=== PATIENT | male | born 1940 | race Caucasian/White ===

== ENCOUNTER 2018-04-13 16:15 | Inpatient (IN) ==
--- NOTE | 2018-04-13 16:39 | ED ---
HPI General Chief Complaint: Neuro Symptoms/Deficit Stated Complaint: Family states sent by /phil stroke Time Seen by Provider: 04/13/18 16:28 Source: patient Mode of arrival: wheelchair Limitations: other (poor historian) History of Present Illness HPI Narrative: 77-year-old male presents from triage after referral from a physician for concern of stroke. Patient states his symptoms been going on for a couple days but when his niece walks in the room she states he gets confused and is only been since 10:30 this morning. She states his right arm Falling and he had a droopy face and slurred speech. She states he has had [place]'s palsy before but not like this. He is not on any blood thinner medications. Patient denies other complaints but is a poor historian. Niece brought him a wheelchair today to get around but he normally ambulates on his own. Related Data Home Medications Medication Instructions Recorded Confirmed aspirin 81 mg PO DAILY 04/13/18 04/13/18 glyburide mg PO BID 04/13/18 metformin mg PO BID 04/13/18 Allergies Allergy/AdvReac Type Severity Reaction Status Date / Time No Known Allergies Allergy Verified 04/13/18 18:34 Review of Systems ROS Unobtainable ROS Unobtainable: other (poor historian) [facility] Medical History Medical History Diabetes (Acute) Hypertension (Acute) Social History Social History Substance History: No History of Abuse Second Hand Smoke Exposure: No Smoking Status: Former smoker How Often Do You Have a Drink Containing Alcohol: Never Recent Travel in [facility] within the Last 8 Weeks: No Recent Out of Country Travel within the Last 8 Weeks: No Exam Narrative Exam Narrative: GENERAL: 77 y/o male in no apparent distress SKIN: Focused skin assessment warm/dry. HEAD: Atraumatic. Normocephalic. EYES: Pupils equal and round. No scleral icterus. No injection or drainage. ENT: No nasal bleeding or discharge. Mucous membranes pink and moist. NECK: Trachea midline. No JVD. CARDIOVASCULAR: Regular rate and rhythm. RESPIRATORY: No accessory muscle use. Clear to auscultation. Breath sounds equal bilaterally. GASTROINTESTINAL: Abdomen soft, non-tender, nondistended. MUSCULOSKELETAL: No obvious deformities. No clubbing. No cyanosis. NEUROLOGICAL: Awake. Slurred speech, left-sided facial droop, 4 out of 5 weakness to right leg Course Initial Documented Vital Signs Pulse Rate 63 04/13/18 16:31 Respiratory Rate 20 04/13/18 16:31 Blood Pressure 177/79 H 04/13/18 16:31 Pulse Oximetry 96 04/13/18 16:31 Last Documented Vital Signs Pulse Rate 54 L 04/13/18 20:21 Respiratory Rate 18 04/13/18 20:21 Blood Pressure 159/87 H 04/13/18 20:21 Pulse Oximetry 96 04/13/18 18:32 Sign Out Sign Out Data: Patient Sign Out occurred on 04/13/18 at 19:09. Patient's care was discussed, and care was transferred from Janee Pedraza MD to Danielle Miramontes MD. Sign Out Comment: follow ct and admit Last updated by Janee Pedraza MD at 04/13/18 18:22 Post-Handoff Eval: The patient's case was checked out to me by Dr. Pedraza. Please see her complete history and physical. The patient's case was checked out to me at the conclusion of her shift. The patient had presented with new neurologic symptoms that reportedly began at approximately 10:30 PM today. During the course of the patient's emergency department visit, the patient's history, examination, and differential diagnosis were reviewed with the patient. The patient was placed on a registered nurse cardiac with oximetry and frequent blood pressure monitoring. The patient had IV access obtained and blood work sent for analysis. The patient was initially provided [-]. The patient's case including history, pertinent physical examination findings, and laboratory studies were discussed with []. It was agreed that the patient would be admitted to the [] hospitalist service. The patient's results were discussed with the patient, including the plan of care. I explained that further testing and/ or monitoring is indicated based on the patient's history, examination, and/ or laboratory findings. Therefore, I recommended admission for additional evaluation. The patient expressed understanding and was agreeable with this plan. The patient was admitted to the hospital in [-] condition and sent to a bed under the care of [-]. NIH Stroke Scale NIH Stroke Scale Level of Consciousness: 0-Alert Orientation Questions: 0-Answers both correct Responds to Commands: 0-Both tasks correct Gaze Eye Movement: 0-Horizontal movement WNL Visual Orantes: 0-No visual field defect Facial Movement: 1-Minor facial palsy Motor Functions Arm LEFT: 0-No drift Motor Functions Arm RIGHT: 0-No drift Motor Functions Leg LEFT: 0-No drift Motor Functions Leg RIGHT: 1-Drift before 5 seconds Limb Ataxia: 0-No ataxia Sensory Loss: 0-No sensory loss Best Language: 1-Mild aphasia Articulation: 1-Mild dysarthia Extinction or Inattention Sensory: 0-Absent Total: 4 Medical Decision Making MDM Narrative Medical decision making narrative: Patient with signs concerning for stroke. Will check workup and he will need admission for further care Medical Screen Exam Complete: Yes Emergency Medical Condition: Yes Differential Diagnosis Differential Diagnosis: Stroke, mass, bleed, TIA Lab Data Result diagrams: 04/13/18 16:30 04/13/18 16:30 Lab Results 04/13/18 04/13/18 04/13/18 Range/Units 16:30 16:30 16:30 WBC 7.7 (4.0-11.0) th/mm3 RBC 4.02 L (4.50-5.90) mil/mm3 Hgb 14.0 (13.0-17.0) gm/dL Hct 40.5 (39.0-51.0) % MCV 100.7 H (80.0-100.0) fL MCH 34.8 H (27.0-34.0) pg MCHC 34.5 (32.0-36.0) % RDW 13.1 (11.6-17.2) % Plt Count 212 (150-450) th/mm3 MPV 8.6 (7.0-11.0) fL Neut % (Auto) 79.6 H (16.0-70.0) % Lymph % (Auto) 12.0 (9.0-44.0) % Hawkins % (Auto) 6.1 (0.0-8.0) % Eos % (Auto) 1.6 (0.0-4.0) % Baso % (Auto) 0.7 (0.0-2.0) % Neut # (Auto) 6.2 (1.8-7.7) th/mm3 Lymph # (Auto) 0.9 L (1.0-4.8) th/mm3 Hawkins # (Auto) 0.5 (0.0-0.9) th/mm3 Eos # (Auto) 0.1 (0.0-0.4) th/mm3 Baso # (Auto) 0.1 (0.0-0.2) th/mm3 WBC Differential . Differential Comment Auto diff final PT 10.4 (9.8-11.6) sec INR 1.0 Ratio APTT 24.0 L (24.3-30.1) sec Sodium 135 L (136-145) meq/L Potassium 3.9 (3.5-5.1) meq/L Chloride 99 (98-107) meq/L Carbon Dioxide 25.9 (21.0-32.0) meq/L Anion Gap 10 (5-15) meq/L BUN 30 H (7-18) mg/dL Creatinine 1.83 H (0.60-1.30) mg/dL Estimated GFR 36 L (>89) mL/min Random Glucose 318 H (74-106) mg/dL Calcium 9.5 (8.5-10.1) mg/dL Total Bilirubin 0.6 (0.2-1.0) mg/dL AST 26 (15-37) U/L ALT 52 (12-78) U/L Alkaline Phosphatase 92 (45-117) U/L Total Creatine Kinase 46 (39-308) U/L Troponin I Less than 0.02 L (0.02-0.05) ng/mL Total Protein 7.9 (6.4-8.2) g/dL Albumin 3.6 (3.4-5.0) g/dL Imaging Data Radiologist's impression: Chest X-Ray 04/13/18 16:31 CONCLUSION: Negative examination. Head CT 04/13/18 16:31 CONCLUSION: 1. No acute intracranial abnormalities. . Discharge Plan Discharge Disposition Patient Disposition: 30 Still Patient Discharge Details Diagnosis: Acute ischemic stroke Physicians Team ED Provider: Danielle Miramontes Primary Care Provider: Travis Lancaster Attending Provider: Radha Wolf Discharge Interventions Interventions: Vital Signs Last Done: 04/13/18 20:21 Status ED Status: Admitted Patient
[2018-04-13 16:59] LABS: Baso # (Auto) 0.1 th/mm3 (0.0-0.2); Baso % (Auto) 0.7 % (0.0-2.0); Eos # (Auto) 0.1 th/mm3 (0.0-0.4); Eos % (Auto) 1.6 % (0.0-4.0); Hematocrit 40.5 % (39.0-51.0); Lymph # (Auto) 0.9 th/mm3 (1.0-4.8); Mean Corpuscular HGB Conc 34.5 % (32.0-36.0); Mean Corpuscular Hemoglobin 34.8 pg (27.0-34.0); Mean Corpuscular Volume 100.7 fL (80.0-100.0); Mean Platelet Volume 8.6 fL (7.0-11.0); Mono # (Auto) 0.5 th/mm3 (0.0-0.9); Mono % (Auto) 6.1 % (0.0-8.0); Neut # (Auto) 6.2 th/mm3 (1.8-7.7); Neut % (Auto) 79.6 % (16.0-70.0); Platelet Count 212 th/mm3 (150-450); Red Blood Count 4.02 mil/mm3 (4.50-5.90); Red Cell Distribution Width 13.1 % (11.6-17.2); White Blood Count 7.7 th/mm3 (4.0-11.0)
--- NOTE | 2018-04-13 17:01 | XR ---
EXAM DATE: 04/13/2018 4:31 PM EDT AGE/SEX: 77 years / Male INDICATIONS: Palpitations. Possible stroke. CLINICAL DATA: This is the patient's initial encounter. Patient reports that signs and symptoms have been present for 1 day and indicates a pain score of 0/10. MEDICAL/SURGICAL HISTORY: . No pertinent history. . No pertinent history. COMPARISON: No prior exams available for comparison. FINDINGS: A single AP view of the chest demonstrates the lungs to be symmetrically aerated without evidence of mass, infiltrate or effusion. The cardiomediastinal contours are unremarkable. Osseous structures a re intact. CONCLUSION: Negative examination. Electronically signed by: Ray Roberts MD 04/13/2018 4:59 PM EDT
[2018-04-13 17:08] LABS: Prothrombin Time 10.4 sec (9.8-11.6)
[2018-04-13 17:14] LABS: Albumin 3.6 g/dL (3.4-5.0); Anion Gap 10 meq/L (5-15); Aspartate Aminotransferase 26 U/L (15-37); Blood Urea Nitrogen 30 mg/dL (7-18); Calcium 9.5 mg/dL (8.5-10.1); Carbon Dioxide 25.9 meq/L (21.0-32.0); Chloride 99 meq/L (98-107); Glomerular Filtration Rate 36 mL/min (>89); Glucose,Random 318 mg/dL (74-106); Potassium 3.9 meq/L (3.5-5.1); Sodium 135 meq/L (136-145)
[2018-04-13 17:23] LABS: Alanine Aminotransferase 52 U/L (12-78); Alkaline Phosphatase 92 U/L (45-117); Total Protein 7.9 g/dL (6.4-8.2)
[2018-04-13 17:32] LABS: Creatine Kinase 46 U/L (39-308)
--- NOTE | 2018-04-13 19:13 | CT ---
EXAM DATE: 04/13/2018 4:58 PM EDT AGE/SEX: 77 years / Male INDICATIONS: Right sided facial droop. CLINICAL DATA: This is the patient's initial encounter. Patient reports that signs and symptoms have been present for 1 day and indicates a pain score of 0/10. MEDICAL/SURGICAL HISTORY: Diabetes. Hypertension. None. RADIATION DOSE: 45.54 CTDI (mGy) COMPARISON: No prior exams available for comparison. TECHNIQUE: CT of the head without contrast. Using automated exposure control and adjustment of the mA and/or kV according to patient size, radiation dose was kept as low as reasonably achievable to ob tain optimal diagnostic quality images. DICOM format image data is available electronically for revi ew and comparison. FINDINGS: Cerebrum: The ventricles are normal for age. No evidence of midline shift, mass lesion, hemorrhage or acute infarction. No extraaxial fluid collections are seen. Posterior Fossa: The cerebellum and brainstem are intact. The 4th ventricle is midline. The cerebe llopontine angle is unremarkable. Extracranial: The visualized portion of the orbits is intact. Skull: The calvaria is intact. No evidence of skull fracture. CONCLUSION: 1. No acute intracranial abnormalities. . Electronically signed by: Ian Diez MD 04/13/2018 7:11 PM EDT
[2018-04-13] MEDS ORDERED: Aspirin 325 MG Tablet PO ONE (19:29)
[2018-04-13] MEDS: Sod Chloride 0.9% Inj 1,000 ML IV.CONT SCH (21:10)
[2018-04-13] MEDS ORDERED: Dextrose 50% in Water 50 ML Vial IV.PUSH PRN (21:16)
--- NOTE | 2018-04-13 21:27 | P.HP ---
History of Present Illness Service: [facility] Primary Care Physician: Travis Lancaster DO History of Present Illness: 77-year-old male with a past medical history significant for diabetes mellitus presents to the emergency department for the evaluation of altered mental status , right upper extremity weakness, slurred speech and confusion. The patient denies having any of these symptoms however he was brought to the hospital by his niece who went to check on him this morning and noticed that he was unsteady on his feet. She reports he began having slurred speech around 10:30 AM. She believes this was secondary to his blood sugar and had him eat. His symptoms did not resolve. She noticed that his right upper extremity had significant weakness and he was not using it. She also reports a right-sided facial droop and drooling. His symptoms have since resolved. He denies any headaches. No chest pain or shortness of breath. No abdominal pain. No nausea /vomiting/diarrhea. Review of Systems All other systems reviewed negative except as stated in HPI [facility] - History History Provided By: Patient - Medical History Medical History: Medical History (Last Reviewed 04/13/18 @ 21:22 by Radha Wolf MD) Diabetes Hypertension - Surgical History Surgical History: Surgical History (Last Updated 04/13/18 @ 21:22 by Radha Wolf MD) No history of previous surgery - Family History Family History: Family History (Last Updated 04/13/18 @ 21:22 by Radha Wolf MD) Other Diabetes mellitus - Tobacco History Second Hand Smoke Exposure: No Smoking Status: Former smoker - Alcohol History How Often Do You Have a Drink Containing Alcohol: Never - Substance Use History Substance History: No History of Abuse - Travel History Recent Travel in the [place] Within the Last 8 Weeks: No Recent Travel Out of the Country Within the Last 8 Weeks: No - Immunization History Tetanus Immunization: Unsure Medications and Allergies Active Medications: Active Medications Aspirin (Aspirin) 325 mg PO DAILY [facility] Dextrose (D50w Vial) 50 ml IV.PUSH UNSCH PRN PRN Reason: PER HYPOGLYCEMIA PROTOCOL Glucagon (Glucagon Inj) 1 mg OTHER PRN PRN PRN Reason: for Hypoglycemia Protocol Sodium Chloride (Ns Inj) 1,000 mls @ 70 mls/hr IV.CONT .[id number] DEBORA Last Admin: 04/13/18 21:10 Dose: 70 mls/hr Insulin Aspart (Novolog Insulin Correctional Sugar Inj) 0 unit SQ ACHS AND 3AM DEBORA; Protocol Sodium Chloride (Ns Flush) 2 ml IV.FLUSH PRN PRN PRN Reason: FLUSH AFTER USING IV ACCESS Allergies Allergy/AdvReac Type Severity Reaction Status Date / Time No Known Allergies Allergy Verified 04/13/18 18:34 Home Medications Medication Instructions Recorded Confirmed Type aspirin 81 mg PO DAILY 04/13/18 04/13/18 History glyburide mg PO BID 04/13/18 History metformin mg PO BID 04/13/18 History Exam Vital signs: Vital Signs 04/13/18 16:31 04/13/18 18:32 04/13/18 20:21 Pulse Rate 63 56 L 54 L Respiratory Rate 20 20 18 Blood Pressure 177/79 H 199/98 H 159/87 H Pulse Oximetry 96 96 04/13/18 21:00 Pulse Rate 60 Respiratory Rate 18 Blood Pressure 184/80 H Pulse Oximetry Intake & Output 04/13/18 04/13/18 04/14/18 06:59 18:59 06:59 Weight 85.275 kg Narrative: Gen.: No acute distress Head: Normocephalic. Atraumatic. EENT: Pupils equal round and reactive to light. Nose without drainage. Airway intact. Throat without injection. Cardiovascular: Regular rate and rhythm. No murmurs, rubs or gallops. Respiratory: Lungs clear to auscultation bilaterally. No wheezes or rhonchi. Abdomen: Soft, nontender, nondistended. No peritoneal signs. Musculoskeletal: No gross deformities. No edema. Skin: No obvious rashes or erythema. Neuro: Cranial nerves II through XII intact. Strength 5/5 throughout. A&O x3. No slurred speech. Slow to respond to questions. Results - Labs CBC & Chem 7: 04/13/18 16:30 04/13/18 16:30 Labs: Laboratory Results - last 24 hr 04/13/18 04/13/18 04/13/18 16:30 16:30 16:30 WBC 7.7 RBC 4.02 L Hgb 14.0 Hct 40.5 MCV 100.7 H MCH 34.8 H MCHC 34.5 RDW 13.1 Plt Count 212 MPV 8.6 Neut % (Auto) 79.6 H Lymph % (Auto) 12.0 Mcculloch % (Auto) 6.1 Eos % (Auto) 1.6 Baso % (Auto) 0.7 Neut # (Auto) 6.2 Lymph # (Auto) 0.9 L Mcculloch # (Auto) 0.5 Eos # (Auto) 0.1 Baso # (Auto) 0.1 WBC Differential . Differential Comment Auto diff final PT 10.4 INR 1.0 APTT 24.0 L Sodium 135 L Potassium 3.9 Chloride 99 Carbon Dioxide 25.9 Anion Gap 10 BUN 30 H Creatinine 1.83 H Estimated GFR 36 L Random Glucose 318 H Calcium 9.5 Total Bilirubin 0.6 AST 26 ALT 52 Alkaline Phosphatase 92 Total Creatine Kinase 46 Troponin I Less than 0.02 L Total Protein 7.9 Albumin 3.6 - Imaging Impressions Chest X-Ray 04/13/18 16:31 CONCLUSION: Negative examination. Head CT 04/13/18 16:31 CONCLUSION: 1. No acute intracranial abnormalities. . Caprini VTE Risk Assessment Caprini VTE Risk Assessment: Moderate/High Risk (score >= 2) Caprini Risk Assessment Model: Point Value = 1 Point Value = 2 Point Value = 3 Point Value = 5 Age 41-60 Minor surgery BMI > 25 kg/m2 Swollen legs Varicose veins or History of unexplained or recurrent spontaneous Oral contraceptives or hormone replacement Sepsis (< 1 month) Serious lung disease, including pneumonia (< 1 month) Abnormal pulmonary function Acute myocardial infarction Congestive heart failure (< 1 month) History of inflammatory bowel disease Medical patient at bed rest Age 61-74 Arthroscopic surgery Major open surgery (> 45 min) Laparoscopic surgery (> 45 min) Malignancy Confined to bed (> 72 hours) Immobilizing plaster cast Central venous access Age >= 75 History of VTE Family history of VTE Factor V Leiden Prothrombin [id number] Lupus anticoagulant Anticardiolipin antibodies Elevated serum homocysteine Heparin-induced thrombocytopenia Other congenital or acquired thrombophilia Stroke (< 1 month) Elective arthroplasty Hip, pelvis, or leg fracture Acute spinal cord injury (< 1 month) Prophylaxis Regimen: Total Risk Factor Score Risk Level Prophylaxis Regimen 0-1 Low Early ambulation 2 Moderate Order ONE of the following: *Sequential Compression Device (SCD) *Heparin 5000 units SQ BID 3-4 Higher Order ONE of the following medications: *Heparin 5000 units SQ TID *Enoxaparin/Lovenox 40 mg SQ daily (WT < 150 kg, CrCl > 30 mL/min) *Enoxaparin/Lovenox 30 mg SQ daily (WT < 150 kg, CrCl > 10-29 mL/min) *Enoxaparin/Lovenox 30 mg SQ BID (WT < 150 kg, CrCl > 30 mL/min) AND/OR *Sequential Compression Device (SCD) 5 or more Highest Order ONE of the following medications: *Heparin 5000 units SQ TID (Preferred with Epidurals) *Enoxaparin/Lovenox 40 mg SQ daily (WT < 150 kg, CrCl > 30 mL/min) *Enoxaparin/Lovenox 30 mg SQ daily (WT < 150 kg, CrCl > 10-29 mL/min) *Enoxaparin/Lovenox 30 mg SQ BID (WT < 150 kg, CrCl > 30 mL/min) AND *Sequential Compression Device (SCD) Assessment and Plan - Plan Assessment/plan: 1. TIA Head CT negative for acute process Brain MRI/MRA pending, carotid ultrasound/echo pending Neurology consulted, appreciate assistance Aspirin 2. Diabetes mellitus Holding home glyburide and metformin Sliding-scale insulin Monitor blood glucose 3. AK I Creatinine 1.83, baseline unknown May be chronic component IV fluid hydration Monitor renal function FEN N.p.o. Electrolytes: Monitor and replete as needed NS at 70 cc/hour
[2018-04-13 22:32] LABS: Bilirubin,Urine Negative (Negative); Clarity,Urine Clear (Clear); Color,Urine Yellow (Yellw/Straw); Glucose,Urine (UA) 150 mg/dL (Negative); Hyaline Casts,Urine 12 /lpf (0-3); Leukocyte Esterase,Urine Negative (Negative); Mucus,Urine Few /lpf (Occasional); Nitrite,Urine Negative (Negative); Specific Gravity,Urine 1.023 (1.002-1.035); Urobilinogen,Urine 4 or Greater mg/dL (Less than 2)
--- NOTE | 2018-04-13 22:44 | MR ---
EXAM DATE: 04/13/2018 9:23 PM EDT AGE/SEX: 77 years / Male INDICATIONS: TIA. Loss of memory starting today. CLINICAL DATA: This is the patient's initial encounter. Patient reports that signs and symptoms have been present for 1 day and indicates a pain score of 2/10. MEDICAL/SURGICAL HISTORY: Hypertension. Diabetes mellitus type II. None. COMPARISON: [facility], MR BRAIN W/O CONTRAST, 04/02/2016. . TECHNIQUE: Multiplanar, multisequence examination of the brain was performed without contrast. FINDINGS: There are small infarcts the left basal ganglia measuring just over 1 cm in diameter in the left thal amus and globus pallidus. No associated hemorrhage is identified. No significant mass effect or shift . No hydrocephalus. Mild white matter ischemic changes CONCLUSION: 1. Multiple small infarcts in the left basal ganglia. Mild chronic white matter ischemic changes. Electronically signed by: Ian Diez MD 04/13/2018 10:43 PM EDT
--- NOTE | 2018-04-13 22:49 | MR ---
EXAM DATE: 04/13/2018 9:23 PM EDT AGE/SEX: 77 years / Male INDICATIONS: TIA. Loss of memory starting today. CLINICAL DATA: This is the patient's initial encounter. Patient reports that signs and symptoms have been present for 1 day and indicates a pain score of 2/10. MEDICAL/SURGICAL HISTORY: Hypertension. Diabetes mellitus type II. None. COMPARISON: No prior exams available for comparison. TECHNIQUE: 3D [id number] MRA was performed. Source images, multiplanar STS MIP, and 3D volum e MIP reconstructions were reviewed. FINDINGS: There is a mild stenosis of the posterior branch of the right MCA. No discrete aneurysm. No other sig nificant stenosis identified. The distal internal carotid arteries and basilar artery are patent. CONCLUSION: 1. Mild stenosis right posterior branch MCA. No discrete aneurysm. Electronically signed by: Ian Diez MD 04/13/2018 10:47 PM EDT
--- NOTE | 2018-04-13 22:56 | US ---
EXAM DATE: 04/13/2018 12:00 AM EDT AGE/SEX: 77 years / Male INDICATIONS: Transient ischemic attack. CLINICAL DATA: This is the patient's initial encounter. Patient reports that signs and symptoms have been present for 1 day and indicates a pain score of 0/10. MEDICAL/SURGICAL HISTORY: Hypertension. Diabetes. None. COMPARISON: [facility], US CAROTID ARTERIES, 03/18/2016. . VELOCITY PARAMETERS: ICA/CCA Ratio: Right 1.18 , Left 1.38 ICA: Right 72 cm/sec, Left 101 cm/sec CCA: Right 61 cm/sec, Left 73 cm/sec ECA: Right 192 cm/sec, Left 237 cm/sec Vertebral: Right 79 cm/sec antegrade, Left 45 cm/sec antegrade FINDINGS: Right Carotid: Mild arteriosclerotic plaque is visualized.The waveforms are within normal limits. Left Carotid: Mild arteriosclerotic plaque is visualized. The waveforms are within normal limits. Other: None. CONCLUSION: 1. Right Internal Carotid Artery: Mild to moderate visible plaque without significant stenosis. 2. Left Internal Carotid Artery: Mild to moderate visible plaque without significant stenosis. Electronically signed by: Ian Diez MD 04/13/2018 10:55 PM EDT
[2018-04-14] MEDS: Insulin NovoLOG Aspart Correctional Sugar Inj SQ SCH ×5 (04:21→22:19)
--- NOTE | 2018-04-14 08:14 | P.CONNEU ---
History of Present Illness Service: Neurology Primary Care Provider: Travis Lancaster DO Chief Complaint: Stroke History of Present Illness: 77-year-old gentleman admitted for stroke evaluation. Onset time unknown. Patient noted apparently by niece her primary care physician to be confused having some right-sided weakness. Patient states he has no children no has a sister lives in [place]. Denies any previous history of stroke unable to give the name of his medications. Denies any headache chest pain or dyspnea. denies any history A. fib. Review of Systems All other systems reviewed negative except as stated in HPI PMFSH - History History Provided By: Patient - Medical History Medical History: Medical History (Last Reviewed 04/14/18 @ 06:47 by Tyler Gardiner) Diabetes Hypertension - Surgical History Surgical History: Surgical History (Last Reviewed 04/14/18 @ 06:47 by Tyler Gardiner) No history of previous surgery - Family History Family History: Family History (Last Updated 04/13/18 @ 21:22 by Radha Wolf MD) Other Diabetes mellitus - Tobacco History Second Hand Smoke Exposure: No Smoking Status: Former smoker - Alcohol History How Often Do You Have a Drink Containing Alcohol: Never - Substance Use History Substance History: No History of Abuse - Travel History Recent Travel in the [place] Within the Last 8 Weeks: No Recent Travel Out of the Country Within the Last 8 Weeks: No - Immunization History Tetanus Immunization: Unsure Medications and Allergies Active Medications: Active Medications Aspirin (Aspirin) 325 mg PO DAILY [facility] Dextrose (D50w Vial) 50 ml IV.PUSH UNSCH PRN PRN Reason: PER HYPOGLYCEMIA PROTOCOL Glucagon (Glucagon Inj) 1 mg OTHER PRN PRN PRN Reason: for Hypoglycemia Protocol Sodium Chloride (Ns Inj) 1,000 mls @ 70 mls/hr IV.CONT .[id number] [facility] Last Admin: 04/13/18 21:10 Dose: 70 mls/hr Insulin Aspart (Novolog Insulin Correctional Sugar Inj) 0 unit SQ ACHS AND 3AM [facility]; Protocol Last Admin: 04/14/18 04:21 Dose: Not Given Sodium Chloride (Ns Flush) 2 ml IV.FLUSH PRN PRN PRN Reason: FLUSH AFTER USING IV ACCESS Allergies Allergy/AdvReac Type Severity Reaction Status Date / Time No Known Allergies Allergy Verified 04/13/18 18:34 Home Medications Medication Instructions Recorded Confirmed Type aspirin 81 mg PO DAILY 04/13/18 04/13/18 History glyburide mg PO BID 04/13/18 History metformin mg PO BID 04/13/18 History Exam Vital signs: Vital Signs 04/13/18 16:31 04/13/18 18:32 04/13/18 20:21 Temperature Pulse Rate 63 56 L 54 L Respiratory Rate 20 20 18 Blood Pressure 177/79 H 199/98 H 159/87 H Pulse Oximetry 96 96 04/13/18 21:00 04/13/18 21:10 04/14/18 00:00 Temperature 97.1 F L Pulse Rate 60 56 L 51 L Respiratory Rate 18 18 18 Blood Pressure 184/80 H 184/80 H 227/98 H Pulse Oximetry 96 04/14/18 01:10 04/14/18 04:00 Temperature 97.7 F Pulse Rate 53 L Respiratory Rate 19 Blood Pressure 182/82 H 197/88 H Pulse Oximetry 99 Intake & Output 04/13/18 04/14/18 04/14/18 18:59 06:59 18:59 Output Total 400 / 400 Balance -400 / -400 Weight 85.275 kg 81.8 kg Output: Urine 400 / 400 Other: # Voids 1 Weight On Admission 81.8 kg Narrative: GENERAL: in NAD, SKIN: Warm and dry. HEAD: Atraumatic. Normocephalic. EYES: Pupils equal and round. No scleral icterus. ENT: No nasal bleeding or discharge. Mucous membranes pink and moist. NECK: Trachea midline. No JVD. CARDIOVASCULAR: Regular rate and rhythm. RESPIRATORY: No accessory muscle use. GASTROINTESTINAL: Abdomen soft, non-tender, nondistended. MUSCULOSKELETAL: Extremities without clubbing, cyanosis, or edema. No obvious deformities. NEUROLOGICAL: Awake and alert. Oriented 1-2, no aphasia, fluent articulate, right lower facial weakness, OU 3-2mm, eomi, VFF, No drift with mild reduced right fine finger movements,, Motor grossly within normal limits. . Tone normal in all 4 limbs, Sensory normal in all 4 extremities to pin, msr 1-2+ sym , no clonus, planterflexor, gait not assessed secondary to fall risk PSYCHIATRIC: Appropriate mood and affect; insight and judgment normal. - Constitutional no acute distress - Routine HEENT Exam Head: Present: normocephalic Eye: Present: EOMI Results - Labs CBC & Chem 7: 04/13/18 16:30 04/13/18 16:30 Labs: Laboratory Results - last 24 hr 04/13/18 04/13/18 04/13/18 16:30 16:30 16:30 WBC 7.7 RBC 4.02 L Hgb 14.0 Hct 40.5 MCV 100.7 H MCH 34.8 H MCHC 34.5 RDW 13.1 Plt Count 212 MPV 8.6 Neut % (Auto) 79.6 H Lymph % (Auto) 12.0 [place] % (Auto) 6.1 Eos % (Auto) 1.6 Baso % (Auto) 0.7 Neut # (Auto) 6.2 Lymph # (Auto) 0.9 L [place] # (Auto) 0.5 Eos # (Auto) 0.1 Baso # (Auto) 0.1 WBC Differential . Differential Comment Auto diff final PT 10.4 INR 1.0 APTT 24.0 L Sodium 135 L Potassium 3.9 Chloride 99 Carbon Dioxide 25.9 Anion Gap 10 BUN 30 H Creatinine 1.83 H Estimated GFR 36 L POC Glucose Random Glucose 318 H Calcium 9.5 Total Bilirubin 0.6 AST 26 ALT 52 Alkaline Phosphatase 92 Total Creatine Kinase 46 Troponin I Less than 0.02 L Total Protein 7.9 Albumin 3.6 Urine Color Urine Clarity Urine pH Ur Specific [place] Urine Protein Urine Glucose (UA) Urine Ketones Urine Occult Blood Urine Nitrate Urine Bilirubin Urine Urobilinogen Ur Leukocyte Esterase Urine RBC Urine WBC Hyaline Casts Urine Mucus Micro UA Comment Ur Microscopic Review Urine Culture Comments 04/13/18 04/14/18 04/14/18 21:52 00:26 07:29 WBC RBC Hgb Hct MCV MCH MCHC RDW Plt Count MPV Neut % (Auto) Lymph % (Auto) [place] % (Auto) Eos % (Auto) Baso % (Auto) Neut # (Auto) Lymph # (Auto) [place] # (Auto) Eos # (Auto) Baso # (Auto) WBC Differential Differential Comment PT INR APTT Sodium Potassium Chloride Carbon Dioxide Anion Gap BUN Creatinine Estimated GFR POC Glucose 121 H 107 Random Glucose Calcium Total Bilirubin AST ALT Alkaline Phosphatase Total Creatine Kinase Troponin I Total Protein Albumin Urine Color Yellow Urine Clarity Clear Urine pH 5.0 Ur Specific [place] 1.023 Urine Protein 100 H Urine Glucose (UA) 150 H Urine Ketones Negative Urine Occult Blood Negative Urine Nitrate Negative Urine Bilirubin Negative Urine Urobilinogen 4 or greater Ur Leukocyte Esterase Negative Urine RBC 1 Urine WBC Less than 1 Hyaline Casts 12 Urine Mucus Few H Micro UA Comment Culture not ind Ur Microscopic Review Not Reportable Urine Culture Comments Culture not ind - Imaging Impressions Carotid Doppler Study 04/13/18 00:00 CONCLUSION: 1. Right Internal Carotid Artery: Mild to moderate visible plaque without significant stenosis. 2. Left Internal Carotid Artery: Mild to moderate visible plaque without significant stenosis. Head MRI 04/13/18 00:00 CONCLUSION: 1. Multiple small infarcts in the left basal ganglia. Mild chronic white matter ischemic changes. Head MRA 04/13/18 00:00 CONCLUSION: 1. Mild stenosis right posterior branch MCA. No discrete aneurysm. Chest X-Ray 04/13/18 16:31 CONCLUSION: Negative examination. Head CT 04/13/18 16:31 CONCLUSION: 1. No acute intracranial abnormalities. . Review/Management - Diagnosis (1) Acute ischemic left MCA stroke Code(s): I63.512 - Cerebral infarction due to unspecified occlusion or stenosis of left middle cerebral artery Status: Acute Current Visit: Yes (2) Hypertension Code(s): I10 - Essential (primary) hypertension Status: Acute Current Visit : Yes - Review/Management Plan: 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 Likely related to chronic small vessel disease secondary to chronic hypertension No significant vaso-occlusive disease in the carotid arteries with some mild stenosis in the right MCA which is not the culprit artery Stroke appears to have affected cognition hopefully will improve over time; monitor for development of vascular cognitive impairment Severely elevated blood pressure on arrival. Recommendations Aspirin, Plavix Blood pressure less than 200/100 Echo Lipid, TSH, B12, HbA1c Therapy Telemetry SCDs No driving may require home health care nursing visits supervision Behavioral modification and risk factor reduction. Weight loss, blood pressure control, blood sugar control, lipid control. Exercise
[2018-04-14 09:10] LABS: Baso # (Auto) 0.1 th/mm3 (0.0-0.2); Eos # (Auto) 0.3 th/mm3 (0.0-0.4); Eos % (Auto) 4.1 % (0.0-4.0); Hemoglobin 13.2 gm/dL (13.0-17.0); Lymph # (Auto) 1.4 th/mm3 (1.0-4.8); Lymph % (Auto) 19.5 % (9.0-44.0); Mean Corpuscular HGB Conc 35.6 % (32.0-36.0); Mean Corpuscular Volume 98.3 fL (80.0-100.0); Mean Platelet Volume 8.6 fL (7.0-11.0); Mono # (Auto) 0.6 th/mm3 (0.0-0.9); Mono % (Auto) 7.9 % (0.0-8.0); Neut # (Auto) 4.8 th/mm3 (1.8-7.7); Neut % (Auto) 67.5 % (16.0-70.0); Platelet Count 175 th/mm3 (150-450); Red Blood Count 3.76 mil/mm3 (4.50-5.90); Red Cell Distribution Width 12.8 % (11.6-17.2)
[2018-04-14 09:41] LABS: Calcium 9.1 mg/dL (8.5-10.1); Carbon Dioxide 27.8 meq/L (21.0-32.0)
[2018-04-14 09:44] LABS: Chol/HDL Ratio 6.06 Ratio; HDL Cholesterol 36.6 mg/dL (40.0-60.0)
[2018-04-14] MEDS: Aspirin 325 MG Tablet PO SCH (10:10)
--- NOTE | 2018-04-14 11:29 | P.PNIM ---
Subjective Interval history: The patient was resting in bed. His niece was at the bedside. His niece states that he always has some baseline confusion. The patient denied any symptoms. He was looking forward to going home soon. Discussed with nursing at the bedside. Physical Exam Vital signs: Vital Signs 04/13/18 16:31 04/13/18 18:32 04/13/18 20:21 Temperature Pulse Rate 63 56 L 54 L Respiratory Rate 20 20 18 Blood Pressure 177/79 H 199/98 H 159/87 H Pulse Oximetry 96 96 04/13/18 21:00 04/13/18 21:10 04/14/18 00:00 Temperature 97.1 F L Pulse Rate 60 56 L 51 L Respiratory Rate 18 18 18 Blood Pressure 184/80 H 184/80 H 227/98 H Pulse Oximetry 96 04/14/18 01:10 04/14/18 04:00 04/14/18 08:00 Temperature 97.7 F Pulse Rate 53 L 47 L Respiratory Rate 19 18 Blood Pressure 182/82 H 197/88 H Pulse Oximetry 99 04/14/18 08:35 Temperature Pulse Rate Respiratory Rate Blood Pressure 190/76 H Pulse Oximetry Intake & Output 04/13/18 04/14/18 04/14/18 18:59 06:59 18:59 Output Total 400 / 400 Balance -400 / -400 Weight 85.275 kg 81.8 kg Output: Urine 400 / 400 Other: # Voids 2 1 Weight On Admission 81.8 kg Narrative: GENERAL: in NAD, SKIN: Warm and dry. HEAD: Atraumatic. Normocephalic. EYES: Pupils equal and round. No scleral icterus. ENT: No nasal bleeding or discharge. Mucous membranes pink and moist. NECK: Trachea midline. No JVD. CARDIOVASCULAR: Regular rate and rhythm. RESPIRATORY: No accessory muscle use. CTAB. GASTROINTESTINAL: Abdomen soft, non-tender, nondistended. MUSCULOSKELETAL: Extremities without clubbing, cyanosis, or edema. No obvious deformities. NEUROLOGICAL: Awake and alert. Motor grossly within normal limits. digital experience manager grossly intact. Results - Labs CBC & Chem 7: 04/14/18 07:03 04/14/18 07:03 Laboratory Results - last 24 hr 04/13/18 04/13/18 04/13/18 16:30 16:30 16:30 WBC 7.7 RBC 4.02 L Hgb 14.0 Hct 40.5 MCV 100.7 H MCH 34.8 H MCHC 34.5 RDW 13.1 Plt Count 212 MPV 8.6 Neut % (Auto) 79.6 H Lymph % (Auto) 12.0 [place] % (Auto) 6.1 Eos % (Auto) 1.6 Baso % (Auto) 0.7 Neut # (Auto) 6.2 Lymph # (Auto) 0.9 L [place] # (Auto) 0.5 Eos # (Auto) 0.1 Baso # (Auto) 0.1 WBC Differential . Differential Comment Auto diff final PT 10.4 INR 1.0 APTT 24.0 L Sodium 135 L Potassium 3.9 Chloride 99 Carbon Dioxide 25.9 Anion Gap 10 BUN 30 H Creatinine 1.83 H Estimated GFR 36 L POC Glucose Random Glucose 318 H Calcium 9.5 Total Bilirubin 0.6 AST 26 ALT 52 Alkaline Phosphatase 92 Total Creatine Kinase 46 Troponin I Less than 0.02 L Total Protein 7.9 Albumin 3.6 Triglycerides Cholesterol LDL Cholesterol, Calc HDL Cholesterol Cholesterol/HDL Ratio Vitamin B12 Urine Color Urine Clarity Urine pH Ur Specific [place] Urine Protein Urine Glucose (UA) Urine Ketones Urine Occult Blood Urine Nitrate Urine Bilirubin Urine Urobilinogen Ur Leukocyte Esterase Urine RBC Urine WBC Hyaline Casts Urine Mucus Micro UA Comment Ur Microscopic Review Urine Culture Comments 04/13/18 04/14/18 04/14/18 21:52 00:26 07:03 WBC 7.0 RBC 3.76 L Hgb 13.2 Hct 37.0 L MCV 98.3 MCH 35.0 H MCHC 35.6 RDW 12.8 Plt Count 175 MPV 8.6 Neut % (Auto) 67.5 Lymph % (Auto) 19.5 [place] % (Auto) 7.9 Eos % (Auto) 4.1 H Baso % (Auto) 1.0 Neut # (Auto) 4.8 Lymph # (Auto) 1.4 [place] # (Auto) 0.6 Eos # (Auto) 0.3 Baso # (Auto) 0.1 WBC Differential . Differential Comment Auto diff final PT INR APTT Sodium Potassium Chloride Carbon Dioxide Anion Gap BUN Creatinine Estimated GFR POC Glucose 121 H Random Glucose Calcium Total Bilirubin AST ALT Alkaline Phosphatase Total Creatine Kinase Troponin I Total Protein Albumin Triglycerides Cholesterol LDL Cholesterol, Calc HDL Cholesterol Cholesterol/HDL Ratio Vitamin B12 Urine Color Yellow Urine Clarity Clear Urine pH 5.0 Ur Specific [place] 1.023 Urine Protein 100 H Urine Glucose (UA) 150 H Urine Ketones Negative Urine Occult Blood Negative Urine Nitrate Negative Urine Bilirubin Negative Urine Urobilinogen 4 or greater Ur Leukocyte Esterase Negative Urine RBC 1 Urine WBC Less than 1 Hyaline Casts 12 Urine Mucus Few H Micro UA Comment Culture not ind Ur Microscopic Review Not Reportable Urine Culture Comments Culture not ind 04/14/18 04/14/18 04/14/18 07:03 07:03 07:29 WBC RBC Hgb Hct MCV MCH MCHC RDW Plt Count MPV Neut % (Auto) Lymph % (Auto) [place] % (Auto) Eos % (Auto) Baso % (Auto) Neut # (Auto) Lymph # (Auto) [place] # (Auto) Eos # (Auto) Baso # (Auto) WBC Differential Differential Comment PT INR APTT Sodium 142 Potassium 3.0 L D Chloride 105 Carbon Dioxide 27.8 Anion Gap 9 BUN 25 H Creatinine 1.25 Estimated GFR 56 L POC Glucose 107 Random Glucose 82 D Calcium 9.1 Total Bilirubin AST ALT Alkaline Phosphatase Total Creatine Kinase Troponin I Total Protein Albumin Triglycerides 143 Cholesterol 222 H LDL Cholesterol, Calc 157 H HDL Cholesterol 36.6 L Cholesterol/HDL Ratio 6.06 Vitamin B12 576 Urine Color Urine Clarity Urine pH Ur Specific [place] Urine Protein Urine Glucose (UA) Urine Ketones Urine Occult Blood Urine Nitrate Urine Bilirubin Urine Urobilinogen Ur Leukocyte Esterase Urine RBC Urine WBC Hyaline Casts Urine Mucus Micro UA Comment Ur Microscopic Review Urine Culture Comments - Imaging Impressions Carotid Doppler Study 04/13/18 00:00 CONCLUSION: 1. Right Internal Carotid Artery: Mild to moderate visible plaque without significant stenosis. 2. Left Internal Carotid Artery: Mild to moderate visible plaque without significant stenosis. Head MRI 04/13/18 00:00 CONCLUSION: 1. Multiple small infarcts in the left basal ganglia. Mild chronic white matter ischemic changes. Head MRA 04/13/18 00:00 CONCLUSION: 1. Mild stenosis right posterior branch MCA. No discrete aneurysm. Chest X-Ray 04/13/18 16:31 CONCLUSION: Negative examination. Head CT 04/13/18 16:31 CONCLUSION: 1. No acute intracranial abnormalities. . Assessment and Plan - Plan Acute CVA Head CT negative for acute process. MRI with left basal ganglia infarcts. Neurology consult appreciated. Carotid US without significant disease. -echo pending. -ASA and Plavix per neurology. -start a statin for elevated LDL. -A1c pending. -PT/OT/ST. Bradycardia HR in the 40s. -check an EKG. -telemetry. -echo. Diabetes mellitus A1c is pending. -Holding home glyburide and metformin. -Sliding-scale insulin. -Monitor blood glucose. AK I Creatinine 1.83, improved with fluids. -Monitor renal function. Hypokalemia KCl ordered. -BMP in AM. PPx: Heparin Discharge Planning: Await echo, neuro clearance. Anticipate home health
[2018-04-14] MEDS: Sod Chloride 0.9% Inj 1,000 ML IV.CONT SCH (11:44)
--- NOTE | 2018-04-14 12:47 | ECHRPT ---
Indication: CVA/TIA CONCLUSIONS The left ventricular systolic function is normal with an estimated ejection fraction in the range of 55-60%. Normal left ventricular size. Wall thickness is normal. No regional wall motion abnormalities are present. Aortic valve sclerosis is present. The pulmonary valve is not well visualized. BP: / HR: Rhythm: Sinus MEASUREMENTS (Male / Female) Normal Values Technical Quality:Fair 2D ECHO LV Diastolic Diameter PLAX 4.1 cm 4.2 - 5.9 / 3.9 - 5.3 cm LV Systolic Diameter PLAX 3.0 cm IVS Diastolic Thickness 1.0 cm 0.6 - 1.0 / 0.6 - 0.9 cm LVPW Diastolic Thickness 1.1 cm 0.6 - 1.0 / 0.6 - 0.9 cm LV Relative Wall Thickness 0.5 LVOT Diameter 2.0 cm LA Systolic Diameter LX 3.3 cm 3.0 - 4.0 / 2.7 - 3.8 cm LV Ejection Fraction MOD 4C 60.7 % LV Ejection Fraction 4C AL 60.7 % M-MODE Aortic Root Diameter MM 2.3 cm LA Systolic Diameter MM 2.9 cm LA Ao Ratio MM 1.3 AV Cusp Separation MM 1.9 cm DOPPLER AV Peak Velocity 122.0 cm/s AV Peak Gradient 6.0 mmHg LVOT Peak Velocity 88.8 cm/s LVOT Peak Gradient 3.2 mmHg AV Area Cont Eq pk 2.3 cm MV Area PHT 2.1 cm Mitral E Point Velocity 59.7 cm/s Mitral A Point Velocity 84.4 cm/s Mitral E to A Ratio 0.7 LV E' Lateral Velocity 6.9 cm/s Mitral E to LV E' Lateral Ratio 8.6 LV E' Septal Velocity 5.4 cm/s Mitral E to LV E' Septal Ratio 11.1 FINDINGS LEFT VENTRICLE The left ventricular systolic function is normal with an estimated ejection fraction in the range of 55-60%. Normal left ventricular size. Wall thickness is normal. No regional wall motion abnormalities are present. RIGHT VENTRICLE Normal right ventricular size and systolic function. LEFT ATRIUM The left atrial size is normal. RIGHT ATRIUM The right atrial size is normal. ATRIAL SEPTUM Normal atrial septal thickness without atrial level shunting by limited color doppler interrogation. AORTA The aortic root and proximal ascending aorta are normal in size on limited imaging. MITRAL VALVE Structurally normal mitral valve. No mitral valve stenosis or regurgitation. AORTIC VALVE Trileaflet aortic valve. Aortic valve sclerosis is present. TRICUSPID VALVE Structurally normal tricuspid valve. No tricuspid valve stenosis or regurgitation. PULMONARY VALVE The pulmonary valve is not well visualized. VESSELS The inferior vena cava is normal in size. PERICARDIUM No pericardial effusion. Christian Miramontes MD (Electronically Signed) Final Date:14 April 2018 12:47
[2018-04-14] MEDS: Heparin - SQ 10,000 UNITS/ML Vial SQ SCH (13:01)
--- NOTE | 2018-04-14 15:30 | MG ---
cc: Kirby Geronimo MD EEG #[id number]. INDICATION: 6-7 Hz activity, 20-40 microvolts with generalization posterior to frontal, good anterior to posterior gradient, attenuation of background slowing with transition into drowsy state. Reduced driving with photic stimulation at the beginning of the recording. Single lead EKG showing sinus rhythm. INTERPRETATION: Slow alpha variant and drowsy EEG. Clinical correlation. Kirby Geronimo MD MG/sb , 03:17 PM , 03:21 PM
[2018-04-14 17:33] LABS: Hemoglobin A1c 9.2 % (4.3-6.0)
[2018-04-15] MEDS: Heparin - SQ 10,000 UNITS/ML Vial SQ SCH ×2 (02:59→12:10)
[2018-04-15] MEDS: Insulin NovoLOG Aspart Correctional Sugar Inj SQ SCH ×5 (04:08→22:34)
--- NOTE | 2018-04-15 07:49 | P.PNNEU ---
Subjective Subjective Comments: No cp, no dyspnea, no dhillon, no focal weakness, no vision loss Active Medications: Active Medications Aspirin (Aspirin) 325 mg PO DAILY [facility] Last Admin: 04/14/18 10:10 Dose: 325 mg Atorvastatin Calcium (Lipitor) 40 mg PO HS [facility] Last Admin: 04/14/18 21:33 Dose: 40 mg Clonidine HCl (Catapres) 0.1 mg PO Q6H PRN PRN Reason: Sbp>200 Clopidogrel Bisulfate (Plavix) 75 mg PO DAILY [facility] Last Admin: 04/14/18 10:09 Dose: 75 mg Dextrose (D50w Vial) 50 ml IV.PUSH UNSCH PRN PRN Reason: PER HYPOGLYCEMIA PROTOCOL Glucagon (Glucagon Inj) 1 mg OTHER PRN PRN PRN Reason: for Hypoglycemia Protocol Heparin Sodium (Porcine) (Heparin Inj) 5,000 units SQ Q12H [facility] Last Admin: 04/15/18 02:59 Dose: 5,000 units Insulin Aspart (Novolog Insulin Correctional Sugar Inj) 0 unit SQ ACHS AND 3AM [facility]; Protocol Last Admin: 04/15/18 04:08 Dose: Not Given Sodium Chloride (Ns Flush) 2 ml IV.FLUSH PRN PRN PRN Reason: FLUSH AFTER USING IV ACCESS Allergies/Adverse Reactions: Allergies Allergy/AdvReac Type Severity Reaction Status Date / Time No Known Allergies Allergy Verified 04/13/18 18:34 Review of Systems All other systems reviewed negative except as stated in HPI Physical Exam Vital signs: Vital Signs 04/14/18 08:00 04/14/18 08:35 04/14/18 12:36 Temperature Pulse Rate 47 L Respiratory Rate 18 Blood Pressure 190/76 H 186/80 H Pulse Oximetry 04/14/18 14:07 04/14/18 16:00 04/14/18 17:35 Temperature 97.5 F L Pulse Rate 49 L 52 L Respiratory Rate 18 Blood Pressure 187/83 H Pulse Oximetry 96 96 04/14/18 20:00 04/15/18 00:00 04/15/18 04:00 Temperature 97.7 F 97.4 F L 97.3 F L Pulse Rate 58 L 56 L 57 L Respiratory Rate 14 16 16 Blood Pressure 125/72 123/72 126/73 Pulse Oximetry 95 95 95 Intake & Output 04/14/18 04/15/18 04/15/18 18:59 06:59 18:59 Intake Total 800 / 800 240 / 240 Balance 800 / 800 240 / 240 Intake: IV 800 / 800 NS Inj 1,000 ML @ 70 mls/hr IV. 800 / 800 CONT .[id number] [facility] Rx#:[id number] Oral 240 / 240 Other: # Voids 3 1 Narrative: GENERAL: in NAD, SKIN: Warm and dry. HEAD: Atraumatic. Normocephalic. EYES: Pupils equal and round. No scleral icterus. ENT: No nasal bleeding or discharge. Mucous membranes pink and moist. NECK: Trachea midline. No JVD. CARDIOVASCULAR: Regular rate and rhythm. RESPIRATORY: No accessory muscle use. GASTROINTESTINAL: Abdomen soft, non-tender, nondistended. MUSCULOSKELETAL: Extremities without clubbing, cyanosis, or edema. No obvious deformities. NEUROLOGICAL: Resting, easily arousable, oriented 1-2, not to date, no aphasia, fluent articulate, right lower facial weakness, OU 3-2mm, eomi, VFF, No drift with mild reduced right fine finger movements,, Motor grossly within normal limits. . Reflex symmetric gait not assessed secondary fall risk PSYCHIATRIC: Calm - Constitutional no acute distress - Routine HEENT Exam Head: Present: normocephalic Eye: Present: EOMI Objective Laboratory Results - last 24 hr 04/14/18 04/14/18 04/14/18 07:03 07:03 07:03 WBC 7.0 RBC 3.76 L Hgb 13.2 Hct 37.0 L MCV 98.3 MCH 35.0 H MCHC 35.6 RDW 12.8 Plt Count 175 MPV 8.6 Neut % (Auto) 67.5 Lymph % (Auto) 19.5 [place] % (Auto) 7.9 Eos % (Auto) 4.1 H Baso % (Auto) 1.0 Neut # (Auto) 4.8 Lymph # (Auto) 1.4 [place] # (Auto) 0.6 Eos # (Auto) 0.3 Baso # (Auto) 0.1 WBC Differential . Differential Comment Auto diff final Sodium 142 Potassium 3.0 L D Chloride 105 Carbon Dioxide 27.8 Anion Gap 9 BUN 25 H Creatinine 1.25 Estimated GFR 56 L POC Glucose Random Glucose 82 D Hemoglobin A1c 9.2 H Calcium 9.1 Triglycerides 143 Cholesterol 222 H LDL Cholesterol, Calc 157 H HDL Cholesterol 36.6 L Cholesterol/HDL Ratio 6.06 Vitamin B12 04/14/18 04/14/18 04/14/18 07:03 11:53 16:42 WBC RBC Hgb Hct MCV MCH MCHC RDW Plt Count MPV Neut % (Auto) Lymph % (Auto) [place] % (Auto) Eos % (Auto) Baso % (Auto) Neut # (Auto) Lymph # (Auto) [place] # (Auto) Eos # (Auto) Baso # (Auto) WBC Differential Differential Comment Sodium Potassium Chloride Carbon Dioxide Anion Gap BUN Creatinine Estimated GFR POC Glucose 150 H 197 H Random Glucose Hemoglobin A1c Calcium Triglycerides Cholesterol LDL Cholesterol, Calc HDL Cholesterol Cholesterol/HDL Ratio Vitamin B12 576 04/14/18 04/15/18 21:34 03:52 WBC RBC Hgb Hct MCV MCH MCHC RDW Plt Count MPV Neut % (Auto) Lymph % (Auto) [place] % (Auto) Eos % (Auto) Baso % (Auto) Neut # (Auto) Lymph # (Auto) [place] # (Auto) Eos # (Auto) Baso # (Auto) WBC Differential Differential Comment Sodium Potassium Chloride Carbon Dioxide Anion Gap BUN Creatinine Estimated GFR POC Glucose 213 H 125 H Random Glucose Hemoglobin A1c Calcium Triglycerides Cholesterol LDL Cholesterol, Calc HDL Cholesterol Cholesterol/HDL Ratio Vitamin B12 Review/Management - Diagnosis (1) Acute ischemic left MCA stroke Code(s): I63.512 - Cerebral infarction due to unspecified occlusion or stenosis of left middle cerebral artery Status: Acute Current Visit: Yes (2) Hypertension Code(s): I10 - Essential (primary) hypertension Status: Acute Current Visit : Yes (3) Hyperlipidemia Code(s): E78.5 - Hyperlipidemia, unspecified Status: Acute Current Visit: Yes - Review/Management Plan: 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 Likely related to chronic small vessel disease secondary to chronic hypertension No significant vaso-occlusive disease in the carotid arteries with some mild stenosis in the right MCA which is not the culprit artery Stroke appears to have affected cognition hopefully will improve over time; monitor for development of vascular cognitive impairment Severely elevated blood pressure on arrival. 2D echo showing EF greater than 50% Recommendations Aspirin, Plavix, statin Blood pressure less than 200/100 Outpatient event monitor, loop recorder I think the patient would benefit from inpatient rehabilitation for stroke affecting his cognition and dexterity No driving may require home health care nursing visits supervision Behavioral modification and risk factor reduction. Weight loss, blood pressure control, blood sugar control, lipid control. Exercise
[2018-04-15] MEDS: Aspirin 325 MG Tablet PO SCH (08:18)
[2018-04-15 09:47] LABS: Calcium 8.9 mg/dL (8.5-10.1); Magnesium 1.9 mg/dL (1.5-2.5); Potassium 3.6 meq/L (3.5-5.1)
[2018-04-15 09:49] LABS: Phosphorus 2.6 mg/dL (2.5-4.9)
--- NOTE | 2018-04-15 13:12 | P.CONFP ---
History of Present Illness Service: primary care Consult date: 04/15/18 Primary Care Provider: Travis Lancaster DO Chief Complaint: Stroke History of Present Illness: pt admitted to [place] with left basal ganglia stroke PATRICK DM Review of Systems Comments: r sided weakness present Neurologic: Reports other Comments: r sided weakness PMFSH - History History Provided By: Patient - Medical History Medical History: Medical History (Last Reviewed 04/15/18 @ 08:26 by Marichuy Grady) Diabetes Hypertension - Surgical History Surgical History: Surgical History (Last Reviewed 04/15/18 @ 08:26 by Marichuy Grady) No history of previous surgery - Family History Family History: Family History (Last Reviewed 04/15/18 @ 08:26 by Marichuy Grady) Other Diabetes mellitus - Tobacco History Second Hand Smoke Exposure: No Smoking Status: Former smoker - Alcohol History How Often Do You Have a Drink Containing Alcohol: Never - Substance Use History Substance History: No History of Abuse - Travel History Recent Travel in the [place] Within the Last 8 Weeks: No Recent Travel Out of the Country Within the Last 8 Weeks: No - Immunization History Tetanus Immunization: Unsure Medications and Allergies Active Medications: Active Medications Aspirin (Aspirin) 325 mg PO DAILY [facility] Last Admin: 04/15/18 08:18 Dose: 325 mg Atorvastatin Calcium (Lipitor) 40 mg PO HS [facility] Last Admin: 04/14/18 21:33 Dose: 40 mg Clonidine HCl (Catapres) 0.1 mg PO Q6H PRN PRN Reason: Sbp>200 Last Admin: 04/15/18 09:28 Dose: 0.1 mg Clopidogrel Bisulfate (Plavix) 75 mg PO DAILY [facility] Last Admin: 04/15/18 08:17 Dose: 75 mg Dextrose (D50w Vial) 50 ml IV.PUSH UNSCH PRN PRN Reason: PER HYPOGLYCEMIA PROTOCOL Glucagon (Glucagon Inj) 1 mg OTHER PRN PRN PRN Reason: for Hypoglycemia Protocol Heparin Sodium (Porcine) (Heparin Inj) 5,000 units SQ Q12H [facility] Last Admin: 04/15/18 12:10 Dose: 5,000 units Insulin Aspart (Novolog Insulin Correctional Sugar Inj) 0 unit SQ ACHS AND 3AM DEBORA; Protocol Last Admin: 04/15/18 12:09 Dose: 1 unit Sodium Chloride (Ns Flush) 2 ml IV.FLUSH PRN PRN PRN Reason: FLUSH AFTER USING IV ACCESS Allergies Allergy/AdvReac Type Severity Reaction Status Date / Time No Known Allergies Allergy Verified 04/13/18 18:34 Home Medications Medication Instructions Recorded Confirmed Type aspirin 81 mg PO DAILY 04/13/18 04/13/18 History glyburide mg PO BID 04/13/18 History metformin mg PO BID 04/13/18 History Exam Vital signs: Vital Signs 04/14/18 14:07 04/14/18 16:00 04/14/18 17:35 Temperature 97.5 F L Pulse Rate 49 L 52 L Respiratory Rate 18 Blood Pressure 187/83 H Pulse Oximetry 96 96 04/14/18 20:00 04/15/18 00:00 04/15/18 04:00 Temperature 97.7 F 97.4 F L 97.3 F L Pulse Rate 58 L 56 L 57 L Respiratory Rate 14 16 16 Blood Pressure 125/72 123/72 126/73 Pulse Oximetry 95 95 95 04/15/18 08:00 04/15/18 12:00 Temperature 97.3 F L Pulse Rate 49 L 54 L Respiratory Rate 16 16 Blood Pressure 208/85 H 126/58 L Pulse Oximetry 97 95 Intake & Output 04/14/18 04/15/18 04/15/18 18:59 06:59 18:59 Intake Total 800 / 800 240 / 240 Balance 800 / 800 240 / 240 Intake: IV 800 / 800 NS Inj 1,000 ML @ 70 mls/hr IV. 800 / 800 CONT .[id number] [facility] Rx#:[id number] Oral 240 / 240 Other: # Voids 3 1 - Constitutional no acute distress - Routine HEENT Exam Head: Present: normocephalic Eye: Present: EOMI, PERRL ENT: Present: mucous membranes moist - Routine Neck Exam Present: supple - Routine Respiratory Exam Present: CTA bilaterally - Routine Cardiovascular Exam Present: bradycardia - Routine Abdominal Exam Present: soft, normoactive bowel sounds - Routine Extremities Exam Comments: right sideed weakness present - Routine Skin Exam Present: intact - Routine Neurological Exam some confusion present avtar=t different kelby base line Results - Labs Result diagrams: 04/14/18 07:03 04/15/18 08:03 Abnormal lab results 04/14/18 04/14/18 04/14/18 Range/Units 07:03 16:42 21:34 BUN (7-18) mg/dL Creatinine (0.60-1.30) mg/dL Estimated GFR (>89) mL/min POC Glucose 197 H 213 H (68-110) mg/dl Random Glucose (74-106) mg/dL Hemoglobin A1c 9.2 H (4.3-6.0) % 04/15/18 04/15/18 04/15/18 Range/Units 03:52 07:35 08:03 BUN 23 H (7-18) mg/dL Creatinine 1.47 H (0.60-1.30) mg/dL Estimated GFR 47 L (>89) mL/min POC Glucose 125 H 123 H (68-110) mg/dl Random Glucose 119 H (74-106) mg/dL Hemoglobin A1c (4.3-6.0) % 04/15/18 Range/Units 11:10 BUN (7-18) mg/dL Creatinine (0.60-1.30) mg/dL Estimated GFR (>89) mL/min POC Glucose 160 H (68-110) mg/dl Random Glucose (74-106) mg/dL Hemoglobin A1c (4.3-6.0) % BMP 04/15/18 08:03 Sodium 141 Potassium 3.6 Chloride 106 Carbon Dioxide 27.0 BUN 23 H Creatinine 1.47 H Calcium 8.9 Assessment and Plan - Assessment (1) Acute ischemic stroke Code(s): I63.9 - Cerebral infarction, unspecified Status: Acute Plan: neurology following on asa and plavix (2) Hypertension Code(s): I10 - Essential (primary) hypertension Status: Acute Qualifiers: Hypertension type: essential hypertension Qualified Code(s): I10 - Essential (primary) hypertension Plan: bp now stable will continue current regeime - Assessment and Plan will need cardiology consult for bradycardia and stabalization prior to dc
--- NOTE | 2018-04-15 16:24 | P.CONCA ---
History of Present Illness Service: Cardiology Consult date: 04/15/18 Requesting Physician: Travis Lancaster Reason for Consult: Sinus bradycardia Primary Care Provider: Travis Lancaster DO Chief Complaint: Stroke History of Present Illness: This is a 77-year-old male with a past medical history of diabetes mellitus and hypertension. He was brought to the emergency department by his niece on April 13. Per the chart, the niece went to check on him in the morning on the and he had slurred speech and he was unsteady on his feet. She also noted that he had right-sided upper extremity weakness, right-sided facial droop and drooling. On evaluation, he does not remember any of these events. Currently, all neurological symptoms have resolved and he is alert and oriented with no deficits. He denies any chest pain, pressure, palpitations, dizziness, edema or shortness of breath. Review of Systems All other systems reviewed negative except as stated in HPI [facility] - History History Provided By: Patient - Medical History Medical History: Medical History (Last Reviewed 04/15/18 @ 08:26 by Marichuy Grady) Diabetes Hypertension - Surgical History Surgical History: Surgical History (Last Reviewed 04/15/18 @ 08:26 by Marichuy Grady) No history of previous surgery - Family History Family History: Family History (Last Reviewed 04/15/18 @ 08:26 by Marichuy Grady) Other Diabetes mellitus - Tobacco History Second Hand Smoke Exposure: No Smoking Status: Former smoker - Alcohol History How Often Do You Have a Drink Containing Alcohol: Never - Substance Use History Substance History: No History of Abuse - Travel History Recent Travel in the [place] Within the Last 8 Weeks: No Recent Travel Out of the Country Within the Last 8 Weeks: No - Immunization History Tetanus Immunization: Unsure Medications and Allergies Allergies Allergy/AdvReac Type Severity Reaction Status Date / Time No Known Allergies Allergy Verified 04/13/18 18:34 Home Medications Medication Instructions Recorded Confirmed Type aspirin 81 mg PO DAILY 04/13/18 04/13/18 History glyburide mg PO BID 04/13/18 History metformin mg PO BID 04/13/18 History Active Medications: Active Medications Aspirin (Aspirin) 325 mg PO DAILY [facility] Last Admin: 04/15/18 08:18 Dose: 325 mg Atorvastatin Calcium (Lipitor) 40 mg PO HS [facility] Last Admin: 04/14/18 21:33 Dose: 40 mg Clonidine HCl (Catapres) 0.1 mg PO Q6H PRN PRN Reason: Sbp>200 Last Admin: 04/15/18 09:28 Dose: 0.1 mg Clopidogrel Bisulfate (Plavix) 75 mg PO DAILY [facility] Last Admin: 04/15/18 08:17 Dose: 75 mg Dextrose (D50w Vial) 50 ml IV.PUSH UNSCH PRN PRN Reason: PER HYPOGLYCEMIA PROTOCOL Glucagon (Glucagon Inj) 1 mg OTHER PRN PRN PRN Reason: for Hypoglycemia Protocol Heparin Sodium (Porcine) (Heparin Inj) 5,000 units SQ Q12H [facility] Last Admin: 04/15/18 12:10 Dose: 5,000 units Insulin Aspart (Novolog Insulin Correctional Sugar Inj) 0 unit SQ ACHS AND 3AM DEBORA; Protocol Last Admin: 04/15/18 12:09 Dose: 1 unit Sodium Chloride (Ns Flush) 2 ml IV.FLUSH PRN PRN PRN Reason: FLUSH AFTER USING IV ACCESS Exam Vital signs: Vital Signs 04/14/18 17:35 04/14/18 20:00 04/15/18 00:00 Temperature 97.7 F 97.4 F L Pulse Rate 58 L 56 L Respiratory Rate 14 16 Blood Pressure 125/72 123/72 Pulse Oximetry 96 95 95 04/15/18 04:00 04/15/18 08:00 04/15/18 12:00 Temperature 97.3 F L 97.3 F L Pulse Rate 57 L 49 L 54 L Respiratory Rate 16 16 16 Blood Pressure 126/73 208/85 H 126/58 L Pulse Oximetry 95 97 95 Intake & Output 04/14/18 04/15/18 04/15/18 18:59 06:59 18:59 Intake Total 800 / 800 240 / 240 Balance 800 / 800 240 / 240 Intake: IV 800 / 800 NS Inj 1,000 ML @ 70 mls/hr IV. 800 / 800 CONT .[id number] [facility] Rx#:[id number] Oral 240 / 240 Other: # Voids 3 1 - Constitutional no acute distress - Routine HEENT Exam Head: Present: normocephalic Eye: Present: PERRL ENT: Present: mucous membranes moist - Routine Neck Exam Present: full ROM - Routine Respiratory Exam Present: CTA bilaterally - Routine Cardiovascular Exam Present: S1, S2, bradycardia. Absent: murmur, gallop, rubs - Routine Abdominal Exam Present: normoactive bowel sounds - Routine Extremities Exam Present: full ROM, pulses intact, normal capillary refill. Absent: cyanosis, clubbing, edema - Routine Skin Exam Present: intact - Routine Neurological Exam Present: oriented X3 Results 04/14/18 07:03 04/15/18 08:03 Cardiac Enzymes 04/13/18 Range/Units 16:30 AST 26 (15-37) U/L Troponin I Less than 0.02 L (0.02-0.05) ng/mL Coagulation 04/13/18 Range/Units 16:30 PT 10.4 (9.8-11.6) sec APTT 24.0 L (24.3-30.1) sec Lipids 04/14/18 Range/Units 07:03 Triglycerides 143 (42-150) mg/dL Cholesterol 222 H (120-200) mg/dL HDL Cholesterol 36.6 L (40.0-60.0) mg/dL Cholesterol/HDL Ratio 6.06 Ratio CBC 04/13/18 04/14/18 Range/Units 16:30 07:03 WBC 7.7 7.0 (4.0-11.0) th/mm3 RBC 4.02 L 3.76 L (4.50-5.90) mil/mm3 Hgb 14.0 13.2 (13.0-17.0) gm/dL Hct 40.5 37.0 L (39.0-51.0) % Plt Count 212 175 (150-450) th/mm3 Neut # (Auto) 6.2 4.8 (1.8-7.7) th/mm3 Lymph # (Auto) 0.9 L 1.4 (1.0-4.8) th/mm3 [place] # (Auto) 0.5 0.6 (0.0-0.9) th/mm3 Eos # (Auto) 0.1 0.3 (0.0-0.4) th/mm3 Baso # (Auto) 0.1 0.1 (0.0-0.2) th/mm3 Comprehensive Metabolic Panel 04/13/18 04/14/18 04/15/18 Range/Units 16:30 07:03 08:03 Sodium 135 L 142 141 (136-145) meq/L Potassium 3.9 3.0 L D 3.6 (3.5-5.1) meq/L Chloride 99 105 106 (98-107) meq/L Carbon Dioxide 25.9 27.8 27.0 (21.0-32.0) meq/L BUN 30 H 25 H 23 H (7-18) mg/dL Creatinine 1.83 H 1.25 1.47 H (0.60-1.30) mg/dL Calcium 9.5 9.1 8.9 (8.5-10.1) mg/dL AST 26 (15-37) U/L ALT 52 (12-78) U/L Alkaline Phosphatase 92 (45-117) U/L Total Protein 7.9 (6.4-8.2) g/dL Albumin 3.6 (3.4-5.0) g/dL Intake and Output 04/15/18 04/15/18 04/15/18 06:59 14:59 22:59 Intake Total 240 / 240 Balance 240 / 240 Intake: Oral 240 / 240 Other: # Voids 1 - Imaging and Cardiology Imaging: Impressions Carotid Doppler Study 04/13/18 00:00 CONCLUSION: 1. Right Internal Carotid Artery: Mild to moderate visible plaque without significant stenosis. 2. Left Internal Carotid Artery: Mild to moderate visible plaque without significant stenosis. Head MRI 04/13/18 00:00 CONCLUSION: 1. Multiple small infarcts in the left basal ganglia. Mild chronic white matter ischemic changes. Head MRA 04/13/18 00:00 CONCLUSION: 1. Mild stenosis right posterior branch MCA. No discrete aneurysm. Chest X-Ray 04/13/18 16:31 CONCLUSION: Negative examination. Head CT 04/13/18 16:31 CONCLUSION: 1. No acute intracranial abnormalities. . Assessment and Plan - Assessment (1) Sick sinus syndrome Code(s): I49.5 - Sick sinus syndrome Status: Acute (2) Bradycardia Code(s): R00.1 - Bradycardia, unspecified Status: Acute (3) Acute ischemic stroke Code(s): I63.9 - Cerebral infarction, unspecified Status: Acute (4) Hypertension Code(s): I10 - Essential (primary) hypertension Status: Acute (5) Hyperlipidemia Code(s): E78.5 - Hyperlipidemia, unspecified Status: Acute - Plan Asymptomatic bradycardia noted on monitor, c/w sick sinus syndrome. Currently, there is no indication for permanent pacemaker placement, we will continue to monitor. We will continue to follow the patient during his hospitalization. Patient was seen and evaluated by Dr. Rick who participated in care, management and decision-making. - Attending Attestation Patient seen and examined. I reviewed and agree with the evaluation and plan as presented. Tele c/w sick sinus syndrome with asymptomatic bradycardia. No indication for permanent pacing at this point. Continue monitoring. (4) Hypertension Qualifiers: Hypertension type: essential hypertension Qualified Code(s): I10 - Essential (primary) hypertension
--- NOTE | 2018-04-15 18:14 | ECG ---
Date Performed: 04/14/2018 Time Performed: 17:27:37 PTAGE: 77 years EKG: SINUS BRADYCARDIA WITH SINUS ARRHYTHMIA NONSPECIFIC ST & T-WAVE ABNORMALITY BORDERLINE ECG NO PREVIOUS TRACING DOCTOR: Elie Perdomo Interpretating Date/Time 04/15/2018 18:13:01
[2018-04-16] MEDS: Heparin - SQ 10,000 UNITS/ML Vial SQ SCH ×2 (02:17→12:23)
[2018-04-16] MEDS: Insulin NovoLOG Aspart Correctional Sugar Inj SQ SCH ×5 (02:19→21:32)
[2018-04-16] MEDS: Aspirin 325 MG Tablet PO SCH (08:12)
[2018-04-16] MEDS: amLODIPine 5 MG Tablet PO SCH (09:25)
--- NOTE | 2018-04-16 09:26 | P.PNFP ---
Subjective Interval history: no complaints this am B/P elevated Denies Headache Results - Labs Result diagrams: 04/14/18 07:03 04/15/18 08:03 Abnormal lab results 04/15/18 04/15/18 04/15/18 Range/Units 08:03 11:10 16:09 BUN 23 H (7-18) mg/dL Creatinine 1.47 H (0.60-1.30) mg/dL Estimated GFR 47 L (>89) mL/min POC Glucose 160 H 365 H (68-110) mg/dl Random Glucose 119 H (74-106) mg/dL 04/15/18 04/16/18 Range/Units 21:42 07:01 BUN (7-18) mg/dL Creatinine (0.60-1.30) mg/dL Estimated GFR (>89) mL/min POC Glucose 264 H 138 H (68-110) mg/dl Random Glucose (74-106) mg/dL BMP 04/15/18 08:03 Sodium 141 Potassium 3.6 Chloride 106 Carbon Dioxide 27.0 BUN 23 H Creatinine 1.47 H Calcium 8.9 Physical Exam Vital signs: Vital Signs 04/15/18 12:00 04/15/18 16:00 04/15/18 18:43 Temperature 97.1 F L Pulse Rate 54 L 50 L 50 L Respiratory Rate 16 17 Blood Pressure 126/58 L 203/92 H Pulse Oximetry 95 96 04/15/18 20:00 04/16/18 00:00 04/16/18 01:47 Temperature 97.6 F 97.9 F Pulse Rate 51 L 47 L 45 L Respiratory Rate 18 16 Blood Pressure 153/67 H 151/68 H Pulse Oximetry 96 97 04/16/18 04:00 04/16/18 08:00 04/16/18 08:40 Temperature 97.4 F L 97.8 F Pulse Rate 41 L 50 L Respiratory Rate 18 20 Blood Pressure 154/63 H 213/88 H 217/93 H Pulse Oximetry 97 97 Intake & Output 04/15/18 04/16/18 04/16/18 18:59 06:59 18:59 Intake Total 820 / 820 Output Total 800 / 800 Balance 20 / 20 Weight 82.2 kg Intake: Oral 820 / 820 Output: Urine 800 / 800 Other: # Voids 2 - Constitutional no acute distress - Routine HEENT Exam Head: Present: normocephalic Eye: Present: PERRL ENT: Present: mucous membranes moist - Routine Neck Exam Present: supple - Routine Respiratory Exam Present: CTA bilaterally - Routine Cardiovascular Exam Present: S1, S2 - Routine Abdominal Exam Present: soft, normoactive bowel sounds - Routine Extremities Exam Present: pulses intact - Routine Skin Exam Present: dry, warm - Routine Neurological Exam Present: alert - Detailed Neurological Exam: Coma Scale Verbal Response: Confused Assessment and Plan - Assessment (1) Acute ischemic stroke Code(s): I63.9 - Cerebral infarction, unspecified Status: Acute Plan: neurology following on asa and plavix (2) Hypertension Code(s): I10 - Essential (primary) hypertension Status: Acute Plan: Monitor B/P - Assessment and Plan ll need cardiology consult for bradycardia and stabilization prior to dc 04/16/18- Seen by cardiology, for Sick sinus syndrome, no plan for pace maker. B /P in 200's, will add Norvasc 5 mg. Seem by PT, recommend's home with [facility]. Will dc when cleared by Neuro. (2) Hypertension Qualifiers: Hypertension type: essential hypertension Qualified Code(s): I10 - Essential (primary) hypertension
--- NOTE | 2018-04-16 10:19 | P.PNCA ---
Subjective Interval history: Patient currently denies any chest pain, pressure, dizziness, palpitations, edema or shortness of breath. Patient states that he is feeling pretty good. Medications and Allergies Allergies Allergy/AdvReac Type Severity Reaction Status Date / Time No Known Allergies Allergy Verified 04/13/18 18:34 Home Medications Medication Instructions Recorded Confirmed Type aspirin 81 mg PO DAILY 04/13/18 04/13/18 History glyburide mg PO BID 04/13/18 History metformin mg PO BID 04/13/18 History Active Medications: Active Medications Amlodipine Besylate (Norvasc) 5 mg PO DAILY [facility] Last Admin: 04/16/18 09:25 Dose: 5 mg Aspirin (Aspirin) 325 mg PO DAILY [facility] [place] Last Admin: 04/16/18 08:12 Dose: 325 mg Atorvastatin Calcium (Lipitor) 40 mg PO HS [facility] [place] Last Admin: 04/15/18 21:42 Dose: 40 mg Clonidine HCl (Catapres) 0.1 mg PO Q6H PRN PRN Reason: Sbp>200 Last Admin: 04/16/18 08:12 Dose: 0.1 mg Clopidogrel Bisulfate (Plavix) 75 mg PO DAILY [facility] [place] Last Admin: 04/16/18 08:12 Dose: 75 mg Dextrose (D50w Vial) 50 ml IV.PUSH UNSCH PRN PRN Reason: PER HYPOGLYCEMIA PROTOCOL Glucagon (Glucagon Inj) 1 mg OTHER PRN PRN PRN Reason: for Hypoglycemia Protocol Glyburide (Diabeta) 5 mg PO BIDAC [facility] [place] Last Admin: 04/16/18 09:25 Dose: 5 mg Heparin Sodium (Porcine) (Heparin Inj) 5,000 units SQ Q12H [facility] [place] Last Admin: 04/16/18 02:17 Dose: 5,000 units Insulin Aspart (Novolog Insulin Correctional Sugar Inj) 0 unit SQ ACHS AND 3AM [facility]BORA; Protocol Last Admin: 04/16/18 07:43 Dose: Not Given Sodium Chloride (Ns Flush) 2 ml IV.FLUSH PRN PRN PRN Reason: FLUSH AFTER USING IV ACCESS Physical Exam Vital signs: Vital Signs 04/15/18 12:00 04/15/18 16:00 04/15/18 18:43 Temperature 97.1 F L Pulse Rate 54 L 50 L 50 L Respiratory Rate 16 17 Blood Pressure 126/58 L 203/92 H Pulse Oximetry 95 96 04/15/18 20:00 04/16/18 00:00 04/16/18 01:47 Temperature 97.6 F 97.9 F Pulse Rate 51 L 47 L 45 L Respiratory Rate 18 16 Blood Pressure 153/67 H 151/68 H Pulse Oximetry 96 97 04/16/18 04:00 04/16/18 08:00 04/16/18 08:40 Temperature 97.4 F L 97.8 F Pulse Rate 41 L 50 L Respiratory Rate 18 20 Blood Pressure 154/63 H 213/88 H 217/93 H Pulse Oximetry 97 97 Intake & Output 04/15/18 04/16/18 04/16/18 18:59 06:59 18:59 Intake Total 820 / 820 Output Total 800 / 800 Balance Weight 82.2 kg Intake: Oral 820 / 820 Output: Urine 800 / 800 Other: # Voids 2 - Constitutional no acute distress - Routine HEENT Exam Head: Present: normocephalic Eye: Present: PERRL ENT: Present: mucous membranes moist - Routine Neck Exam Present: full ROM - Routine Respiratory Exam Present: CTA bilaterally - Routine Cardiovascular Exam Present: S1, S2, bradycardia. Absent: murmur, gallop, rubs - Routine Abdominal Exam Present: normoactive bowel sounds - Routine Extremities Exam Present: full ROM, pulses intact, normal capillary refill. Absent: cyanosis, clubbing, edema - Routine Skin Exam Present: intact - Routine Neurological Exam Present: oriented X3 - Detailed Neurological Exam: Coma Scale Eye Opening: Spontaneous Verbal Response: Oriented Motor Response: Obey commands Marcelino Coma Scale Total: 15 - Routine Psychiatric Exam Present: normal affect Results 04/16/18 12:27 04/16/18 12:27 Comprehensive Metabolic Panel 04/15/18 Range/Units 08:03 Sodium 141 (136-145) meq/L Potassium 3.6 (3.5-5.1) meq/L Chloride 106 (98-107) meq/L Carbon Dioxide 27.0 (21.0-32.0) meq/L BUN 23 H (7-18) mg/dL Creatinine 1.47 H (0.60-1.30) mg/dL Calcium 8.9 (8.5-10.1) mg/dL Intake and Output 04/15/18 04/16/18 04/16/18 22:59 06:59 14:59 Intake Total 820 / 820 Output Total 800 / 800 Balance Intake: Oral 820 / 820 Output: Urine 800 / 800 Other: # Voids 2 Weight 82.2 kg Assessment and Plan - Assessment (1) Sick sinus syndrome Code(s): I49.5 - Sick sinus syndrome Status: Acute (2) Bradycardia Code(s): R00.1 - Bradycardia, unspecified Status: Acute (3) Acute ischemic stroke Code(s): I63.9 - Cerebral infarction, unspecified Status: Acute (4) Hypertension Code(s): I10 - Essential (primary) hypertension Status: Acute (5) Hyperlipidemia Code(s): E78.5 - Hyperlipidemia, unspecified Status: Acute - Plan Patient continues to have asymptomatic bradycardia, c/w sick sinus syndrome. Remains stable from cardiac standpoint. There is no indication for permanent pacemaker placement at this time. We will continue to monitor patient's cardiac status. We will continue to follow the patient during his hospitalization. Patient was seen and evaluated by Dr. Rick who participated in care, management and decision-making. - Attending Attestation Patient seen and examined. I reviewed and agree with the evaluation and plan as presented. Sinus bradycardia remains asymptomatic. No indication for permanent pacing. Increase activity. (4) Hypertension Qualifiers: Hypertension type: essential hypertension Qualified Code(s): I10 - Essential (primary) hypertension
[2018-04-16 13:38] LABS: Hematocrit 36.8 % (39.0-51.0); Hemoglobin 12.6 gm/dL (13.0-17.0); Mean Corpuscular HGB Conc 34.3 % (32.0-36.0); Mean Corpuscular Hemoglobin 34.7 pg (27.0-34.0); Mean Platelet Volume 8.8 fL (7.0-11.0); Platelet Count 155 th/mm3 (150-450); Red Blood Count 3.65 mil/mm3 (4.50-5.90); Red Cell Distribution Width 12.8 % (11.6-17.2); White Blood Count 5.9 th/mm3 (4.0-11.0)
[2018-04-16 13:58] LABS: Calcium 8.7 mg/dL (8.5-10.1); Carbon Dioxide 25.1 meq/L (21.0-32.0); Potassium 3.9 meq/L (3.5-5.1)
[2018-04-17] MEDS: Heparin - SQ 10,000 UNITS/ML Vial SQ SCH ×2 (02:52→13:00)
[2018-04-17] MEDS: Insulin NovoLOG Aspart Correctional Sugar Inj SQ SCH ×5 (02:59→22:25)
--- NOTE | 2018-04-17 08:14 | P.PNFP ---
Subjective Interval history: Slept well, no complaints Denies Cp, SOB Results - Labs Result diagrams: 04/16/18 12:27 04/16/18 12:27 Abnormal lab results 04/16/18 04/16/18 04/16/18 Range/Units 11:34 12:27 12:27 RBC 3.65 L (4.50-5.90) mil/mm3 Hgb 12.6 L (13.0-17.0) gm/dL Hct 36.8 L (39.0-51.0) % MCV 101.0 H (80.0-100.0) fL MCH 34.7 H (27.0-34.0) pg BUN 25 H (7-18) mg/dL Creatinine 1.55 H (0.60-1.30) mg/dL Estimated GFR 44 L (>89) mL/min POC Glucose 300 H (68-110) mg/dl Random Glucose 304 H D (74-106) mg/dL 04/16/18 04/16/18 04/17/18 Range/Units 16:41 20:21 02:55 RBC (4.50-5.90) mil/mm3 Hgb (13.0-17.0) gm/dL Hct (39.0-51.0) % MCV (80.0-100.0) fL MCH (27.0-34.0) pg BUN (7-18) mg/dL Creatinine (0.60-1.30) mg/dL Estimated GFR (>89) mL/min POC Glucose 232 H 184 H 155 H (68-110) mg/dl Random Glucose (74-106) mg/dL Short CBC 04/16/18 Range/Units 12:27 WBC 5.9 (4.0-11.0) th/mm3 Hgb 12.6 L (13.0-17.0) gm/dL Hct 36.8 L (39.0-51.0) % Plt Count 155 (150-450) th/mm3 BMP 04/16/18 12:27 Sodium 137 Potassium 3.9 Chloride 103 Carbon Dioxide 25.1 BUN 25 H Creatinine 1.55 H Calcium 8.7 Physical Exam Vital signs: Vital Signs 04/16/18 08:40 04/16/18 11:56 04/16/18 15:57 Temperature 95.6 F L 97.2 F L Pulse Rate 50 L 50 L Respiratory Rate 20 20 Blood Pressure 217/93 H 139/64 132/60 Pulse Oximetry 97 97 04/16/18 16:23 04/16/18 20:00 04/17/18 00:00 Temperature 97.8 F 98 F Pulse Rate 51 L 48 L 57 L Respiratory Rate 20 20 Blood Pressure 188/70 H 144/86 H Pulse Oximetry 96 97 04/17/18 04:00 04/17/18 08:00 Temperature 97.2 F L 97.8 F Pulse Rate 45 L 47 L Respiratory Rate 18 16 Blood Pressure 124/60 185/79 H Pulse Oximetry 96 98 Intake & Output 04/16/18 04/17/18 04/17/18 18:59 06:59 18:59 Weight 82.6 kg Other: # Voids 2 Date of Last Bowel Movement 04/16/18 - Constitutional no acute distress - Routine HEENT Exam Head: Present: hematoma Eye: Present: conjunctivae pink ENT: Present: mucous membranes moist - Routine Neck Exam Present: supple - Routine Respiratory Exam Present: CTA bilaterally - Routine Cardiovascular Exam Present: S1, S2 - Routine Abdominal Exam Present: soft, normoactive bowel sounds - Routine Skin Exam Present: dry, warm - Routine Neurological Exam Present: alert, oriented X3 - Routine Psychiatric Exam Present: cooperative Assessment and Plan - Assessment (1) Acute ischemic stroke Code(s): I63.9 - Cerebral infarction, unspecified Status: Acute Plan: neurology following on asa and plavix (2) Hypertension Code(s): I10 - Essential (primary) hypertension Status: Acute Plan: Monitor B/P - Assessment and Plan ll need cardiology consult for bradycardia and stabilization prior to dc 04/16/18- Seen by cardiology, for Sick sinus syndrome, no plan for pace maker. B /P in 200's, will add Norvasc 5 mg. Seem by PT, recommend's home with HHC. Will dc when cleared by Neuro. 04/17/18- VSS afebrile.B/P stable, Patient lives alone and has no caregiver. he will need rehab placement. PT rec'c rehab, OT rec's HHC only with caregiver. DC once arrangement made, [id number] on chart. (2) Hypertension Qualifiers: Hypertension type: essential hypertension Qualified Code(s): I10 - Essential (primary) hypertension
[2018-04-17] MEDS: Aspirin 325 MG Tablet PO SCH (08:44)
[2018-04-17] MEDS: amLODIPine 5 MG Tablet PO SCH (08:44)
--- NOTE | 2018-04-17 13:43 | P.PNCA ---
Subjective Interval history: Patient denies any chest pain, pressure, palpitations, dizziness, edema or shortness of breath. Patient states that he feels fine and is ready to go home. Medications and Allergies Allergies Allergy/AdvReac Type Severity Reaction Status Date / Time No Known Allergies Allergy Verified 04/13/18 18:34 Home Medications Medication Instructions Recorded Confirmed Type aspirin 81 mg PO DAILY 04/13/18 04/13/18 History glyburide mg PO BID 04/13/18 History metformin mg PO BID 04/13/18 History Active Medications: Active Medications Amlodipine Besylate (Norvasc) 5 mg PO DAILY [facility] Last Admin: 04/17/18 08:44 Dose: 5 mg Aspirin (Aspirin) 325 mg PO DAILY [facility] Last Admin: 04/17/18 08:44 Dose: 325 mg Atorvastatin Calcium (Lipitor) 40 mg PO HS [facility] Last Admin: 04/16/18 21:32 Dose: 40 mg Clonidine HCl (Catapres) 0.1 mg PO Q6H PRN PRN Reason: Sbp>200 Last Admin: 04/16/18 08:12 Dose: 0.1 mg Clopidogrel Bisulfate (Plavix) 75 mg PO DAILY [facility] Last Admin: 04/17/18 08:44 Dose: 75 mg Dextrose (D50w Vial) 50 ml IV.PUSH UNSCH PRN PRN Reason: PER HYPOGLYCEMIA PROTOCOL Glucagon (Glucagon Inj) 1 mg OTHER PRN PRN PRN Reason: for Hypoglycemia Protocol Glyburide (Diabeta) 5 mg PO BIDAC [facility] Last Admin: 04/17/18 08:44 Dose: 5 mg Heparin Sodium (Porcine) (Heparin Inj) 5,000 units SQ Q12H [facility] Last Admin: 04/17/18 13:00 Dose: 5,000 units Insulin Aspart (Novolog Insulin Correctional Sugar Inj) 0 unit SQ ACHS AND 3AM [facility]; Protocol Last Admin: 04/17/18 13:00 Dose: 5 unit Sodium Chloride (Ns Flush) 2 ml IV.FLUSH PRN PRN PRN Reason: FLUSH AFTER USING IV ACCESS Last Admin: 04/17/18 08:44 Dose: 2 ml Physical Exam Vital signs: Vital Signs 04/16/18 15:57 04/16/18 16:23 04/16/18 20:00 Temperature 97.2 F L 97.8 F Pulse Rate 50 L 51 L 48 L Respiratory Rate 20 20 Blood Pressure 132/60 188/70 H Pulse Oximetry 97 96 04/17/18 00:00 04/17/18 04:00 04/17/18 08:00 Temperature 98 F 97.2 F L 97.8 F Pulse Rate 57 L 45 L 47 L Respiratory Rate 20 18 16 Blood Pressure 144/86 H 124/60 185/79 H Pulse Oximetry 97 96 98 04/17/18 10:00 04/17/18 12:00 04/17/18 12:41 Temperature 97.4 F L Pulse Rate 44 L 54 L 53 L Respiratory Rate 18 Blood Pressure 184/79 H Pulse Oximetry 98 Intake & Output 04/16/18 04/17/18 04/17/18 18:59 06:59 18:59 Output Total 200 / 200 Balance -200 / -200 Weight 82.6 kg Output: Urine 200 / 200 Other: # Voids 2 Date of Last Bowel Movement 04/16/18 04/16/18 - Constitutional no acute distress - Routine HEENT Exam Head: Present: normocephalic Eye: Present: PERRL ENT: Present: mucous membranes moist - Routine Neck Exam Present: full ROM - Routine Respiratory Exam Present: CTA bilaterally - Routine Cardiovascular Exam Present: S1, S2, bradycardia. Absent: murmur, gallop, rubs - Routine Abdominal Exam Present: normoactive bowel sounds - Routine Extremities Exam Present: full ROM, pulses intact, normal capillary refill. Absent: cyanosis, clubbing, edema - Routine Skin Exam Present: intact - Routine Neurological Exam Present: oriented X3 - Detailed Neurological Exam: Coma Scale Eye Opening: Spontaneous Verbal Response: Oriented Motor Response: Obey commands [place] Coma Scale Total: 15 - Routine Psychiatric Exam Present: normal affect Results 04/16/18 12:27 04/16/18 12:27 CBC 04/16/18 Range/Units 12:27 WBC 5.9 (4.0-11.0) th/mm3 RBC 3.65 L (4.50-5.90) mil/mm3 Hgb 12.6 L (13.0-17.0) gm/dL Hct 36.8 L (39.0-51.0) % Plt Count 155 (150-450) th/mm3 Comprehensive Metabolic Panel 04/16/18 Range/Units 12:27 Sodium 137 (136-145) meq/L Potassium 3.9 (3.5-5.1) meq/L Chloride 103 (98-107) meq/L Carbon Dioxide 25.1 (21.0-32.0) meq/L BUN 25 H (7-18) mg/dL Creatinine 1.55 H (0.60-1.30) mg/dL Calcium 8.7 (8.5-10.1) mg/dL Intake and Output 04/16/18 04/17/18 04/17/18 22:59 06:59 14:59 Output Total 200 / 200 Balance -200 / -200 Output: Urine 200 / 200 Other: # Voids 2 Date of Last Bowel Movement 04/16/18 04/16/18 Weight 82.6 kg Assessment and Plan - Assessment (1) Sick sinus syndrome Code(s): I49.5 - Sick sinus syndrome Status: Acute (2) Bradycardia Code(s): R00.1 - Bradycardia, unspecified Status: Acute (3) Acute ischemic stroke Code(s): I63.9 - Cerebral infarction, unspecified Status: Acute (4) Hypertension Code(s): I10 - Essential (primary) hypertension Status: Acute (5) Hyperlipidemia Code(s): E78.5 - Hyperlipidemia, unspecified Status: Acute - Plan Patient has sinus bradycardia on telemetry, but remains asymptomatic. He remains stable from cardiac standpoint. Permanent pacemaker placement is not indicated at this time. We will continue to monitor patient's cardiac status. We will continue to follow the patient during his hospitalization. Anticipate discharge soon; will schedule f/u in our office after discharge. Patient was seen and evaluated by Dr. Rick who participated in care, management and decision-making. - Attending Attestation Patient seen and examined. I reviewed and agree with the evaluation and plan as presented. Telemetry shows asymptomatic bradycardia. Will schedule f/u in our office after discharge. (4) Hypertension Qualifiers: Hypertension type: essential hypertension Qualified Code(s): I10 - Essential (primary) hypertension
--- NOTE | 2018-04-17 15:11 | P.PNNEU ---
Subjective Subjective Comments: No cp, no dyspnea, no dhillon, no focal weakness, no vision loss Active Medications: Active Medications Amlodipine Besylate (Norvasc) 5 mg PO DAILY [facility] Last Admin: 04/17/18 08:44 Dose: 5 mg Aspirin (Aspirin) 325 mg PO DAILY [facility] Last Admin: 04/17/18 08:44 Dose: 325 mg Atorvastatin Calcium (Lipitor) 40 mg PO HS [facility] Last Admin: 04/16/18 21:32 Dose: 40 mg Clonidine HCl (Catapres) 0.1 mg PO Q6H PRN PRN Reason: Sbp>200 Last Admin: 04/16/18 08:12 Dose: 0.1 mg Clopidogrel Bisulfate (Plavix) 75 mg PO DAILY [facility] Last Admin: 04/17/18 08:44 Dose: 75 mg Dextrose (D50w Vial) 50 ml IV.PUSH UNSCH PRN PRN Reason: PER HYPOGLYCEMIA PROTOCOL Glucagon (Glucagon Inj) 1 mg OTHER PRN PRN PRN Reason: for Hypoglycemia Protocol Glyburide (Diabeta) 5 mg PO BIDAC [facility] Last Admin: 04/17/18 08:44 Dose: 5 mg Heparin Sodium (Porcine) (Heparin Inj) 5,000 units SQ Q12H [facility] Last Admin: 04/17/18 13:00 Dose: 5,000 units Insulin Aspart (Novolog Insulin Correctional Sugar Inj) 0 unit SQ ACHS AND 3AM [facility]; Protocol Last Admin: 04/17/18 13:00 Dose: 5 unit Sodium Chloride (Ns Flush) 2 ml IV.FLUSH PRN PRN PRN Reason: FLUSH AFTER USING IV ACCESS Last Admin: 04/17/18 08:44 Dose: 2 ml Allergies/Adverse Reactions: Allergies Allergy/AdvReac Type Severity Reaction Status Date / Time No Known Allergies Allergy Verified 04/13/18 18:34 Review of Systems All other systems reviewed negative except as stated in HPI Physical Exam Vital signs: Vital Signs 04/16/18 15:57 04/16/18 16:23 04/16/18 20:00 Temperature 97.2 F L 97.8 F Pulse Rate 50 L 51 L 48 L Respiratory Rate 20 20 Blood Pressure 132/60 188/70 H Pulse Oximetry 97 96 04/17/18 00:00 04/17/18 04:00 04/17/18 08:00 Temperature 98 F 97.2 F L 97.8 F Pulse Rate 57 L 45 L 47 L Respiratory Rate 20 18 16 Blood Pressure 144/86 H 124/60 185/79 H Pulse Oximetry 97 96 98 04/17/18 10:00 04/17/18 12:00 04/17/18 12:41 Temperature 97.4 F L Pulse Rate 44 L 54 L 53 L Respiratory Rate 18 Blood Pressure 184/79 H Pulse Oximetry 98 Intake & Output 04/16/18 04/17/18 04/17/18 18:59 06:59 18:59 Output Total 200 / 200 Balance -200 / -200 Weight 82.6 kg Output: Urine 200 / 200 Other: # Voids 2 Date of Last Bowel Movement 04/16/18 04/16/18 Objective Laboratory Results - last 24 hr 04/16/18 04/16/18 04/17/18 16:41 20:21 02:55 POC Glucose 232 H 184 H 155 H 04/17/18 04/17/18 07:27 12:02 POC Glucose 102 290 H Review/Management - Diagnosis (1) Acute ischemic left MCA stroke Code(s): I63.512 - Cerebral infarction due to unspecified occlusion or stenosis of left middle cerebral artery Status: Acute Current Visit: Yes (2) Hypertension Code(s): I10 - Essential (primary) hypertension Status: Acute Current Visit : Yes (3) Hyperlipidemia Code(s): E78.5 - Hyperlipidemia, unspecified Status: Acute Current Visit: Yes - Review/Management Plan: 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 Likely related to chronic small vessel disease secondary to chronic hypertension No significant vaso-occlusive disease in the carotid arteries with some mild stenosis in the right MCA which is not the culprit artery Stroke appears to have affected cognition hopefully will improve over time; monitor for development of vascular cognitive impairment Severely elevated blood pressure on arrival. 2D echo showing EF greater than 50% Recommendations Neuro stable Aspirin, Plavix, statin Blood pressure less than 200/100 Outpatient event monitor, loop recorder I think the patient would benefit from inpatient rehabilitation for stroke affecting his cognition and dexterity No driving may require home health care nursing visits supervision Behavioral modification and risk factor reduction. Weight loss, blood pressure control, blood sugar control, lipid control. Exercise (2) Hypertension Qualifiers: Hypertension type: essential hypertension Qualified Code(s): I10 - Essential (primary) hypertension
[2018-04-18] MEDS: Heparin - SQ 10,000 UNITS/ML Vial SQ SCH ×2 (01:09→12:27)
[2018-04-18] MEDS: Insulin NovoLOG Aspart Correctional Sugar Inj SQ SCH ×3 (03:33→12:25)
[2018-04-18 07:59] VITALS: RESP 18; O2SAT 97
[2018-04-18] MEDS: Aspirin 325 MG Tablet PO SCH (09:50)
[2018-04-18] MEDS: amLODIPine 5 MG Tablet PO SCH (09:50)
--- NOTE | 2018-04-18 12:12 | P.DS ---
Date of admission: 04/13/18 21:34 Primary care physician: Travis Lancaster DO Attending physician on discharge: Travis Anisha Anticipated date of discharge: 04/18/18 Brief History from admission: 77-year-old male with a past medical history significant for diabetes mellitus presents to the emergency department for the evaluation of altered mental status , right upper extremity weakness, slurred speech and confusion. The patient denies having any of these symptoms however he was brought to the hospital by his niece who went to check on him this morning and noticed that he was unsteady on his feet. She reports he began having slurred speech around 10:30 AM. She believes this was secondary to his blood sugar and had him eat. His symptoms did not resolve. She noticed that his right upper extremity had significant weakness and he was not using it. She also reports a right-sided facial droop and drooling. His symptoms have since resolved. He denies any headaches. No chest pain or shortness of breath. No abdominal pain. No nausea /vomiting/diarrhea. Patient update on day of discharge: He tells me he has no current problems and has changed his mind and is refusing D/C to SNF. Family at bedside and wants to take him home. We will see him back in our office next weak and will arrange F/U with Neuro. There is no contraindication to D/C home at this time. DS: Diagnosis - Discharge Diagnosis (1) Acute ischemic left MCA stroke Status: Acute (2) Bradycardia Status: Acute (3) Hyperlipidemia Status: Chronic (4) Hypertension Status: Chronic (5) Sick sinus syndrome Status: Acute DS: Summary Hospital Course: He was seen and followed this adm by Cards and Neuro. Though he was recommended to be D/[facility] to SNF for rehab therapy, he refused and his family at bedside today agrees and wants to take him home. Though I agree he would likely benefit from rehab therapy, there is no contraindication for D/C home with family at this time. He will F/Y with Neuro and PCP next week. - Time Spent with Patient Total time spent providing and/or coordinating discharge services: Greater than 30 minutes - Quality: AMI Clinical Trial Participant: No - Quality: VTE Deep Vein Thrombosis/Pulmonary Embolism Present on Admission: No Exam Vital signs: Vital Signs 04/17/18 12:41 04/17/18 16:00 04/17/18 16:47 Temperature 97.6 F Pulse Rate 53 L 52 L 54 L Respiratory Rate 18 Blood Pressure 126/77 Pulse Oximetry 98 04/17/18 20:00 04/17/18 23:45 04/18/18 00:00 Temperature 98.0 F 97.1 F L Pulse Rate 53 L 45 L 46 L Respiratory Rate 20 16 Blood Pressure 218/91 H 178/77 H Pulse Oximetry 97 97 04/18/18 00:01 04/18/18 03:56 04/18/18 04:00 Temperature 97.2 F L Pulse Rate 43 L 43 L 45 L Respiratory Rate 14 Blood Pressure 185/79 H Pulse Oximetry 98 04/18/18 07:58 Temperature 98 F Pulse Rate 47 L Respiratory Rate 18 Blood Pressure 173/73 H Pulse Oximetry 97 Intake & Output 04/17/18 04/18/18 04/18/18 18:59 06:59 18:59 Output Total 200 / 200 Balance -200 / -200 Weight 82.6 kg Output: Urine 200 / 200 Other: # Voids 1 3 Date of Last Bowel Movement 04/16/18 04/17/18 # Bowel Movements 0 - Constitutional no acute distress - Routine HEENT Exam Head: Present: normocephalic Eye: Present: normal accommodation ENT: Present: mucous membranes moist - Routine Neck Exam Present: supple, full ROM - Routine Respiratory Exam Present: CTA bilaterally - Routine Cardiovascular Exam Present: RRR, S1, S2 - Routine Abdominal Exam Present: soft, normoactive bowel sounds - Routine Extremities Exam Present: full ROM - Routine Skin Exam Present: intact - Routine Neurological Exam Present: alert, oriented X3 Results Procedures completed during hospitalization: Head CT Completed studies during hospitalization: Head CT Labs on day of discharge: Labs from last 24 hours 04/18/18 04/18/18 04/18/18 11:54 08:27 03:24 POC Glucose 313 H 117 H 116 H 04/17/18 04/17/18 04/17/18 21:38 16:18 12:02 POC Glucose 210 H 247 H 290 H - Impressions ITS Impressions Carotid Doppler Study 04/13/18 00:00 CONCLUSION: 1. Right Internal Carotid Artery: Mild to moderate visible plaque without significant stenosis. 2. Left Internal Carotid Artery: Mild to moderate visible plaque without significant stenosis. Head MRI 04/13/18 00:00 CONCLUSION: 1. Multiple small infarcts in the left basal ganglia. Mild chronic white matter ischemic changes. Head MRA 04/13/18 00:00 CONCLUSION: 1. Mild stenosis right posterior branch MCA. No discrete aneurysm. Chest X-Ray 04/13/18 16:31 CONCLUSION: Negative examination. Head CT 04/13/18 16:31 CONCLUSION: 1. No acute intracranial abnormalities. . Discharge Plan - Discharge Disposition Patient Disposition: 01 Discharge Home - Discharge Condition Condition: Fair - Discharge Order Discharge Orders: Discharge Order (Routine); Ordered 04/18/18 Ordered By: Wenceslao Santiago - Physicians Team Primary Care Provider: Travis Lancaster Attending Provider: Travis Lancaster Other Providers: Kirby Geronimo MD ; Elias Rick MD ; [facility], [place] ; [facility],[place]
[2018-04-18 12:26] VITALS: BP 178/79; PULSE 50; TEMP 97.4
--- NOTE | 2018-04-18 13:54 | P.PNNEU ---
Subjective Subjective Comments: No cp, no dyspnea, no dhillon, no focal weakness, no vision loss Active Medications: Active Medications Amlodipine Besylate (Norvasc) 5 mg PO DAILY [facility] Last Admin: 04/18/18 09:50 Dose: 5 mg Aspirin (Aspirin) 325 mg PO DAILY [facility] Last Admin: 04/18/18 09:50 Dose: 325 mg Atorvastatin Calcium (Lipitor) 40 mg PO HS [facility] Last Admin: 04/17/18 20:36 Dose: 40 mg Clonidine HCl (Catapres) 0.1 mg PO Q6H PRN PRN Reason: Sbp>200 Last Admin: 04/17/18 21:37 Dose: 0.1 mg Clopidogrel Bisulfate (Plavix) 75 mg PO DAILY [facility] Last Admin: 04/18/18 09:50 Dose: 75 mg Dextrose (D50w Vial) 50 ml IV.PUSH UNSCH PRN PRN Reason: PER HYPOGLYCEMIA PROTOCOL Glucagon (Glucagon Inj) 1 mg OTHER PRN PRN PRN Reason: for Hypoglycemia Protocol Glyburide (Diabeta) 5 mg PO BIDAC [facility] Last Admin: 04/18/18 09:50 Dose: 5 mg Heparin Sodium (Porcine) (Heparin Inj) 5,000 units SQ Q12H [facility] Last Admin: 04/18/18 12:27 Dose: 5,000 units Insulin Aspart (Novolog Insulin Correctional Sugar Inj) 0 unit SQ ACHS AND 3AM [facility]; Protocol Last Admin: 04/18/18 12:25 Dose: 7 unit Sodium Chloride (Ns Flush) 2 ml IV.FLUSH PRN PRN PRN Reason: FLUSH AFTER USING IV ACCESS Last Admin: 04/17/18 08:44 Dose: 2 ml Allergies/Adverse Reactions: Allergies Allergy/AdvReac Type Severity Reaction Status Date / Time No Known Allergies Allergy Verified 04/13/18 18:34 Review of Systems All other systems reviewed negative except as stated in HPI Physical Exam Vital signs: Vital Signs 04/17/18 16:00 04/17/18 16:47 04/17/18 20:00 Temperature 97.6 F 98.0 F Pulse Rate 52 L 54 L 53 L Respiratory Rate 18 20 Blood Pressure 126/77 218/91 H Pulse Oximetry 98 97 04/17/18 23:45 04/18/18 00:00 04/18/18 00:01 Temperature 97.1 F L Pulse Rate 45 L 46 L 43 L Respiratory Rate 16 Blood Pressure 178/77 H Pulse Oximetry 97 04/18/18 03:56 04/18/18 04:00 04/18/18 07:58 Temperature 97.2 F L 98 F Pulse Rate 43 L 45 L 47 L Respiratory Rate 14 18 Blood Pressure 185/79 H 173/73 H Pulse Oximetry 98 97 04/18/18 12:00 Temperature 97.4 F L Pulse Rate 50 L Respiratory Rate 18 Blood Pressure 178/79 H Pulse Oximetry 97 Intake & Output 04/17/18 04/18/18 04/18/18 18:59 06:59 18:59 Output Total 200 / 200 Balance -200 / -200 Weight 82.6 kg Output: Urine 200 / 200 Other: # Voids 1 3 Date of Last Bowel Movement 04/16/18 04/17/18 # Bowel Movements 0 Narrative: GENERAL: in NAD, watching the football game, looks comfortable SKIN: Warm and dry. HEAD: Atraumatic. Normocephalic. EYES: Pupils equal and round. No scleral icterus. ENT: No nasal bleeding or discharge. Mucous membranes pink and moist. NECK: Trachea midline. No JVD. CARDIOVASCULAR: Regular rate and rhythm. RESPIRATORY: No accessory muscle use. GASTROINTESTINAL: Abdomen soft, non-tender, nondistended. MUSCULOSKELETAL: Extremities without clubbing, cyanosis, or edema. No obvious deformities. NEUROLOGICAL: Resting, easily arousable, oriented 1-2, not to date, no aphasia, fluent articulate, right lower facial weakness, OU 3-2mm, eomi, VFF, No drift with mild reduced right fine finger movements,, Motor grossly within normal limits. . Reflex symmetric gait not assessed secondary fall risk PSYCHIATRIC: Calm - Constitutional no acute distress - Routine HEENT Exam Head: Present: normocephalic Eye: Present: EOMI Objective Laboratory Results - last 24 hr 04/17/18 04/17/18 04/18/18 16:18 21:38 03:24 POC Glucose 247 H 210 H 116 H 04/18/18 04/18/18 08:27 11:54 POC Glucose 117 H 313 H Review/Management - Diagnosis (1) Acute ischemic left MCA stroke Code(s): I63.512 - Cerebral infarction due to unspecified occlusion or stenosis of left middle cerebral artery Status: Acute Current Visit: Yes (2) Hypertension Code(s): I10 - Essential (primary) hypertension Status: Chronic Current Visit: Yes (3) Hyperlipidemia Code(s): E78.5 - Hyperlipidemia, unspecified Status: Chronic Current Visit: Yes - Review/Management Plan: 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 Likely related to chronic small vessel disease secondary to chronic hypertension No significant vaso-occlusive disease in the carotid arteries with some mild stenosis in the right MCA which is not the culprit artery Stroke appears to have affected cognition hopefully will improve over time; monitor for development of vascular cognitive impairment Severely elevated blood pressure on arrival. 2D echo showing EF greater than 50% Recommendations Neuro stable. Discussed with RN.. Family wants to take him home Aspirin, Plavix, statin Blood pressure less than 200/100 Outpatient event monitor, loop recorder No driving may require home health care nursing visits supervision; apparently the niece may be living with him and watching over Behavioral modification and risk factor reduction. Weight loss, blood pressure control, blood sugar control, lipid control. Exercise (2) Hypertension Qualifiers: Hypertension type: essential hypertension Qualified Code(s): I10 - Essential (primary) hypertension
--- NOTE | 2018-04-18 14:23 | P.PNCA ---
Subjective Interval history: Patient denies any CP, pressure, palpitations, dizziness, edema or SOB. Medications and Allergies Allergies Allergy/AdvReac Type Severity Reaction Status Date / Time No Known Allergies Allergy Verified 04/13/18 18:34 Home Medications Medication Instructions Recorded Confirmed Type aspirin 81 mg PO DAILY 04/13/18 04/13/18 History glyburide mg PO BID 04/13/18 History metformin mg PO BID 04/13/18 History Active Medications: Active Medications Amlodipine Besylate (Norvasc) 5 mg PO DAILY PENDING SALE TO [facility] Last Admin: 04/18/18 09:50 Dose: 5 mg Aspirin (Aspirin) 325 mg PO DAILY PENDING SALE TO [facility] Last Admin: 04/18/18 09:50 Dose: 325 mg Atorvastatin Calcium (Lipitor) 40 mg PO HS PENDING SALE TO [facility] Last Admin: 04/17/18 20:36 Dose: 40 mg Clonidine HCl (Catapres) 0.1 mg PO Q6H PRN PRN Reason: Sbp>200 Last Admin: 04/17/18 21:37 Dose: 0.1 mg Clopidogrel Bisulfate (Plavix) 75 mg PO DAILY PENDING SALE TO [facility] Last Admin: 04/18/18 09:50 Dose: 75 mg Dextrose (D50w Vial) 50 ml IV.PUSH UNSCH PRN PRN Reason: PER HYPOGLYCEMIA PROTOCOL Glucagon (Glucagon Inj) 1 mg OTHER PRN PRN PRN Reason: for Hypoglycemia Protocol Glyburide (Diabeta) 5 mg PO BIDAC PENDING SALE TO [facility] Last Admin: 04/18/18 09:50 Dose: 5 mg Heparin Sodium (Porcine) (Heparin Inj) 5,000 units SQ Q12H PENDING SALE TO [facility] Last Admin: 04/18/18 12:27 Dose: 5,000 units Insulin Aspart (Novolog Insulin Correctional Sugar Inj) 0 unit SQ ACHS AND 3AM DEB[facility]A; Protocol Last Admin: 04/18/18 12:25 Dose: 7 unit Sodium Chloride (Ns Flush) 2 ml IV.FLUSH PRN PRN PRN Reason: FLUSH AFTER USING IV ACCESS Last Admin: 04/17/18 08:44 Dose: 2 ml Physical Exam Vital signs: Vital Signs 04/17/18 16:00 04/17/18 16:47 04/17/18 20:00 Temperature 97.6 F 98.0 F Pulse Rate 52 L 54 L 53 L Respiratory Rate 18 20 Blood Pressure 126/77 218/91 H Pulse Oximetry 98 97 04/17/18 23:45 04/18/18 00:00 04/18/18 00:01 Temperature 97.1 F L Pulse Rate 45 L 46 L 43 L Respiratory Rate 16 Blood Pressure 178/77 H Pulse Oximetry 97 04/18/18 03:56 04/18/18 04:00 04/18/18 07:58 Temperature 97.2 F L 98 F Pulse Rate 43 L 45 L 47 L Respiratory Rate 14 18 Blood Pressure 185/79 H 173/73 H Pulse Oximetry 98 97 04/18/18 12:00 Temperature 97.4 F L Pulse Rate 50 L Respiratory Rate 18 Blood Pressure 178/79 H Pulse Oximetry 97 Intake & Output 04/17/18 04/18/18 04/18/18 18:59 06:59 18:59 Output Total 200 / 200 Balance -200 / -200 Weight 82.6 kg Output: Urine 200 / 200 Other: # Voids 1 3 Date of Last Bowel Movement 04/16/18 04/17/18 # Bowel Movements 0 - Constitutional no acute distress - Routine HEENT Exam Head: Present: normocephalic Eye: Present: PERRL ENT: Present: mucous membranes moist - Routine Neck Exam Present: full ROM - Routine Respiratory Exam Present: CTA bilaterally - Routine Cardiovascular Exam Present: S1, S2, murmur, bradycardia. Absent: gallop, rubs - Routine Abdominal Exam Present: normoactive bowel sounds - Routine Extremities Exam Present: full ROM, pulses intact, normal capillary refill. Absent: cyanosis, clubbing, edema - Routine Skin Exam Present: intact - Routine Neurological Exam Present: oriented X3 - Detailed Neurological Exam: Coma Scale Eye Opening: Spontaneous Verbal Response: Oriented Motor Response: Obey commands Marcelino Coma Scale Total: 15 - Routine Psychiatric Exam Present: normal affect Results 04/16/18 12:27 04/16/18 12:27 Intake and Output 04/17/18 04/18/18 04/18/18 22:59 06:59 14:59 Other: # Voids 1 3 Date of Last Bowel Movement 04/17/18 # Bowel Movements 0 Weight 82.6 kg Assessment and Plan - Assessment (1) Sick sinus syndrome Code(s): I49.5 - Sick sinus syndrome Status: Acute (2) Bradycardia Code(s): R00.1 - Bradycardia, unspecified Status: Acute (3) Acute ischemic stroke Code(s): I63.9 - Cerebral infarction, unspecified Status: Acute (4) Hypertension Code(s): I10 - Essential (primary) hypertension Status: Chronic (5) Hyperlipidemia Code(s): E78.5 - Hyperlipidemia, unspecified Status: Chronic - Plan Patient has sinus bradycardia, but remains asymptomatic. Permanent pacemaker placement is not indicated at this time. Patient cleared for discharge from a cardiac standpoint. Will follow up with patient in office. Patient was seen and evaluated by Dr. Rick who participated in care, management and decision-making. - Attending Attestation Patient seen and examined. I reviewed and agree with the evaluation and plan as presented. He remains asymptomatic. OK to discharge from card standpoint. Will schedule f/u in our office. Progress Note: Quality - AMI Clinical Trial Participant: No (4) Hypertension Qualifiers: Hypertension type: essential hypertension Qualified Code(s): I10 - Essential (primary) hypertension
== END 2018-04-18 16:00 | disposition home or self-care (01) ==
LOC: NEPC 16:15 → INTOOBSV 19:34 → NEDA 19:34 → N05 22:56
PROVIDERS: ADMIT Family Medicine; ATTEND Family Medicine

== ENCOUNTER 2018-05-01 11:50 | Observation (INO) ==
[2018-05-01] MEDS ORDERED: Pantoprazole Inj 40 MG Vial IV.PUSH ONE (12:11)
[2018-05-01] MEDS ORDERED: Sod Chloride 0.9% Inj 1,000 ML IV.CONT SCH (12:15)
--- NOTE | 2018-05-01 12:20 | ED ---
HPI General Chief complaint: Nausea/Vomiting/Diarrhea Stated complaint: Nausea/Vomitting Complaint Time Seen by Provider: 05/01/18 12:01 History of Present Illness HPI Narrative: Patient is 77-year-old male with history of high blood pressure, recent stroke with right-sided residual weakness, dementia, on Plavix, was brought to emergency room after he vomited coffee-ground vomitus once. Patient denies any complaints, awake alert oriented x2. His vomitus on his shorts is guaiac positive. As per caregiver his mental status, skin, the same as before. Blood pressure is elevated. Related Data Home Medications Medication Instructions Recorded Confirmed glyburide 5 mg PO BID 04/13/18 05/01/18 metformin 1,000 mg PO BID 04/13/18 05/01/18 Previous Rx's Medication Instructions Recorded amlodipine [Norvasc] 5 mg PO DAILY tab 04/18/18 aspirin 325 mg PO DAILY tab 04/18/18 atorvastatin 40 mg PO HS tab 04/18/18 clonidine HCl [Catapres] 0.1 mg PO Q6H PRN tab 04/18/18 clopidogrel [Plavix] 75 mg PO DAILY tab 04/18/18 Allergies Allergy/AdvReac Type Severity Reaction Status Date / Time No Known Allergies Allergy Verified 05/01/18 12:09 Review of Systems ROS: all other systems reviewed are negative Gastrointestinal Reports vomiting PMFSH Medical History Medical History CVA (cerebral vascular accident) (Acute) Diabetes (Acute) Frequent falls (Acute) Hypertension (Acute) Surgical History Surgical History No history of previous surgery (Acute) Social History Social History Substance History: No History of Abuse Second Hand Smoke Exposure: No Smoking Status: Former smoker How Often Do You Have a Drink Containing Alcohol: Never Recent Travel in [place] within the Last 8 Weeks: No Recent Out of Country Travel within the Last 8 Weeks: No Immunization History Tetanus Immunization: >5 Years Exam Narrative Exam Narrative: GENERAL: 77-year-old male in no distress SKIN: Focused skin assessment warm/dry. HEAD: Atraumatic. Normocephalic. EYES: Pupils equal and round. No scleral icterus. No injection or drainage. ENT: No nasal bleeding or discharge. Mucous membranes pink and moist. NECK: Trachea midline. No JVD. CARDIOVASCULAR: Regular rate and rhythm. No murmur appreciated. RESPIRATORY: No accessory muscle use. Clear to auscultation. Breath sounds equal bilaterally. GASTROINTESTINAL: Abdomen soft, non-tender, nondistended. Hepatic and splenic margins not palpable. MUSCULOSKELETAL: No obvious deformities. No clubbing. No cyanosis. No edema. NEUROLOGICAL: Awake and alert. No obvious cranial nerve deficits. Motor grossly within normal limits. Normal speech. PSYCHIATRIC: Appropriate mood and affect; insight and judgment normal. Course Initial Documented Vital Signs Temperature 97.5 F L 05/01/18 11:54 Pulse Rate 86 05/01/18 11:54 Respiratory Rate 18 05/01/18 11:54 Blood Pressure 137/63 05/01/18 11:54 Pulse Oximetry 95 05/01/18 11:54 Last Documented Vital Signs Temperature 97.5 F L 05/01/18 11:54 Pulse Rate 83 05/01/18 14:59 Respiratory Rate 18 05/01/18 14:59 Blood Pressure 178/78 H 05/01/18 14:59 Pulse Oximetry 95 05/01/18 14:[address] [facility] Narrative Medical decision making narrative: Patient 77-year-old male presented to emergency room for coffee-ground, vomiting once. Denies any complaints. Vomitus is guaiac positive, GI bleed blood work is initiated. 1500: Blood pressure improved, hemoglobin is stable 12, patient has no complaints in the emergency room. Case was discussed with Dr. Thompson who agreed to place patient on observation. Medical Screen Exam Complete: Yes Emergency Medical Condition: Yes Differential Diagnosis Differential Diagnosis: GI bleed versus URI. Lab Data Result diagrams: 05/01/18 12:18 05/01/18 12:18 Lab Results 05/01/18 05/01/18 05/01/18 Range/Units 12:18 12:18 12:18 WBC 16.8 H (4.0-11.0) th/mm3 RBC 3.43 L (4.50-5.90) mil/mm3 Hgb 12.0 L (13.0-17.0) gm/dL Hct 34.7 L (39.0-51.0) % MCV 101.1 H (80.0-100.0) fL MCH 35.0 H (27.0-34.0) pg MCHC 34.6 (32.0-36.0) % RDW 13.5 (11.6-17.2) % Plt Count 267 D (150-450) th/mm3 MPV 8.0 (7.0-11.0) fL Neut % (Auto) 90.7 H (16.0-70.0) % Lymph % (Auto) 4.3 L (9.0-44.0) % [place] % (Auto) 4.4 (0.0-8.0) % Eos % (Auto) 0.1 (0.0-4.0) % Baso % (Auto) 0.5 (0.0-2.0) % Neut # (Auto) 15.2 H (1.8-7.7) th/mm3 Lymph # (Auto) 0.7 L (1.0-4.8) th/mm3 [place] # (Auto) 0.7 (0.0-0.9) th/mm3 Eos # (Auto) 0.0 (0.0-0.4) th/mm3 Baso # (Auto) 0.1 (0.0-0.2) th/mm3 WBC Differential . Differential Comment Auto diff final PT 10.8 (9.8-11.6) sec INR 1.1 Ratio APTT 25.0 (23.4-31.7) sec Sodium 136 (136-145) meq/L Potassium 4.1 (3.5-5.1) meq/L Chloride 101 (98-107) meq/L Carbon Dioxide 26.6 (21.0-32.0) meq/L Anion Gap 8 (5-15) meq/L BUN 46 H (7-18) mg/dL Creatinine 1.59 H (0.60-1.30) mg/dL Estimated GFR 43 L (>89) mL/min Random Glucose 332 H (74-106) mg/dL Calcium 8.8 (8.5-10.1) mg/dL Magnesium 1.7 (1.5-2.5) mg/dL Total Bilirubin 1.0 (0.2-1.0) mg/dL AST 24 (15-37) U/L ALT 43 (12-78) U/L Alkaline Phosphatase 83 (45-117) U/L Troponin I Less than 0.02 L (0.02-0.05) ng/mL Total Protein 6.9 (6.4-8.2) g/dL Albumin 3.2 L (3.4-5.0) g/dL Urine Color (Yellw/Straw) Urine Clarity (Clear) Urine pH (5.0-8.5) Ur Specific [place] (1.002-1.035) Urine Protein (Neg-Trace) mg/dL Urine Glucose (UA) (Negative) mg/dL Urine Ketones (Negative) mg/dL Urine Occult Blood (Negative) Urine Nitrate (Negative) Urine Bilirubin (Negative) Urine Urobilinogen (Less than 2) mg/dL Ur Leukocyte Esterase (Negative) Urine RBC (0-3) /hpf Urine WBC (0-5) /hpf Urine Bacteria (None) /hpf Hyaline Casts (0-3) /lpf Ur Microscopic Review Blood Type Blood Type Recheck Antibody Screen 05/01/18 05/01/18 Range/Units 12:18 13:30 WBC (4.0-11.0) th/mm3 RBC (4.50-5.90) mil/mm3 Hgb (13.0-17.0) gm/dL Hct (39.0-51.0) % MCV (80.0-100.0) fL MCH (27.0-34.0) pg MCHC (32.0-36.0) % RDW (11.6-17.2) % Plt Count (150-450) th/mm3 MPV (7.0-11.0) fL Neut % (Auto) (16.0-70.0) % Lymph % (Auto) (9.0-44.0) % [place] % (Auto) (0.0-8.0) % Eos % (Auto) (0.0-4.0) % Baso % (Auto) (0.0-2.0) % Neut # (Auto) (1.8-7.7) th/mm3 Lymph # (Auto) (1.0-4.8) th/mm3 [place] # (Auto) (0.0-0.9) th/mm3 Eos # (Auto) (0.0-0.4) th/mm3 Baso # (Auto) (0.0-0.2) th/mm3 WBC Differential Differential Comment PT (9.8-11.6) sec INR Ratio APTT (23.4-31.7) sec Sodium (136-145) meq/L Potassium (3.5-5.1) meq/L Chloride (98-107) meq/L Carbon Dioxide (21.0-32.0) meq/L Anion Gap (5-15) meq/L BUN (7-18) mg/dL Creatinine (0.60-1.30) mg/dL Estimated GFR (>89) mL/min Random Glucose (74-106) mg/dL Calcium (8.5-10.1) mg/dL Magnesium (1.5-2.5) mg/dL Total Bilirubin (0.2-1.0) mg/dL AST (15-37) U/L ALT (12-78) U/L Alkaline Phosphatase (45-117) U/L Troponin I (0.02-0.05) ng/mL Total Protein (6.4-8.2) g/dL Albumin (3.4-5.0) g/dL Urine Color Yellow (Yellw/Straw) Urine Clarity Clear (Clear) Urine pH 5.0 (5.0-8.5) Ur Specific [place] 1.026 (1.002-1.035) Urine Protein 100 H (Neg-Trace) mg/dL Urine Glucose (UA) 500 or greater (Negative) mg/dL Urine Ketones Trace H (Negative) mg/dL Urine Occult Blood Small H (Negative) Urine Nitrate Negative (Negative) Urine Bilirubin Negative (Negative) Urine Urobilinogen Less than 2 (Less than 2) mg/dL Ur Leukocyte Esterase Negative (Negative) Urine RBC 3 (0-3) /hpf Urine WBC 2 (0-5) /hpf Urine Bacteria Few H (None) /hpf Hyaline Casts 4 (0-3) /lpf Ur Microscopic Review Not Reportable Blood Type AB Positive Blood Type Recheck Required Antibody Screen Negative Imaging Data Radiologist's impression: Chest X-Ray 05/01/18 12:11 CONCLUSION: No acute cardiopulmonary abnormality is identified. Discharge Plan Discharge Disposition Patient Disposition: 30 Still Patient Discharge Condition Condition: Fair Discharge Details Diagnosis: GI (gastrointestinal hemorrhage), Hypertension, Vomiting Physicians Team ED Provider: Miguel Vanegas Primary Care Provider: Travis Lancaster Rxs /Orders / Referrals /Forms Prescriptions: No Action glyburide 5 mg Tablet 5 mg PO BID RF: 0 metformin 1,000 mg Tablet 1,000 mg PO BID RF: 0 atorvastatin 40 mg Tablet 40 mg PO HS RF: 0 clonidine HCl [Catapres] 0.1 mg Tablet 0.1 mg PO Q6H PRN (Reason: Sbp>200) RF: 0 aspirin 325 mg Tablet 325 mg PO DAILY RF: 0 clopidogrel [Plavix] 75 mg Tablet 75 mg PO DAILY RF: 0 amlodipine [Norvasc] 5 mg Tablet 5 mg PO DAILY RF: 0 Discharge Interventions Interventions: Vital Signs Last Done: 05/01/18 14:59 Status ED Status: Admitted Patient
[2018-05-01 12:30] LABS: Baso # (Auto) 0.1 th/mm3 (0.0-0.2); Baso % (Auto) 0.5 % (0.0-2.0); Eos % (Auto) 0.1 % (0.0-4.0); Hematocrit 34.7 % (39.0-51.0); Lymph # (Auto) 0.7 th/mm3 (1.0-4.8); Lymph % (Auto) 4.3 % (9.0-44.0); Mean Corpuscular HGB Conc 34.6 % (32.0-36.0); Mean Corpuscular Volume 101.1 fL (80.0-100.0); Mono # (Auto) 0.7 th/mm3 (0.0-0.9); Mono % (Auto) 4.4 % (0.0-8.0); Neut # (Auto) 15.2 th/mm3 (1.8-7.7); Neut % (Auto) 90.7 % (16.0-70.0); Platelet Count 267 th/mm3 (150-450); Red Blood Count 3.43 mil/mm3 (4.50-5.90); Red Cell Distribution Width 13.5 % (11.6-17.2); White Blood Count 16.8 th/mm3 (4.0-11.0)
--- NOTE | 2018-05-01 12:39 | XR ---
EXAM DATE: 05/01/2018 12:31 PM EDT AGE/SEX: 77 years / Male INDICATIONS: Nausea and vomiting blood. CLINICAL DATA: This is the patient's initial encounter. Patient reports that signs and symptoms have been present for 1 day and indicates a pain score of 0/10. MEDICAL/SURGICAL HISTORY: None. None. COMPARISON: [facility] [place] 1[place] SINGLE AP, 04/13/2018. . FINDINGS: Portable AP view of the chest demonstrates a normal-sized cardiac silhouette. No effusion, consolidat ion, or pneumothorax is identified. The bones and soft tissues demonstrate no acute finding. Lungs ar e mildly underinflated. CONCLUSION: No acute cardiopulmonary abnormality is identified. Electronically signed by: Jose Wu MD 05/01/2018 12:38 PM EDT
[2018-05-01 12:46] LABS: INR 1.1 Ratio; Prothrombin Time 10.8 sec (9.8-11.6)
[2018-05-01 12:48] LABS: Alanine Aminotransferase 43 U/L (12-78); Albumin 3.2 g/dL (3.4-5.0); Anion Gap 8 meq/L (5-15); Aspartate Aminotransferase 24 U/L (15-37); Blood Urea Nitrogen 46 mg/dL (7-18); Calcium 8.8 mg/dL (8.5-10.1); Carbon Dioxide 26.6 meq/L (21.0-32.0); Chloride 101 meq/L (98-107); Glomerular Filtration Rate 43 mL/min (>89); Glucose,Random 332 mg/dL (74-106); Magnesium 1.7 mg/dL (1.5-2.5); Potassium 4.1 meq/L (3.5-5.1); Sodium 136 meq/L (136-145)
[2018-05-01 12:53] LABS: Alkaline Phosphatase 83 U/L (45-117); Total Protein 6.9 g/dL (6.4-8.2)
[2018-05-01] MEDS ORDERED: hydrALAZINE HCl Inj 20 MG/ML Vial IV.PUSH ONE (13:13)
[2018-05-01] MEDS: *Labetalol HCl Inj 100 MG/20 ML Vial PERIprocedural Use ONLY IV.PUSH ONE ×2 (13:20→13:25)
[2018-05-01 14:08] LABS: Bacteria,Urine Few /hpf; Bilirubin,Urine Negative (Negative); Clarity,Urine Clear (Clear); Color,Urine Yellow (Yellw/Straw); Glucose,Urine (UA) 500 or Greater mg/dL (Negative); Hyaline Casts,Urine 4 /lpf (0-3); Leukocyte Esterase,Urine Negative (Negative); Nitrite,Urine Negative (Negative); Specific Gravity,Urine 1.026 (1.002-1.035)
[2018-05-01] MEDS ORDERED: Labetalol HCl Inj 100 MG/20 ML Vial IV.PUSH ONE (14:34)
[2018-05-01] MEDS ORDERED: Acetaminophen 325 MG Tablet PO PRN (15:26)
[2018-05-01] MEDS ORDERED: Dextrose 50% in Water 50 ML Vial IV.PUSH PRN (15:29)
--- NOTE | 2018-05-01 15:44 | P.HP ---
History of Present Illness Primary Care Physician: Travis Lancaster DO Chief Complaint: Coffee-ground emesis History of Present Illness: 77-year-old who past medical history of dementia, diabetes type 2 and recently diagnosed with CVA and treated with Plavix and aspirin was brought to the ED today for evaluation of one episode of coffee-ground emesis as observed by the patient's caregiver. H&H on admission was 12/34.7. Patient is unable to provide any coherent history although is alert and oriented to self. He denies any chest pain, shortness of breath. Patient was found to have elevated BP. Review of Systems unobtainable due to mental condition PMFSH - History History Provided By: Patient, Family Member - Medical History Medical History: Medical History (Last Updated 05/01/18 @ 12:09 by Geovanna Jean-Baptiste RN) CVA (cerebral vascular accident) Diabetes Frequent falls Hypertension - Surgical History Surgical History: Surgical History (Last Reviewed 05/01/18 @ 12:09 by Geovanna Jean-Baptiste RN) No history of previous surgery - Family History Family History: Family History (Last Reviewed 04/15/18 @ 08:26 by Marichuy Grady) Other Diabetes mellitus - Tobacco History Second Hand Smoke Exposure: No Smoking Status: Former smoker - Alcohol History How Often Do You Have a Drink Containing Alcohol: Never - Substance Use History Substance History: No History of Abuse - Travel History Recent Travel in the [place] Within the Last 8 Weeks: No Recent Travel Out of the Country Within the Last 8 Weeks: No - Immunization History Tetanus Immunization: >5 Years Medications and Allergies Active Medications: Active Medications Acetaminophen (Tylenol) 650 mg PO Q4H PRN PRN Reason: Temp > 100.4 Al Hydroxide/Mg Hydroxide (Milk Of Magnesia Liq) 30 ml PO Q12H PRN PRN Reason: Mild Constipation Amlodipine Besylate (Norvasc) 5 mg PO DAILY [facility] Clonidine HCl (Catapres) 0.2 mg PO Q6H PRN PRN Reason: SBP>160, DBP>90 Dextrose (D50w Vial) 50 ml IV.PUSH UNSCH PRN PRN Reason: PER HYPOGLYCEMIA PROTOCOL Glucagon (Glucagon Inj) 1 mg OTHER PRN PRN PRN Reason: for Hypoglycemia Protocol Sodium Chloride (Ns Inj) 1,000 mls @ 125 mls/hr IV.CONT .Q8H [facility] Stop: 05/01/18 20:14 Last Admin: 05/01/18 12:37 Dose: 125 mls/hr Sodium Chloride (Ns Inj) 1,000 mls @ 70 mls/hr IV.CONT .[id number] [facility] Insulin Aspart (Novolog Insulin Correctional Sugar Inj) 0 unit SQ ACHS [facility]; Protocol Ondansetron HCl (Zofran Inj) 4 mg IV.PUSH Q6H PRN PRN Reason: NAUSEA OR VOMITING Pantoprazole Sodium (Protonix Inj) 40 mg IV.PUSH BID [facility] Sodium Chloride (Ns Flush) 2 ml IV.FLUSH PRN PRN PRN Reason: FLUSH AFTER USING IV ACCESS Last Admin: 05/01/18 12:37 Dose: 2 ml Allergies Allergy/AdvReac Type Severity Reaction Status Date / Time No Known Allergies Allergy Verified 05/01/18 12:09 Home Medications Medication Instructions Recorded Confirmed Type glyburide 5 mg PO BID 04/13/18 05/01/18 History metformin 1,000 mg PO BID 04/13/18 05/01/18 History Exam Vital signs: Vital Signs 05/01/18 11:54 05/01/18 12:09 05/01/18 14:35 Temperature 97.5 F L Pulse Rate 86 81 80 Respiratory Rate 18 16 17 Blood Pressure 137/63 202/90 H 181/84 H Pulse Oximetry 95 95 97 05/01/18 14:59 Temperature Pulse Rate 83 Respiratory Rate 18 Blood Pressure 178/78 H Pulse Oximetry 95 Intake & Output 04/30/18 05/01/18 05/01/18 18:59 06:59 18:59 Weight 79.379 kg Narrative: GENERAL: Thin elderly white male in no acute distress SKIN: Warm and dry. HEAD: Atraumatic. Normocephalic. EYES: Pupils equal and round. No scleral icterus. No injection or drainage. ENT: No nasal bleeding or discharge. Mucous membranes pink and moist. NECK: Trachea midline. No JVD. CARDIOVASCULAR: Regular rate and rhythm. RESPIRATORY: No accessory muscle use. Clear to auscultation. Breath sounds equal bilaterally. GASTROINTESTINAL: Abdomen soft, non-tender, nondistended. Hepatic and splenic margins not palpable. MUSCULOSKELETAL: Extremities without clubbing, cyanosis, or edema. No obvious deformities. NEUROLOGICAL: Awake and alert. No obvious cranial nerve deficits. Motor grossly within normal limits. Five out of 5 muscle strength in the left arms and legs.4/5 Right sided extremities. PSYCHIATRIC: Appropriate mood and affect. Results - Labs CBC & Chem 7: 05/01/18 12:18 05/01/18 12:18 Labs: Laboratory Results - last 24 hr 05/01/18 05/01/18 05/01/18 12:18 12:18 12:18 WBC 16.8 H RBC 3.43 L Hgb 12.0 L Hct 34.7 L MCV 101.1 H MCH 35.0 H MCHC 34.6 RDW 13.5 Plt Count 267 D MPV 8.0 Neut % (Auto) 90.7 H Lymph % (Auto) 4.3 L [place] % (Auto) 4.4 Eos % (Auto) 0.1 Baso % (Auto) 0.5 Neut # (Auto) 15.2 H Lymph # (Auto) 0.7 L [place] # (Auto) 0.7 Eos # (Auto) 0.0 Baso # (Auto) 0.1 WBC Differential . Differential Comment Auto diff final PT 10.8 INR 1.1 APTT 25.0 Sodium 136 Potassium 4.1 Chloride 101 Carbon Dioxide 26.6 Anion Gap 8 BUN 46 H Creatinine 1.59 H Estimated GFR 43 L Random Glucose 332 H Calcium 8.8 Magnesium 1.7 Total Bilirubin 1.0 AST 24 ALT 43 Alkaline Phosphatase 83 Troponin I Less than 0.02 L Total Protein 6.9 Albumin 3.2 L Urine Color Urine Clarity Urine pH Ur Specific [place] Urine Protein Urine Glucose (UA) Urine Ketones Urine Occult Blood Urine Nitrate Urine Bilirubin Urine Urobilinogen Ur Leukocyte Esterase Urine RBC Urine WBC Urine Bacteria Hyaline Casts Ur Microscopic Review Blood Type Blood Type Recheck Antibody Screen 05/01/18 05/01/18 12:18 13:30 WBC RBC Hgb Hct MCV MCH MCHC RDW Plt Count MPV Neut % (Auto) Lymph % (Auto) [place] % (Auto) Eos % (Auto) Baso % (Auto) Neut # (Auto) Lymph # (Auto) [place] # (Auto) Eos # (Auto) Baso # (Auto) WBC Differential Differential Comment PT INR APTT Sodium Potassium Chloride Carbon Dioxide Anion Gap BUN Creatinine Estimated GFR Random Glucose Calcium Magnesium Total Bilirubin AST ALT Alkaline Phosphatase Troponin I Total Protein Albumin Urine Color Yellow Urine Clarity Clear Urine pH 5.0 Ur Specific [place] 1.026 Urine Protein 100 H Urine Glucose (UA) 500 or greater Urine Ketones Trace H Urine Occult Blood Small H Urine Nitrate Negative Urine Bilirubin Negative Urine Urobilinogen Less than 2 Ur Leukocyte Esterase Negative Urine RBC 3 Urine WBC 2 Urine Bacteria Few H Hyaline Casts 4 Ur Microscopic Review Not Reportable Blood Type AB Positive Blood Type Recheck Required Antibody Screen Negative - Imaging Impressions Chest X-Ray 05/01/18 12:11 CONCLUSION: No acute cardiopulmonary abnormality is identified. Caprini VTE Risk Assessment Caprini VTE Risk Assessment: Moderate/High Risk (score >= 2) VTE Pharmacological Exception Reason: Active bleeding Caprini Risk Assessment Model: Point Value = 1 Point Value = 2 Point Value = 3 Point Value = 5 Age 41-60 Minor surgery BMI > 25 kg/m2 Swollen legs Varicose veins or History of unexplained or recurrent spontaneous Oral contraceptives or hormone replacement Sepsis (< 1 month) Serious lung disease, including pneumonia (< 1 month) Abnormal pulmonary function Acute myocardial infarction Congestive heart failure (< 1 month) History of inflammatory bowel disease Medical patient at bed rest Age 61-74 Arthroscopic surgery Major open surgery (> 45 min) Laparoscopic surgery (> 45 min) Malignancy Confined to bed (> 72 hours) Immobilizing plaster cast Central venous access Age >= 75 History of VTE Family history of VTE Factor V Leiden Prothrombin [id number] Lupus anticoagulant Anticardiolipin antibodies Elevated serum homocysteine Heparin-induced thrombocytopenia Other congenital or acquired thrombophilia Stroke (< 1 month) Elective arthroplasty Hip, pelvis, or leg fracture Acute spinal cord injury (< 1 month) Prophylaxis Regimen: Total Risk Factor Score Risk Level Prophylaxis Regimen 0-1 Low Early ambulation 2 Moderate Order ONE of the following: *Sequential Compression Device (SCD) *Heparin 5000 units SQ BID 3-4 Higher Order ONE of the following medications: *Heparin 5000 units SQ TID *Enoxaparin/Lovenox 40 mg SQ daily (WT < 150 kg, CrCl > 30 mL/min) *Enoxaparin/Lovenox 30 mg SQ daily (WT < 150 kg, CrCl > 10-29 mL/min) *Enoxaparin/Lovenox 30 mg SQ BID (WT < 150 kg, CrCl > 30 mL/min) AND/OR *Sequential Compression Device (SCD) 5 or more Highest Order ONE of the following medications: *Heparin 5000 units SQ TID (Preferred with Epidurals) *Enoxaparin/Lovenox 40 mg SQ daily (WT < 150 kg, CrCl > 30 mL/min) *Enoxaparin/Lovenox 30 mg SQ daily (WT < 150 kg, CrCl > 10-29 mL/min) *Enoxaparin/Lovenox 30 mg SQ BID (WT < 150 kg, CrCl > 30 mL/min) AND *Sequential Compression Device (SCD) Assessment and Plan - Plan 77-year-old man with Upper GI bleed Episode of coffee-ground emesis Consult gastroenterology for evaluation for possible EGD Hold Plavix and aspirin Continue with PPI IV H&H 12.0/34.7, continue serial H&H monitoring Recent ischemic CVA Secondary to upper GI bleed, will hold aspirin and Plavix PT consult to treat and eval Acute on chronic disease stage II Start gentle IV fluid hydration Monitor BUN and creatinine History of diabetes type 2 Hold oral antihyperglycemic agents secondary to elevated creatinine Start medium sliding scale insulin Benign labile hypertension Resume outpatient medications Start clonidine as needed Dementia Chronic DVT prophylaxis: Current upper plaque is contraindicated, bilateral SCDs GI prophylaxis: PPI
[2018-05-01] MEDS: Sod Chloride 0.9% Inj 1,000 ML IV.CONT SCH (16:13)
--- NOTE | 2018-05-01 17:08 | P.CONGI ---
History of Present Illness Consult date: 05/01/18 Consult reason: 77-year-old male, recent CVA on Plavix/aspirin Coffee-ground emesis Chief complaint: GI bleed, vomiting, hypertension History of Present Illness: This patient is a 77-year-old male with history of dementia, diabetes type 2, and CVA. Patient currently being treated with Plavix and aspirin. He was brought to the emergency room today at [facility] after having one episode of coffee-ground emesis as per patient's caregiver. Patient has dementia and is unable to provide history. He is awake and alert and denies any abdominal pain or nausea at this time. <Shama Cheung - Last Filed: 05/01/18 16:58> Review of Systems All other systems reviewed negative except as stated in HPI <Shama Cheung - Last Filed: 05/01/18 16:58> PMFSH - History History Provided By: Patient - Medical History Medical History: Medical History (Last Updated 05/01/18 @ 12:09 by Geovanna Jean-Baptiste RN) CVA (cerebral vascular accident) Diabetes Frequent falls Hypertension - Surgical History Surgical History: Surgical History (Last Reviewed 05/01/18 @ 12:09 by Geovanna Jean-Baptiste RN) No history of previous surgery - Family History Family History: Family History (Last Reviewed 04/15/18 @ 08:26 by Marichuy Grady) Other Diabetes mellitus - Tobacco History Second Hand Smoke Exposure: No Tobacco Use In Past 30 Days: No (Pt states he quit 4 months ago) Smoking Status: Former smoker Tobacco Type: Cigarettes - Alcohol History How Often Do You Have a Drink Containing Alcohol: Never - Substance Use History Substance History: No History of Abuse - Travel History Recent Travel in the [place] Within the Last 8 Weeks: No Recent Travel Out of the Country Within the Last 8 Weeks: No - Immunization History Tetanus Immunization: >5 Years <Shama Cheung - Last Filed: 05/01/18 16:58> - Medical History Medical History: Medical History (Last Updated 05/01/18 @ 12:09 by Geovanna Jean-Baptiste RN) CVA (cerebral vascular accident) Diabetes Frequent falls Hypertension - Surgical History Surgical History: Surgical History (Last Reviewed 05/01/18 @ 12:09 by Geovanna Jean-Baptiste RN) No history of previous surgery - Family History Family History: Family History (Last Reviewed 04/15/18 @ 08:26 by Marichuy Grady) Other Diabetes mellitus <Gian Parra - Last Filed: 05/01/18 19:23> Medications and Allergies Active Medications: Active Medications Acetaminophen (Tylenol) 650 mg PO Q4H PRN PRN Reason: Temp > 100.4 Al Hydroxide/Mg Hydroxide (Milk Of Magnesia Liq) 30 ml PO Q12H PRN PRN Reason: Mild Constipation Amlodipine Besylate (Norvasc) 5 mg PO DAILY [place] Clonidine HCl (Catapres) 0.2 mg PO Q6H PRN PRN Reason: SBP>160, DBP>90 Dextrose (D50w Vial) 50 ml IV.PUSH UNSCH PRN PRN Reason: PER HYPOGLYCEMIA PROTOCOL Glucagon (Glucagon Inj) 1 mg OTHER PRN PRN PRN Reason: for Hypoglycemia Protocol Sodium Chloride (Ns Inj) 1,000 mls @ 125 mls/hr IV.CONT .Q8H [place] Stop: 05/01/18 20:14 Last Admin: 05/01/18 12:37 Dose: 125 mls/hr Sodium Chloride (Ns Inj) 1,000 mls @ 70 mls/hr IV.CONT .[id number] [place] Last Admin: 05/01/18 16:13 Dose: 70 mls/hr Insulin Aspart (Novolog Insulin Correctional Sugar Inj) 0 unit SQ ACHS [place]; Protocol Ondansetron HCl (Zofran Inj) 4 mg IV.PUSH Q6H PRN PRN Reason: NAUSEA OR VOMITING Pantoprazole Sodium (Protonix Inj) 40 mg IV.PUSH BID [place] Sodium Chloride (Ns Flush) 2 ml IV.FLUSH PRN PRN PRN Reason: FLUSH AFTER USING IV ACCESS Last Admin: 05/01/18 12:37 Dose: 2 ml <Shama Cheung - Last Filed: 05/01/18 16:58> Active Medications: Active Medications Acetaminophen (Tylenol) 650 mg PO Q4H PRN PRN Reason: Temp > 100.4 Al Hydroxide/Mg Hydroxide (Milk Of Magnesia Liq) 30 ml PO Q12H PRN PRN Reason: Mild Constipation Amlodipine Besylate (Norvasc) 5 mg PO DAILY [place] Clonidine HCl (Catapres) 0.2 mg PO Q6H PRN PRN Reason: SBP>160, DBP>90 Dextrose (D50w Vial) 50 ml IV.PUSH UNSCH PRN PRN Reason: PER HYPOGLYCEMIA PROTOCOL Glucagon (Glucagon Inj) 1 mg OTHER PRN PRN PRN Reason: for Hypoglycemia Protocol Sodium Chloride (Ns Inj) 1,000 mls @ 125 mls/hr IV.CONT .Q8H [place] Stop: 05/01/18 20:14 Last Admin: 05/01/18 12:37 Dose: 125 mls/hr Sodium Chloride (Ns Inj) 1,000 mls @ 70 mls/hr IV.CONT .[id number] [place] Last Admin: 05/01/18 16:13 Dose: 70 mls/hr Insulin Aspart (Novolog Insulin Correctional Sugar Inj) 0 unit SQ ACHS [facility]; Protocol Last Admin: 05/01/18 18:15 Dose: Not Given Ondansetron HCl (Zofran Inj) 4 mg IV.PUSH Q6H PRN PRN Reason: NAUSEA OR VOMITING Pantoprazole Sodium (Protonix Inj) 40 mg IV.PUSH BID [facility] Sodium Chloride (Ns Flush) 2 ml IV.FLUSH PRN PRN PRN Reason: FLUSH AFTER USING IV ACCESS Last Admin: 05/01/18 12:37 Dose: 2 ml <Gian Parra E - Last Filed: 05/01/18 19:23> Allergies Allergy/AdvReac Type Severity Reaction Status Date / Time No Known Allergies Allergy Verified 05/01/18 12:09 Home Medications Medication Instructions Recorded Confirmed Type glyburide 5 mg PO BID 04/13/18 05/01/18 History metformin 1,000 mg PO BID 04/13/18 05/01/18 History Exam Vital signs: Vital Signs 05/01/18 11:54 05/01/18 12:09 05/01/18 14:35 Temperature 97.5 F L Pulse Rate 86 81 80 Respiratory Rate 18 16 17 Blood Pressure 137/63 202/90 H 181/84 H Pulse Oximetry 95 95 97 05/01/18 14:59 05/01/18 15:51 05/01/18 16:20 Temperature 98.3 F Pulse Rate 83 78 71 Respiratory Rate 18 18 20 Blood Pressure 178/78 H 166/73 H 144/67 H Pulse Oximetry 95 96 94 L Intake & Output 04/30/18 05/01/18 05/01/18 18:59 06:59 18:59 Weight 79 kg Other: Weight On Admission 79 kg - Constitutional no acute distress - Routine HEENT Exam Head: Present: normocephalic - Routine Neck Exam Present: supple - Routine Respiratory Exam Present: CTA bilaterally. Absent: accessory muscle use - Routine Abdominal Exam Present: soft, normoactive bowel sounds. Absent: tenderness, distended, guarding, firm - Routine Extremities Exam Absent: edema - Routine Skin Exam Present: dry, warm. Absent: pallor - Routine Neurological Exam Present: alert <Shama Cheung - Last Filed: 05/01/18 16:58> Vital signs: Vital Signs 05/01/18 11:54 05/01/18 12:09 05/01/18 14:35 Temperature 97.5 F L Pulse Rate 86 81 80 Respiratory Rate 18 16 17 Blood Pressure 137/63 202/90 H 181/84 H Pulse Oximetry 95 95 97 05/01/18 14:59 05/01/18 15:51 05/01/18 16:20 Temperature 98.3 F Pulse Rate 83 78 71 Respiratory Rate 18 18 20 Blood Pressure 178/78 H 166/73 H 144/67 H Pulse Oximetry 95 96 94 L 05/01/18 19:09 Temperature 98.4 F Pulse Rate 96 H Respiratory Rate 16 Blood Pressure 147/67 H Pulse Oximetry 94 L Intake & Output 05/01/18 05/01/18 05/02/18 06:59 18:59 06:59 Output Total 275 / 275 Balance -275 / -275 Weight 79 kg Output: Urine 275 / 275 Other: Weight On Admission 79 kg <Gian Parra - Last Filed: 05/01/18 19:23> Results - Labs CBC & Chem 7: 05/01/18 12:18 05/01/18 12:18 Labs: Laboratory Results - last 24 hr 05/01/18 05/01/18 05/01/18 12:18 12:18 12:18 WBC 16.8 H RBC 3.43 L Hgb 12.0 L Hct 34.7 L MCV 101.1 H MCH 35.0 H MCHC 34.6 RDW 13.5 Plt Count 267 D MPV 8.0 Neut % (Auto) 90.7 H Lymph % (Auto) 4.[address] [place] % (Auto) 4.4 Eos % (Auto) 0.1 Baso % (Auto) 0.5 Neut # (Auto) 15.2 H Lymph # (Auto) 0.[address] [place] # (Auto) 0.7 Eos # (Auto) 0.0 Baso # (Auto) 0.1 WBC Differential . Differential Comment Auto diff final PT 10.8 INR 1.1 APTT 25.0 Sodium 136 Potassium 4.1 Chloride 101 Carbon Dioxide 26.6 Anion Gap 8 BUN 46 H Creatinine 1.59 H Estimated GFR 43 L Random Glucose 332 H Calcium 8.8 Magnesium 1.7 Total Bilirubin 1.0 AST 24 ALT 43 Alkaline Phosphatase 83 Troponin I Less than 0.02 L Total Protein 6.9 Albumin 3.2 L Urine Color Urine Clarity Urine pH Ur Specific [place] Urine Protein Urine Glucose (UA) Urine Ketones Urine Occult Blood Urine Nitrate Urine Bilirubin Urine Urobilinogen Ur Leukocyte Esterase Urine RBC Urine WBC Urine Bacteria Hyaline Casts Ur Microscopic Review Blood Type Blood Type Recheck Antibody Screen 05/01/18 05/01/18 12:18 13:30 WBC RBC Hgb Hct MCV MCH MCHC RDW Plt Count MPV Neut % (Auto) Lymph % (Auto) [place] % (Auto) Eos % (Auto) Baso % (Auto) Neut # (Auto) Lymph # (Auto) [place] # (Auto) Eos # (Auto) Baso # (Auto) WBC Differential Differential Comment PT INR APTT Sodium Potassium Chloride Carbon Dioxide Anion Gap BUN Creatinine Estimated GFR Random Glucose Calcium Magnesium Total Bilirubin AST ALT Alkaline Phosphatase Troponin I Total Protein Albumin Urine Color Yellow Urine Clarity Clear Urine pH 5.0 Ur Specific [place] 1.026 Urine Protein 100 H Urine Glucose (UA) 500 or greater Urine Ketones Trace H Urine Occult Blood Small H Urine Nitrate Negative Urine Bilirubin Negative Urine Urobilinogen Less than 2 Ur Leukocyte Esterase Negative Urine RBC 3 Urine WBC 2 Urine Bacteria Few H Hyaline Casts 4 Ur Microscopic Review Not Reportable Blood Type AB Positive Blood Type Recheck Required Antibody Screen Negative - Imaging Impressions Chest X-Ray 05/01/18 12:11 CONCLUSION: No acute cardiopulmonary abnormality is identified. <Shama Cheung - Last Filed: 05/01/18 16:58> - Labs CBC & Chem 7: 05/01/18 12:18 05/01/18 12:18 Labs: Laboratory Results - last 24 hr 05/01/18 05/01/18 05/01/18 12:18 12:18 12:18 WBC 16.8 H RBC 3.43 L Hgb 12.0 L Hct 34.7 L MCV 101.1 H MCH 35.0 H MCHC 34.6 RDW 13.5 Plt Count 267 D MPV 8.0 Neut % (Auto) 90.7 H Lymph % (Auto) 4.[address] [place] % (Auto) 4.4 Eos % (Auto) 0.1 Baso % (Auto) 0.5 Neut # (Auto) 15.2 H Lymph # (Auto) 0.[address] [place] # (Auto) 0.7 Eos # (Auto) 0.0 Baso # (Auto) 0.1 WBC Differential . Differential Comment Auto diff final PT 10.8 INR 1.1 APTT 25.0 Sodium 136 Potassium 4.1 Chloride 101 Carbon Dioxide 26.6 Anion Gap 8 BUN 46 H Creatinine 1.59 H Estimated GFR 43 L POC Glucose Random Glucose 332 H Calcium 8.8 Magnesium 1.7 Total Bilirubin 1.0 AST 24 ALT 43 Alkaline Phosphatase 83 Troponin I Less than 0.02 L Total Protein 6.9 Albumin 3.2 L Urine Color Urine Clarity Urine pH Ur Specific [place] Urine Protein Urine Glucose (UA) Urine Ketones Urine Occult Blood Urine Nitrate Urine Bilirubin Urine Urobilinogen Ur Leukocyte Esterase Urine RBC Urine WBC Urine Bacteria Hyaline Casts Ur Microscopic Review Blood Type Blood Type Recheck Antibody Screen 05/01/18 05/01/18 05/01/18 12:18 13:30 18:03 WBC RBC Hgb Hct MCV MCH MCHC RDW Plt Count MPV Neut % (Auto) Lymph % (Auto) [place] % (Auto) Eos % (Auto) Baso % (Auto) Neut # (Auto) Lymph # (Auto) [place] # (Auto) Eos # (Auto) Baso # (Auto) WBC Differential Differential Comment PT INR APTT Sodium Potassium Chloride Carbon Dioxide Anion Gap BUN Creatinine Estimated GFR POC Glucose 279 H Random Glucose Calcium Magnesium Total Bilirubin AST ALT Alkaline Phosphatase Troponin I Total Protein Albumin Urine Color Yellow Urine Clarity Clear Urine pH 5.0 Ur Specific [place] 1.026 Urine Protein 100 H Urine Glucose (UA) 500 or greater Urine Ketones Trace H Urine Occult Blood Small H Urine Nitrate Negative Urine Bilirubin Negative Urine Urobilinogen Less than 2 Ur Leukocyte Esterase Negative Urine RBC 3 Urine WBC 2 Urine Bacteria Few H Hyaline Casts 4 Ur Microscopic Review Not Reportable Blood Type AB Positive Blood Type Recheck Required Antibody Screen Negative - Imaging Impressions Chest X-Ray 05/01/18 12:11 CONCLUSION: No acute cardiopulmonary abnormality is identified. <Gian Parra - Last Filed: 05/01/18 19:23> Assessment and Plan (1) Coffee ground emesis Status: Acute Code(s): K92.0 - Hematemesis - Plan This patient is a 77-year-old male with history of dementia, diabetes type 2, and CVA. Patient currently being treated with Plavix and aspirin. He was brought to the emergency room today at [facility] after having one episode of coffee-ground emesis as per patient's caregiver. Patient has dementia and is unable to provide history. He is awake and alert and denies any abdominal pain or nausea at this time. Coffee-ground emesis Patient brought into ER after having one episode of coffee-ground emesis. Patient denies any nausea vomiting or abdominal pain. Hemoglobin 12.0 hematocrit 34.7. Plan -N.p.o. -Monitor for active bleeding -Pantoprazole 40 mg IV twice daily -Zofran as needed -IV hydration -Monitor hemoglobin and hematocrit -Supportive care -Further recommendations to follow based on patient status and findings This patient has been seen by myself and Dr. Parra and this note is written on his behalf - Attending Attestation Dr. Parra <Shama Cheung - Last Filed: 05/01/18 16:58> (1) Coffee ground emesis Status: Acute Code(s): K92.0 - Hematemesis - Plan Patient seen and examined Agree with above Continue with current supportive care Monitor labs <Gian Parra - Last Filed: 05/01/18 19:23>
[2018-05-01] MEDS: Insulin NovoLOG Aspart Correctional Sugar Inj SQ SCH ×2 (18:15→20:06)
[2018-05-01] MEDS: Pantoprazole Inj 40 MG Vial IV.PUSH SCH (20:06)
[2018-05-01 22:18] LABS: Hematocrit 28.5 % (39.0-51.0); Hemoglobin 9.9 gm/dL (13.0-17.0)
[2018-05-02] MEDS: Sod Chloride 0.9% Inj 1,000 ML IV.CONT SCH ×2 (04:51→21:09)
[2018-05-02 08:24] LABS: Baso % (Auto) 0.4 % (0.0-2.0); Eos # (Auto) 0.2 th/mm3 (0.0-0.4); Eos % (Auto) 1.5 % (0.0-4.0); Hemoglobin 10.4 gm/dL (13.0-17.0); Lymph # (Auto) 0.9 th/mm3 (1.0-4.8); Lymph % (Auto) 9.1 % (9.0-44.0); Mean Corpuscular Hemoglobin 36.3 pg (27.0-34.0); Mean Platelet Volume 7.9 fL (7.0-11.0); Mono # (Auto) 0.5 th/mm3 (0.0-0.9); Mono % (Auto) 5.4 % (0.0-8.0); Neut # (Auto) 8.4 th/mm3 (1.8-7.7); Neut % (Auto) 83.6 % (16.0-70.0); Platelet Count 212 th/mm3 (150-450); Red Blood Count 2.87 mil/mm3 (4.50-5.90); Red Cell Distribution Width 13.9 % (11.6-17.2)
[2018-05-02] MEDS: Insulin NovoLOG Aspart Correctional Sugar Inj SQ SCH ×4 (08:30→21:09)
--- NOTE | 2018-05-02 08:55 | P.PNGI ---
Subjective Interval history: Pt is sleeping, able to answer questions while eyes shut, denies any more nausea or vomiting, or abd pain. Per nurse no more nausea or vomiting or melena Physical Exam Vital signs: Vital Signs 05/01/18 11:54 05/01/18 12:09 05/01/18 14:35 Temperature 97.5 F L Pulse Rate 86 81 80 Respiratory Rate 18 16 17 Blood Pressure 137/63 202/90 H 181/84 H Pulse Oximetry 95 95 97 05/01/18 14:59 05/01/18 15:51 05/01/18 16:20 Temperature 98.3 F Pulse Rate 83 78 71 Respiratory Rate 18 18 20 Blood Pressure 178/78 H 166/73 H 144/67 H Pulse Oximetry 95 96 94 L 05/01/18 19:09 05/01/18 23:48 05/02/18 04:42 Temperature 98.4 F 98.3 F 98.4 F Pulse Rate 76 75 77 Respiratory Rate 16 16 16 Blood Pressure 147/67 H 145/68 H 148/66 H Pulse Oximetry 94 L 94 L 94 L 05/02/18 07:34 Temperature Pulse Rate 57 L Respiratory Rate 16 Blood Pressure 163/69 H Pulse Oximetry 93 L Intake & Output 05/01/18 05/02/18 05/02/18 18:59 06:59 18:59 Intake Total 1800 / 1800 Output Total 275 / 275 Balance -275 / -275 1800 / 1800 Weight 79 kg Intake: IV 1800 / 1800 NS Inj 1,000 ML @ 70 mls/hr IV. 1800 / 1800 CONT .[id number] [facility] Rx#:[id number] Output: Urine 275 / 275 Other: # Voids 3 Weight On Admission 79 kg Narrative: GENERAL: Thin elderly white male in no acute distress SKIN: Warm and dry. HEAD: Atraumatic. Normocephalic. CARDIOVASCULAR: Regular rate and rhythm. RESPIRATORY: No accessory muscle use. Clear to auscultation. Breath sounds equal bilaterally. GASTROINTESTINAL: Abdomen soft, non-tender, nondistended. Hepatic and splenic margins not palpable. MUSCULOSKELETAL: Extremities without clubbing, cyanosis, or edema. No obvious deformities. NEUROLOGICAL: Awake and alert. PSYCHIATRIC: Appropriate mood and affect. Results - Labs CBC & Chem 7: 05/01/18 22:09 05/01/18 12:18 Laboratory Results - last 24 hr 05/01/18 05/01/18 05/01/18 12:18 12:18 12:18 WBC 16.8 H RBC 3.43 L Hgb 12.0 L Hct 34.7 L MCV 101.1 H MCH 35.0 H MCHC 34.6 RDW 13.5 Plt Count 267 D MPV 8.0 Neut % (Auto) 90.7 H Lymph % (Auto) 4.3 L [place] % (Auto) 4.4 Eos % (Auto) 0.1 Baso % (Auto) 0.5 Neut # (Auto) 15.2 H Lymph # (Auto) 0.7 L [place] # (Auto) 0.7 Eos # (Auto) 0.0 Baso # (Auto) 0.1 WBC Differential . Differential Comment Auto diff final PT 10.8 INR 1.1 APTT 25.0 Sodium 136 Potassium 4.1 Chloride 101 Carbon Dioxide 26.6 Anion Gap 8 BUN 46 H Creatinine 1.59 H Estimated GFR 43 L POC Glucose Random Glucose 332 H Calcium 8.8 Magnesium 1.7 Total Bilirubin 1.0 AST 24 ALT 43 Alkaline Phosphatase 83 Troponin I Less than 0.02 L Total Protein 6.9 Albumin 3.2 L Urine Color Urine Clarity Urine pH Ur Specific [place] Urine Protein Urine Glucose (UA) Urine Ketones Urine Occult Blood Urine Nitrate Urine Bilirubin Urine Urobilinogen Ur Leukocyte Esterase Urine RBC Urine WBC Urine Bacteria Hyaline Casts Ur Microscopic Review Blood Type Blood Type Recheck Antibody Screen 05/01/18 05/01/18 05/01/18 12:18 13:30 18:03 WBC RBC Hgb Hct MCV MCH MCHC RDW Plt Count MPV Neut % (Auto) Lymph % (Auto) [place] % (Auto) Eos % (Auto) Baso % (Auto) Neut # (Auto) Lymph # (Auto) [place] # (Auto) Eos # (Auto) Baso # (Auto) WBC Differential Differential Comment PT INR APTT Sodium Potassium Chloride Carbon Dioxide Anion Gap BUN Creatinine Estimated GFR POC Glucose 279 H Random Glucose Calcium Magnesium Total Bilirubin AST ALT Alkaline Phosphatase Troponin I Total Protein Albumin Urine Color Yellow Urine Clarity Clear Urine pH 5.0 Ur Specific [place] 1.026 Urine Protein 100 H Urine Glucose (UA) 500 or greater Urine Ketones Trace H Urine Occult Blood Small H Urine Nitrate Negative Urine Bilirubin Negative Urine Urobilinogen Less than 2 Ur Leukocyte Esterase Negative Urine RBC 3 Urine WBC 2 Urine Bacteria Few H Hyaline Casts 4 Ur Microscopic Review Not Reportable Blood Type AB Positive Blood Type Recheck Required Antibody Screen Negative 05/01/18 05/01/18 20:05 22:09 WBC RBC Hgb 9.9 L D Hct 28.5 L MCV MCH MCHC RDW Plt Count MPV Neut % (Auto) Lymph % (Auto) [place] % (Auto) Eos % (Auto) Baso % (Auto) Neut # (Auto) Lymph # (Auto) [place] # (Auto) Eos # (Auto) Baso # (Auto) WBC Differential Differential Comment PT INR APTT Sodium Potassium Chloride Carbon Dioxide Anion Gap BUN Creatinine Estimated GFR POC Glucose 233 H Random Glucose Calcium Magnesium Total Bilirubin AST ALT Alkaline Phosphatase Troponin I Total Protein Albumin Urine Color Urine Clarity Urine pH Ur Specific [place] Urine Protein Urine Glucose (UA) Urine Ketones Urine Occult Blood Urine Nitrate Urine Bilirubin Urine Urobilinogen Ur Leukocyte Esterase Urine RBC Urine WBC Urine Bacteria Hyaline Casts Ur Microscopic Review Blood Type Blood Type Recheck Antibody Screen - Imaging Impressions Chest X-Ray 05/01/18 12:11 CONCLUSION: No acute cardiopulmonary abnormality is identified. Assessment and Plan (1) Coffee ground emesis Status: Acute Code(s): K92.0 - Hematemesis - Plan - Coffee-ground emesis- No more nausea or vomiting Hemoglobin dropped from 12.0 to 9.9 yesterday, today pending Patient brought into ER after having one episode of coffee-ground emesis. Patient denies any more nausea vomiting or abdominal pain. - Recent ischemic CVA aspirin and Plavix on hold - DM, Dementia- per attending Plan -clear liquid -Monitor for active bleeding -Possible EGD depending on hospital course -Pantoprazole 40 mg IV twice daily -Zofran as needed -IV hydration -Monitor hemoglobin and hematocrit -Transfuse as needed -Further recommendations to follow based on patient status and findings This patient has been seen by myself and Dr. Smith and this note is written on her behalf
[2018-05-02 09:10] LABS: Alanine Aminotransferase 34 U/L (12-78); Albumin 2.9 g/dL (3.4-5.0); Alkaline Phosphatase 77 U/L (45-117); Anion Gap 8 meq/L (5-15); Aspartate Aminotransferase 15 U/L (15-37); Blood Urea Nitrogen 32 mg/dL (7-18); Calcium 8.3 mg/dL (8.5-10.1); Carbon Dioxide 26.9 meq/L (21.0-32.0); Chloride 106 meq/L (98-107); Glomerular Filtration Rate 50 mL/min (>89); Glucose,Random 156 mg/dL (74-106); Potassium 3.5 meq/L (3.5-5.1); Sodium 141 meq/L (136-145); Total Protein 6.3 g/dL (6.4-8.2)
--- NOTE | 2018-05-02 09:33 | P.PN ---
Subjective Interval history: Follow up for GI bleed. The patient is seen resting in bed. He is oriented to self and [place], but not month/year. Denies any further episodes of nausea/ vomiting/hematemesis. Denies any abdominal pain. Does not recall his last BM. Denies any lightheadedness, dizziness, chest pain, shortness of breath, or any other medical complaints at this time. Physical Exam Vital signs: Vital Signs 05/01/18 11:54 05/01/18 12:09 05/01/18 14:35 Temperature 97.5 F L Pulse Rate 86 81 80 Respiratory Rate 18 16 17 Blood Pressure 137/63 202/90 H 181/84 H Pulse Oximetry 95 95 97 05/01/18 14:59 05/01/18 15:51 05/01/18 16:20 Temperature 98.3 F Pulse Rate 83 78 71 Respiratory Rate 18 18 20 Blood Pressure 178/78 H 166/73 H 144/67 H Pulse Oximetry 95 96 94 L 05/01/18 19:09 05/01/18 23:48 05/02/18 04:42 Temperature 98.4 F 98.3 F 98.4 F Pulse Rate 76 75 77 Respiratory Rate 16 16 16 Blood Pressure 147/67 H 145/68 H 148/66 H Pulse Oximetry 94 L 94 L 94 L 05/02/18 07:34 Temperature Pulse Rate 57 L Respiratory Rate 16 Blood Pressure 163/69 H Pulse Oximetry 93 L Intake & Output 05/01/18 05/02/18 05/02/18 18:59 06:59 18:59 Intake Total 1800 / 1800 Output Total 275 / 275 Balance -275 / -275 1800 / 1800 Weight 79 kg Intake: IV 1800 / 1800 NS Inj 1,000 ML @ 70 mls/hr IV. 1800 / 1800 CONT .[id number] [facility] Rx#:[id number] Output: Urine 275 / 275 Other: # Voids 3 Weight On Admission 79 kg Narrative: GENERAL: Well-nourished, well-developed patient in NAD. SKIN: Warm and dry. No rash. HEENT: Normocephalic. Atraumatic. Pupils equal and round. Mucous membranes pink and moist. CARDIOVASCULAR: Regular rate and rhythm. No murmur appreciated. RESPIRATORY: No accessory muscle use. Clear to auscultation. Breath sounds equal bilaterally. GASTROINTESTINAL: Abdomen soft, non-tender, nondistended. Normoactive bowel sounds x4. MUSCULOSKELETAL: No obvious deformities. Extremities without clubbing, cyanosis , or edema. NEUROLOGICAL: AAO x2. No obvious cranial nerve deficits. Motor grossly within normal limits. Moving all extremities spontaneously. Normal speech. PSYCHIATRIC: Calm mood; insight and judgment fair. Results - Labs CBC & Chem 7: 05/02/18 07:00 05/02/18 07:00 Laboratory Results - last 24 hr 05/01/18 05/01/18 05/01/18 12:18 12:18 12:18 WBC 16.8 H RBC 3.43 L Hgb 12.0 L Hct 34.7 L MCV 101.1 H MCH 35.0 H MCHC 34.6 RDW 13.5 Plt Count 267 D MPV 8.0 Prelim Diff (Auto) Neut % (Auto) 90.7 H Lymph % (Auto) 4.3 L [place] % (Auto) 4.4 Eos % (Auto) 0.1 Baso % (Auto) 0.5 Neut # (Auto) 15.2 H Lymph # (Auto) 0.7 L [place] # (Auto) 0.7 Eos # (Auto) 0.0 Baso # (Auto) 0.1 WBC Differential . Differential Comment Auto diff final PT 10.8 INR 1.1 APTT 25.0 Sodium 136 Potassium 4.1 Chloride 101 Carbon Dioxide 26.6 Anion Gap 8 BUN 46 H Creatinine 1.59 H Estimated GFR 43 L POC Glucose Random Glucose 332 H Calcium 8.8 Magnesium 1.7 Total Bilirubin 1.0 AST 24 ALT 43 Alkaline Phosphatase 83 Troponin I Less than 0.02 L Total Protein 6.9 Albumin 3.2 L Urine Color Urine Clarity Urine pH Ur Specific [place] Urine Protein Urine Glucose (UA) Urine Ketones Urine Occult Blood Urine Nitrate Urine Bilirubin Urine Urobilinogen Ur Leukocyte Esterase Urine RBC Urine WBC Urine Bacteria Hyaline Casts Ur Microscopic Review Blood Type Blood Type Recheck Antibody Screen 05/01/18 05/01/18 05/01/18 12:18 13:30 18:03 WBC RBC Hgb Hct MCV MCH MCHC RDW Plt Count MPV Prelim Diff (Auto) Neut % (Auto) Lymph % (Auto) [place] % (Auto) Eos % (Auto) Baso % (Auto) Neut # (Auto) Lymph # (Auto) [place] # (Auto) Eos # (Auto) Baso # (Auto) WBC Differential Differential Comment PT INR APTT Sodium Potassium Chloride Carbon Dioxide Anion Gap BUN Creatinine Estimated GFR POC Glucose 279 H Random Glucose Calcium Magnesium Total Bilirubin AST ALT Alkaline Phosphatase Troponin I Total Protein Albumin Urine Color Yellow Urine Clarity Clear Urine pH 5.0 Ur Specific [place] 1.026 Urine Protein 100 H Urine Glucose (UA) 500 or greater Urine Ketones Trace H Urine Occult Blood Small H Urine Nitrate Negative Urine Bilirubin Negative Urine Urobilinogen Less than 2 Ur Leukocyte Esterase Negative Urine RBC 3 Urine WBC 2 Urine Bacteria Few H Hyaline Casts 4 Ur Microscopic Review Not Reportable Blood Type AB Positive Blood Type Recheck Required Antibody Screen Negative 05/01/18 05/01/18 05/02/18 20:05 22:09 07:00 WBC 10.0 RBC 2.87 L Hgb 9.9 L D 10.4 L Hct 28.5 L 29.0 L MCV 101.0 H MCH 36.3 H MCHC 36.0 RDW 13.9 Plt Count 212 MPV 7.9 Prelim Diff (Auto) Slide review pending Neut % (Auto) 83.6 H Lymph % (Auto) 9.1 [place] % (Auto) 5.4 Eos % (Auto) 1.5 Baso % (Auto) 0.4 Neut # (Auto) 8.4 H Lymph # (Auto) 0.9 L [place] # (Auto) 0.5 Eos # (Auto) 0.2 Baso # (Auto) 0.0 WBC Differential Differential Comment . PT INR APTT Sodium Potassium Chloride Carbon Dioxide Anion Gap BUN Creatinine Estimated GFR POC Glucose 233 H Random Glucose Calcium Magnesium Total Bilirubin AST ALT Alkaline Phosphatase Troponin I Total Protein Albumin Urine Color Urine Clarity Urine pH Ur Specific [place] Urine Protein Urine Glucose (UA) Urine Ketones Urine Occult Blood Urine Nitrate Urine Bilirubin Urine Urobilinogen Ur Leukocyte Esterase Urine RBC Urine WBC Urine Bacteria Hyaline Casts Ur Microscopic Review Blood Type Blood Type Recheck Antibody Screen 05/02/18 07:00 WBC RBC Hgb Hct MCV MCH MCHC RDW Plt Count MPV Prelim Diff (Auto) Neut % (Auto) Lymph % (Auto) [place] % (Auto) Eos % (Auto) Baso % (Auto) Neut # (Auto) Lymph # (Auto) [place] # (Auto) Eos # (Auto) Baso # (Auto) WBC Differential Differential Comment PT INR APTT Sodium 141 Potassium 3.5 Chloride 106 Carbon Dioxide 26.9 Anion Gap 8 BUN 32 H Creatinine 1.38 H Estimated GFR 50 L POC Glucose Random Glucose 156 H D Calcium 8.3 L Magnesium Total Bilirubin 0.8 AST 15 ALT 34 Alkaline Phosphatase 77 Troponin I Total Protein 6.3 L D Albumin 2.9 L Urine Color Urine Clarity Urine pH Ur Specific [place] Urine Protein Urine Glucose (UA) Urine Ketones Urine Occult Blood Urine Nitrate Urine Bilirubin Urine Urobilinogen Ur Leukocyte Esterase Urine RBC Urine WBC Urine Bacteria Hyaline Casts Ur Microscopic Review Blood Type Blood Type Recheck Antibody Screen - Imaging Impressions Chest X-Ray 05/01/18 12:11 CONCLUSION: No acute cardiopulmonary abnormality is identified. Assessment and Plan - Plan 77-year-old who past medical history of dementia, diabetes type 2 and recently diagnosed with CVA and treated with Plavix and aspirin was brought to the ED today for evaluation of one episode of coffee-ground emesis as observed by the patient's caregiver. Upper GI bleed -Episode of coffee-ground emesis -Hold Plavix and aspirin -Continue with PPI IV -Hgb 12.0 --> 9.9 --> 10.4, continue serial H&H monitoring -Consult gastroenterology, recommends continuing observation/monitoring for now -Clear liquid diet -No further episodes since arrival Recent ischemic CVA -Secondary to upper GI bleed, will hold aspirin and Plavix -PT consult to treat and eval Acute on chronic disease stage II -Start gentle IV fluid hydration -Monitor BUN and creatinine, improving History of diabetes type 2 -Hold oral antihyperglycemic agents secondary to elevated creatinine -Monitor Accu-checks and cover with medium sliding scale insulin Benign labile hypertension -Resume outpatient medications -clonidine as needed Dementia -Chronic, at baseline DVT prophylaxis: bilateral SCDs; Chemical prophylaxis contraindicated with GI bleeding GI prophylaxis: PPI
[2018-05-02] MEDS: Pantoprazole Inj 40 MG Vial IV.PUSH SCH ×2 (11:20→21:05)
[2018-05-02] MEDS: amLODIPine 5 MG Tablet PO SCH (11:20)
[2018-05-03] MEDS: Pantoprazole Inj 40 MG Vial IV.PUSH SCH ×2 (08:51→21:25)
[2018-05-03] MEDS: amLODIPine 5 MG Tablet PO SCH (08:51)
[2018-05-03] MEDS: Insulin NovoLOG Aspart Correctional Sugar Inj SQ SCH ×4 (09:06→21:26)
--- NOTE | 2018-05-03 09:36 | P.PNGI ---
Subjective Interval history: Pt is sitting up in bed, no complaints. No reported n/V per nurse, no signs of GI bleed, no labs today. <Cristina Garcia - Last Filed: 05/03/18 09:32> Physical Exam Vital signs: Vital Signs 05/02/18 11:23 05/02/18 16:00 05/02/18 20:36 Temperature 97.8 F 98.5 F Pulse Rate 64 78 70 Respiratory Rate 18 18 19 Blood Pressure 191/71 H 109/58 L 117/67 Pulse Oximetry 97 96 93 L 05/03/18 00:00 05/03/18 08:11 Temperature 98.4 F 98.3 F Pulse Rate 58 L 62 Respiratory Rate 18 20 Blood Pressure 158/53 H 206/69 H Pulse Oximetry 95 96 Intake & Output 05/02/18 05/03/18 05/03/18 19:59 06:59 18:59 Intake Total 750 / 750 Output Total Balance 750 / 750 Intake: IV 750 / 750 NS Inj 1,000 ML @ 70 mls/hr IV. 750 / 750 CONT .[id number] [facility] Rx#:[id number] Output: Urine Other: # Voids Narrative: GENERAL: Well-nourished, well-developed patient in NAD. SKIN: Warm and dry. No rash. CARDIOVASCULAR: Regular rate and rhythm. RESPIRATORY: No accessory muscle use. Clear to auscultation. Breath sounds equal bilaterally. GASTROINTESTINAL: Abdomen soft, non-tender, nondistended. Normoactive bowel sounds x4. MUSCULOSKELETAL: No obvious deformities. Extremities without clubbing, cyanosis , or edema. NEUROLOGICAL: AAO x2. PSYCHIATRIC: Calm mood; insight and judgment fair. <Cristina Garcia - Last Filed: 05/03/18 09:32> Vital signs: Vital Signs 05/03/18 00:00 05/03/18 08:11 05/03/18 12:27 Temperature 98.4 F 98.3 F 98.5 F Pulse Rate 58 L 62 50 L Respiratory Rate 18 20 18 Blood Pressure 158/53 H 206/69 H 124/51 L Pulse Oximetry 95 96 95 05/03/18 16:35 Temperature 98.2 F Pulse Rate 60 Respiratory Rate 20 Blood Pressure 140/52 L Pulse Oximetry 95 Intake & Output 05/03/18 05/03/18 05/04/18 06:59 18:59 06:59 Intake Total 1000 / 1000 Output Total Balance 1000 / 1000 Intake: IV 1000 / 1000 NS Inj 1,000 ML @ 70 mls/hr IV. 1000 / 1000 CONT .[id number] [facility] Rx#:[id number] Output: Urine Other: # Voids 2 <Carmen Smith - Last Filed: 05/03/18 19:37> Results - Labs CBC & Chem 7: 05/02/18 07:00 05/02/18 07:00 Laboratory Results - last 24 hr 05/02/18 05/02/18 05/02/18 07:00 11:26 18:13 WBC Differential . Diff Scan Auto diff confirmed POC Glucose 183 H 267 H 05/02/18 05/03/18 21:04 09:00 WBC Differential Diff Scan POC Glucose 251 H 98 <Cristina Garcia - Last Filed: 05/03/18 09:32> - Labs CBC & Chem 7: 05/03/18 11:15 05/03/18 11:15 Laboratory Results - last 24 hr 05/02/18 05/03/18 05/03/18 21:04 09:00 11:15 WBC 9.5 RBC 2.75 L Hgb 10.1 L Hct 27.6 L MCV 100.1 H MCH 36.7 H MCHC 36.7 H RDW 13.6 Plt Count 245 MPV 8.0 Prelim Diff (Auto) Slide review pending Neut % (Auto) 80.9 H Lymph % (Auto) 10.6 [place] % (Auto) 5.7 Eos % (Auto) 2.2 Baso % (Auto) 0.6 Neut # (Auto) 7.7 Lymph # (Auto) 1.0 Smith # (Auto) 0.5 Eos # (Auto) 0.2 Baso # (Auto) 0.1 WBC Differential . Diff Scan Auto diff confirmed Differential Comment . Sodium Potassium Chloride Carbon Dioxide Anion Gap BUN Creatinine Estimated GFR POC Glucose 251 H 98 Random Glucose Calcium 05/03/18 05/03/18 05/03/18 11:15 13:10 17:42 WBC RBC Hgb Hct MCV MCH MCHC RDW Plt Count MPV Prelim Diff (Auto) Neut % (Auto) Lymph % (Auto) Smith % (Auto) Eos % (Auto) Baso % (Auto) Neut # (Auto) Lymph # (Auto) Smith # (Auto) Eos # (Auto) Baso # (Auto) WBC Differential Diff Scan Differential Comment Sodium 142 Potassium 3.6 Chloride 105 Carbon Dioxide 28.2 Anion Gap 9 BUN 25 H Creatinine 1.36 H Estimated GFR 51 L POC Glucose 177 H 199 H Random Glucose 109 H Calcium 8.2 L <Carmen Smith - Last Filed: 05/03/18 19:37> Assessment and Plan (1) Coffee ground emesis Status: Acute Code(s): K92.0 - Hematemesis - Plan - Coffee-ground emesis- No more nausea or vomiting, no signs of GI bleed Hemoglobin yesterday was 10.4 which is a rise from previous labs, no labs today Patient brought into ER after having one episode of coffee-ground emesis. Patient denies any more nausea vomiting or abdominal pain. - Recent ischemic CVA aspirin and Plavix on hold - DM, Dementia- per attending Plan - Heart healthy diet - CBC today -Monitor for active bleeding -Possible EGD depending on hospital course -Pantoprazole 40 mg IV twice daily -Zofran as needed -IV hydration -Monitor hemoglobin and hematocrit -Transfuse as needed -Further recommendations to follow based on patient status and findings This patient has been seen by myself and Dr. Smith and this note is written on her behalf <Cristina Garcia - Last Filed: 05/03/18 09:32> (1) Coffee ground emesis Status: Acute Code(s): K92.0 - Hematemesis - Attending Attestation seen, examined agree with above <Carmen Smith - Last Filed: 05/03/18 19:37>
--- NOTE | 2018-05-03 09:37 | P.PN ---
Subjective Interval history: Follow-up for GI bleed, hematemesis. The patient reports no further nausea or vomiting or hematemesis. Denies any abdominal pain. No documented bowel movement since admission. No fevers. Tolerating liquid diet. Physical Exam Vital signs: Vital Signs 05/02/18 11:23 05/02/18 16:00 05/02/18 20:36 Temperature 97.8 F 98.5 F Pulse Rate 64 78 70 Respiratory Rate 18 18 19 Blood Pressure 191/71 H 109/58 L 117/67 Pulse Oximetry 97 96 93 L 05/03/18 00:00 05/03/18 08:11 Temperature 98.4 F 98.3 F Pulse Rate 58 L 62 Respiratory Rate 18 20 Blood Pressure 158/53 H 206/69 H Pulse Oximetry 95 96 Intake & Output 05/02/18 05/03/18 05/03/18 19:59 06:59 18:59 Intake Total 750 / 750 Output Total Balance 750 / 750 Intake: IV 750 / 750 NS Inj 1,000 ML @ 70 mls/hr IV. 750 / 750 CONT .[id number] [facility] Rx#:[id number] Output: Urine Other: # Voids Narrative: \GENERAL: Well-nourished, well-developed elderly male patient in [facility]. SKIN: Warm and dry. No rash. HEENT: Normocephalic. Atraumatic. Pupils equal and round. Mucous membranes pink and moist. CARDIOVASCULAR: Regular rate and rhythm. No murmur appreciated. RESPIRATORY: No accessory muscle use. Clear to auscultation. Breath sounds equal bilaterally. GASTROINTESTINAL: Abdomen soft, non-tender, nondistended. Normoactive bowel sounds x4. MUSCULOSKELETAL: No obvious deformities. Extremities without clubbing, cyanosis , or edema. NEUROLOGICAL: AAO x2. No obvious cranial nerve deficits. Motor grossly within normal limits. Moving all extremities spontaneously. Normal speech. PSYCHIATRIC: Calm mood; insight and judgment fair. Results - Labs CBC & Chem 7: 05/02/18 07:00 05/02/18 07:00 Laboratory Results - last 24 hr 05/02/18 05/02/18 05/02/18 07:00 11:26 18:13 WBC Differential . Diff Scan Auto diff confirmed POC Glucose 183 H 267 H 05/02/18 05/03/18 21:04 09:00 WBC Differential Diff Scan POC Glucose 251 H 98 - Imaging Chest X-Ray 05/01/18 12:11 CONCLUSION: No acute cardiopulmonary abnormality is identified. Assessment and Plan - Plan 77-year-old who past medical history of dementia, diabetes type 2 and recently diagnosed with CVA and treated with Plavix and aspirin was brought to the ED today for evaluation of one episode of coffee-ground emesis as observed by the patient's caregiver. Upper GI bleed -Episode of coffee-ground emesis -Hold Plavix and aspirin -Continue with IV Protonix 40mg bid -Hgb 12.0 --> 9.9 --> 10.4, continue serial H&H monitoring -Consult gastroenterology, recommends continuing observation/monitoring for now -Advanced to cardiac diet -No further episodes since arrival -Labs pending today Recent ischemic CVA -Secondary to upper GI bleed, holding aspirin and Plavix -PT consulted, recommends rehab Acute on chronic disease stage II -Give gentle IV fluid hydration -Monitor BUN and creatinine, improving, Cr 1.59 --> 1.38 History of diabetes type 2 -Holding oral antihyperglycemic agents -Monitor Accu-checks and cover with medium sliding scale insulin Benign labile hypertension -Resume outpatient medications -clonidine as needed Dementia -Chronic, at baseline DVT prophylaxis: bilateral SCDs; Chemical prophylaxis contraindicated with GI bleeding GI prophylaxis: PPI Discharge Planning: Discharge when cleared by GI. PT recommending rehab.
[2018-05-03 12:35] LABS: Baso # (Auto) 0.1 th/mm3 (0.0-0.2); Baso % (Auto) 0.6 % (0.0-2.0); Eos # (Auto) 0.2 th/mm3 (0.0-0.4); Eos % (Auto) 2.2 % (0.0-4.0); Hematocrit 27.6 % (39.0-51.0); Hemoglobin 10.1 gm/dL (13.0-17.0); Lymph % (Auto) 10.6 % (9.0-44.0); Mean Corpuscular Hemoglobin 36.7 pg (27.0-34.0); Mean Corpuscular Volume 100.1 fL (80.0-100.0); Mono # (Auto) 0.5 th/mm3 (0.0-0.9); Mono % (Auto) 5.7 % (0.0-8.0); Neut # (Auto) 7.7 th/mm3 (1.8-7.7); Neut % (Auto) 80.9 % (16.0-70.0); Platelet Count 245 th/mm3 (150-450); Red Blood Count 2.75 mil/mm3 (4.50-5.90); Red Cell Distribution Width 13.6 % (11.6-17.2); White Blood Count 9.5 th/mm3 (4.0-11.0)
[2018-05-03 12:42] LABS: Mean Corpuscular HGB Conc 36.7 % (32.0-36.0)
[2018-05-03 12:54] LABS: Calcium 8.2 mg/dL (8.5-10.1); Carbon Dioxide 28.2 meq/L (21.0-32.0); Potassium 3.6 meq/L (3.5-5.1)
[2018-05-03] MEDS: Sod Chloride 0.9% Inj 1,000 ML IV.CONT SCH (14:10)
[2018-05-04] MEDS: Sod Chloride 0.9% Inj 1,000 ML IV.CONT SCH ×2 (03:17→17:40)
[2018-05-04] MEDS: Pantoprazole Inj 40 MG Vial IV.PUSH SCH ×2 (08:37→22:05)
[2018-05-04] MEDS: amLODIPine 5 MG Tablet PO SCH (08:38)
[2018-05-04] MEDS: Insulin NovoLOG Aspart Correctional Sugar Inj SQ SCH ×4 (09:27→22:14)
--- NOTE | 2018-05-04 10:11 | P.PN ---
Subjective Interval history: Follow-up for GI bleed, hematemesis. No further episodes of nausea/vomiting/ hematemesis since prior to arrival. Patient denies any abdominal pain. He is tolerating oral intake. He agrees to rehab placement. Physical Exam Vital signs: Vital Signs 05/03/18 12:27 05/03/18 16:35 05/03/18 20:00 Temperature 98.5 F 98.2 F 98.7 F Pulse Rate 50 L 60 67 Respiratory Rate 18 20 18 Blood Pressure 124/51 L 140/52 L 119/54 L Pulse Oximetry 95 95 94 L 05/04/18 00:00 05/04/18 04:00 05/04/18 08:00 Temperature 98.8 F 97.8 F 97.6 F Pulse Rate 56 L 51 L 50 L Respiratory Rate 19 19 18 Blood Pressure 165/62 H 144/58 H 168/73 H Pulse Oximetry 95 996 H 96 Intake & Output 05/03/18 05/04/18 05/04/18 18:59 06:59 18:59 Intake Total 1000 / 1000 1410 / 1410 Balance 1000 / 1000 1410 / 1410 Intake: IV 1000 / 1000 930 / 930 NS Inj 1,000 ML @ 70 mls/hr IV. 1000 / 1000 930 / 930 CONT .[id number] [facility] Rx#:[id number] Oral 480 / 480 Other: # Voids 2 3 Narrative: \GENERAL: Well-nourished, well-developed elderly male patient in [facility]. SKIN: Warm and dry. No rash. Healing scabbed abrasions on bilateral knees. HEENT: Normocephalic. Atraumatic. Pupils equal and round. Mucous membranes pink and moist. CARDIOVASCULAR: Regular rate and rhythm. No murmur appreciated. RESPIRATORY: No accessory muscle use. Clear to auscultation. Breath sounds equal bilaterally. GASTROINTESTINAL: Abdomen soft, non-tender, nondistended. Normoactive bowel sounds x4. MUSCULOSKELETAL: No obvious deformities. Extremities without clubbing, cyanosis , or edema. NEUROLOGICAL: AAO x2. No obvious cranial nerve deficits. Motor grossly within normal limits. Moving all extremities spontaneously. Normal speech. PSYCHIATRIC: Calm mood; insight and judgment fair. Results - Labs CBC & Chem 7: 05/03/18 11:15 05/03/18 11:15 Laboratory Results - last 24 hr 05/03/18 05/03/18 05/03/18 11:15 11:15 13:10 WBC 9.5 RBC 2.75 L Hgb 10.1 L Hct 27.6 L MCV 100.1 H MCH 36.7 H MCHC 36.7 H RDW 13.6 Plt Count 245 MPV 8.0 Prelim Diff (Auto) Slide review pending Neut % (Auto) 80.9 H Lymph % (Auto) 10.6 [place] % (Auto) 5.7 Eos % (Auto) 2.2 Baso % (Auto) 0.6 Neut # (Auto) 7.7 Lymph # (Auto) 1.0 [place] # (Auto) 0.5 Eos # (Auto) 0.2 Baso # (Auto) 0.1 WBC Differential . Diff Scan Auto diff confirmed Differential Comment . Sodium 142 Potassium 3.6 Chloride 105 Carbon Dioxide 28.2 Anion Gap 9 BUN 25 H Creatinine 1.36 H Estimated GFR 51 L POC Glucose 177 H Random Glucose 109 H Calcium 8.2 L 05/03/18 05/03/18 05/04/18 17:42 20:13 07:36 WBC RBC Hgb Hct MCV MCH MCHC RDW Plt Count MPV Prelim Diff (Auto) Neut % (Auto) Lymph % (Auto) [place] % (Auto) Eos % (Auto) Baso % (Auto) Neut # (Auto) Lymph # (Auto) [place] # (Auto) Eos # (Auto) Baso # (Auto) WBC Differential Diff Scan Differential Comment Sodium Potassium Chloride Carbon Dioxide Anion Gap BUN Creatinine Estimated GFR POC Glucose 199 H 345 H 159 H Random Glucose Calcium - Imaging Chest X-Ray 05/01/18 12:11 CONCLUSION: No acute cardiopulmonary abnormality is identified. Assessment and Plan - Plan 77-year-old who past medical history of dementia, diabetes type 2 and recently diagnosed with CVA and treated with Plavix and aspirin was brought to the ED today for evaluation of one episode of coffee-ground emesis as observed by the patient's caregiver. Upper GI bleed -Episode of coffee-ground emesis -Hold Plavix and aspirin -Continue with IV Protonix 40mg bid -Trend Hgb 12.0 --> 9.9 --> 10.4 --> 10.1, stable. -Consult gastroenterology, recommends continuing observation/monitoring for now -Advanced to cardiac diet, patient tolerating well -No further episodes since arrival -Await GI clearance and recommendations on restarting aspirin/plavix. -1400hrs addendum: GI now plans to take patient for EGD tomorrow 05/05, NPO after midnight Recent ischemic CVA -Secondary to upper GI bleed, holding aspirin and Plavix -PT consulted, recommends rehab, case management assisting with placement Acute on chronic disease stage II -Give gentle IV fluid hydration -Monitor BUN and creatinine, improving, Cr 1.59 --> 1.36 History of diabetes type 2 -Holding oral antihyperglycemic agents -Monitor Accu-checks and cover with medium sliding scale insulin Benign labile hypertension -Resume outpatient medications -clonidine as needed Dementia -Chronic, at baseline DVT prophylaxis: bilateral SCDs; Chemical prophylaxis contraindicated with GI bleeding GI prophylaxis: PPI Discharge Planning: Discharge when cleared by GI and recommendations given on restarting aspirin/ plavix. PT recommending rehab. Case management assisting with placement.
--- NOTE | 2018-05-04 13:59 | P.PNGI ---
Subjective Interval history: Patient resting comfortably in bed, denies any noted bleeding. Patient has no complaints at this time. Denies any nausea or vomiting. <Shama Cheung - Last Filed: 05/04/18 13:49> Physical Exam Vital signs: Vital Signs 05/03/18 16:35 05/03/18 20:00 05/04/18 00:00 Temperature 98.2 F 98.7 F 98.8 F Pulse Rate 60 67 56 L Respiratory Rate 20 18 19 Blood Pressure 140/52 L 119/54 L 165/62 H Pulse Oximetry 95 94 L 95 05/04/18 04:00 05/04/18 08:00 05/04/18 12:00 Temperature 97.8 F 97.6 F 97.7 F Pulse Rate 51 L 50 L 53 L Respiratory Rate 19 18 18 Blood Pressure 144/58 H 168/73 H 145/67 H Pulse Oximetry 996 H 96 95 Intake & Output 05/03/18 05/04/18 05/04/18 18:59 06:59 18:59 Intake Total 1000 / 1000 1410 / 1410 Balance 1000 / 1000 1410 / 1410 Intake: IV 1000 / 1000 930 / 930 NS Inj 1,000 ML @ 70 mls/hr IV. 1000 / 1000 930 / 930 CONT .[id number] [facility] Rx#:[id number] Oral 480 / 480 Other: # Voids 2 3 - Constitutional no acute distress - Routine HEENT Exam Head: Present: normocephalic - Routine Respiratory Exam Present: CTA bilaterally. Absent: accessory muscle use - Routine Abdominal Exam Present: soft, normoactive bowel sounds. Absent: tenderness, distended, guarding, firm - Routine Skin Exam Present: dry, warm. Absent: pallor - Routine Neurological Exam Present: alert - Routine Psychiatric Exam Present: normal affect, cooperative <Shama Cheung - Last Filed: 05/04/18 13:49> Vital signs: Vital Signs 05/03/18 20:00 05/04/18 00:00 05/04/18 04:00 Temperature 98.7 F 98.8 F 97.8 F Pulse Rate 67 56 L 51 L Respiratory Rate 18 19 19 Blood Pressure 119/54 L 165/62 H 144/58 H Pulse Oximetry 94 L 95 996 H 05/04/18 08:00 05/04/18 12:00 05/04/18 16:00 Temperature 97.6 F 97.7 F 97.8 F Pulse Rate 50 L 53 L 59 L Respiratory Rate 18 18 18 Blood Pressure 168/73 H 145/67 H 134/61 Pulse Oximetry 96 95 94 L Intake & Output 05/03/18 05/04/18 05/04/18 18:59 06:59 18:59 Intake Total 1000 / 1000 1410 / 1410 1000 / 1000 Balance 1000 / 1000 1410 / 1410 1000 / 1000 Intake: IV 1000 / 1000 930 / 930 1000 / 1000 NS Inj 1,000 ML @ 70 mls/hr IV. 1000 / 1000 930 / 930 1000 / 1000 CONT .[id number] [facility] Rx#:[id number] Oral 480 / 480 Other: # Voids 2 3 <Carmen Smith - Last Filed: 05/04/18 18:20> Results - Labs CBC & Chem 7: 05/03/18 11:15 05/03/18 11:15 Laboratory Results - last 24 hr 05/03/18 05/03/18 05/04/18 17:42 20:13 07:36 POC Glucose 199 H 345 H 159 H 05/04/18 12:36 POC Glucose 298 H <Shama Cheung - Last Filed: 05/04/18 13:49> - Labs CBC & Chem 7: 05/03/18 11:15 05/03/18 11:15 Laboratory Results - last 24 hr 05/03/18 05/04/18 05/04/18 20:13 07:36 12:36 POC Glucose 345 H 159 H 298 H 05/04/18 17:18 POC Glucose 316 H <Carmen Smith - Last Filed: 05/04/18 18:20> Assessment and Plan (1) Coffee ground emesis Status: Acute Code(s): K92.0 - Hematemesis - Plan - Coffee-ground emesis- No more nausea or vomiting, no signs of GI bleed Hemoglobin yesterday was 10.4 which is a rise from previous labs, no labs today Patient brought into ER after having one episode of coffee-ground emesis. Patient denies any more nausea vomiting or abdominal pain. - Recent ischemic CVA aspirin and Plavix on hold - DM, Dementia- per attending 05/04/2018 Coffee-ground emesis-patient denies any nausea or vomiting. No signs of GI bleeding. Will obtain consent for EGD, EGD planned for tomorrow. Aspirin and Plavix on hold for now. Plan -Cardiac diet -Monitor labs -Monitor for bleeding -Obtain consent for EGD -EGD for tomorrow -Continue PPI -Notify GI for any active bleeding -Supportive care -Further recommendations to follow This patient has been seen by myself and Dr. Smith and this note is written on her behalf - Attending Attestation Dr. Smith <Shama Cheung - Last Filed: 05/04/18 13:49> (1) Coffee ground emesis Status: Acute Code(s): K92.0 - Hematemesis - Attending Attestation seen, examined agree with above <Carmen Smith - Last Filed: 05/04/18 18:20>
[2018-05-05] MEDS: Sod Chloride 0.9% Inj 1,000 ML IV.CONT SCH (06:56)
[2018-05-05 07:21] LABS: Baso % (Auto) 0.5 % (0.0-2.0); Eos # (Auto) 0.2 th/mm3 (0.0-0.4); Eos % (Auto) 2.6 % (0.0-4.0); Hematocrit 28.9 % (39.0-51.0); Hemoglobin 10.2 gm/dL (13.0-17.0); Lymph # (Auto) 0.9 th/mm3 (1.0-4.8); Lymph % (Auto) 11.9 % (9.0-44.0); Mean Corpuscular HGB Conc 35.2 % (32.0-36.0); Mean Corpuscular Hemoglobin 35.7 pg (27.0-34.0); Mean Corpuscular Volume 101.3 fL (80.0-100.0); Mean Platelet Volume 7.9 fL (7.0-11.0); Mono # (Auto) 0.6 th/mm3 (0.0-0.9); Mono % (Auto) 7.8 % (0.0-8.0); Neut # (Auto) 5.9 th/mm3 (1.8-7.7); Neut % (Auto) 77.2 % (16.0-70.0); Platelet Count 225 th/mm3 (150-450); Red Blood Count 2.85 mil/mm3 (4.50-5.90); Red Cell Distribution Width 13.9 % (11.6-17.2); White Blood Count 7.7 th/mm3 (4.0-11.0)
[2018-05-05 07:56] LABS: Carbon Dioxide 26.4 meq/L (21.0-32.0); Potassium 3.1 meq/L (3.5-5.1)
[2018-05-05] MEDS: Insulin NovoLOG Aspart Correctional Sugar Inj SQ SCH ×2 (08:01→13:22)
[2018-05-05] MEDS: Pantoprazole Inj 40 MG Vial IV.PUSH SCH (08:01)
[2018-05-05] MEDS: amLODIPine 5 MG Tablet PO SCH (08:01)
[2018-05-05] MEDS ORDERED: Lidocaine PF 1% Inj 5 ML Syringe OTHER ONE (09:05)
[2018-05-05] MEDS ORDERED: Metoprolol Tartrate 25 MG Tablet PO ONE (09:08)
[2018-05-05] MEDS ORDERED: Chlorhexidine Gluconate 2% 1 Pack (2 Cloths) TOPICAL ONE (09:08)
--- NOTE | 2018-05-05 09:34 | GIPROC ---
[facility] [address] [facility]. [facility], [id number] EGD PROCEDURE REPORT EXAM DATE: 05/05/2018 PATIENT NAME: Rodrigo Arroyo MR #: [id number] BIRTHDATE: 1940 ATTENDING: Carmen Smith MD ORDER #: [id number] MUD WORKER: Lori Goel and Marlyn Virgen STATUS: inpatient INDICATIONS: The patient is a 77 yr old male here for an EGD due to anemia gi bleeding PROCEDURE PERFORMED: EGD w/ biopsy MEDICATIONS: Per Anesthesia and None. TOPICAL ANESTHETIC: none CONSENT: The patient understands the risks and benefits of the procedure and understands that these risks include, but are not limited to: sedation, allergic reaction, infection, perforation and/or bleeding. Alternative means of evaluation and treatment include, among others: physical exam, x-rays, and/or surgical intervention. The patient elects to proceed with this endoscopic procedure. medical equipment was checked for proper function. Hand hygiene and appropriate measures for infection prevention was taken. After the risks, benefits and alternatives of the procedure were thoroughly explained, Informed consent was verified, confirmed and timeout was successfully executed by the treatment team. The patient was anesthetized with topical anesthesia and the Pentax EG-[id number] endoscope was introduced through the mouth and advanced to the second portion of the duodenum. Retroflexed views revealed a hiatal hernia The gastroscope was then slowly withdrawn and removed. Submucosal lesion second portion of duodenum -round-2 cm-biopsy gastritis antrum-biopsy esophagitis grade c -distal esophagus-biopsy. ADVERSE EVENTS: There were no complications. IMPRESSIONS: 1. Submucosal lesion second portion of duodenum -round-2 cm-biopsy gastritis antrum-biopsy esophagitis grade c -distal esophagus-biopsy 2. Retroflexed views revealed a hiatal hernia RECOMMENDATIONS: 1. Await biopsy results. Biopsy results will not be ready for 7-10 days. If you don't hear from us in two weeks, call our office for biopsy results. 2. Anti-reflux regimen 3. Continue PPI 4. Avoid NSAIDS 5. Ok for anticoagulation from gi point ct abdomen/pelvis egd/eus in 4-[address] and biopsy report ok to dc from gi point after ct abd/pelvis PATIENT CONDITION: stable DISPOSITION: Inpatient REPEAT EXAM: Return 4 weeks EGD Carmen Smith MD eSigned: Carmen Smith MD 05/05/2018 9:34 AM cc: PATIENT NAME: Rodrigo Arroyo MR#: [id number]
[2018-05-05] MEDS ORDERED: Sodium Chlor 0.9% Inj 500 ML IV.SIG SCH (10:00)
[2018-05-05] MEDS ORDERED: Diatrizoate Meglum/Diatrizoate Sod Liq 9 ML UDC PO ONE (10:00)
--- NOTE | 2018-05-05 10:58 | P.DS ---
Date of admission: 05/01/18 15:12 Primary care physician: Travis Lancaster DO Brief History from admission: HPI as documented by the admitting provider. 77-year-old who past medical history of dementia, diabetes type 2 and recently diagnosed with CVA and treated with Plavix and aspirin was brought to the ED today for evaluation of one episode of coffee-ground emesis as observed by the patient's caregiver. H&H on admission was 12/34.7. Patient is unable to provide any coherent history although is alert and oriented to self. He denies any chest pain, shortness of breath. Patient was found to have elevated BP. Patient update on day of discharge: Patient reports he is feeling okay today. Status post EGD. He denies any pain. No episodes of nausea or vomiting. No further evidence of bleeding. DS: Summary Hospital Course: 77-year-old male with a medical history significant for dementia, diabetes type 2 and recently diagnosed with CVA and treated with Plavix and aspirin was brought to the ED today for evaluation of one episode of coffee-ground emesis as observed by the patient's caregiver. Upper GI bleed: The patient's Plavix and aspirin were held. His H&H initially trended down but stabilized. He was followed by gastroenterology. He underwent EGD which showed submucosal lesion second portion of duodenum, gastritis, esophagitis. Retroflexed views revealed a hiatal hernia. Biopsies taken. GI recommended PPI. The patient is to follow-up outpatient for biopsy results. Patient cleared to be restarted on anticoagulation. Given episode of bleeding. Aspirin discontinued and he can continue on Plavix daily. Recent ischemic CVA -Secondary to upper GI bleed, initially held aspirin and Plavix until GI workup completed. Resume Plavix on discharge. Acute on chronic disease stage II -Improved with IV fluid. History of diabetes type 2 -Covered with sliding scale insulin with Accu-Cheks. Resume home anti- diabetes medications on discharge Benign labile hypertension -Resume outpatient medications -clonidine as needed Dementia -Chronic, at baseline - Time Spent with Patient Total time spent providing and/or coordinating discharge services: Greater than 30 minutes - Quality: VTE Deep Vein Thrombosis/Pulmonary Embolism Present on Admission: No Exam Vital signs: Vital Signs 05/04/18 12:00 05/04/18 16:00 05/04/18 20:00 Temperature 97.7 F 97.8 F 98.2 F Pulse Rate 53 L 59 L 60 Respiratory Rate 18 18 19 Blood Pressure 145/67 H 134/61 177/73 H Pulse Oximetry 95 94 L 93 L 05/05/18 04:00 05/05/18 08:00 05/05/18 09:30 Temperature 98.2 F 97.6 F 97.1 F L Pulse Rate 80 57 L 57 L Respiratory Rate 18 18 14 Blood Pressure 168/73 H 192/81 H 97/60 L Pulse Oximetry 95 90 L 05/05/18 09:33 05/05/18 09:48 Temperature Pulse Rate Respiratory Rate Blood Pressure Pulse Oximetry 98 97 Intake & Output 05/04/18 05/05/18 05/05/18 18:59 06:59 18:59 Intake Total 1500 / 1500 1000 / 1000 Balance 1500 / 1500 1000 / 1000 Intake: IV 1000 / 1000 1000 / 1000 NS Inj 1,000 ML @ 70 mls/hr IV. 1000 / 1000 1000 / 1000 CONT .[id number] DEBORA Rx#:[id number] Oral 500 / 500 Other: # Voids 2 Narrative: GENERAL: Well-nourished, well-developed elderly male patient in [facility]. CARDIOVASCULAR: Regular rate and rhythm. No murmur appreciated. RESPIRATORY: No accessory muscle use. Clear to auscultation. Breath sounds equal bilaterally. GASTROINTESTINAL: Abdomen soft, non-tender, nondistended. Normoactive bowel sounds x4. MUSCULOSKELETAL: No obvious deformities. Extremities without clubbing, cyanosis , or edema. NEUROLOGICAL: AAO x2. No obvious cranial nerve deficits. Motor grossly within normal limits. Moving all extremities spontaneously. Normal speech. PSYCHIATRIC: Calm. Results Procedures completed during hospitalization: EGD Pending studies at discharge: Pending at discharge 05/05/18 Surgical [PTH] Routine Labs on day of discharge: Labs from last 24 hours 05/05/18 05/05/18 05/05/18 07:59 06:38 06:30 WBC 7.7 RBC 2.85 L Hgb 10.2 L Hct 28.9 L MCV 101.3 H MCH 35.7 H MCHC 35.2 RDW 13.9 Plt Count 225 MPV 7.9 Neut % (Auto) 77.2 H Lymph % (Auto) 11.9 Bradford % (Auto) 7.8 Eos % (Auto) 2.6 Baso % (Auto) 0.5 Neut # (Auto) 5.9 Lymph # (Auto) 0.9 L Bradford # (Auto) 0.6 Eos # (Auto) 0.2 Baso # (Auto) 0.0 WBC Differential . Differential Comment Auto diff final Sodium 141 Potassium 3.1 L Chloride 107 Carbon Dioxide 26.4 Anion Gap 8 BUN 23 H Creatinine 1.29 Estimated GFR 54 L POC Glucose 187 H Random Glucose 150 H Calcium 8.0 L 05/04/18 05/04/18 05/04/18 22:10 17:18 12:36 WBC RBC Hgb Hct MCV MCH MCHC RDW Plt Count MPV Neut % (Auto) Lymph % (Auto) Bradford % (Auto) Eos % (Auto) Baso % (Auto) Neut # (Auto) Lymph # (Auto) Bradford # (Auto) Eos # (Auto) Baso # (Auto) WBC Differential Differential Comment Sodium Potassium Chloride Carbon Dioxide Anion Gap BUN Creatinine Estimated GFR POC Glucose 183 H 316 H 298 H Random Glucose Calcium - Impressions ITS Impressions Chest X-Ray 05/01/18 12:11 CONCLUSION: No acute cardiopulmonary abnormality is identified. Discharge Plan - Discharge Disposition Patient Disposition: Discharge to SNF - Discharge Condition Condition: Fair - Discharge Order Discharge Orders: Discharge Order (Routine); Ordered 05/05/18 Ordered By: Kayla Lowery - Physicians Team Primary Care Provider: Travis Lancaster Attending Provider: Kayla Lowery Other Providers: Gian Parra MD ; [facility],Agency ; [facility],[place]
--- NOTE | 2018-05-05 11:42 | ECG ---
Date Performed: 05/05/2018 Time Performed: 07:52:27 PTAGE: 77 years EKG: SINUS BRADYCARDIA NONSPECIFIC ST & T-WAVE ABNORMALITY BORDERLINE ECG No significant change from prior electrocardiogram. G DOCTOR: Reynaldo Matson Interpretating Date/Time 05/05/2018 11:41:52
[2018-05-05 11:50] VITALS: BP 199/87; PULSE 65; RESP 18; TEMP 97.9; O2SAT 96
--- NOTE | 2018-05-05 14:04 | CT ---
EXAM DATE: 05/05/2018 1:37 PM EST AGE/SEX: 77 years / Male INDICATIONS: Left renal mass seen on prior CT. CLINICAL DATA: This is the patient's initial encounter. Patient reports that signs and symptoms have been present for 1 day and indicates a pain score of 0/10. MEDICAL/SURGICAL HISTORY: Diabetes. Hypertension. Cerebrovascular attack. None. RADIATION DOSE: 7.81 CTDI (mGy) COMPARISON: [facility], CT ABDOMEN W AND W/O CONTRAST, 04/30/2016. . TECHNIQUE: Multiple contiguous axial images were obtained through the abdomen. Images were obtained using multiple row detector helical technique. Using automated exposure control and adjustment of the mA and/or kV according to patient size, radiation dose was kept as low as reasonably achievable to o btain optimal diagnostic quality images. DICOM format image data is available electronically for rev iew and comparison. FINDINGS: Lower Lungs: There is a small right pleural effusion. There is minimal left pleural fluid. Liver: The liver remains normal in size with lobular contour most characteristic of cirrhosis. There is no discrete focal mass. There is no ductal dilatation. The gallbladder is unremarkable. Spleen: Homogeneous density without enlargement. Pancreas: Unremarkable without mass or calcification. Kidneys: The right kidney remains unremarkable on this noncontrast exam. The left kidney again demon strates a stable oval solid mass extending off the medial upper pole measuring up to 4.6 x 3.5 cm in diameter. This is not as well visualized on the prior study due to lack of intravenous contrast. Ther e is no hydronephrosis. Adrenal Glands: Unremarkable. Aorta: Chronic changes are noted in the aorta with small aneurysm measuring up to 3.2 x 3.1 cm in d iameter without significant change. There is dilatation of both common iliac arteries as well as dens e calcification. Bowel/Mesentery: The bowel loops are grossly unremarkable. The cecum and sigmoid colon have a normal configuration. Abdominal Wall: Intact. Retroperitoneum: No evidence of adenopathy in the retrocrural, para-aortic, or deep pelvic regions. Bladder: Contours are smooth. Reproductive Organs: No abnormal masses or calcifications seen. Inguinal: The inguinal region is unremarkable without evidence of adenopathy. Bony Structures: Osteopenia, degenerative change and scoliosis are present. CONCLUSION: 1. Known solid left renal mass is not significantly changed from the 2016 examination. 2. Cirrhotic appearing liver with no focal lesion on this noncontrast study. 3. Small right effusion and minimal left pleural effusion. 4. Small infrarenal abdominal aortic aneurysm. Electronically signed by: Casey Keith MD 05/05/2018 2:03 PM EST
== END 2018-05-05 17:33 ==
LOC: NEPC 11:50 → NEDA 11:50 → NEPFCDU 15:52
PROVIDERS: ADMIT Family Medicine; ATTEND Family Medicine
PROC: PANENDO (2018-05-05 09:05)

== ENCOUNTER 2018-05-11 08:46 | Inpatient (IN) ==
[2018-05-11 09:35] LABS: Baso # (Auto) 0.1 th/mm3 (0.0-0.2); Baso % (Auto) 0.6 % (0.0-2.0); Eos # (Auto) 0.1 th/mm3 (0.0-0.4); Eos % (Auto) 0.5 % (0.0-4.0); Hemoglobin 7.7 gm/dL (13.0-17.0); Lymph % (Auto) 7.8 % (9.0-44.0); Mean Corpuscular HGB Conc 33.6 % (32.0-36.0); Mean Corpuscular Hemoglobin 34.6 pg (27.0-34.0); Mean Corpuscular Volume 102.9 fL (80.0-100.0); Mono # (Auto) 0.8 th/mm3 (0.0-0.9); Neut # (Auto) 11.4 th/mm3 (1.8-7.7); Neut % (Auto) 85.1 % (16.0-70.0); Platelet Count 344 th/mm3 (150-450); Red Blood Count 2.23 mil/mm3 (4.50-5.90); Red Cell Distribution Width 14.1 % (11.6-17.2); White Blood Count 13.3 th/mm3 (4.0-11.0)
[2018-05-11 09:43] LABS: Activated Partial Thrombo Time 26.1 sec (23.4-31.7); INR 1.1 Ratio; Prothrombin Time 11.4 sec (9.8-11.6)
[2018-05-11 10:13] LABS: Alanine Aminotransferase 34 U/L (12-78); Albumin 2.4 g/dL (3.4-5.0); Anion Gap 15 meq/L (5-15); Aspartate Aminotransferase 20 U/L (15-37); Blood Urea Nitrogen 45 mg/dL (7-18); Calcium 8.1 mg/dL (8.5-10.1); Carbon Dioxide 21.6 meq/L (21.0-32.0); Chloride 103 meq/L (98-107); Glomerular Filtration Rate 36 mL/min (>89); Glucose,Random 150 mg/dL (74-106); Potassium 3.9 meq/L (3.5-5.1); Sodium 140 meq/L (136-145)
[2018-05-11 10:16] LABS: Alkaline Phosphatase 77 U/L (45-117); Total Protein 5.6 g/dL (6.4-8.2); Troponin I 0.04 ng/mL (0.02-0.05)
--- NOTE | 2018-05-11 11:12 | ED ---
HPI General Chief complaint: GI Bleed Stated complaint: Medical Time Seen by Provider: 05/11/18 09:15 Source: patient, family and EMS Mode of arrival: EMS Limitations: altered mental status History of Present Illness HPI Narrative: The patient is 77 years old and arrives to the ER due to coffee- ground emesis at home. EMS notes a large quantity of coffee-ground emesis at home. The estimated might have been 1 L. Patient was brought here due to that. Due to dementia the history is limited here. The patient is able to deny chest pain shortness of breath nausea headache and dizziness. He does not recall vomiting. The patient also does not recall the events of the morning. Endoscopy was performed about a week ago revealing submucosal lesion in the second portion the duodenum as well as gastritis duodenitis and hiatal hernia. Patient takes aspirin and Plavix. 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 The caregiver does not either. I see no record of cardiology consultation notes here. Dr. Smith of GI performed the endoscopy. Related Data Home Medications Medication Instructions Recorded Confirmed glyburide 5 mg PO BID 04/13/18 05/11/18 metformin 1,000 mg PO BID 04/13/18 05/11/18 Previous Rx's Medication Instructions Recorded amlodipine [Norvasc] 5 mg PO DAILY tab 04/18/18 atorvastatin 40 mg PO HS tab 04/18/18 clonidine HCl [Catapres] 0.1 mg PO Q6H PRN tab 04/18/18 clopidogrel [Plavix] 75 mg PO DAILY tab 04/18/18 pantoprazole [Protonix] 40 mg PO DAILY #30 ea 05/05/18 Allergies Allergy/AdvReac Type Severity Reaction Status Date / Time No Known Allergies Allergy Verified 05/11/18 08:54 Review of Systems ROS Unobtainable ROS Unobtainable: unobtainable due to mental condition and unobtainable due to mental status PMFSH Social History Social History Substance History: No History of Abuse Second Hand Smoke Exposure: No Smoking Status: Former smoker Tobacco Type: Cigarettes How Often Do You Have a Drink Containing Alcohol: Never Recent Travel in [facility] within the Last 8 Weeks: No Recent Out of Country Travel within the Last 8 Weeks: No Immunization History Tetanus Immunization: Unsure Exam Narrative Exam Narrative: GENERAL: 77-year-old male, well-nourished well-developed speaking sentences, recent memory is impaired SKIN: Focused skin assessment warm/dry. HEAD: Atraumatic. Normocephalic. EYES: Pupils equal and round. No scleral icterus. No injection or drainage. ENT: No nasal bleeding or discharge. Dried blood is present on the teeth. NECK: Trachea midline. No JVD. CARDIOVASCULAR: Heart rates in the 90s. Regular rhythm. RESPIRATORY: No accessory muscle use. Clear to auscultation. Breath sounds equal bilaterally. GASTROINTESTINAL: Dried blood present in the teeth. Abdomen soft nontender. MUSCULOSKELETAL: No obvious deformities. No clubbing. No cyanosis. No edema. NEUROLOGICAL: Patient is awake and alert and speaking sentences. Recent memory is somewhat impaired moving all extremities normally. Cranial nerves III through XII are normal. PSYCHIATRIC: Appropriate mood and affect; insight and judgment normal. Course Initial Documented Vital Signs Pulse Rate 94 H 05/11/18 08:50 Respiratory Rate 16 05/11/18 08:50 Blood Pressure 123/60 05/11/18 08:50 Pulse Oximetry 97 05/11/18 08:50 Last Documented Vital Signs Temperature 97.6 F 05/11/18 08:59 Pulse Rate 97 H 05/11/18 10:50 Respiratory Rate 12 05/11/18 10:50 Blood Pressure 118/58 L 05/11/18 10:50 Pulse Oximetry 99 05/11/18 10:50 Critical Care Time Critical Care Time: Yes Total Critical Care Time: 35 Attestation: Aggregate critical care time was 35 minutes. Time to perform other separately billable procedures was not included in the critical care time. My time did not include minutes spent treating any other patients simultaneously or on activities that did not directly contribute to the patient's treatment. The services I provided to this patient were to treat and/or prevent clinically significant deterioration that could result in: Hemorrhagic shock, cardiopulmonary arrest I provided critical care services requiring my management, as noted below: Chart data review, documentation time, medication orders and management, vital sign assessments/reviewing monitor data, ordering and reviewing lab tests, ordering and interpreting/reviewing x-rays and diagnostic studies, care of the patient and discussion of the patient with the admitting physicians. Medical Decision Making MDM Narrative Medical decision making narrative: Patient is anemic here following an episode of upper GI bleed. one unit Packed cells ordered. Patient had an endoscopy just a few days ago revealing submucosal lesion as well as gastritis duodenitis and hiatal hernia. Patient unfortunately arrives with no paperwork. I see no cardiology consultation notes on record. There was a family member at the bedside when the patient was evaluated prior to admission however she was unsure of the alarm operator. Case discussed with Dr. Moreno who requests a cardiology consultation to Dr Rick's service and inpatient admission. Medical Screen Exam Complete: Yes Emergency Medical Condition: Yes Differential Diagnosis Differential Diagnosis: UGIB, LGIB, anemia Lab Data Lab results reviewed: Yes I reviewed the patient's lab results. Result diagrams: 05/11/18 09:15 05/11/18 09:15 Lab Results 05/11/18 05/11/18 05/11/18 Range/Units 09:15 09:15 09:15 WBC 13.3 H (4.0-11.0) th/mm3 RBC 2.23 L (4.50-5.90) mil/mm3 Hgb 7.7 L (13.0-17.0) gm/dL Hct 23.0 L (39.0-51.0) % MCV 102.9 H (80.0-100.0) fL MCH 34.6 H (27.0-34.0) pg MCHC 33.6 (32.0-36.0) % RDW 14.1 (11.6-17.2) % Plt Count 344 D (150-450) th/mm3 MPV 8.0 (7.0-11.0) fL Neut % (Auto) 85.1 H (16.0-70.0) % Lymph % (Auto) 7.8 L (9.0-44.0) % Gordon % (Auto) 6.0 (0.0-8.0) % Eos % (Auto) 0.5 (0.0-4.0) % Baso % (Auto) 0.6 (0.0-2.0) % Neut # (Auto) 11.4 H (1.8-7.7) th/mm3 Lymph # (Auto) 1.0 (1.0-4.8) th/mm3 Gordon # (Auto) 0.8 (0.0-0.9) th/mm3 Eos # (Auto) 0.1 (0.0-0.4) th/mm3 Baso # (Auto) 0.1 (0.0-0.2) th/mm3 WBC Differential . Differential Comment Auto diff final PT 11.4 (9.8-11.6) sec INR 1.1 Ratio APTT 26.1 (23.4-31.7) sec Sodium 140 (136-145) meq/L Potassium 3.9 (3.5-5.1) meq/L Chloride 103 (98-107) meq/L Carbon Dioxide 21.6 (21.0-32.0) meq/L Anion Gap 15 (5-15) meq/L BUN 45 H (7-18) mg/dL Creatinine 1.84 H (0.60-1.30) mg/dL Estimated GFR 36 L (>89) mL/min Random Glucose 150 H (74-106) mg/dL Calcium 8.1 L (8.5-10.1) mg/dL Prot Corrected Calcium Total Bilirubin 0.5 (0.2-1.0) mg/dL AST 20 (15-37) U/L ALT 34 (12-78) U/L Alkaline Phosphatase 77 (45-117) U/L Troponin I 0.04 (0.02-0.05) ng/mL Total Protein 5.6 L (6.4-8.2) g/dL Albumin 2.4 L (3.4-5.0) g/dL Blood Type Antibody Screen MTS Gel Crossmatch 05/11/18 05/11/18 05/11/18 Range/Units 09:15 09:15 10:12 WBC (4.0-11.0) th/mm3 RBC (4.50-5.90) mil/mm3 Hgb (13.0-17.0) gm/dL Hct (39.0-51.0) % MCV (80.0-100.0) fL MCH (27.0-34.0) pg MCHC (32.0-36.0) % RDW (11.6-17.2) % Plt Count (150-450) th/mm3 MPV (7.0-11.0) fL Neut % (Auto) (16.0-70.0) % Lymph % (Auto) (9.0-44.0) % Gordon % (Auto) (0.0-8.0) % Eos % (Auto) (0.0-4.0) % Baso % (Auto) (0.0-2.0) % Neut # (Auto) (1.8-7.7) th/mm3 Lymph # (Auto) (1.0-4.8) th/mm3 Gordon # (Auto) (0.0-0.9) th/mm3 Eos # (Auto) (0.0-0.4) th/mm3 Baso # (Auto) (0.0-0.2) th/mm3 WBC Differential Differential Comment PT (9.8-11.6) sec INR Ratio APTT (23.4-31.7) sec Sodium Cancelled (136-145) meq/L Potassium Cancelled (3.5-5.1) meq/L Chloride Cancelled (98-107) meq/L Carbon Dioxide Cancelled (21.0-32.0) meq/L Anion Gap Cancelled (5-15) meq/L BUN Cancelled (7-18) mg/dL Creatinine Cancelled (0.60-1.30) mg/dL Estimated GFR Cancelled (>89) mL/min Random Glucose Cancelled (74-106) mg/dL Calcium Cancelled (8.5-10.1) mg/dL Prot Corrected Calcium Cancelled Total Bilirubin Cancelled (0.2-1.0) mg/dL AST Cancelled (15-37) U/L ALT Cancelled (12-78) U/L Alkaline Phosphatase Cancelled (45-117) U/L Troponin I (0.02-0.05) ng/mL Total Protein Cancelled (6.4-8.2) g/dL Albumin Cancelled (3.4-5.0) g/dL Blood Type AB Positive Antibody Screen Negative MTS Gel Crossmatch See Detail ECG Data EKG Prior to Arrival: Yes Attestation: I personally reviewed and interpreted this ECG as follows: (EKG shows a sinus rhythm with a rate of 93 ST depressions noted in multiple leads of indeterminate significance) Prior ECG tracings: not available for review Discharge Plan Discharge Disposition Patient Disposition: 30 Still Patient Physicians Team ED Provider: Ollie Olson Primary Care Provider: Travis Lancaster Attending Provider: Travis Lancaster Other Providers: Fidel,Gian E Discharge Interventions Interventions: Vital Signs Last Done: 05/11/18 10:02 Status ED Status: Admitted Patient
--- NOTE | 2018-05-11 13:40 | P.CONGI ---
History of Present Illness Consult date: 05/11/18 Consult reason: Upper GI bleed Chief complaint: UGIB,Acute Anemia History of Present Illness: Patient is a 77-year-old male who presents to the emergency room at [facility] on 05/11/2018 due to coffee-ground emesis at home. EMS reports patient had a large amount of coffee-ground emesis at home. History is limited due to patient's dementia at this time. Patient denies shortness of breath weakness, nausea, headache or dizziness. EGD due to anemia and GI bleeding was performed on 05/05/[address] Smith. Findings include submucosal lesion at the second port of the duodenum, gastritis in the antrum, esophagitis grade C and hiatal hernia. Patient has a medical history significant for CVA, hypertension, hyperlipidemia , sick sinus syndrome, diabetes, bradycardia and GI bleed on anticoagulation.. Patient currently on aspirin and Plavix 75 mg p.o. daily for past medical history of CVA. Patient is awake and alert, denies abdominal pain. <Shama Cheung - Last Filed: 05/11/18 13:24> Review of Systems All other systems reviewed negative except as stated in HPI <Shama Cheung - Last Filed: 05/11/18 13:24> PMFSH - History History Provided By: Phys Asst / EMT - Medical History Medical History: Medical History (Last Reviewed 05/11/18 @ 08:53 by Geovanna Jean-Baptiste RN) CVA (cerebral vascular accident) Diabetes Frequent falls Hypertension - Surgical History Surgical History: Surgical History (Last Reviewed 05/11/18 @ 08:53 by Geovanna Jean-Baptiste RN) No history of previous surgery - Family History Family History: Family History (Last Reviewed 04/15/18 @ 08:26 by Marichuy Grady) Other Diabetes mellitus - Tobacco History Second Hand Smoke Exposure: No Smoking Status: Former smoker Tobacco Type: Cigarettes - Alcohol History How Often Do You Have a Drink Containing Alcohol: Never - Substance Use History Substance History: No History of Abuse - Travel History Recent Travel in the [place] Within the Last 8 Weeks: No Recent Travel Out of the Country Within the Last 8 Weeks: No - Immunization History Tetanus Immunization: Unsure <Shama Cheung - Last Filed: 05/11/18 13:24> - Medical History Medical History: Medical History (Last Reviewed 05/11/18 @ 08:53 by Geovanna Jean-Baptiste RN) CVA (cerebral vascular accident) Diabetes Frequent falls Hypertension - Surgical History Surgical History: Surgical History (Last Reviewed 05/11/18 @ 08:53 by Geovanna Jean-Baptiste RN) No history of previous surgery - Family History Family History: Family History (Last Reviewed 04/15/18 @ 08:26 by Marichuy Grady) Other Diabetes mellitus <Gian Parra E - Last Filed: 05/11/18 18:59> Medications and Allergies Active Medications: Active Medications Amlodipine Besylate (Norvasc) 5 mg PO DAILY DEBORA Atorvastatin Calcium (Lipitor) 40 mg PO HS DEBORA Glyburide (Diabeta) 5 mg PO BID DEBORA Metformin HCl (Glucophage) 1,000 mg PO BID DEBORA Pantoprazole Sodium (Protonix) 40 mg PO DAILY DEBORA <Shama Cheung - Last Filed: 05/11/18 13:24> Active Medications: Active Medications Amlodipine Besylate (Norvasc) 5 mg PO DAILY DEBORA Atorvastatin Calcium (Lipitor) 40 mg PO HS DEBORA Glyburide (Diabeta) 5 mg PO BID DEBORA Pantoprazole Sodium 80 mg/ (Sodium Chloride) 100 mls @ 10 mls/hr IV.CONT CONT DEBORA Propofol (Diprivan 1000 Mg/100 Ml Inj) 1,000 mg in 100 mls @ 2.376 mls/hr IV.CONT TITRATE PRN; Protocol PRN Reason: Per Protocol Midazolam HCl (Versed Inj) 50 mg in 50 mls @ 2 mls/hr IV.CONT TITRATE PRN; Protocol PRN Reason: Per Protocol Last Admin: 05/11/18 18:34 Dose: 4 mg/hr, 4 mls/hr Phenylephrine HCl 40 mg/ (Dextrose) 500 mls @ 30 mls/hr IV.CONT TITRATE PRN; Protocol PRN Reason: Per Protocol Metformin HCl (Glucophage) 1,000 mg PO BID DEBORA Terbutaline Sulfate (Brethine Inj) 1 mg SQ UNSCH PRN PRN Reason: For Extravasation <Gian Parra E - Last Filed: 05/11/18 18:59> Allergies Allergy/AdvReac Type Severity Reaction Status Date / Time No Known Allergies Allergy Verified 05/11/18 08:54 Home Medications Medication Instructions Recorded Confirmed Type glyburide 5 mg PO BID 10/15/18 11/12/18 History metformin 1,000 mg PO BID 04/13/18 05/11/18 History Exam Vital signs: Vital Signs 05/11/18 08:50 05/11/18 08:54 05/11/18 08:57 Temperature Pulse Rate 94 H 91 H Respiratory Rate 16 Blood Pressure 123/60 Pulse Oximetry 97 100 100 05/11/18 08:59 05/11/18 09:14 05/11/18 10:02 Temperature 97.6 F Pulse Rate 94 H 91 H Respiratory Rate 16 Blood Pressure 125/58 L Pulse Oximetry 100 100 05/11/18 10:30 05/11/18 10:50 05/11/18 11:00 Temperature Pulse Rate 96 H 97 H 94 H Respiratory Rate 14 12 16 Blood Pressure 118/58 L 118/58 L 120/59 L Pulse Oximetry 100 99 100 05/11/18 11:30 Temperature Pulse Rate 94 H Respiratory Rate 16 Blood Pressure 107/53 L Pulse Oximetry 100 Intake & Output 05/10/18 05/11/18 05/11/18 18:59 06:59 18:59 Intake Total 0 / 0 Balance 0 / 0 Weight 72.575 kg Intake: Intake (Blood Product) Amt 0 / 0 Rbc As-3 Leukoreduced Unit 0 / 0 [id number] - Constitutional no acute distress - Routine HEENT Exam Head: Present: normocephalic - Routine Respiratory Exam Present: CTA bilaterally. Absent: accessory muscle use - Routine Cardiovascular Exam Present: RRR - Routine Abdominal Exam Present: soft, normoactive bowel sounds. Absent: tenderness, distended, guarding, firm - Routine Extremities Exam Present: pulses intact. Absent: edema - Routine Skin Exam Present: dry, pallor, warm - Routine Neurological Exam Present: alert, altered mental status <Cheung,Shama - Last Filed: 05/11/18 13:24> Vital signs: Vital Signs 05/11/18 08:50 05/11/18 08:54 05/11/18 08:57 Temperature Pulse Rate 94 H 91 H Respiratory Rate 16 Blood Pressure 123/60 Pulse Oximetry 97 100 100 05/11/18 08:59 05/11/18 09:14 05/11/18 10:02 Temperature 97.6 F Pulse Rate 94 H 91 H Respiratory Rate 16 Blood Pressure 125/58 L Pulse Oximetry 100 100 05/11/18 10:30 05/11/18 10:50 05/11/18 11:00 Temperature Pulse Rate 96 H 97 H 94 H Respiratory Rate 14 12 16 Blood Pressure 118/58 L 118/58 L 120/59 L Pulse Oximetry 100 99 100 05/11/18 11:30 05/11/18 12:30 05/11/18 14:10 Temperature 97.5 F L 98.1 F Pulse Rate 94 H 97 H 94 H Respiratory Rate 16 20 18 Blood Pressure 107/53 L 104/56 L 115/60 Pulse Oximetry 100 98 98 05/11/18 15:53 05/11/18 16:00 05/11/18 18:04 Temperature 98.0 F Pulse Rate 100 H 100 H Respiratory Rate 16 Blood Pressure Pulse Oximetry 98 100 05/11/18 18:05 05/11/18 18:15 05/11/18 18:30 Temperature Pulse Rate 105 H 113 H Respiratory Rate 16 16 16 Blood Pressure 127/57 L 139/62 Pulse Oximetry 100 100 100 Intake & Output 05/10/18 05/11/18 05/11/18 18:59 06:59 18:59 Intake Total 400 / 400 Output Total 150 / 150 Balance 250 / 250 Weight 79.2 kg Intake: Intake (Blood Product) Amt 400 / 400 Rbc As-3 Leukoreduced Unit 400 / 400 [id number] Output: Urine 0 / 0 Gastric Drainage 150 / 150 Orogastric Tube 150 / 150 Other: Weight On Admission 79.2 kg <Gian Parra E - Last Filed: 05/11/18 18:59> Results - Labs CBC & Chem 7: 05/11/18 09:15 05/11/18 09:15 Labs: Laboratory Results - last 24 hr 05/11/18 05/11/18 05/11/18 09:15 09:15 09:15 WBC 13.3 H RBC 2.23 L Hgb 7.7 L Hct 23.0 L MCV 102.9 H MCH 34.6 H MCHC 33.6 RDW 14.1 Plt Count 344 D MPV 8.0 Neut % (Auto) 85.1 H Lymph % (Auto) 7.8 L [place] % (Auto) 6.0 Eos % (Auto) 0.5 Baso % (Auto) 0.6 Neut # (Auto) 11.4 H Lymph # (Auto) 1.0 [place] # (Auto) 0.8 Eos # (Auto) 0.1 Baso # (Auto) 0.1 WBC Differential . Differential Comment Auto diff final PT 11.4 INR 1.1 APTT 26.1 Sodium 140 Potassium 3.9 Chloride 103 Carbon Dioxide 21.6 Anion Gap 15 BUN 45 H Creatinine 1.84 H Estimated GFR 36 L Random Glucose 150 H Calcium 8.1 L Prot Corrected Calcium Total Bilirubin 0.5 AST 20 ALT 34 Alkaline Phosphatase 77 Troponin I 0.04 Total Protein 5.6 L Albumin 2.4 L Blood Type Antibody Screen MTS Gel Crossmatch 05/11/18 05/11/18 05/11/18 09:15 09:15 10:12 WBC RBC Hgb Hct MCV MCH MCHC RDW Plt Count MPV Neut % (Auto) Lymph % (Auto) [place] % (Auto) Eos % (Auto) Baso % (Auto) Neut # (Auto) Lymph # (Auto) [place] # (Auto) Eos # (Auto) Baso # (Auto) WBC Differential Differential Comment PT INR APTT Sodium Cancelled Potassium Cancelled Chloride Cancelled Carbon Dioxide Cancelled Anion Gap Cancelled BUN Cancelled Creatinine Cancelled Estimated GFR Cancelled Random Glucose Cancelled Calcium Cancelled Prot Corrected Calcium Cancelled Total Bilirubin Cancelled AST Cancelled ALT Cancelled Alkaline Phosphatase Cancelled Troponin I Total Protein Cancelled Albumin Cancelled Blood Type AB Positive Antibody Screen Negative MTS Gel Crossmatch See Detail <Shama Cheung - Last Filed: 05/11/18 13:24> - Labs CBC & Chem 7: 05/11/18 17:45 05/11/18 17:45 Labs: Laboratory Results - last 24 hr 05/11/18 05/11/18 05/11/18 09:15 09:15 09:15 WBC 13.3 H RBC 2.23 L Hgb 7.7 L Hct 23.0 L MCV 102.9 H MCH 34.6 H MCHC 33.6 RDW 14.1 Plt Count 344 D MPV 8.0 Neut % (Auto) 85.1 H Lymph % (Auto) 7.8 L [place] % (Auto) 6.0 Eos % (Auto) 0.5 Baso % (Auto) 0.6 Neut # (Auto) 11.4 H Lymph # (Auto) 1.0 [place] # (Auto) 0.8 Eos # (Auto) 0.1 Baso # (Auto) 0.1 WBC Differential . Differential Comment Auto diff final PT 11.4 INR 1.1 APTT 26.1 Fibrinogen Sodium 140 Potassium 3.9 Chloride 103 Carbon Dioxide 21.6 Anion Gap 15 BUN 45 H Creatinine 1.84 H Estimated GFR 36 L POC Glucose Random Glucose 150 H Calcium 8.1 L Prot Corrected Calcium Total Bilirubin 0.5 AST 20 ALT 34 Alkaline Phosphatase 77 Troponin I 0.04 Total Protein 5.6 L Albumin 2.4 L Blood Type Antibody Screen MTS Gel Crossmatch 05/11/18 05/11/18 05/11/18 09:15 09:15 10:12 WBC RBC Hgb Hct MCV MCH MCHC RDW Plt Count MPV Neut % (Auto) Lymph % (Auto) [place] % (Auto) Eos % (Auto) Baso % (Auto) Neut # (Auto) Lymph # (Auto) [place] # (Auto) Eos # (Auto) Baso # (Auto) WBC Differential Differential Comment PT INR APTT Fibrinogen Sodium Cancelled Potassium Cancelled Chloride Cancelled Carbon Dioxide Cancelled Anion Gap Cancelled BUN Cancelled Creatinine Cancelled Estimated GFR Cancelled POC Glucose Random Glucose Cancelled Calcium Cancelled Prot Corrected Calcium Cancelled Total Bilirubin Cancelled AST Cancelled ALT Cancelled Alkaline Phosphatase Cancelled Troponin I Total Protein Cancelled Albumin Cancelled Blood Type AB Positive Antibody Screen Negative MTS Gel Crossmatch See Detail 05/11/18 05/11/18 05/11/18 15:12 16:56 17:45 WBC 12.7 H RBC 1.74 L Hgb 7.2 L 6.2 L* Hct 21.2 L 17.1 L* MCV 98.4 D MCH 35.8 H MCHC 36.4 H RDW 16.3 Plt Count 275 MPV 8.1 Neut % (Auto) Lymph % (Auto) [place] % (Auto) Eos % (Auto) Baso % (Auto) Neut # (Auto) Lymph # (Auto) [place] # (Auto) Eos # (Auto) Baso # (Auto) WBC Differential Differential Comment PT INR APTT Fibrinogen Sodium Potassium Chloride Carbon Dioxide Anion Gap BUN Creatinine Estimated GFR POC Glucose 255 H Random Glucose Calcium Prot Corrected Calcium Total Bilirubin AST ALT Alkaline Phosphatase Troponin I Total Protein Albumin Blood Type Antibody Screen MTS Gel Crossmatch 05/11/18 05/11/18 05/11/18 17:45 17:45 18:26 WBC RBC Hgb Hct MCV MCH MCHC RDW Plt Count MPV Neut % (Auto) Lymph % (Auto) [place] % (Auto) Eos % (Auto) Baso % (Auto) Neut # (Auto) Lymph # (Auto) [place] # (Auto) Eos # (Auto) Baso # (Auto) WBC Differential Differential Comment PT 12.7 H INR 1.3 APTT 27.1 Fibrinogen 277 Sodium 140 Potassium 5.2 H D Chloride 103 Carbon Dioxide 22.3 Anion Gap 15 BUN 63 H Creatinine 1.96 H Estimated GFR 34 L POC Glucose Random Glucose 261 H D Calcium 7.4 L* Prot Corrected Calcium 8.6 Total Bilirubin 1.2 H AST 31 ALT 34 Alkaline Phosphatase 63 Troponin I Total Protein 5.0 L D Albumin 2.1 L Blood Type Antibody Screen MTS Gel Crossmatch See Detail <Gain Parra - Last Filed: 05/11/18 18:59> Assessment and Plan (1) Anemia Status: Acute Code(s): D64.9 - Anemia, unspecified (2) GI (gastrointestinal hemorrhage) Status: Acute Code(s): K92.2 - Gastrointestinal hemorrhage, unspecified (3) Coffee ground emesis Status: Acute Code(s): K92.0 - Hematemesis - Plan Patient is a 77-year-old male who presents to the emergency room at [facility] on 05/11/2018 due to coffee-ground emesis at home. EMS reports patient had a large amount of coffee-ground emesis at home. History is limited due to patient's dementia at this time. Patient denies shortness of breath weakness, nausea, headache or dizziness. EGD due to anemia and GI bleeding was performed on 05/05/[address] Smith. Findings include submucosal lesion at the second port of the duodenum, gastritis in the antrum, esophagitis grade C and hiatal hernia. Patient has a medical history significant for CVA, hypertension, hyperlipidemia , sick sinus syndrome, diabetes, bradycardia and GI bleed on anticoagulation.. Patient currently on aspirin and Plavix 75 mg p.o. daily for past medical history of CVA. Patient is awake and alert, denies abdominal pain. Coffee-ground emesis GI bleeding Anemia Patient brought in to [facility] today due to coffee-ground emesis at home. As per ER documentation. EMS reports large amount of coffee-ground emesis noted at home. On arrival hemoglobin 7.7 hematocrit 23.0 platelet count 344. INR 1.1. Patient recently admitted on 05/01/2018 for anemia due to GI bleeding. 05/05/2018 EGD revealed the following findings: 1. Submucosal lesion second portion of duodenum -round-2 cm-biopsy gastritis antrum-biopsy esophagitis grade c -distal esophagus-biopsy 2. Retroflexed views revealed a hiatal hernia Plan N.p.o. for now Monitor labs-hemoglobin and hematocrit Monitor for bleeding Transfuse if needed PPI Avoid anticoagulants-hold Plavix Supportive care Further recommendations to follow This patient has been seen by myself and Dr. Parra and this note is written on his behalf - Attending Attestation <Shama Cheung - Last Filed: 05/11/18 13:24> (1) Anemia Status: Acute Code(s): D64.9 - Anemia, unspecified (2) GI (gastrointestinal hemorrhage) Status: Acute Code(s): K92.2 - Gastrointestinal hemorrhage, unspecified (3) Coffee ground emesis Status: Acute Code(s): K92.0 - Hematemesis - Plan Patient seen and examined Agree with above Continue with current supportive care Monitor labs and transfuse as needed We will proceed with an upper endoscopy emergently Further recommendations she will depend on the findings <Gian Parra - Last Filed: 05/11/18 18:59>
[2018-05-11] MEDS ORDERED: Pantoprazole Inj 40 MG Vial IV.PUSH SCH (14:00)
--- NOTE | 2018-05-11 14:28 | ECG ---
Date Performed: 05/11/2018 Time Performed: 09:04:34 PTAGE: 77 years EKG: Sinus rhythm ST DEPRESSION, CONSIDER SUBENDOCARDIAL INJURY ABNORMAL ECG ST DEPRESSION IN NEW SINCE PROIOR TRACING , SUGGEST ISCHEMIA Clinical correlation is recommended NO PREVIOUS TRACING DOCTOR: Marino Johnson Interpretating Date/Time 05/11/2018 14:27:06
[2018-05-11 15:36] LABS: Hematocrit 21.2 % (39.0-51.0); Hemoglobin 7.2 gm/dL (13.0-17.0)
--- NOTE | 2018-05-11 15:50 | P.CONCA ---
History of Present Illness Service: Cardiology Consult date: 05/11/18 Requesting Physician: Ollie Olson Reason for Consult: UGIB, on Plavix and ASA Primary Care Provider: Travis Lancaster DO History of Present Illness: This is a 77-year-old male with a past medical history of a hernia, diabetes, stroke, hypertension and memory loss. He was brought in to the Emergency Department due to coffee-ground emesis at home. Patient does not know why he is here at this time and does not remember vomiting or any episodes from this morning. I spoke to the niece, who stated that he has been having a very hard time with short term memory loss. She also informed me that he was taking Plavix and ASA for a recent stroke that he had. He was attending rehab to gain his strength back and had an episode of vomiting up blood and was brought to the Emergency Department for further evaluation. She also informed me that this has been going on since he started taking the Plavix a few weeks ago. Currently , he denies any CP, pressure, palpitations, dizziness, edema or SOB. He is receiving a blood transfusion at this time. Review of Systems All other systems reviewed negative except as stated in HPI PMFSH - History History Provided By: Print Production Coordinator / EMT - Medical History Medical History: Medical History (Last Reviewed 05/11/18 @ 08:53 by Geovanna Jean-Baptiste RN) CVA (cerebral vascular accident) Diabetes Frequent falls Hypertension - Surgical History Surgical History: Surgical History (Last Reviewed 05/11/18 @ 08:53 by Geovanna Jean-Baptiste RN) No history of previous surgery - Family History Family History: Family History (Last Reviewed 04/15/18 @ 08:26 by Marichuy Grady) Other Diabetes mellitus - Tobacco History Second Hand Smoke Exposure: No Smoking Status: Former smoker Tobacco Type: Cigarettes - Alcohol History How Often Do You Have a Drink Containing Alcohol: Never - Substance Use History Substance History: No History of Abuse - Travel History Recent Travel in the [place] Within the Last 8 Weeks: No Recent Travel Out of the Country Within the Last 8 Weeks: No - Immunization History Tetanus Immunization: Unsure Hx Influenza Vaccine This Season: Unable to Assess Medications and Allergies Allergies Allergy/AdvReac Type Severity Reaction Status Date / Time No Known Allergies Allergy Verified 05/11/18 08:54 Home Medications Medication Instructions Recorded Confirmed Type glyburide 5 mg PO BID 04/13/18 05/11/18 History metformin 1,000 mg PO BID 04/13/18 05/11/18 History Active Medications: Active Medications Amlodipine Besylate (Norvasc) 5 mg PO DAILY DEBORA Atorvastatin Calcium (Lipitor) 40 mg PO HS DEBORA Glyburide (Diabeta) 5 mg PO BID DEBORA Metformin HCl (Glucophage) 1,000 mg PO BID DEBORA Pantoprazole Sodium (Protonix Inj) 40 mg IV.PUSH Q12H DEBORA Last Admin: 05/11/18 15:09 Dose: 40 mg Exam Vital signs: Vital Signs 05/11/18 08:50 05/11/18 08:54 05/11/18 08:57 Temperature Pulse Rate 94 H 91 H Respiratory Rate 16 Blood Pressure 123/60 Pulse Oximetry 97 100 100 05/11/18 08:59 05/11/18 09:14 05/11/18 10:02 Temperature 97.6 F Pulse Rate 94 H 91 H Respiratory Rate 16 Blood Pressure 125/58 L Pulse Oximetry 100 100 05/11/18 10:30 05/11/18 10:50 05/11/18 11:00 Temperature Pulse Rate 96 H 97 H 94 H Respiratory Rate 14 12 16 Blood Pressure 118/58 L 118/58 L 120/59 L Pulse Oximetry 100 99 100 05/11/18 11:30 05/11/18 12:30 05/11/18 14:10 Temperature 97.5 F L 98.1 F Pulse Rate 94 H 97 H 94 H Respiratory Rate 16 20 18 Blood Pressure 107/53 L 104/56 L 115/60 Pulse Oximetry 100 98 98 Intake & Output 05/10/18 05/11/18 05/11/18 18:59 06:59 18:59 Intake Total 400 / 400 Balance 400 / 400 Weight 79.2 kg Intake: Intake (Blood Product) Amt 400 / 400 Rbc As-3 Leukoreduced Unit 400 / 400 [id number] Other: Weight On Admission 79.2 kg - Constitutional no acute distress - Routine HEENT Exam Head: Present: normocephalic Eye: Present: PERRL ENT: Present: mucous membranes moist - Routine Neck Exam Present: full ROM - Routine Respiratory Exam Present: CTA bilaterally - Routine Cardiovascular Exam Present: S1, S2. Absent: murmur, gallop, rubs - Routine Abdominal Exam Present: normoactive bowel sounds - Routine Extremities Exam Present: full ROM, pulses intact, normal capillary refill. Absent: cyanosis, clubbing, edema - Routine Skin Exam Present: intact Comments: Patient is pale. Receiving a blood transfusion at this time. - Routine Neurological Exam Present: alert Alert but confused. Results 05/11/18 15:12 05/11/18 09:15 Cardiac Enzymes 05/11/18 05/11/18 Range/Units 09:15 09:15 AST 20 Cancelled (15-37) U/L Troponin I 0.04 (0.02-0.05) ng/mL Coagulation 05/11/18 Range/Units 09:15 PT 11.4 (9.8-11.6) sec APTT 26.1 (23.4-31.7) sec CBC 05/11/18 05/11/18 Range/Units 09:15 15:12 WBC 13.3 H (4.0-11.0) th/mm3 RBC 2.23 L (4.50-5.90) mil/mm3 Hgb 7.7 L 7.2 L (13.0-17.0) gm/dL Hct 23.0 L 21.2 L (39.0-51.0) % Plt Count 344 D (150-450) th/mm3 Neut # (Auto) 11.4 H (1.8-7.7) th/mm3 Lymph # (Auto) 1.0 (1.0-4.8) th/mm3 [place] # (Auto) 0.8 (0.0-0.9) th/mm3 Eos # (Auto) 0.1 (0.0-0.4) th/mm3 Baso # (Auto) 0.1 (0.0-0.2) th/mm3 Comprehensive Metabolic Panel 05/11/18 05/11/18 Range/Units 09:15 09:15 Sodium 140 Cancelled (136-145) meq/L Potassium 3.9 Cancelled (3.5-5.1) meq/L Chloride 103 Cancelled (98-107) meq/L Carbon Dioxide 21.6 Cancelled (21.0-32.0) meq/L BUN 45 H Cancelled (7-18) mg/dL Creatinine 1.84 H Cancelled (0.60-1.30) mg/dL Calcium 8.1 L Cancelled (8.5-10.1) mg/dL AST 20 Cancelled (15-37) U/L ALT 34 Cancelled (12-78) U/L Alkaline Phosphatase 77 Cancelled (45-117) U/L Total Protein 5.6 L Cancelled (6.4-8.2) g/dL Albumin 2.4 L Cancelled (3.4-5.0) g/dL Intake and Output 05/11/18 05/11/18 05/11/18 06:59 14:59 22:59 Intake Total 0 / 0 400 / 400 Balance 0 / 0 400 / 400 Intake: Intake (Blood Product) Amt 0 / 0 400 / 400 Rbc As-3 Leukoreduced Unit 0 / 0 400 / 400 [id number] Other: Weight 79.2 kg Weight On Admission 79.2 kg Patient Weight 05/12/18 06:59 Weight 79.2 kg Assessment and Plan - Assessment (1) GI (gastrointestinal hemorrhage) Code(s): K92.2 - Gastrointestinal hemorrhage, unspecified Status: Acute (2) Acute ischemic left MCA stroke Code(s): I63.512 - Cerebral infarction due to unspecified occlusion or stenosis of left middle cerebral artery Status: Acute (3) Hypertension Code(s): I10 - Essential (primary) hypertension Status: Chronic (4) Hyperlipidemia Code(s): E78.5 - Hyperlipidemia, unspecified Status: Chronic (5) Sick sinus syndrome Code(s): I49.5 - Sick sinus syndrome Status: Acute (6) Bradycardia Code(s): R00.1 - Bradycardia, unspecified Status: Acute - Plan Patient is currently receiving a blood transfusion. He presented with UGIB; GI evaluation in progress. Currently there are no signs of acute coronary syndrome; continue current cardiac treatment plan. We will continue to monitor during his hospitalization. The patient was seen and evaluated by Dr. Rick who participated in care, management and decision making. - Attending Attestation Patient seen and examined. I reviewed and agree with the evaluation and plan as presented. Anticoagulants on hold. GI evaluation in progress. Will continue to monitor. (3) Hypertension Qualifiers: Hypertension type: essential hypertension Qualified Code(s): I10 - Essential (primary) hypertension
--- NOTE | 2018-05-11 16:15 | P.HPFP ---
History of Present Illness Service: primary care Primary Care Physician: Travis Lancaster DO Chief Complaint: pt presented to ED with coffee ground emesis and lethargy History of Present Illness: previously hospitalized with cva given asa plavix had upper endo gastritis present - Diagnosis (1) GI (gastrointestinal hemorrhage) Inpatient Certification: I certify that the inpatient services were ordered in accordance with Medicare regulations governing the order. This includes certification that hospital inpatient services are reasonable and necessary and in the case of services not specified as inpatient-only under 42 CFR 419.22(n), that they are appropriately provided as inpatient services in accordance to with the 2-midnight benchmark under 43 CFR 412.3(e) Estimated Total Length of Stay (Days): 5 Plans for Post Hospital Care: SNF Review of Systems Constitutional: Reports daytime sleepiness, Reports weakness (lethargic) Gastrointestinal: Reports black, tarry stools PMFSH - History History Provided By: Risk Prevention Engineer / EMT - Medical History Medical History: Medical History (Last Reviewed 05/11/18 @ 08:53 by Geovanna Jean-Baptiste RN) CVA (cerebral vascular accident) Diabetes Frequent falls Hypertension - Surgical History Surgical History: Surgical History (Last Reviewed 05/11/18 @ 08:53 by Geovanna Jean-Baptiste RN) No history of previous surgery - Family History Family History: Family History (Last Reviewed 04/15/18 @ 08:26 by Marichuy Grady) Other Diabetes mellitus - Tobacco History Second Hand Smoke Exposure: No Smoking Status: Former smoker Tobacco Type: Cigarettes - Alcohol History How Often Do You Have a Drink Containing Alcohol: Never - Substance Use History Substance History: No History of Abuse - Travel History Recent Travel in the [place] Within the Last 8 Weeks: No Recent Travel Out of the Country Within the Last 8 Weeks: No - Immunization History Tetanus Immunization: Unsure Hx Influenza Vaccine This Season: Unable to Assess Medications and Allergies Active Medications: Active Medications Amlodipine Besylate (Norvasc) 5 mg PO DAILY [facility] Atorvastatin Calcium (Lipitor) 40 mg PO HS [facility] Glyburide (Diabeta) 5 mg PO BID [facility] Metformin HCl (Glucophage) 1,000 mg PO BID [facility] Pantoprazole Sodium (Protonix Inj) 40 mg IV.PUSH Q12H [facility] Last Admin: 05/11/18 15:09 Dose: 40 mg Allergies Allergy/AdvReac Type Severity Reaction Status Date / Time No Known Allergies Allergy Verified 05/11/18 08:54 Home Medications Medication Instructions Recorded Confirmed Type glyburide 5 mg PO BID 04/13/18 05/11/18 History metformin 1,000 mg PO BID 04/13/18 05/11/18 History Exam Vital signs: Vital Signs 05/11/18 08:50 05/11/18 08:54 05/11/18 08:57 Temperature Pulse Rate 94 H 91 H Respiratory Rate 16 Blood Pressure 123/60 Pulse Oximetry 97 100 100 05/11/18 08:59 05/11/18 09:14 05/11/18 10:02 Temperature 97.6 F Pulse Rate 94 H 91 H Respiratory Rate 16 Blood Pressure 125/58 L Pulse Oximetry 100 100 05/11/18 10:30 05/11/18 10:50 05/11/18 11:00 Temperature Pulse Rate 96 H 97 H 94 H Respiratory Rate 14 12 16 Blood Pressure 118/58 L 118/58 L 120/59 L Pulse Oximetry 100 99 100 05/11/18 11:30 05/11/18 12:30 05/11/18 14:10 Temperature 97.5 F L 98.1 F Pulse Rate 94 H 97 H 94 H Respiratory Rate 16 20 18 Blood Pressure 107/53 L 104/56 L 115/60 Pulse Oximetry 100 98 98 05/11/18 15:53 Temperature Pulse Rate Respiratory Rate Blood Pressure Pulse Oximetry 98 Intake & Output 05/10/18 05/11/18 05/11/18 18:59 06:59 18:59 Intake Total 400 / 400 Balance 400 / 400 Weight 79.2 kg Intake: Intake (Blood Product) Amt 400 / 400 Rbc As-3 Leukoreduced Unit 400 / 400 [id number] Other: Weight On Admission 79.2 kg - Constitutional no acute distress, somnolent - Routine HEENT Exam Head: Present: normocephalic, atraumatic Eye: Present: EOMI, PERRL ENT: Present: mucous membranes moist - Routine Neck Exam Present: supple - Routine Respiratory Exam Present: CTA bilaterally - Routine Cardiovascular Exam Present: RRR - Routine Abdominal Exam Present: soft, tenderness - Routine Skin Exam Present: intact - Routine Neurological Exam lethargic Results - Labs Result diagrams: 05/11/18 15:12 05/11/18 09:15 Abnormal lab results 05/11/18 05/11/18 05/11/18 Range/Units 09:15 09:15 10:12 WBC 13.3 H (4.0-11.0) th/mm3 RBC 2.23 L (4.50-5.90) mil/mm3 Hgb 7.7 L (13.0-17.0) gm/dL Hct 23.0 L (39.0-51.0) % MCV 102.9 H (80.0-100.0) fL MCH 34.6 H (27.0-34.0) pg Neut % (Auto) 85.1 H (16.0-70.0) % Lymph % (Auto) 7.8 L (9.0-44.0) % Neut # (Auto) 11.4 H (1.8-7.7) th/mm3 BUN 45 H (7-18) mg/dL Creatinine 1.84 H (0.60-1.30) mg/dL Estimated GFR 36 L (>89) mL/min Random Glucose 150 H (74-106) mg/dL Calcium 8.1 L (8.5-10.1) mg/dL Total Protein 5.6 L (6.4-8.2) g/dL Albumin 2.4 L (3.4-5.0) g/dL MTS Gel Crossmatch See Detail 05/11/18 Range/Units 15:12 WBC (4.0-11.0) th/mm3 RBC (4.50-5.90) mil/mm3 Hgb 7.2 L (13.0-17.0) gm/dL Hct 21.2 L (39.0-51.0) % MCV (80.0-100.0) fL MCH (27.0-34.0) pg Neut % (Auto) (16.0-70.0) % Lymph % (Auto) (9.0-44.0) % Neut # (Auto) (1.8-7.7) th/mm3 BUN (7-18) mg/dL Creatinine (0.60-1.30) mg/dL Estimated GFR (>89) mL/min Random Glucose (74-106) mg/dL Calcium (8.5-10.1) mg/dL Total Protein (6.4-8.2) g/dL Albumin (3.4-5.0) g/dL MTS Gel Crossmatch Short CBC 05/11/18 05/11/18 Range/Units 09:15 15:12 WBC 13.3 H (4.0-11.0) th/mm3 Hgb 7.7 L 7.2 L (13.0-17.0) gm/dL Hct 23.0 L 21.2 L (39.0-51.0) % Plt Count 344 D (150-450) th/mm3 BMP 05/11/18 05/11/18 09:15 09:15 Sodium 140 Cancelled Potassium 3.9 Cancelled Chloride 103 Cancelled Carbon Dioxide 21.6 Cancelled BUN 45 H Cancelled Creatinine 1.84 H Cancelled Calcium 8.1 L Cancelled Cardiac Enzymes 05/11/18 Range/Units 09:15 Troponin I 0.04 (0.02-0.05) ng/mL Liver Function 05/11/18 05/11/18 Range/Units 09:15 09:15 Total Bilirubin 0.5 Cancelled (0.2-1.0) mg/dL AST 20 Cancelled (15-37) U/L ALT 34 Cancelled (12-78) U/L Alkaline Phosphatase 77 Cancelled (45-117) U/L Albumin 2.4 L Cancelled (3.4-5.0) g/dL Caprini VTE Risk Assessment Caprini VTE Risk Assessment: No/Low Risk (score <= 1) VTE Pharmacological Exception Reason: Hemorrhage (active bleeding) Caprini Risk Assessment Model: Point Value = 1 Point Value = 2 Point Value = 3 Point Value = 5 Age 41-60 Minor surgery BMI > 25 kg/m2 Swollen legs Varicose veins or History of unexplained or recurrent spontaneous Oral contraceptives or hormone replacement Sepsis (< 1 month) Serious lung disease, including pneumonia (< 1 month) Abnormal pulmonary function Acute myocardial infarction Congestive heart failure (< 1 month) History of inflammatory bowel disease Medical patient at bed rest Age 61-74 Arthroscopic surgery Major open surgery (> 45 min) Laparoscopic surgery (> 45 min) Malignancy Confined to bed (> 72 hours) Immobilizing plaster cast Central venous access Age >= 75 History of VTE Family history of VTE Factor V Leiden Prothrombin [id number] Lupus anticoagulant Anticardiolipin antibodies Elevated serum homocysteine Heparin-induced thrombocytopenia Other congenital or acquired thrombophilia Stroke (< 1 month) Elective arthroplasty Hip, pelvis, or leg fracture Acute spinal cord injury (< 1 month) Prophylaxis Regimen: Total Risk Factor Score Risk Level Prophylaxis Regimen 0-1 Low Early ambulation 2 Moderate Order ONE of the following: *Sequential Compression Device (SCD) *Heparin 5000 units SQ BID 3-4 Higher Order ONE of the following medications: *Heparin 5000 units SQ TID *Enoxaparin/Lovenox 40 mg SQ daily (WT < 150 kg, CrCl > 30 mL/min) *Enoxaparin/Lovenox 30 mg SQ daily (WT < 150 kg, CrCl > 10-29 mL/min) *Enoxaparin/Lovenox 30 mg SQ BID (WT < 150 kg, CrCl > 30 mL/min) AND/OR *Sequential Compression Device (SCD) 5 or more Highest Order ONE of the following medications: *Heparin 5000 units SQ TID (Preferred with Epidurals) *Enoxaparin/Lovenox 40 mg SQ daily (WT < 150 kg, CrCl > 30 mL/min) *Enoxaparin/Lovenox 30 mg SQ daily (WT < 150 kg, CrCl > 10-29 mL/min) *Enoxaparin/Lovenox 30 mg SQ BID (WT < 150 kg, CrCl > 30 mL/min) AND *Sequential Compression Device (SCD) Assessment and Plan - Assessment (1) GI (gastrointestinal hemorrhage) Code(s): K92.2 - Gastrointestinal hemorrhage, unspecified Status: Acute - Assessment and Plan gi and cardiac consult transfuse follow hgb closely Discussed Condition With: daughter Discharge Planning: snf H&P: Quality - VTE Deep Vein Thrombosis/Pulmonary Embolism Present on Admission: No
[2018-05-11] MEDS ORDERED: Etomidate Inj 40 MG/20 ML Vial IV.PUSH ONE (17:43)
[2018-05-11] MEDS ORDERED: Midazolam Inj 5 MG/ML 1 ML Vial ONE (17:43)
[2018-05-11 18:07] LABS: Mean Corpuscular Hemoglobin 35.8 pg (27.0-34.0); Mean Corpuscular Volume 98.4 fL (80.0-100.0); Mean Platelet Volume 8.1 fL (7.0-11.0); Platelet Count 275 th/mm3 (150-450); Red Blood Count 1.74 mil/mm3 (4.50-5.90); Red Cell Distribution Width 16.3 % (11.6-17.2); White Blood Count 12.7 th/mm3 (4.0-11.0)
[2018-05-11 18:17] LABS: Activated Partial Thrombo Time 27.1 sec (23.4-31.7); INR 1.3 Ratio; Prothrombin Time 12.7 sec (9.8-11.6)
[2018-05-11 18:18] LABS: Mean Corpuscular HGB Conc 36.4 % (32.0-36.0)
[2018-05-11 18:21] LABS: Hematocrit 17.1 % (39.0-51.0); Hemoglobin 6.2 gm/dL (13.0-17.0)
--- NOTE | 2018-05-11 18:23 | P.PCN ---
Date of procedure: 05/11/18 Pre-op diagnosis: Upper GI bleed inability to protect airway Post-op diagnosis: same Procedure: Endotracheal intubation Rapid Sequence Intubation was conducted. The patient received IV 10 mg of Versed , 20 mg etomidate, 50 mg of rocuronium.. Cricoid pressure was maintained from time induction agent was given to time of cuff balloon inflation. Using a direct laryngoscope MAC 4 blade a grade 1 view was obtained, and a size 8.0 endotracheal tube with stylet, the patient was intubated on the first attempt. There was some difficulty encountered with intubation due to limited mouth opening and sharp dentition. Appropriate endotracheal tube position was confirmed by direct visualization of vocal cord passage, fogging of the tube, CO2 colometric indicator and symmetric breath sounds. The tube was secured at 24 cm at the lips. Anesthesia: BRUCEA Surgeon: Beth Garcia Condition: critical Disposition: ICU
[2018-05-11] MEDS ORDERED: Midazolam 50 MG/50 ML Inj 50 MG/50 ML BAG IV.CONT PRN (18:28)
[2018-05-11 18:39] LABS: Albumin 2.1 g/dL (3.4-5.0); Calcium 7.4 mg/dL (8.5-10.1); Carbon Dioxide 22.3 meq/L (21.0-32.0); Potassium 5.2 meq/L (3.5-5.1)
--- NOTE | 2018-05-11 19:03 | P.PCN ---
Date of procedure: 05/11/18 Pre-op diagnosis: Upper GI bleed Procedure: PROCEDURE PERFORMED EGD PROCEDURE: The procedure, risks and benefits were discussed with Patient/POA and informed consent was obtained. Anesthesia sedated Patient with Diprivan patient intubated. Patient was placed in the left lateral decubitus position. EGD: The Pentax videoscope was introduced through the oropharynx and advanced to the second portion of the duodenum under direct visualization. Retroflexion was performed in the stomach. FINDINGS: The esophagus this appeared to be unremarkable with normal limits The stomach was filled with blood clots fresh blood and fluids I tried to lavage excessively at the beginning to no avail I tried suction most of what was in there I was unable to and after multiple attempts at cleaning and clearing the stomach the procedure was terminated no active source of bleeding was noted but certainly fresh blood was noted in the stomach and our suspicion is that fundus may be the source but also the antrum was covered with fluids and clots and I was unable to find the pylorus to advance into the duodenum The patient was repositioned in order to try and see if we can move the contents and see more of the gastric mucosa but still this was very limited ESTIMATED BLOOD LOSS: 300 cc SPECIMENS REMOVED: None COMPLICATIONS: None IMPRESSION: Incomplete evaluation Probable gastric bleed PLAN: Continue with current supportive care Monitor labs and transfuse as needed Avoid antiplatelets and anticoagulation Recommend Protonix drip We will repeat the EGD tomorrow morning Anesthesia: RACHEAL Surgeon: Gian Parra Condition: stable Disposition: ICU
--- NOTE | 2018-05-11 19:03 | XR ---
EXAM DATE: 05/11/2018 6:39 PM EST AGE/SEX: 77 years / Male INDICATIONS: ET tube placement. CLINICAL DATA: This is the patient's initial encounter. Patient reports that signs and symptoms have been present for 1 day and indicates a pain score of Nonresponsive. MEDICAL/SURGICAL HISTORY: Non-responsive. Non-responsive. COMPARISON: C, CHEST 1V SINGLE AP, 05/01/2018. . FINDINGS: Mild patient rotation towards the right. Endotracheal tube tip is well above the katy. Gastric tip and side-port project within the stomach. Mild curvature of the upper thoracic spine convex towards t he right. The lungs are clear. The heart is normal size. CONCLUSION: ET tube in good position. Electronically signed by: Ray Clinton MD 05/11/2018 7:01 PM EST
[2018-05-11] MEDS: Pantoprazole Inj 80 MG in Sodium Chlor 0.9% Inj 100 ML IV.CONT SCH (19:33)
[2018-05-11] MEDS: fentaNYL 10 mcg/mL Premix Drip 2,500 MCG/250 ML BAG IV.SIG PRN (20:16)
[2018-05-11] MEDS: Propofol 1000 mg/100 ml Inj 1,000 MG/100 ML BOTTLE IV.CONT PRN (20:46)
[2018-05-11 21:24] LABS: Hematocrit 33.6 % (39.0-51.0); Hemoglobin 11.5 gm/dL (13.0-17.0)
[2018-05-11] MEDS: Phenylephrine Inj 40 MG in Dextrose 5% in Water Inj 496 ML IV.CONT PRN ×2 (21:35)
--- NOTE | 2018-05-11 21:41 | P.CONCC ---
History of Present Illness Primary Care Provider: Travis Lancaster DO Chief Complaint: pt presented to ED with coffee ground emesis and lethargy History of Present Illness: 77-year-old male has been admitted for an evaluation of coffee-ground emesis at home. EMS reports patient had a large amount of coffee-ground emesis at home. Patient denied shortness of breath weakness, nausea, headache or dizziness. EGD due to anemia and GI bleeding was performed on 05/05/[address] Smith. Findings include submucosal lesion at the second port of the duodenum, gastritis in the antrum, esophagitis grade C and hiatal hernia. Patient has a medical history significant for CVA, hypertension, hyperlipidemia , sick sinus syndrome, diabetes, bradycardia and GI bleed on anticoagulation.. Patient currently on aspirin and Plavix 75 mg p.o. daily for past medical history of CVA. Patient is awake and alert, denies abdominal pain. Patient was initially admitted to medicine, however while on the [facility] floor he has developed hematemesis with copious amounts of blood requiring emergent transfer to ICU and required intubation. Review of Systems unobtainable due to endotracheal tube PMFSH - History History Provided By: Key Entry Operator / EMT - Medical History Medical History: Medical History (Last Reviewed 05/11/18 @ 08:53 by Geovanna Jean-Baptiste RN) CVA (cerebral vascular accident) Diabetes Frequent falls Hypertension - Surgical History Surgical History: Surgical History (Last Reviewed 05/11/18 @ 08:53 by Geovanna Jean-Baptiste RN) No history of previous surgery - Family History Family History: Family History (Last Reviewed 04/15/18 @ 08:26 by Marichuy Grady) Other Diabetes mellitus - Tobacco History Second Hand Smoke Exposure: No Smoking Status: Former smoker Tobacco Type: Cigarettes - Alcohol History How Often Do You Have a Drink Containing Alcohol: Never - Substance Use History Substance History: No History of Abuse - Travel History Recent Travel in the [place] Within the Last 8 Weeks: No Recent Travel Out of the Country Within the Last 8 Weeks: No - Immunization History Tetanus Immunization: Unsure Hx Influenza Vaccine This Season: Unable to Assess Medications and Allergies Active Medications: Active Medications Amlodipine Besylate (Norvasc) 5 mg PO DAILY [facility] Atorvastatin Calcium (Lipitor) 40 mg PO HS [facility] Last Admin: 05/11/18 20:23 Dose: Not Given Glyburide (Diabeta) 5 mg PO BID [facility] Last Admin: 05/11/18 20:23 Dose: Not Given Pantoprazole Sodium 80 mg/ (Sodium Chloride) 100 mls @ 10 mls/hr IV.CONT CONT [facility] Last Admin: 05/11/18 19:33 Dose: 10 mls/hr Propofol (Diprivan 1000 Mg/100 Ml Inj) 1,000 mg in 100 mls @ 2.376 mls/hr IV.CONT TITRATE PRN; Protocol PRN Reason: Per Protocol Last Titration: 05/11/18 21:03 Dose: 10 mcg/kg/min, 4.75 mls/hr Midazolam HCl (Versed Inj) 50 mg in 50 mls @ 2 mls/hr IV.CONT TITRATE PRN; Protocol PRN Reason: Per Protocol Last Titration: 05/11/18 20:47 Dose: 0 mg/hr, 0 mls/hr Phenylephrine HCl 40 mg/ (Dextrose) 500 mls @ 30 mls/hr IV.CONT TITRATE PRN; Protocol PRN Reason: Per Protocol Last Admin: 05/11/18 21:35 Dose: 40 mcg/min, 30 mls/hr Fentanyl (Fentanyl 10 Mcg/Ml Premix Drip) 2,500 mcg in 250 mls @ 5 mls/hr IV.SIG TITRATE PRN; Protocol PRN Reason: Per Protocol Last Titration: 05/11/18 21:03 Dose: 75 mcg/hr, 7.5 mls/hr Sodium Chloride (Ns Inj) 1,000 mls @ 200 mls/hr IV.SIG .Q5H [facility] Metformin HCl (Glucophage) 1,000 mg PO BID [facility] Last Admin: 05/11/18 20:23 Dose: Not Given Terbutaline Sulfate (Brethine Inj) 1 mg SQ UNSCH PRN PRN Reason: For Extravasation Allergies Allergy/AdvReac Type Severity Reaction Status Date / Time No Known Allergies Allergy Verified 05/11/18 08:54 Home Medications Medication Instructions Recorded Confirmed Type glyburide 5 mg PO BID 04/13/18 05/11/18 History metformin 1,000 mg PO BID 04/13/18 05/11/18 History Physical Exam Vital signs: Vital Signs 05/11/18 08:50 05/11/18 08:54 05/11/18 08:57 Temperature Pulse Rate 94 H 91 H Respiratory Rate 16 Blood Pressure 123/60 Pulse Oximetry 97 100 100 05/11/18 08:59 05/11/18 09:14 05/11/18 10:02 Temperature 97.6 F Pulse Rate 94 H 91 H Respiratory Rate 16 Blood Pressure 125/58 L Pulse Oximetry 100 100 05/11/18 10:30 05/11/18 10:50 05/11/18 11:00 Temperature Pulse Rate 96 H 97 H 94 H Respiratory Rate 14 12 16 Blood Pressure 118/58 L 118/58 L 120/59 L Pulse Oximetry 100 99 100 05/11/18 11:30 05/11/18 12:30 05/11/18 14:10 Temperature 97.5 F L 98.1 F Pulse Rate 94 H 97 H 94 H Respiratory Rate 16 20 18 Blood Pressure 107/53 L 104/56 L 115/60 Pulse Oximetry 100 98 98 05/11/18 15:53 05/11/18 16:00 05/11/18 18:04 Temperature 97.7 F 98.0 F Pulse Rate 100 H 100 H Respiratory Rate 20 16 Blood Pressure 103/50 L Pulse Oximetry 98 100 100 05/11/18 18:05 05/11/18 18:15 05/11/18 18:30 Temperature Pulse Rate 105 H 113 H Respiratory Rate 16 16 16 Blood Pressure 127/57 L 139/62 Pulse Oximetry 100 100 100 05/11/18 19:04 05/11/18 19:20 05/11/18 20:09 Temperature 98 F 98.6 F 98.6 F Pulse Rate 104 H 103 H 104 H Respiratory Rate 21 24 25 H Blood Pressure 94/63 L 103/68 110/58 L Pulse Oximetry 100 100 100 05/11/18 20:31 05/11/18 20:33 Temperature 98.7 F Pulse Rate 101 H Respiratory Rate 25 H 25 H Blood Pressure 122/57 L Pulse Oximetry 100 100 Intake & Output 05/11/18 05/11/18 05/12/18 06:59 18:59 06:59 Intake Total 400 / 400 0 / 0 Output Total 150 / 150 300 / 300 Balance 250 / 250 -300 / -300 Weight 79.2 kg Intake: Intake (Blood Product) Amt 400 / 400 0 / 0 Rbc As-3 Leukoreduced Unit 0 / 0 [id number] Rbc As-3 Leukoreduced Unit 0 / 0 [id number] Rbc As-3 Leukoreduced Unit 0 / 0 [id number] Rbc As-3 Leukoreduced Unit 400 / 400 [id number] Output: Urine 0 / 0 Estimated Blood Loss 300 / 300 Gastric Drainage 150 / 150 Orogastric Tube 150 / 150 Other: Weight On Admission 79.2 kg - Constitutional moderate distress - Routine HEENT Exam Head: Present: normocephalic, atraumatic Eye: Present: PERRL - Routine Neck Exam Present: supple. Absent: JVD, carotid bruit - Routine Respiratory Exam Present: patient mechanically ventilated, rhonchi, crackles. Absent: stridor, wheezes - Routine Cardiovascular Exam Present: RRR, S1, S2, tachycardia - Routine Abdominal Exam Present: soft, normoactive bowel sounds. Absent: tenderness, distended - Routine Extremities Exam Absent: cyanosis, clubbing, edema - Routine Skin Exam Present: intact. Absent: cyanosis, erythema - Routine Neurological Exam Present: moving all extremities - Urinary Catheter Management Indwelling Urethral Catheter Cath placed during this visit: yes Reason for continuing: Hourly intake/output Insertion date: 05/12/18 Insertion time: 00:42 Septic Shock Reassessment Septic shock perfusion: reassessment completed Assessment and Plan - Assessment and Plan Code Status: Respiratory failure -Intubated for an airway protection -No weaning until hemodynamically stable and GI bleed stabilized -Vent bundle -DuoNeb's as needed Acute GI bleed -Status post emergent EGD -No obvious source identified during procedure -Monitor H&H -Transfuse to keep hemoglobin above 7 -Protonix drip -Further management per gastroenterology Diabetes -Insulin sliding scale Hypertension -Hold antihypertensive meds due to acute GI bleeding and possible hypotension Anemia -Acute blood loss anemia -Frequent H&H -Transfuse to keep hemoglobin above 7 Acute kidney injury -Dehydration -Volume loss -Aggressive IV fluid hydration -Strict I's and -Monitor creatinine levels DVT GI prophylaxis -Teds SCDs -Protonix drip -No pharmacological DVT prophylaxis due to acute GI bleed 35 minutes of critical care
[2018-05-11] MEDS: Sod Chloride 0.9% Inj 1,000 ML IV.SIG SCH (22:20)
[2018-05-11 22:23] LABS: ABG Base Excess -8.5 mmol/L (-2-2); ABG PCO2 29 mmHg (38-42); ABG PO2 531 mmHg (61-120)
[2018-05-12] MEDS: Sod Chloride 0.9% Inj 1,000 ML IV.SIG SCH ×6 (01:50→23:08)
[2018-05-12 03:32] LABS: Hematocrit 32.6 % (39.0-51.0); Hemoglobin 11.6 gm/dL (13.0-17.0); Mean Corpuscular HGB Conc 35.5 % (32.0-36.0); Mean Corpuscular Volume 87.3 fL (80.0-100.0); Mean Platelet Volume 8.4 fL (7.0-11.0); Platelet Count 224 th/mm3 (150-450); Red Blood Count 3.73 mil/mm3 (4.50-5.90); Red Cell Distribution Width 20.5 % (11.6-17.2); White Blood Count 25.9 th/mm3 (4.0-11.0)
[2018-05-12] MEDS: Pantoprazole Inj 80 MG in Sodium Chlor 0.9% Inj 100 ML IV.CONT SCH ×4 (04:17→23:09)
[2018-05-12] MEDS: Propofol 1000 mg/100 ml Inj 1,000 MG/100 ML BOTTLE IV.CONT PRN ×3 (06:28→23:05)
--- NOTE | 2018-05-12 08:12 | P.PNCC ---
Subjective Subjective Remarks/Hospital Course: 77-year-old male has been admitted for an evaluation of coffee-ground emesis at home. EMS reports patient had a large amount of coffee-ground emesis at home. Patient denied shortness of breath weakness, nausea, headache or dizziness. EGD due to anemia and GI bleeding was performed on 05/05/[address] Smith. Findings include submucosal lesion at the second port of the duodenum, gastritis in the antrum, esophagitis grade C and hiatal hernia. Patient has a medical history significant for CVA, hypertension, hyperlipidemia , sick sinus syndrome, diabetes, bradycardia and GI bleed on anticoagulation.. Patient currently on aspirin and Plavix 75 mg p.o. daily for past medical history of CVA. Patient is awake and alert, denies abdominal pain. Patient was initially admitted to medicine, however while on the [facility] floor he has developed hematemesis with copious amounts of blood requiring emergent transfer to ICU and required intubation. 05/12: Remains critically ill in the ICU on the vent. H&H stable overnight. Hypotension resolved and improved with IV fluid boluses. GI planning for another endoscopy today. Objective Vital Signs / I&O: Vital Signs 05/11/18 08:50 05/11/18 08:54 05/11/18 08:57 Temperature Pulse Rate 94 H 91 H Respiratory Rate 16 Blood Pressure 123/60 Pulse Oximetry 97 100 100 05/11/18 08:59 05/11/18 09:14 05/11/18 10:02 Temperature 97.6 F Pulse Rate 94 H 91 H Respiratory Rate 16 Blood Pressure 125/58 L Pulse Oximetry 100 100 05/11/18 10:30 05/11/18 10:50 05/11/18 11:00 Temperature Pulse Rate 96 H 97 H 94 H Respiratory Rate 14 12 16 Blood Pressure 118/58 L 118/58 L 120/59 L Pulse Oximetry 100 99 100 05/11/18 11:30 05/11/18 12:30 05/11/18 14:10 Temperature 97.5 F L 98.1 F Pulse Rate 94 H 97 H 94 H Respiratory Rate 16 20 18 Blood Pressure 107/53 L 104/56 L 115/60 Pulse Oximetry 100 98 98 05/11/18 15:53 05/11/18 16:00 05/11/18 18:04 Temperature 97.7 F 98.0 F Pulse Rate 100 H 100 H Respiratory Rate 20 16 Blood Pressure 103/50 L Pulse Oximetry 98 100 100 05/11/18 18:05 05/11/18 18:15 05/11/18 18:30 Temperature Pulse Rate 105 H 113 H Respiratory Rate 16 16 16 Blood Pressure 127/57 L 139/62 Pulse Oximetry 100 100 100 05/11/18 19:00 05/11/18 19:04 05/11/18 19:15 Temperature 98 F Pulse Rate 106 H 104 H 103 H Respiratory Rate 28 H 21 28 H Blood Pressure 94/63 L 94/63 L 99/59 L Pulse Oximetry 100 100 100 05/11/18 19:20 05/11/18 19:30 05/11/18 19:45 Temperature 98.6 F Pulse Rate 103 H 103 H 104 H Respiratory Rate 24 30 H 48 H Blood Pressure 103/68 103/68 108/53 L Pulse Oximetry 100 100 100 05/11/18 20:00 05/11/18 20:09 05/11/18 20:15 Temperature 98.6 F 98.6 F Pulse Rate 102 H 104 H 101 H Respiratory Rate 58 H 25 H 29 H Blood Pressure 110/58 L 110/58 L 119/56 L Pulse Oximetry 100 100 100 05/11/18 20:30 05/11/18 20:31 05/11/18 20:33 Temperature 98.7 F Pulse Rate 102 H 101 H Respiratory Rate 29 H 25 H 25 H Blood Pressure 122/57 L 122/57 L Pulse Oximetry 100 100 100 05/11/18 20:45 05/11/18 21:00 05/11/18 21:15 Temperature Pulse Rate 100 H 96 H 96 H Respiratory Rate 28 H 28 H 13 Blood Pressure 121/64 98/50 L 87/48 L Pulse Oximetry 100 100 100 05/11/18 21:30 05/11/18 21:45 05/11/18 22:00 Temperature Pulse Rate 95 H 93 H 88 Respiratory Rate 19 25 H 22 Blood Pressure 89/53 L 109/58 L 118/56 L Pulse Oximetry 100 100 100 05/11/18 22:15 05/11/18 22:30 05/11/18 22:45 Temperature Pulse Rate 88 93 H 93 H Respiratory Rate 18 21 20 Blood Pressure 153/65 H 98/59 L 100/51 L Pulse Oximetry 100 100 100 05/11/18 23:00 05/11/18 23:15 05/11/18 23:30 Temperature Pulse Rate 92 H 91 H 90 Respiratory Rate 20 19 19 Blood Pressure 96/52 L 97/53 L 94/53 L Pulse Oximetry 100 100 100 05/11/18 23:45 05/12/18 00:00 05/12/18 00:15 Temperature 98.7 F Pulse Rate 88 87 85 Respiratory Rate 18 18 17 Blood Pressure 98/57 L 109/58 L 112/62 Pulse Oximetry 100 100 100 05/12/18 00:30 05/12/18 00:45 05/12/18 01:00 Temperature Pulse Rate 82 84 84 Respiratory Rate 15 14 18 Blood Pressure 148/65 H 109/51 L 114/54 L Pulse Oximetry 100 100 95 05/12/18 01:15 05/12/18 01:30 05/12/18 01:45 Temperature Pulse Rate 84 84 84 Respiratory Rate 17 18 18 Blood Pressure 108/54 L 93/50 L 102/57 L Pulse Oximetry 95 96 95 05/12/18 02:00 05/12/18 02:15 05/12/18 02:30 Temperature Pulse Rate 83 83 82 Respiratory Rate 17 14 14 Blood Pressure 105/56 L 111/51 L 103/51 L Pulse Oximetry 95 95 97 05/12/18 02:45 05/12/18 03:00 05/12/18 03:15 Temperature Pulse Rate 82 81 81 Respiratory Rate 12 16 17 Blood Pressure 108/54 L 98/53 L 94/50 L Pulse Oximetry 98 97 98 05/12/18 03:30 05/12/18 03:45 05/12/18 04:00 Temperature 99.1 F Pulse Rate 80 81 81 Respiratory Rate 17 13 17 Blood Pressure 96/52 L 97/52 L 83/40 L Pulse Oximetry 98 99 99 05/12/18 04:02 05/12/18 04:15 05/12/18 04:30 Temperature Pulse Rate 76 75 Respiratory Rate 16 17 18 Blood Pressure 118/55 L 126/62 Pulse Oximetry 100 98 100 05/12/18 04:50 05/12/18 05:00 05/12/18 05:15 Temperature Pulse Rate 81 79 75 Respiratory Rate 16 19 16 Blood Pressure 127/59 L 88/46 L 97/52 L Pulse Oximetry 98 97 97 05/12/18 05:30 05/12/18 05:45 05/12/18 06:00 Temperature Pulse Rate 73 73 73 Respiratory Rate 21 23 24 Blood Pressure 100/53 L 114/53 L 98/55 L Pulse Oximetry 97 97 97 05/12/18 06:15 05/12/18 06:30 05/12/18 06:45 Temperature Pulse Rate 72 71 70 Respiratory Rate 21 23 21 Blood Pressure 103/50 L 107/53 L 106/53 L Pulse Oximetry 97 98 99 05/12/18 07:00 05/12/18 08:00 Temperature Pulse Rate 70 68 Respiratory Rate 19 Blood Pressure 99/51 L Pulse Oximetry 99 Intake & Output 05/11/18 05/12/18 05/12/18 18:59 06:59 18:59 Intake Total 400 / 400 1200 / 1200 Output Total 150 / 150 850 / 850 Balance 250 / 250 350 / 350 Weight 79.2 kg 81.3 kg Intake: IV 1200 / 1200 Protonix Inj 80 MG In NS Inj 100 / 100 100 ML @ 10 mls/hr IV.CONT CONT [facility] Rx#:[id number] Diprivan 1000 mg/100 ml Inj 1, 100 / 100 000 mg In 100 ml @ 5 MCG/KG/MIN 2.376 mls/hr IV.CONT TITRATE PRN Rx#:[id number] NS Inj 1,000 ML @ 200 mls/hr IV 1000 / 1000 .SIG .Q5H [facility] Rx#:[id number] Intake (Blood Product) Amt 400 / 400 0 / 0 Rbc As-3 Leukoreduced Unit 0 / 0 [id number] Rbc As-3 Leukoreduced Unit 0 / 0 [id number] Rbc As-3 Leukoreduced Unit 0 / 0 [id number] Rbc As-3 Leukoreduced Unit 400 / 400 [id number] Output: Urine 0 / 0 Estimated Blood Loss 300 / 300 Urine Amount (Catheter) 300 / 300 Indwelling Urethral Catheter 300 / 300 Gastric Drainage 150 / 150 250 / 250 Orogastric Tube 150 / 150 250 / 250 Other: Date of Last Bowel Movement 05/12/18 # Bowel Movements 1 # Incontinent Bowel Movements 1 Weight On Admission 79.2 kg Result Diagrams: 05/12/18 03:02 05/11/18 17:45 Imaging: Impressions Chest X-Ray 05/11/18 18:21 CONCLUSION: ET tube in good position. Objective Remarks: - Constitutional moderate distress - Routine HEENT Exam Head: Present: normocephalic, atraumatic Eye: Present: PERRL - Routine Neck Exam Present: supple. Absent: JVD, carotid bruit - Routine Respiratory Exam Present: patient mechanically ventilated, rhonchi, crackles. Absent: stridor, wheezes - Routine Cardiovascular Exam Present: RRR, S1, S2, tachycardia - Routine Abdominal Exam Present: soft, normoactive bowel sounds. Absent: tenderness, distended - Routine Extremities Exam Absent: cyanosis, clubbing, edema - Routine Skin Exam Present: intact. Absent: cyanosis, erythema - Routine Neurological Exam Present: moving all extremities Assessment and Plan - Assessment and Plan Plan: Respiratory failure -Intubated for an airway protection -No weaning until hemodynamically stable -Gastroenterology planning for another endoscopy today -Consider SBT if no further procedures indicated -Vent bundle -DuoNeb's as needed Acute GI bleed -Status post emergent EGD -No obvious source identified during procedure -Monitor H&H -Transfuse as needed to keep hemoglobin above 7 -Protonix drip -Repeat endoscopy by GI today -Further management per gastroenterology Diabetes -Insulin sliding scale Hypertension -Hold antihypertensive meds due to acute GI bleeding and possible hypotension Anemia -Acute blood loss anemia -Frequent H&H -Transfuse to keep hemoglobin above 7 Acute kidney injury -Dehydration -Volume loss -Aggressive IV fluid hydration -Strict I's and -Monitor creatinine levels DVT GI prophylaxis -Teds SCDs -Protonix drip -No pharmacological DVT prophylaxis due to acute GI bleed 35 minutes of critical care
[2018-05-12] MEDS: amLODIPine 5 MG Tablet PO SCH (09:03)
[2018-05-12 10:10] LABS: Hematocrit 28.7 % (39.0-51.0); Hemoglobin 9.8 gm/dL (13.0-17.0); Mean Corpuscular HGB Conc 34.2 % (32.0-36.0); Mean Corpuscular Hemoglobin 30.4 pg (27.0-34.0); Mean Corpuscular Volume 88.7 fL (80.0-100.0); Mean Platelet Volume 8.4 fL (7.0-11.0); Platelet Count 248 th/mm3 (150-450); Red Blood Count 3.24 mil/mm3 (4.50-5.90); Red Cell Distribution Width 21.1 % (11.6-17.2); White Blood Count 30.8 th/mm3 (4.0-11.0)
[2018-05-12 10:46] LABS: Albumin 2.1 g/dL (3.4-5.0); Carbon Dioxide 19.3 meq/L (21.0-32.0); Magnesium 1.4 mg/dL (1.5-2.5); Phosphorus 4.7 mg/dL (2.5-4.9); Potassium 4.5 meq/L (3.5-5.1); Total Protein 4.8 g/dL (6.4-8.2)
--- NOTE | 2018-05-12 10:59 | P.PCN ---
Date of procedure: 05/12/18 Pre-op diagnosis: Upper GI bleed Procedure: PROCEDURE PERFORMED EGD PROCEDURE: The procedure, risks and benefits were discussed with Patient/POA and informed consent was obtained. Anesthesia sedated Patient with Diprivan. Patient was placed in the left lateral decubitus position. EGD: The Pentax videoscope was introduced through the oropharynx and advanced to the second portion of the duodenum under direct visualization. Retroflexion was performed in the stomach. 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
--- NOTE | 2018-05-12 11:43 | P.PNFP ---
Subjective Interval history: Delayed entry seen earlier this am Mechanical ventilation, Appears comfortable No family at bedside Results - Labs Result diagrams: 05/12/18 09:52 05/12/18 09:52 Abnormal lab results 05/11/18 05/11/18 05/11/18 Range/Units 10:12 15:12 16:56 WBC (4.0-11.0) th/mm3 RBC (4.50-5.90) mil/mm3 Hgb 7.2 L (13.0-17.0) gm/dL Hct 21.2 L (39.0-51.0) % MCH (27.0-34.0) pg MCHC (32.0-36.0) % RDW (11.6-17.2) % PT (9.8-11.6) sec ABG pH (7.380-7.420) ABG pCO2 (38-42) mmHg ABG pO2 (61-120) mmHg ABG HCO3 (22-26) mmol/L ABG Base Excess (-2-2) mmol/L Hemoglobin (12.0-16.0) G/DL Potassium (3.5-5.1) meq/L Carbon Dioxide (21.0-32.0) meq/L BUN (7-18) mg/dL Creatinine (0.60-1.30) mg/dL Estimated GFR (>89) mL/min POC Glucose 255 H (68-110) mg/dl Random Glucose (74-106) mg/dL Lactic Acid (0.4-2.0) mmol/L Calcium (8.5-10.1) mg/dL Prot Corrected Calcium (8.5-10.1) mg/dL Magnesium (1.5-2.5) mg/dL Total Bilirubin (0.2-1.0) mg/dL AST (15-37) U/L ALT (12-78) U/L Total Protein (6.4-8.2) g/dL Albumin (3.4-5.0) g/dL MTS Gel Crossmatch See Detail 05/11/18 05/11/18 05/11/18 Range/Units 17:45 17:45 17:45 WBC 12.7 H (4.0-11.0) th/mm3 RBC 1.74 L (4.50-5.90) mil/mm3 Hgb 6.2 L* (13.0-17.0) gm/dL Hct 17.1 L* (39.0-51.0) % MCH 35.8 H (27.0-34.0) pg MCHC 36.4 H (32.0-36.0) % RDW (11.6-17.2) % PT 12.7 H (9.8-11.6) sec ABG pH (7.380-7.420) ABG pCO2 (38-42) mmHg ABG pO2 (61-120) mmHg ABG HCO3 (22-26) mmol/L ABG Base Excess (-2-2) mmol/L Hemoglobin (12.0-16.0) G/DL Potassium 5.2 H D (3.5-5.1) meq/L Carbon Dioxide (21.0-32.0) meq/L BUN 63 H (7-18) mg/dL Creatinine 1.96 H (0.60-1.30) mg/dL Estimated GFR 34 L (>89) mL/min POC Glucose (68-110) mg/dl Random Glucose 261 H D (74-106) mg/dL Lactic Acid (0.4-2.0) mmol/L Calcium 7.4 L* (8.5-10.1) mg/dL Prot Corrected Calcium (8.5-10.1) mg/dL Magnesium (1.5-2.5) mg/dL Total Bilirubin 1.2 H (0.2-1.0) mg/dL AST (15-37) U/L ALT (12-78) U/L Total Protein 5.0 L D (6.4-8.2) g/dL Albumin 2.1 L (3.4-5.0) g/dL MTS Gel Crossmatch 05/11/18 05/11/18 05/11/18 Range/Units 17:45 18:26 20:14 WBC (4.0-11.0) th/mm3 RBC (4.50-5.90) mil/mm3 Hgb (13.0-17.0) gm/dL Hct (39.0-51.0) % MCH (27.0-34.0) pg MCHC (32.0-36.0) % RDW (11.6-17.2) % PT (9.8-11.6) sec ABG pH 7.36 L (7.380-7.420) ABG pCO2 29 L (38-42) mmHg ABG pO2 531 H (61-120) mmHg ABG HCO3 16 L* (22-26) mmol/L ABG Base Excess -8.5 L (-2-2) mmol/L Hemoglobin 9.0 L (12.0-16.0) G/DL Potassium (3.5-5.1) meq/L Carbon Dioxide (21.0-32.0) meq/L BUN (7-18) mg/dL Creatinine (0.60-1.30) mg/dL Estimated GFR (>89) mL/min POC Glucose (68-110) mg/dl Random Glucose (74-106) mg/dL Lactic Acid 4.7 H* (0.4-2.0) mmol/L Calcium (8.5-10.1) mg/dL Prot Corrected Calcium (8.5-10.1) mg/dL Magnesium (1.5-2.5) mg/dL Total Bilirubin (0.2-1.0) mg/dL AST (15-37) U/L ALT (12-78) U/L Total Protein (6.4-8.2) g/dL Albumin (3.4-5.0) g/dL MTS Gel Crossmatch See Detail 05/11/18 05/12/18 05/12/18 Range/Units 21:01 03:02 08:49 WBC 25.9 H D (4.0-11.0) th/mm3 RBC 3.73 L (4.50-5.90) mil/mm3 Hgb 11.5 L D 11.6 L (13.0-17.0) gm/dL Hct 33.6 L 32.6 L (39.0-51.0) % MCH (27.0-34.0) pg MCHC (32.0-36.0) % RDW 20.5 H D (11.6-17.2) % PT (9.8-11.6) sec ABG pH (7.380-7.420) ABG pCO2 (38-42) mmHg ABG pO2 (61-120) mmHg ABG HCO3 (22-26) mmol/L ABG Base Excess (-2-2) mmol/L Hemoglobin (12.0-16.0) G/DL Potassium (3.5-5.1) meq/L Carbon Dioxide (21.0-32.0) meq/L BUN (7-18) mg/dL Creatinine (0.60-1.30) mg/dL Estimated GFR (>89) mL/min POC Glucose 278 H (68-110) mg/dl Random Glucose (74-106) mg/dL Lactic Acid (0.4-2.0) mmol/L Calcium (8.5-10.1) mg/dL Prot Corrected Calcium (8.5-10.1) mg/dL Magnesium (1.5-2.5) mg/dL Total Bilirubin (0.2-1.0) mg/dL AST (15-37) U/L ALT (12-78) U/L Total Protein (6.4-8.2) g/dL Albumin (3.4-5.0) g/dL MTS Gel Crossmatch 05/12/18 05/12/18 05/12/18 Range/Units 09:52 09:52 09:52 WBC 30.8 H (4.0-11.0) th/mm3 RBC 3.24 L (4.50-5.90) mil/mm3 Hgb 9.8 L (13.0-17.0) gm/dL Hct 28.7 L (39.0-51.0) % MCH (27.0-34.0) pg MCHC (32.0-36.0) % RDW 21.1 H (11.6-17.2) % PT (9.8-11.6) sec ABG pH (7.380-7.420) ABG pCO2 (38-42) mmHg ABG pO2 (61-120) mmHg ABG HCO3 (22-26) mmol/L ABG Base Excess (-2-2) mmol/L Hemoglobin (12.0-16.0) G/DL Potassium (3.5-5.1) meq/L Carbon Dioxide 19.3 L (21.0-32.0) meq/L BUN 87 H (7-18) mg/dL Creatinine 2.41 H (0.60-1.30) mg/dL Estimated GFR 26 L (>89) mL/min POC Glucose (68-110) mg/dl Random Glucose 302 H (74-106) mg/dL Lactic Acid 2.2 H (0.4-2.0) mmol/L Calcium 7.0 L* (8.5-10.1) mg/dL Prot Corrected Calcium 8.2 L (8.5-10.1) mg/dL Magnesium 1.4 L (1.5-2.5) mg/dL Total Bilirubin 1.5 H (0.2-1.0) mg/dL AST 139 H (15-37) U/L ALT 115 H (12-78) U/L Total Protein 4.8 L (6.4-8.2) g/dL Albumin 2.1 L (3.4-5.0) g/dL MTS Gel Crossmatch Short CBC 05/11/18 05/11/18 05/11/18 Range/Units 15:12 17:45 21:01 WBC 12.7 H (4.0-11.0) th/mm3 Hgb 7.2 L 6.2 L* 11.5 L D (13.0-17.0) gm/dL Hct 21.2 L 17.1 L* 33.6 L (39.0-51.0) % Plt Count 275 (150-450) th/mm3 05/12/18 05/12/18 Range/Units 03:02 09:52 WBC 25.9 H D 30.8 H (4.0-11.0) th/mm3 Hgb 11.6 L 9.8 L (13.0-17.0) gm/dL Hct 32.6 L 28.7 L (39.0-51.0) % Plt Count 224 248 (150-450) th/mm3 BMP 05/11/18 05/12/18 17:45 09:52 Sodium 140 139 Potassium 5.2 H D 4.5 Chloride 103 106 Carbon Dioxide 22.3 19.3 L BUN 63 H 87 H Creatinine 1.96 H 2.41 H Calcium 7.4 L* 7.0 L* Liver Function 05/11/18 05/12/18 Range/Units 17:45 09:52 Total Bilirubin 1.2 H 1.5 H (0.2-1.0) mg/dL AST 31 139 H (15-37) U/L ALT 34 115 H (12-78) U/L Alkaline Phosphatase 63 64 (45-117) U/L Albumin 2.1 L 2.1 L (3.4-5.0) g/dL - Imaging Impressions Chest X-Ray 05/11/18 18:21 CONCLUSION: ET tube in good position. Physical Exam Vital signs: Vital Signs 05/11/18 12:30 05/11/18 14:10 05/11/18 15:53 Temperature 97.5 F L 98.1 F Pulse Rate 97 H 94 H Respiratory Rate 20 18 Blood Pressure 104/56 L 115/60 Pulse Oximetry 98 98 98 05/11/18 16:00 05/11/18 18:04 05/11/18 18:05 Temperature 97.7 F 98.0 F Pulse Rate 100 H 100 H Respiratory Rate 20 16 16 Blood Pressure 103/50 L Pulse Oximetry 100 100 100 05/11/18 18:15 05/11/18 18:30 05/11/18 19:00 Temperature Pulse Rate 105 H 113 H 106 H Respiratory Rate 16 16 28 H Blood Pressure 127/57 L 139/62 94/63 L Pulse Oximetry 100 100 100 05/11/18 19:04 05/11/18 19:15 05/11/18 19:20 Temperature 98 F 98.6 F Pulse Rate 104 H 103 H 103 H Respiratory Rate 21 28 H 24 Blood Pressure 94/63 L 99/59 L 103/68 Pulse Oximetry 100 100 100 05/11/18 19:30 05/11/18 19:45 05/11/18 20:00 Temperature 98.6 F Pulse Rate 103 H 104 H 102 H Respiratory Rate 30 H 48 H 58 H Blood Pressure 103/68 108/53 L 110/58 L Pulse Oximetry 100 100 100 05/11/18 20:09 05/11/18 20:15 05/11/18 20:30 Temperature 98.6 F Pulse Rate 104 H 101 H 102 H Respiratory Rate 25 H 29 H 29 H Blood Pressure 110/58 L 119/56 L 122/57 L Pulse Oximetry 100 100 100 05/11/18 20:31 05/11/18 20:33 05/11/18 20:45 Temperature 98.7 F Pulse Rate 101 H 100 H Respiratory Rate 25 H 25 H 28 H Blood Pressure 122/57 L 121/64 Pulse Oximetry 100 100 100 05/11/18 21:00 05/11/18 21:15 05/11/18 21:30 Temperature Pulse Rate 96 H 96 H 95 H Respiratory Rate 28 H 13 19 Blood Pressure 98/50 L 87/48 L 89/53 L Pulse Oximetry 100 100 100 05/11/18 21:45 05/11/18 22:00 05/11/18 22:15 Temperature Pulse Rate 93 H 88 88 Respiratory Rate 25 H 22 18 Blood Pressure 109/58 L 118/56 L 153/65 H Pulse Oximetry 100 100 100 05/11/18 22:30 05/11/18 22:45 05/11/18 23:00 Temperature Pulse Rate 93 H 93 H 92 H Respiratory Rate 21 20 20 Blood Pressure 98/59 L 100/51 L 96/52 L Pulse Oximetry 100 100 100 05/11/18 23:15 05/11/18 23:30 05/11/18 23:45 Temperature Pulse Rate 91 H 90 88 Respiratory Rate 19 19 18 Blood Pressure 97/53 L 94/53 L 98/57 L Pulse Oximetry 100 100 100 05/12/18 00:00 05/12/18 00:15 05/12/18 00:30 Temperature 98.7 F Pulse Rate 87 85 82 Respiratory Rate 18 17 15 Blood Pressure 109/58 L 112/62 148/65 H Pulse Oximetry 100 100 100 05/12/18 00:45 05/12/18 01:00 05/12/18 01:15 Temperature Pulse Rate 84 84 84 Respiratory Rate 14 18 17 Blood Pressure 109/51 L 114/54 L 108/54 L Pulse Oximetry 100 95 95 05/12/18 01:30 05/12/18 01:45 05/12/18 02:00 Temperature Pulse Rate 84 84 83 Respiratory Rate 18 18 17 Blood Pressure 93/50 L 102/57 L 105/56 L Pulse Oximetry 96 95 95 05/12/18 02:15 05/12/18 02:30 05/12/18 02:45 Temperature Pulse Rate 83 82 82 Respiratory Rate 14 14 12 Blood Pressure 111/51 L 103/51 L 108/54 L Pulse Oximetry 95 97 98 05/12/18 03:00 05/12/18 03:15 05/12/18 03:30 Temperature Pulse Rate 81 81 80 Respiratory Rate 16 17 17 Blood Pressure 98/53 L 94/50 L 96/52 L Pulse Oximetry 97 98 98 05/12/18 03:45 05/12/18 04:00 05/12/18 04:02 Temperature 99.1 F Pulse Rate 81 81 Respiratory Rate 13 17 16 Blood Pressure 97/52 L 83/40 L Pulse Oximetry 99 99 100 05/12/18 04:15 05/12/18 04:30 05/12/18 04:50 Temperature Pulse Rate 76 75 81 Respiratory Rate 17 18 16 Blood Pressure 118/55 L 126/62 127/59 L Pulse Oximetry 98 100 98 05/12/18 05:00 05/12/18 05:15 05/12/18 05:30 Temperature Pulse Rate 79 75 73 Respiratory Rate 19 16 21 Blood Pressure 88/46 L 97/52 L 100/53 L Pulse Oximetry 97 97 97 05/12/18 05:45 05/12/18 06:00 05/12/18 06:15 Temperature Pulse Rate 73 73 72 Respiratory Rate 23 24 21 Blood Pressure 114/53 L 98/55 L 103/50 L Pulse Oximetry 97 97 97 05/12/18 06:30 05/12/18 06:45 05/12/18 07:00 Temperature Pulse Rate 71 70 70 Respiratory Rate 23 21 19 Blood Pressure 107/53 L 106/53 L 99/51 L Pulse Oximetry 98 99 99 05/12/18 07:15 05/12/18 07:30 05/12/18 07:45 Temperature Pulse Rate 70 69 67 Respiratory Rate 20 15 14 Blood Pressure 107/53 L 104/51 L 120/52 L Pulse Oximetry 98 99 99 05/12/18 08:00 05/12/18 08:14 05/12/18 08:15 Temperature 98.2 F Pulse Rate 70 68 Respiratory Rate 15 16 16 Blood Pressure 121/57 L 110/56 L Pulse Oximetry 99 99 99 05/12/18 08:30 05/12/18 08:45 05/12/18 09:00 Temperature Pulse Rate 68 68 68 Respiratory Rate 17 15 16 Blood Pressure 101/50 L 106/53 L 104/53 L Pulse Oximetry 99 99 99 05/12/18 09:15 05/12/18 09:30 05/12/18 09:53 Temperature Pulse Rate 69 67 69 Respiratory Rate 13 16 15 Blood Pressure 112/56 L 110/54 L 113/56 L Pulse Oximetry 100 99 99 05/12/18 10:00 05/12/18 10:04 05/12/18 10:05 Temperature Pulse Rate 68 66 69 Respiratory Rate 15 8 L 8 L Blood Pressure 101/53 L 102/48 L 98/42 L Pulse Oximetry 99 05/12/18 10:06 05/12/18 10:07 05/12/18 10:08 Temperature Pulse Rate 70 70 64 Respiratory Rate 13 6 L 16 Blood Pressure 74/37 L 139/63 129/60 Pulse Oximetry 97 99 99 05/12/18 10:10 05/12/18 10:12 05/12/18 10:14 Temperature Pulse Rate 63 65 65 Respiratory Rate 7 L 12 8 L Blood Pressure 114/56 L 109/54 L 139/61 Pulse Oximetry 98 97 97 05/12/18 10:17 05/12/18 10:19 05/12/18 10:22 Temperature Pulse Rate 63 64 62 Respiratory Rate 11 L 7 L 5 L Blood Pressure 116/52 L 112/53 L 110/54 L Pulse Oximetry 98 98 98 05/12/18 10:24 Temperature Pulse Rate 63 Respiratory Rate 6 L Blood Pressure 106/55 L Pulse Oximetry 99 Intake & Output 05/11/18 05/12/18 05/12/18 18:59 06:59 18:59 Intake Total 400 / 400 1200 / 1200 Output Total 150 / 150 850 / 850 Balance 250 / 250 350 / 350 Weight 79.2 kg 81.3 kg Intake: IV 1200 / 1200 Protonix Inj 80 MG In NS Inj 100 / 100 100 ML @ 10 mls/hr IV.CONT CONT [facility] Rx#:[id number] Diprivan 1000 mg/100 ml Inj 1, 100 / 100 000 mg In 100 ml @ 5 MCG/KG/MIN 2.376 mls/hr IV.CONT TITRATE PRN Rx#:[id number] NS Inj 1,000 ML @ 200 mls/hr IV 1000 / 1000 .SIG .Q5H [facility] Rx#:[id number] Intake (Blood Product) Amt 400 / 400 0 / 0 Rbc As-3 Leukoreduced Unit 0 / 0 [id number] Rbc As-3 Leukoreduced Unit 0 / 0 [id number] Rbc As-3 Leukoreduced Unit 0 / 0 [id number] Rbc As-3 Leukoreduced Unit 400 / 400 [id number] Output: Urine 0 / 0 Estimated Blood Loss 300 / 300 Urine Amount (Catheter) 300 / 300 Indwelling Urethral Catheter 300 / 300 Gastric Drainage 150 / 150 250 / 250 Orogastric Tube 150 / 150 250 / 250 Other: Date of Last Bowel Movement 05/12/18 05/12/18 # Bowel Movements 1 # Incontinent Bowel Movements 1 Weight On Admission 79.2 kg - Constitutional no acute distress - Routine Respiratory Exam Present: patient mechanically ventilated - Routine Cardiovascular Exam Present: RRR, S1, S2 - Routine Abdominal Exam Present: soft - Routine Extremities Exam Present: pulses intact - Routine Skin Exam Present: dry, warm - Routine Psychiatric Exam Present: unable to assess - Urinary Catheter Management Indwelling Urethral Catheter Cath placed during this visit: yes Reason for continuing: Hourly intake/output Insertion date: 05/12/18 Insertion time: 00:42 Assessment and Plan - Assessment (1) GI (gastrointestinal hemorrhage) Code(s): K92.2 - Gastrointestinal hemorrhage, unspecified Status: Acute Plan: gi and cardiac consult transfuse follow hgb closely - Assessment and Plan 05/12/18- Transferred to ICU yesterday, intubated for airway protection. EGD attempted yesterday, scheduled for repeat today. Received 3 units of Blood, HGB stable currently. [employer] fallowing.
--- NOTE | 2018-05-12 14:41 | P.PNCA ---
Subjective Interval history: Patient is currently intubated and sedated. Medications and Allergies Allergies Allergy/AdvReac Type Severity Reaction Status Date / Time No Known Allergies Allergy Verified 05/11/18 08:54 Home Medications Medication Instructions Recorded Confirmed Type glyburide 5 mg PO BID 04/13/18 05/11/18 History metformin 1,000 mg PO BID 04/13/18 05/11/18 History Active Medications: Active Medications Amlodipine Besylate (Norvasc) 5 mg PO DAILY [facility] Last Admin: 05/12/18 09:03 Dose: Not Given Atorvastatin Calcium (Lipitor) 40 mg PO HS [facility] Last Admin: 05/11/18 20:23 Dose: Not Given Chlorhexidine Gluconate (Chlorhexidine 2% Cloth) 3 pack TOPICAL DAILY@0400 [facility] Stop: 05/18/18 03:59 Chlorhexidine Gluconate (Chlorhexidine 2% Cloth) 3 pack TOPICAL DAILY@0400 PRN PRN Reason: Extra cloth needed Stop: 05/18/18 03:59 Glyburide (Diabeta) 5 mg PO BID [facility] Last Admin: 05/12/18 09:03 Dose: Not Given Propofol (Diprivan 1000 Mg/100 Ml Inj) 1,000 mg in 100 mls @ 2.376 mls/hr IV.CONT TITRATE PRN; Protocol PRN Reason: Per Protocol Last Admin: 05/12/18 06:28 Dose: 20 mcg/kg/min, 9.5 mls/hr Midazolam HCl (Versed Inj) 50 mg in 50 mls @ 2 mls/hr IV.CONT TITRATE PRN; Protocol PRN Reason: Per Protocol Last Titration: 05/11/18 20:47 Dose: 0 mg/hr, 0 mls/hr Phenylephrine HCl 40 mg/ (Dextrose) 500 mls @ 30 mls/hr IV.CONT TITRATE PRN; Protocol PRN Reason: Per Protocol Last Titration: 05/12/18 05:36 Dose: 40 mcg/min, 30 mls/hr Fentanyl (Fentanyl 10 Mcg/Ml Premix Drip) 2,500 mcg in 250 mls @ 5 mls/hr IV.SIG TITRATE PRN; Protocol PRN Reason: Per Protocol Last Titration: 05/11/18 21:03 Dose: 75 mcg/hr, 7.5 mls/hr Sodium Chloride (Ns Inj) 1,000 mls @ 200 mls/hr IV.SIG .Q5H [facility] Last Admin: 05/12/18 12:01 Dose: 200 mls/hr Pantoprazole Sodium 80 mg/ (Sodium Chloride) 100 mls @ 10 mls/hr IV.CONT Q10H [facility] Last Admin: 05/12/18 13:25 Dose: 10 mls/hr Metformin HCl (Glucophage) 1,000 mg PO BID [facility] Last Admin: 05/12/18 09:03 Dose: Not Given Terbutaline Sulfate (Brethine Inj) 1 mg SQ UNSCH PRN PRN Reason: For Extravasation Physical Exam Vital signs: Vital Signs 05/11/18 15:53 05/11/18 16:00 05/11/18 18:04 Temperature 97.7 F 98.0 F Pulse Rate 100 H 100 H Respiratory Rate 20 16 Blood Pressure 103/50 L Pulse Oximetry 98 100 100 05/11/18 18:05 05/11/18 18:15 05/11/18 18:30 Temperature Pulse Rate 105 H 113 H Respiratory Rate 16 16 16 Blood Pressure 127/57 L 139/62 Pulse Oximetry 100 100 100 05/11/18 19:00 05/11/18 19:04 05/11/18 19:15 Temperature 98 F Pulse Rate 106 H 104 H 103 H Respiratory Rate 28 H 21 28 H Blood Pressure 94/63 L 94/63 L 99/59 L Pulse Oximetry 100 100 100 05/11/18 19:20 05/11/18 19:30 05/11/18 19:45 Temperature 98.6 F Pulse Rate 103 H 103 H 104 H Respiratory Rate 24 30 H 48 H Blood Pressure 103/68 103/68 108/53 L Pulse Oximetry 100 100 100 05/11/18 20:00 05/11/18 20:09 05/11/18 20:15 Temperature 98.6 F 98.6 F Pulse Rate 102 H 104 H 101 H Respiratory Rate 58 H 25 H 29 H Blood Pressure 110/58 L 110/58 L 119/56 L Pulse Oximetry 100 100 100 05/11/18 20:30 05/11/18 20:31 05/11/18 20:33 Temperature 98.7 F Pulse Rate 102 H 101 H Respiratory Rate 29 H 25 H 25 H Blood Pressure 122/57 L 122/57 L Pulse Oximetry 100 100 100 05/11/18 20:45 05/11/18 21:00 05/11/18 21:15 Temperature Pulse Rate 100 H 96 H 96 H Respiratory Rate 28 H 28 H 13 Blood Pressure 121/64 98/50 L 87/48 L Pulse Oximetry 100 100 100 05/11/18 21:30 05/11/18 21:45 05/11/18 22:00 Temperature Pulse Rate 95 H 93 H 88 Respiratory Rate 19 25 H 22 Blood Pressure 89/53 L 109/58 L 118/56 L Pulse Oximetry 100 100 100 05/11/18 22:15 05/11/18 22:30 05/11/18 22:45 Temperature Pulse Rate 88 93 H 93 H Respiratory Rate 18 21 20 Blood Pressure 153/65 H 98/59 L 100/51 L Pulse Oximetry 100 100 100 05/11/18 23:00 05/11/18 23:15 05/11/18 23:30 Temperature Pulse Rate 92 H 91 H 90 Respiratory Rate 20 19 19 Blood Pressure 96/52 L 97/53 L 94/53 L Pulse Oximetry 100 100 100 05/11/18 23:45 05/12/18 00:00 05/12/18 00:15 Temperature 98.7 F Pulse Rate 88 87 85 Respiratory Rate 18 18 17 Blood Pressure 98/57 L 109/58 L 112/62 Pulse Oximetry 100 100 100 05/12/18 00:30 05/12/18 00:45 05/12/18 01:00 Temperature Pulse Rate 82 84 84 Respiratory Rate 15 14 18 Blood Pressure 148/65 H 109/51 L 114/54 L Pulse Oximetry 100 100 95 05/12/18 01:15 05/12/18 01:30 05/12/18 01:45 Temperature Pulse Rate 84 84 84 Respiratory Rate 17 18 18 Blood Pressure 108/54 L 93/50 L 102/57 L Pulse Oximetry 95 96 95 05/12/18 02:00 05/12/18 02:15 05/12/18 02:30 Temperature Pulse Rate 83 83 82 Respiratory Rate 17 14 14 Blood Pressure 105/56 L 111/51 L 103/51 L Pulse Oximetry 95 95 97 05/12/18 02:45 05/12/18 03:00 05/12/18 03:15 Temperature Pulse Rate 82 81 81 Respiratory Rate 12 16 17 Blood Pressure 108/54 L 98/53 L 94/50 L Pulse Oximetry 98 97 98 05/12/18 03:30 05/12/18 03:45 05/12/18 04:00 Temperature 99.1 F Pulse Rate 80 81 81 Respiratory Rate 17 13 17 Blood Pressure 96/52 L 97/52 L 83/40 L Pulse Oximetry 98 99 99 05/12/18 04:02 05/12/18 04:15 05/12/18 04:30 Temperature Pulse Rate 76 75 Respiratory Rate 16 17 18 Blood Pressure 118/55 L 126/62 Pulse Oximetry 100 98 100 05/12/18 04:50 05/12/18 05:00 05/12/18 05:15 Temperature Pulse Rate 81 79 75 Respiratory Rate 16 19 16 Blood Pressure 127/59 L 88/46 L 97/52 L Pulse Oximetry 98 97 97 05/12/18 05:30 05/12/18 05:45 05/12/18 06:00 Temperature Pulse Rate 73 73 73 Respiratory Rate 21 23 24 Blood Pressure 100/53 L 114/53 L 98/55 L Pulse Oximetry 97 97 97 05/12/18 06:15 05/12/18 06:30 05/12/18 06:45 Temperature Pulse Rate 72 71 70 Respiratory Rate 21 23 21 Blood Pressure 103/50 L 107/53 L 106/53 L Pulse Oximetry 97 98 99 05/12/18 07:00 05/12/18 07:15 05/12/18 07:30 Temperature Pulse Rate 70 70 69 Respiratory Rate 19 20 15 Blood Pressure 99/51 L 107/53 L 104/51 L Pulse Oximetry 99 98 99 05/12/18 07:45 05/12/18 08:00 05/12/18 08:14 Temperature 98.2 F Pulse Rate 67 70 Respiratory Rate 14 15 16 Blood Pressure 120/52 L 121/57 L Pulse Oximetry 99 99 99 05/12/18 08:15 05/12/18 08:30 05/12/18 08:45 Temperature Pulse Rate 68 68 68 Respiratory Rate 16 17 15 Blood Pressure 110/56 L 101/50 L 106/53 L Pulse Oximetry 99 99 99 05/12/18 09:00 05/12/18 09:15 05/12/18 09:30 Temperature Pulse Rate 68 69 67 Respiratory Rate 16 13 16 Blood Pressure 104/53 L 112/56 L 110/54 L Pulse Oximetry 99 100 99 05/12/18 09:53 05/12/18 10:00 05/12/18 10:04 Temperature Pulse Rate 69 68 66 Respiratory Rate 15 15 8 L Blood Pressure 113/56 L 101/53 L 102/48 L Pulse Oximetry 99 99 05/12/18 10:05 05/12/18 10:06 05/12/18 10:07 Temperature Pulse Rate 69 70 70 Respiratory Rate 8 L 13 6 L Blood Pressure 98/42 L 74/37 L 139/63 Pulse Oximetry 97 99 05/12/18 10:08 05/12/18 10:10 05/12/18 10:12 Temperature Pulse Rate 64 63 65 Respiratory Rate 16 7 L 12 Blood Pressure 129/60 114/56 L 109/54 L Pulse Oximetry 99 98 97 05/12/18 10:14 05/12/18 10:17 05/12/18 10:19 Temperature Pulse Rate 65 63 64 Respiratory Rate 8 L 11 L 7 L Blood Pressure 139/61 116/52 L 112/53 L Pulse Oximetry 97 98 98 05/12/18 10:22 05/12/18 10:24 05/12/18 11:00 Temperature Pulse Rate 62 63 65 Respiratory Rate 5 L 6 L 16 Blood Pressure 110/54 L 106/55 L Pulse Oximetry 98 99 99 05/12/18 11:02 05/12/18 11:04 05/12/18 11:07 Temperature Pulse Rate 65 65 65 Respiratory Rate 16 16 14 Blood Pressure 119/56 L 115/57 L 113/50 L Pulse Oximetry 100 100 100 05/12/18 11:09 05/12/18 11:12 05/12/18 11:14 Temperature Pulse Rate 66 65 67 Respiratory Rate 16 14 7 L Blood Pressure 111/56 L 112/53 L 126/60 Pulse Oximetry 100 99 99 05/12/18 11:15 05/12/18 11:17 05/12/18 11:19 Temperature Pulse Rate 66 65 65 Respiratory Rate 8 L 12 12 Blood Pressure 123/60 118/57 L Pulse Oximetry 99 99 98 05/12/18 11:22 05/12/18 11:24 05/12/18 11:27 Temperature Pulse Rate 65 65 65 Respiratory Rate 16 8 L 6 L Blood Pressure 110/56 L 111/56 L 109/55 L Pulse Oximetry 98 99 99 05/12/18 11:29 05/12/18 11:30 05/12/18 11:32 Temperature Pulse Rate 65 64 65 Respiratory Rate 10 L 13 12 Blood Pressure 111/56 L 113/56 L Pulse Oximetry 99 99 99 05/12/18 11:34 05/12/18 11:37 05/12/18 11:39 Temperature Pulse Rate 65 65 65 Respiratory Rate 12 9 L 7 L Blood Pressure 109/55 L 109/52 L 109/54 L Pulse Oximetry 99 99 99 05/12/18 11:42 05/12/18 11:44 05/12/18 11:45 Temperature Pulse Rate 66 66 66 Respiratory Rate 16 12 13 Blood Pressure 92/46 L 108/54 L Pulse Oximetry 98 98 98 05/12/18 11:47 05/12/18 11:49 05/12/18 11:52 Temperature Pulse Rate 65 67 64 Respiratory Rate 10 L 6 L 5 L Blood Pressure 108/52 L 127/58 L 118/58 L Pulse Oximetry 98 98 98 05/12/18 11:54 05/12/18 11:57 05/12/18 11:59 Temperature Pulse Rate 65 64 64 Respiratory Rate 6 L 6 L 12 Blood Pressure 121/56 L 108/53 L 117/56 L Pulse Oximetry 98 98 98 05/12/18 12:00 05/12/18 12:02 05/12/18 12:04 Temperature 98.0 F Pulse Rate 64 64 64 Respiratory Rate 10 L 11 L 7 L Blood Pressure 116/55 L 139/59 L Pulse Oximetry 98 98 98 05/12/18 12:07 05/12/18 12:09 05/12/18 12:12 Temperature Pulse Rate 67 71 71 Respiratory Rate 12 21 18 Blood Pressure 154/65 H 158/67 H 153/68 H Pulse Oximetry 99 98 98 05/12/18 12:15 05/12/18 12:22 05/12/18 12:30 Temperature Pulse Rate 67 66 Respiratory Rate 19 17 15 Blood Pressure 131/59 L 108/51 L Pulse Oximetry 96 97 97 05/12/18 12:45 05/12/18 13:00 Temperature Pulse Rate 65 65 Respiratory Rate 15 16 Blood Pressure 118/58 L 123/56 L Pulse Oximetry 97 98 Intake & Output 05/11/18 05/12/18 05/12/18 18:59 06:59 18:59 Intake Total 400 / 400 2200 / 2200 Output Total 150 / 150 850 / 850 Balance 250 / 250 1350 / 1350 Weight 79.2 kg 81.3 kg Intake: IV 2200 / 2200 Protonix Inj 80 MG In NS Inj 100 / 100 100 ML @ 10 mls/hr IV.CONT CONT [facility] Rx#:[id number] Diprivan 1000 mg/100 ml Inj 1, 100 / 100 000 mg In 100 ml @ 5 MCG/KG/MIN 2.376 mls/hr IV.CONT TITRATE PRN Rx#:[id number] NS Inj 1,000 ML @ 200 mls/hr IV 1999 / 1999 .SIG .Q5H [facility] Rx#:[id number] Intake (Blood Product) Amt 400 / 400 0 / 0 Rbc As-3 Leukoreduced Unit 0 / 0 [id number] Rbc As-3 Leukoreduced Unit 0 / 0 [id number] Rbc As-3 Leukoreduced Unit 0 / 0 [id number] Rbc As-3 Leukoreduced Unit 400 / 400 [id number] Output: Urine 0 / 0 Estimated Blood Loss 300 / 300 Urine Amount (Catheter) 300 / 300 Indwelling Urethral Catheter 300 / 300 Gastric Drainage 150 / 150 250 / 250 Orogastric Tube 150 / 150 250 / 250 Other: Date of Last Bowel Movement 05/12/18 05/12/18 # Bowel Movements 1 # Incontinent Bowel Movements 1 Weight On Admission 79.2 kg - Constitutional no acute distress - Routine HEENT Exam Head: Present: normocephalic Eye: Present: PERRL ENT: Present: mucous membranes dry - Routine Respiratory Exam Present: patient mechanically ventilated - Routine Cardiovascular Exam Present: S1, S2. Absent: murmur, gallop, rubs - Routine Abdominal Exam Present: normoactive bowel sounds - Routine Extremities Exam Present: pulses intact, normal capillary refill. Absent: cyanosis, clubbing, edema - Routine Skin Exam Present: intact - Routine Neurological Exam Sedated - Detailed Neurological Exam: Coma Scale Eye Opening: None Verbal Response: None Motor Response: None [place] Coma Scale Total: 3 - Routine Psychiatric Exam Present: unable to assess - Urinary Catheter Management Indwelling Urethral Catheter Cath placed during this visit: yes Reason for continuing: Hourly intake/output Insertion date: 05/12/18 Insertion time: 00:42 Results 05/12/18 09:52 05/12/18 09:52 Cardiac Enzymes 05/11/18 05/11/18 05/11/18 Range/Units 09:15 09:15 17:45 AST 20 Cancelled 31 (15-37) U/L Troponin I 0.04 (0.02-0.05) ng/mL 05/12/18 Range/Units 09:52 AST 139 H (15-37) U/L Troponin I (0.02-0.05) ng/mL Coagulation 05/11/18 05/11/18 Range/Units 09:15 17:45 PT 11.4 12.7 H (9.8-11.6) sec APTT 26.1 27.1 (23.4-31.7) sec CBC 05/11/18 05/11/18 05/11/18 Range/Units 09:15 15:12 17:45 WBC 13.3 H 12.7 H (4.0-11.0) th/mm3 RBC 2.23 L 1.74 L (4.50-5.90) mil/mm3 Hgb 7.7 L 7.2 L 6.2 L* (13.0-17.0) gm/dL Hct 23.0 L 21.2 L 17.1 L* (39.0-51.0) % Plt Count 344 D 275 (150-450) th/mm3 Neut # (Auto) 11.4 H (1.8-7.7) th/mm3 Lymph # (Auto) 1.0 (1.0-4.8) th/mm3 [place] # (Auto) 0.8 (0.0-0.9) th/mm3 Eos # (Auto) 0.1 (0.0-0.4) th/mm3 Baso # (Auto) 0.1 (0.0-0.2) th/mm3 05/11/18 05/12/18 05/12/18 Range/Units 21:01 03:02 09:52 WBC 25.9 H D 30.8 H (4.0-11.0) th/mm3 RBC 3.73 L 3.24 L (4.50-5.90) mil/mm3 Hgb 11.5 L D 11.6 L 9.8 L (13.0-17.0) gm/dL Hct 33.6 L 32.6 L 28.7 L (39.0-51.0) % Plt Count 224 248 (150-450) th/mm3 Neut # (Auto) (1.8-7.7) th/mm3 Lymph # (Auto) (1.0-4.8) th/mm3 [place] # (Auto) (0.0-0.9) th/mm3 Eos # (Auto) (0.0-0.4) th/mm3 Baso # (Auto) (0.0-0.2) th/mm3 Comprehensive Metabolic Panel 05/11/18 05/11/18 05/11/18 Range/Units 09:15 09:15 17:45 Sodium 140 Cancelled 140 (136-145) meq/L Potassium 3.9 Cancelled 5.2 H D (3.5-5.1) meq/L Chloride 103 Cancelled 103 (98-107) meq/L Carbon Dioxide 21.6 Cancelled 22.3 (21.0-32.0) meq/L BUN 45 H Cancelled 63 H (7-18) mg/dL Creatinine 1.84 H Cancelled 1.96 H (0.60-1.30) mg/dL Calcium 8.1 L Cancelled 7.4 L* (8.5-10.1) mg/dL AST 20 Cancelled 31 (15-37) U/L ALT 34 Cancelled 34 (12-78) U/L Alkaline Phosphatase 77 Cancelled 63 (45-117) U/L Total Protein 5.6 L Cancelled 5.0 L D (6.4-8.2) g/dL Albumin 2.4 L Cancelled 2.1 L (3.4-5.0) g/dL 05/12/18 Range/Units 09:52 Sodium 139 (136-145) meq/L Potassium 4.5 (3.5-5.1) meq/L Chloride 106 (98-107) meq/L Carbon Dioxide 19.3 L (21.0-32.0) meq/L BUN 87 H (7-18) mg/dL Creatinine 2.41 H (0.60-1.30) mg/dL Calcium 7.0 L* (8.5-10.1) mg/dL AST 139 H (15-37) U/L ALT 115 H (12-78) U/L Alkaline Phosphatase 64 (45-117) U/L Total Protein 4.8 L (6.4-8.2) g/dL Albumin 2.1 L (3.4-5.0) g/dL Intake and Output 05/11/18 05/12/18 05/12/18 22:59 06:59 14:59 Intake Total 400 / 400 2200 / 2200 Output Total 450 / 450 550 / 550 Balance -50 / -50 1650 / 1650 Intake: IV 2200 / 2200 Protonix Inj 80 MG In NS Inj 100 / 100 100 ML @ 10 mls/hr IV.CONT CONT [facility] Rx#:[id number] Diprivan 1000 mg/100 ml Inj 1, 100 / 100 000 mg In 100 ml @ 5 MCG/KG/MIN 2.376 mls/hr IV.CONT TITRATE PRN Rx#:[id number] NS Inj 1,000 ML @ 200 mls/hr IV 1999 / 1999 .SIG .Q5H [facility] Rx#:[id number] Intake (Blood Product) Amt 400 / 400 Rbc As-3 Leukoreduced Unit 0 / 0 [id number] Rbc As-3 Leukoreduced Unit 0 / 0 [id number] Rbc As-3 Leukoreduced Unit 0 / 0 [id number] Rbc As-3 Leukoreduced Unit 400 / 400 [id number] Output: Urine 0 / 0 Estimated Blood Loss 300 / 300 Urine Amount (Catheter) 300 / 300 Indwelling Urethral Catheter 300 / 300 Gastric Drainage 150 / 150 250 / 250 Orogastric Tube 150 / 150 250 / 250 Other: Date of Last Bowel Movement 05/12/18 05/12/18 # Bowel Movements 1 # Incontinent Bowel Movements 1 Weight 81.3 kg - Imaging and Cardiology Imaging: Impressions Chest X-Ray 05/11/18 18:21 CONCLUSION: ET tube in good position. Assessment and Plan - Assessment (1) GI (gastrointestinal hemorrhage) Code(s): K92.2 - Gastrointestinal hemorrhage, unspecified Status: Acute (2) Acute ischemic left MCA stroke Code(s): I63.512 - Cerebral infarction due to unspecified occlusion or stenosis of left middle cerebral artery Status: Acute (3) Hypertension Code(s): I10 - Essential (primary) hypertension Status: Chronic (4) Hyperlipidemia Code(s): E78.5 - Hyperlipidemia, unspecified Status: Chronic (5) Sick sinus syndrome Code(s): I49.5 - Sick sinus syndrome Status: Acute (6) Bradycardia Code(s): R00.1 - Bradycardia, unspecified Status: Acute (7) Acute kidney injury Code(s): N17.9 - Acute kidney failure, unspecified Status: Acute - Plan Patient was intubated yesterday and transferred to ICU. He has received multiple blood transfusions, Hgb 9.8 today, GI evaluation in progress due to UGIB. EGD done yesterday with no clear source of bleeding found. Anticoagulation on hold. No new cardiac issues, continue with current cardiac treatment plan. We will continue to monitor during his hospitalization. The patient was seen and evaluated by Dr. Rick who participated in care, management and decision making. - Attending Attestation Patient seen and examined. I reviewed and agree with the evaluation and plan as presented. GI evaluation in progress. No new cardiac issues. (3) Hypertension Qualifiers: Hypertension type: essential hypertension Qualified Code(s): I10 - Essential (primary) hypertension
[2018-05-12] MEDS ORDERED: Dextrose 50% in Water 50 ML Vial IV.PUSH PRN (19:33)
[2018-05-12] MEDS ORDERED: Insulin NovoLOG Aspart Correctional Sugar Inj SQ ONE (19:45)
[2018-05-12] MEDS: Phenylephrine Inj 40 MG in Dextrose 5% in Water Inj 496 ML IV.CONT PRN ×2 (21:09)
[2018-05-12] MEDS: fentaNYL 10 mcg/mL Premix Drip 2,500 MCG/250 ML BAG IV.SIG PRN (23:04)
[2018-05-13] MEDS: Insulin NovoLOG Aspart Correctional Sugar Inj SQ SCH ×4 (01:51→18:30)
[2018-05-13] MEDS ORDERED: Chlorhexidine Gluconate 2% 1 Pack (2 Cloths) TOPICAL PRN (04:00)
[2018-05-13] MEDS: Pantoprazole Inj 80 MG in Sodium Chlor 0.9% Inj 100 ML IV.CONT SCH ×3 (05:40→15:45)
[2018-05-13] MEDS: Propofol 1000 mg/100 ml Inj 1,000 MG/100 ML BOTTLE IV.CONT PRN (05:40)
[2018-05-13] MEDS: Sod Chloride 0.9% Inj 1,000 ML IV.SIG SCH ×6 (05:41→22:13)
[2018-05-13] MEDS: Chlorhexidine Gluconate 2% 1 Pack (2 Cloths) TOPICAL SCH (06:08)
[2018-05-13 07:02] LABS: Hematocrit 25.4 % (39.0-51.0); Hemoglobin 8.7 gm/dL (13.0-17.0); Mean Corpuscular HGB Conc 34.2 % (32.0-36.0); Mean Corpuscular Hemoglobin 30.9 pg (27.0-34.0); Mean Corpuscular Volume 90.5 fL (80.0-100.0); Mean Platelet Volume 8.2 fL (7.0-11.0); Platelet Count 195 th/mm3 (150-450); Red Blood Count 2.81 mil/mm3 (4.50-5.90); Red Cell Distribution Width 21.2 % (11.6-17.2); White Blood Count 18.2 th/mm3 (4.0-11.0)
--- NOTE | 2018-05-13 07:12 | P.PNCC ---
Subjective Subjective Remarks/Hospital Course: 77-year-old male has been admitted for an evaluation of coffee-ground emesis at home. EMS reports patient had a large amount of coffee-ground emesis at home. Patient denied shortness of breath weakness, nausea, headache or dizziness. EGD due to anemia and GI bleeding was performed on 05/05/[address] Smith. Findings include submucosal lesion at the second port of the duodenum, gastritis in the antrum, esophagitis grade C and hiatal hernia. Patient has a medical history significant for CVA, hypertension, hyperlipidemia , sick sinus syndrome, diabetes, bradycardia and GI bleed on anticoagulation.. Patient currently on aspirin and Plavix 75 mg p.o. daily for past medical history of CVA. Patient is awake and alert, denies abdominal pain. Patient was initially admitted to medicine, however while on the [facility] floor he has developed hematemesis with copious amounts of blood requiring emergent transfer to ICU and required intubation. 05/12: Remains critically ill in the ICU on the vent. H&H stable overnight. Hypotension resolved and improved with IV fluid boluses. GI planning for another endoscopy today. 05/13: Requiring increased FiO2. Mechanics acceptable. NG with continued blood. Objective Vital Signs / I&O: Vital Signs 05/12/18 07:15 05/12/18 07:30 05/12/18 07:45 Temperature Pulse Rate 70 69 67 Respiratory Rate 20 15 14 Blood Pressure 107/53 L 104/51 L 120/52 L Pulse Oximetry 98 99 99 05/12/18 08:00 05/12/18 08:14 05/12/18 08:15 Temperature 98.2 F Pulse Rate 70 68 Respiratory Rate 15 16 16 Blood Pressure 121/57 L 110/56 L Pulse Oximetry 99 99 99 05/12/18 08:30 05/12/18 08:45 05/12/18 09:00 Temperature Pulse Rate 68 68 68 Respiratory Rate 17 15 16 Blood Pressure 101/50 L 106/53 L 104/53 L Pulse Oximetry 99 99 99 05/12/18 09:15 05/12/18 09:30 05/12/18 09:53 Temperature Pulse Rate 69 67 69 Respiratory Rate 13 16 15 Blood Pressure 112/56 L 110/54 L 113/56 L Pulse Oximetry 100 99 99 05/12/18 10:00 05/12/18 10:04 05/12/18 10:05 Temperature Pulse Rate 68 66 69 Respiratory Rate 15 8 L 8 L Blood Pressure 101/53 L 102/48 L 98/42 L Pulse Oximetry 99 05/12/18 10:06 05/12/18 10:07 05/12/18 10:08 Temperature Pulse Rate 70 70 64 Respiratory Rate 13 6 L 16 Blood Pressure 74/37 L 139/63 129/60 Pulse Oximetry 97 99 99 05/12/18 10:10 05/12/18 10:12 05/12/18 10:14 Temperature Pulse Rate 63 65 65 Respiratory Rate 7 L 12 8 L Blood Pressure 114/56 L 109/54 L 139/61 Pulse Oximetry 98 97 97 05/12/18 10:17 05/12/18 10:19 05/12/18 10:22 Temperature Pulse Rate 63 64 62 Respiratory Rate 11 L 7 L 5 L Blood Pressure 116/52 L 112/53 L 110/54 L Pulse Oximetry 98 98 98 05/12/18 10:24 05/12/18 11:00 05/12/18 11:02 Temperature Pulse Rate 63 65 65 Respiratory Rate 6 L 16 16 Blood Pressure 106/55 L 119/56 L Pulse Oximetry 99 99 100 05/12/18 11:04 05/12/18 11:07 05/12/18 11:09 Temperature Pulse Rate 65 65 66 Respiratory Rate 16 14 16 Blood Pressure 115/57 L 113/50 L 111/56 L Pulse Oximetry 100 100 100 05/12/18 11:12 05/12/18 11:14 05/12/18 11:15 Temperature Pulse Rate 65 67 66 Respiratory Rate 14 7 L 8 L Blood Pressure 112/53 L 126/60 Pulse Oximetry 99 99 99 05/12/18 11:17 05/12/18 11:19 05/12/18 11:22 Temperature Pulse Rate 65 65 65 Respiratory Rate 12 12 16 Blood Pressure 123/60 118/57 L 110/56 L Pulse Oximetry 99 98 98 05/12/18 11:24 05/12/18 11:27 05/12/18 11:29 Temperature Pulse Rate 65 65 65 Respiratory Rate 8 L 6 L 10 L Blood Pressure 111/56 L 109/55 L 111/56 L Pulse Oximetry 99 99 99 05/12/18 11:30 05/12/18 11:32 05/12/18 11:34 Temperature Pulse Rate 64 65 65 Respiratory Rate 13 12 12 Blood Pressure 113/56 L 109/55 L Pulse Oximetry 99 99 99 05/12/18 11:37 05/12/18 11:39 05/12/18 11:42 Temperature Pulse Rate 65 65 66 Respiratory Rate 9 L 7 L 16 Blood Pressure 109/52 L 109/54 L 92/46 L Pulse Oximetry 99 99 98 05/12/18 11:44 05/12/18 11:45 05/12/18 11:47 Temperature Pulse Rate 66 66 65 Respiratory Rate 12 13 10 L Blood Pressure 108/54 L 108/52 L Pulse Oximetry 98 98 98 05/12/18 11:49 05/12/18 11:52 05/12/18 11:54 Temperature Pulse Rate 67 64 65 Respiratory Rate 6 L 5 L 6 L Blood Pressure 127/58 L 118/58 L 121/56 L Pulse Oximetry 98 98 98 05/12/18 11:57 05/12/18 11:59 05/12/18 12:00 Temperature 98.0 F Pulse Rate 64 64 64 Respiratory Rate 6 L 12 10 L Blood Pressure 108/53 L 117/56 L Pulse Oximetry 98 98 98 05/12/18 12:02 05/12/18 12:04 05/12/18 12:07 Temperature Pulse Rate 64 64 67 Respiratory Rate 11 L 7 L 12 Blood Pressure 116/55 L 139/59 L 154/65 H Pulse Oximetry 98 98 99 05/12/18 12:09 05/12/18 12:12 05/12/18 12:15 Temperature Pulse Rate 71 71 67 Respiratory Rate 21 18 19 Blood Pressure 158/67 H 153/68 H 131/59 L Pulse Oximetry 98 98 96 05/12/18 12:22 05/12/18 12:30 05/12/18 12:45 Temperature Pulse Rate 66 65 Respiratory Rate 17 15 15 Blood Pressure 108/51 L 118/58 L Pulse Oximetry 97 97 97 05/12/18 13:00 05/12/18 13:15 05/12/18 13:30 Temperature Pulse Rate 65 65 65 Respiratory Rate 16 16 16 Blood Pressure 123/56 L 119/56 L 124/58 L Pulse Oximetry 98 98 98 05/12/18 13:45 05/12/18 14:00 05/12/18 14:15 Temperature Pulse Rate 64 64 64 Respiratory Rate 16 16 16 Blood Pressure 112/54 L 125/61 121/59 L Pulse Oximetry 98 97 97 05/12/18 14:30 05/12/18 14:45 05/12/18 15:00 Temperature Pulse Rate 64 64 66 Respiratory Rate 17 16 16 Blood Pressure 129/60 120/60 129/59 L Pulse Oximetry 98 98 97 05/12/18 15:15 05/12/18 15:22 05/12/18 15:30 Temperature Pulse Rate 64 65 Respiratory Rate 16 16 16 Blood Pressure 130/59 L 119/56 L Pulse Oximetry 97 98 98 05/12/18 15:45 05/12/18 16:00 05/12/18 16:15 Temperature 98.6 F Pulse Rate 65 70 75 Respiratory Rate 15 17 17 Blood Pressure 128/60 136/62 164/70 H Pulse Oximetry 97 98 96 05/12/18 16:30 05/12/18 16:45 05/12/18 16:46 Temperature Pulse Rate 90 82 81 Respiratory Rate 28 H 19 20 Blood Pressure 158/120 H 141/62 H Pulse Oximetry 99 98 91 L 05/12/18 17:00 05/12/18 17:01 05/12/18 17:15 Temperature Pulse Rate 73 73 75 Respiratory Rate 17 17 17 Blood Pressure 128/56 L Pulse Oximetry 100 100 100 05/12/18 17:16 05/12/18 17:30 05/12/18 17:31 Temperature Pulse Rate 75 70 70 Respiratory Rate 15 17 17 Blood Pressure 123/58 L 101/51 L Pulse Oximetry 100 100 100 05/12/18 17:45 05/12/18 17:46 05/12/18 18:00 Temperature Pulse Rate 68 68 74 Respiratory Rate 16 14 18 Blood Pressure 119/59 L Pulse Oximetry 100 100 100 05/12/18 18:01 05/12/18 18:15 05/12/18 18:16 Temperature Pulse Rate 70 66 65 Respiratory Rate 17 13 14 Blood Pressure 138/59 L 133/61 Pulse Oximetry 100 100 100 05/12/18 18:30 05/12/18 18:31 05/12/18 18:45 Temperature Pulse Rate 72 72 70 Respiratory Rate 16 Blood Pressure 127/61 Pulse Oximetry 97 97 97 05/12/18 18:46 05/12/18 19:00 05/12/18 19:01 Temperature Pulse Rate 70 68 70 Respiratory Rate 16 Blood Pressure 131/59 L 130/60 Pulse Oximetry 97 97 97 05/12/18 19:15 05/12/18 19:16 05/12/18 19:19 Temperature Pulse Rate 69 69 Respiratory Rate 17 17 Blood Pressure 134/60 Pulse Oximetry 98 97 98 05/12/18 19:30 05/12/18 19:31 05/12/18 19:45 Temperature Pulse Rate 68 68 67 Respiratory Rate 17 Blood Pressure 129/58 L Pulse Oximetry 97 97 97 05/12/18 19:46 05/12/18 20:00 05/12/18 20:01 Temperature 98.6 F Pulse Rate 68 66 66 Respiratory Rate 16 Blood Pressure 132/60 120/56 L Pulse Oximetry 97 97 97 05/12/18 20:15 05/12/18 20:16 05/12/18 20:25 Temperature Pulse Rate 66 66 85 Respiratory Rate 16 Blood Pressure 120/58 L 119/70 Pulse Oximetry 97 97 99 05/12/18 20:30 05/12/18 20:31 05/12/18 20:45 Temperature Pulse Rate 76 74 70 Respiratory Rate 18 Blood Pressure 134/72 Pulse Oximetry 98 98 95 05/12/18 20:46 05/12/18 21:00 05/12/18 21:01 Temperature Pulse Rate 71 79 79 Respiratory Rate 17 17 22 Blood Pressure 118/58 L 105/51 L Pulse Oximetry 95 96 93 L 05/12/18 21:15 05/12/18 21:16 05/12/18 21:30 Temperature Pulse Rate 71 71 68 Respiratory Rate 17 17 16 Blood Pressure 111/56 L Pulse Oximetry 94 L 94 L 94 L 05/12/18 21:31 05/12/18 21:45 05/12/18 21:46 Temperature Pulse Rate 67 65 65 Respiratory Rate 16 17 Blood Pressure 101/41 L 101/49 L Pulse Oximetry 94 L 94 L 94 L 05/12/18 22:00 05/12/18 22:01 05/12/18 22:15 Temperature Pulse Rate 65 65 64 Respiratory Rate 17 17 Blood Pressure 106/53 L Pulse Oximetry 95 95 96 05/12/18 22:16 05/12/18 22:30 05/12/18 22:31 Temperature Pulse Rate 63 63 63 Respiratory Rate 18 17 Blood Pressure 107/53 L 102/49 L Pulse Oximetry 96 96 96 05/12/18 22:45 05/12/18 22:46 05/12/18 23:00 Temperature Pulse Rate 63 63 63 Respiratory Rate 18 19 17 Blood Pressure 99/48 L Pulse Oximetry 96 96 96 05/12/18 23:01 05/12/18 23:15 05/12/18 23:16 Temperature Pulse Rate 63 64 64 Respiratory Rate 18 19 17 Blood Pressure 99/49 L 108/54 L Pulse Oximetry 97 96 96 05/12/18 23:30 05/12/18 23:31 05/12/18 23:45 Temperature Pulse Rate 64 64 64 Respiratory Rate 16 Blood Pressure 111/53 L Pulse Oximetry 96 97 97 05/12/18 23:46 05/13/18 00:00 05/13/18 00:01 Temperature 98.6 F Pulse Rate 64 64 64 Respiratory Rate 17 Blood Pressure 110/54 L 114/57 L Pulse Oximetry 97 97 96 05/13/18 00:15 05/13/18 00:16 05/13/18 00:30 Temperature Pulse Rate 64 64 64 Respiratory Rate 16 18 18 Blood Pressure 110/55 L Pulse Oximetry 97 97 96 05/13/18 00:31 05/13/18 00:45 05/13/18 00:57 Temperature Pulse Rate 64 77 74 Respiratory Rate 17 21 20 Blood Pressure 111/56 L 140/65 Pulse Oximetry 96 79 L 97 05/13/18 01:00 05/13/18 01:01 05/13/18 01:15 Temperature Pulse Rate 70 71 66 Respiratory Rate 16 19 14 Blood Pressure 129/63 Pulse Oximetry 96 96 96 05/13/18 01:16 05/13/18 01:30 05/13/18 01:31 Temperature Pulse Rate 66 64 65 Respiratory Rate 22 21 Blood Pressure 121/60 116/54 L Pulse Oximetry 96 96 96 05/13/18 01:45 05/13/18 01:46 05/13/18 02:00 Temperature Pulse Rate 63 62 62 Respiratory Rate 19 19 20 Blood Pressure 111/53 L Pulse Oximetry 96 96 96 05/13/18 02:01 05/13/18 02:15 05/13/18 02:16 Temperature Pulse Rate 62 63 63 Respiratory Rate 12 20 16 Blood Pressure 109/53 L 114/54 L Pulse Oximetry 96 96 96 05/13/18 02:30 11/14/18 02:31 05/13/18 02:45 Temperature Pulse Rate 63 63 62 Respiratory Rate 17 21 17 Blood Pressure 113/56 L Pulse Oximetry 96 96 96 05/13/18 02:46 05/13/18 03:00 05/13/18 03:01 Temperature Pulse Rate 62 63 62 Respiratory Rate 19 19 19 Blood Pressure 113/56 L 117/57 L Pulse Oximetry 96 97 97 05/13/18 03:15 05/13/18 03:16 05/13/18 03:30 Temperature Pulse Rate 61 61 61 Respiratory Rate 15 21 14 Blood Pressure 108/51 L Pulse Oximetry 97 97 97 05/13/18 03:31 05/13/18 03:45 05/13/18 03:46 Temperature Pulse Rate 61 61 61 Respiratory Rate 16 19 18 Blood Pressure 111/54 L 110/53 L Pulse Oximetry 97 97 97 05/13/18 04:00 05/13/18 04:01 05/13/18 04:15 Temperature 98.6 F Pulse Rate 61 61 61 Respiratory Rate 18 15 16 Blood Pressure 113/55 L Pulse Oximetry 97 97 97 05/13/18 04:16 05/13/18 04:30 05/13/18 04:31 Temperature Pulse Rate 61 65 64 Respiratory Rate 20 15 16 Blood Pressure 115/56 L 118/54 L Pulse Oximetry 97 94 L 94 L 05/13/18 04:45 05/13/18 04:46 05/13/18 05:00 Temperature Pulse Rate 64 65 63 Respiratory Rate 16 18 Blood Pressure 112/53 L Pulse Oximetry 94 L 94 L 94 L 05/13/18 05:01 05/13/18 05:15 05/13/18 05:16 Temperature Pulse Rate 63 62 62 Respiratory Rate 9 L 9 L Blood Pressure 109/56 L 109/55 L Pulse Oximetry 94 L 94 L 93 L 05/13/18 05:30 05/13/18 05:31 05/13/18 05:45 Temperature Pulse Rate 62 62 62 Respiratory Rate 13 12 15 Blood Pressure 108/54 L Pulse Oximetry 94 L 94 L 88 L 05/13/18 05:46 05/13/18 06:00 05/13/18 06:01 Temperature Pulse Rate 62 70 68 Respiratory Rate 16 21 17 Blood Pressure 104/54 L 126/60 Pulse Oximetry 95 95 94 L Intake & Output 11/13/18 11/14/18 11/14/18 18:59 06:59 18:59 Intake Total 1300 / 1300 2109 / 2109 Output Total 825 / 825 850 / 850 Balance 475 / 475 1260 / 1260 Weight 86.3 kg Intake: IV 1100 / 1100 2109 / 2109 Protonix Inj 80 MG In NS Inj 195 / 195 100 ML @ 10 mls/hr IV.CONT Q10H [facility] Rx#:[id number] Neosynephrine Inj 40 MG In D5W 500 / 500 Inj 496 ML @ 40 MCG/MIN 30 mls/ hr IV.CONT TITRATE PRN Rx#: [id number] Diprivan 1000 mg/100 ml Inj 1, 100 / 100 175 / 175 000 mg In 100 ml @ 5 MCG/KG/MIN 2.376 mls/hr IV.CONT TITRATE PRN Rx#:[id number] NS Inj 1,000 ML @ 200 mls/hr IV 1000 / 1000 1000 / 1000 .SIG .Q5H [facility] Rx#:[id number] fentaNYL 10 mcg/mL Premix Drip 240 / 240 2,500 mcg In 250 ml @ 50 MCG/HR 5 mls/hr IV.SIG TITRATE PRN Rx #:[id number] Anesthesia Amount 200 / 200 Output: Urine Amount (Catheter) 425 / 425 750 / 750 Indwelling Urethral Catheter 425 / 425 750 / 750 Gastric Drainage 400 / 400 100 / 100 Orogastric Tube 400 / 400 100 / 100 Other: Date of Last Bowel Movement 05/12/18 05/13/18 # Bowel Movements 2 # Incontinent Bowel Movements 2 4 Result Diagrams: 05/13/18 05:52 05/12/18 09:52 Objective Remarks: - Constitutional moderate distress - Routine HEENT Exam Head: Present: normocephalic, atraumatic Eye: Present: PERRL - Routine Neck Exam Present: supple. Absent: JVD, carotid bruit - Routine Respiratory Exam Present: patient mechanically ventilated, few rhonchi, no wheezes. Absent: stridor, wheezes - Routine Cardiovascular Exam Present: RRR, S1, S2, tachycardia - Routine Abdominal Exam Present: soft, normoactive bowel sounds, no guarding. Absent: tenderness, distended - Routine Extremities Exam Absent: cyanosis, clubbing, edema - Routine Skin Exam Present: intact. Absent: cyanosis, erythema - Routine Neurological Exam Present: moving all extremities Assessment and Plan - Assessment and Plan Plan: Respiratory failure -Intubated for an airway protection -No weaning until hemodynamically stable -Gastroenterology planning for another endoscopy today -Consider SBT if no further procedures indicated -Vent bundle -DuoNeb's as needed -SBTs 05/13 Acute GI bleed -Status post emergent EGD -No obvious source identified during procedure -Monitor H&H -Transfuse as needed to keep hemoglobin above 7 -Protonix drip -Repeat endoscopy by GI today -Further management per gastroenterology -Continued blood in NG, minimal. Diabetes -Insulin sliding scale -Improving control Hypertension -Hold antihypertensive meds due to acute GI bleeding and possible hypotension Anemia -Acute blood loss anemia -Frequent H&H -Transfuse to keep hemoglobin above 7 Acute kidney injury -Dehydration -Volume loss -Aggressive IV fluid hydration -Strict I's and -Monitor creatinine levels DVT GI prophylaxis -Teds SCDs -Protonix drip -No pharmacological DVT prophylaxis due to acute GI bleed Overall impression: Remains critically ill and unstable with increasing O2 requirements. Unable to wean from ventilator. Critical Care 38 mins
[2018-05-13 07:47] LABS: Albumin 1.8 g/dL (3.4-5.0); Calcium 6.7 mg/dL (8.5-10.1); Carbon Dioxide 20.6 meq/L (21.0-32.0); Magnesium 1.5 mg/dL (1.5-2.5); Phosphorus 3.5 mg/dL (2.5-4.9); Potassium 3.8 meq/L (3.5-5.1); Total Protein 4.8 g/dL (6.4-8.2)
[2018-05-13] MEDS: amLODIPine 5 MG Tablet PO SCH (08:32)
--- NOTE | 2018-05-13 12:43 | P.PNCA ---
Subjective Interval history: Patient remains intubated and sedated. No acute distress at this time. Medications and Allergies Allergies Allergy/AdvReac Type Severity Reaction Status Date / Time No Known Allergies Allergy Verified 05/11/18 08:54 Home Medications Medication Instructions Recorded Confirmed Type glyburide 5 mg PO BID 04/13/18 05/11/18 History metformin 1,000 mg PO BID 04/13/18 05/11/18 History Active Medications: Active Medications Amlodipine Besylate (Norvasc) 5 mg PO DAILY [facility] Last Admin: 05/13/18 08:32 Dose: Not Given Atorvastatin Calcium (Lipitor) 40 mg PO HS [facility] Last Admin: 05/12/18 20:35 Dose: Not Given Chlorhexidine Gluconate (Chlorhexidine 2% Cloth) 3 pack TOPICAL DAILY@0400 [facility] Stop: 05/18/18 03:59 Last Admin: 05/13/18 06:08 Dose: 3 pack Chlorhexidine Gluconate (Chlorhexidine 2% Cloth) 3 pack TOPICAL DAILY@0400 PRN PRN Reason: Extra cloth needed Stop: 05/18/18 03:59 Dextrose (D50w Vial) 50 ml IV.PUSH UNSCH PRN PRN Reason: PER HYPOGLYCEMIA PROTOCOL Glucagon (Glucagon Inj) 1 mg OTHER PRN PRN PRN Reason: for Hypoglycemia Protocol Glyburide (Diabeta) 5 mg PO BID [facility] Last Admin: 05/13/18 08:32 Dose: Not Given Propofol (Diprivan 1000 Mg/100 Ml Inj) 1,000 mg in 100 mls @ 2.376 mls/hr IV.CONT TITRATE PRN; Protocol PRN Reason: Per Protocol Last Admin: 05/13/18 05:40 Dose: 30 mcg/kg/min, 14.26 mls/hr Midazolam HCl (Versed Inj) 50 mg in 50 mls @ 2 mls/hr IV.CONT TITRATE PRN; Protocol PRN Reason: Per Protocol Last Titration: 05/11/18 20:47 Dose: 0 mg/hr, 0 mls/hr Phenylephrine HCl 40 mg/ (Dextrose) 500 mls @ 30 mls/hr IV.CONT TITRATE PRN; Protocol PRN Reason: Per Protocol Last Admin: 05/12/18 21:09 Dose: 40 mcg/min, 30 mls/hr Fentanyl (Fentanyl 10 Mcg/Ml Premix Drip) 2,500 mcg in 250 mls @ 5 mls/hr IV.SIG TITRATE PRN; Protocol PRN Reason: Per Protocol Last Admin: 05/12/18 23:04 Dose: 75 mcg/hr, 7.5 mls/hr Sodium Chloride (Ns Inj) 1,000 mls @ 200 mls/hr IV.SIG .Q5H [facility] Last Admin: 05/13/18 07:14 Dose: 200 mls/hr Pantoprazole Sodium 80 mg/ (Sodium Chloride) 100 mls @ 10 mls/hr IV.CONT Q10H [facility] Last Infusion: 05/13/18 07:10 Dose: Infused Insulin Aspart (Novolog Insulin Correctional Sugar Inj) 0 unit SQ Q6HR [facility]; Protocol Last Admin: 05/13/18 06:09 Dose: 2 unit Metformin HCl (Glucophage) 1,000 mg PO BID [facility] Last Admin: 05/12/18 09:03 Dose: Not Given Terbutaline Sulfate (Brethine Inj) 1 mg SQ UNSCH PRN PRN Reason: For Extravasation Physical Exam Vital signs: Vital Signs 05/12/18 12:22 05/12/18 12:30 05/12/18 12:45 Temperature Pulse Rate 66 65 Respiratory Rate 17 15 15 Blood Pressure 108/51 L 118/58 L Pulse Oximetry 97 97 97 05/12/18 13:00 05/12/18 13:15 05/12/18 13:30 Temperature Pulse Rate 65 65 65 Respiratory Rate 16 16 16 Blood Pressure 123/56 L 119/56 L 124/58 L Pulse Oximetry 98 98 98 05/12/18 13:45 05/12/18 14:00 05/12/18 14:15 Temperature Pulse Rate 64 64 64 Respiratory Rate 16 16 16 Blood Pressure 112/54 L 125/61 121/59 L Pulse Oximetry 98 97 97 05/12/18 14:30 05/12/18 14:45 05/12/18 15:00 Temperature Pulse Rate 64 64 66 Respiratory Rate 17 16 16 Blood Pressure 129/60 120/60 129/59 L Pulse Oximetry 98 98 97 05/12/18 15:15 05/12/18 15:22 05/12/18 15:30 Temperature Pulse Rate 64 65 Respiratory Rate 16 16 16 Blood Pressure 130/59 L 119/56 L Pulse Oximetry 97 98 98 05/12/18 15:45 05/12/18 16:00 11/13/18 16:15 Temperature 98.6 F Pulse Rate 65 70 75 Respiratory Rate 15 17 17 Blood Pressure 128/60 136/62 164/70 H Pulse Oximetry 97 98 96 05/12/18 16:30 05/12/18 16:45 05/12/18 16:46 Temperature Pulse Rate 90 82 81 Respiratory Rate 28 H 19 20 Blood Pressure 158/120 H 141/62 H Pulse Oximetry 99 98 91 L 05/12/18 17:00 05/12/18 17:01 05/12/18 17:15 Temperature Pulse Rate 73 73 75 Respiratory Rate 17 17 17 Blood Pressure 128/56 L Pulse Oximetry 100 100 100 05/12/18 17:16 05/12/18 17:30 05/12/18 17:31 Temperature Pulse Rate 75 70 70 Respiratory Rate 15 17 17 Blood Pressure 123/58 L 101/51 L Pulse Oximetry 100 100 100 05/12/18 17:45 05/12/18 17:46 05/12/18 18:00 Temperature Pulse Rate 68 68 74 Respiratory Rate 16 14 18 Blood Pressure 119/59 L Pulse Oximetry 100 100 100 05/12/18 18:01 05/12/18 18:15 05/12/18 18:16 Temperature Pulse Rate 70 66 65 Respiratory Rate 17 13 14 Blood Pressure 138/59 L 133/61 Pulse Oximetry 100 100 100 05/12/18 18:30 05/12/18 18:31 05/12/18 18:45 Temperature Pulse Rate 72 72 70 Respiratory Rate 16 Blood Pressure 127/61 Pulse Oximetry 97 97 97 05/12/18 18:46 05/12/18 19:00 05/12/18 19:01 Temperature Pulse Rate 70 68 70 Respiratory Rate 16 Blood Pressure 131/59 L 130/60 Pulse Oximetry 97 97 97 05/12/18 19:15 05/12/18 19:16 05/12/18 19:19 Temperature Pulse Rate 69 69 Respiratory Rate 17 17 Blood Pressure 134/60 Pulse Oximetry 98 97 98 05/12/18 19:30 05/12/18 19:31 05/12/18 19:45 Temperature Pulse Rate 68 68 67 Respiratory Rate 17 Blood Pressure 129/58 L Pulse Oximetry 97 97 97 05/12/18 19:46 05/12/18 20:00 05/12/18 20:01 Temperature 98.6 F Pulse Rate 68 66 66 Respiratory Rate 16 Blood Pressure 132/60 120/56 L Pulse Oximetry 97 97 97 05/12/18 20:15 05/12/18 20:16 05/12/18 20:25 Temperature Pulse Rate 66 66 85 Respiratory Rate 16 Blood Pressure 120/58 L 119/70 Pulse Oximetry 97 97 99 05/12/18 20:30 05/12/18 20:31 05/12/18 20:45 Temperature Pulse Rate 76 74 70 Respiratory Rate 18 Blood Pressure 134/72 Pulse Oximetry 98 98 95 05/12/18 20:46 05/12/18 21:00 05/12/18 21:01 Temperature Pulse Rate 71 79 79 Respiratory Rate 17 17 22 Blood Pressure 118/58 L 105/51 L Pulse Oximetry 95 96 93 L 05/12/18 21:15 05/12/18 21:16 05/12/18 21:30 Temperature Pulse Rate 71 71 68 Respiratory Rate 17 17 16 Blood Pressure 111/56 L Pulse Oximetry 94 L 94 L 94 L 05/12/18 21:31 05/12/18 21:45 05/12/18 21:46 Temperature Pulse Rate 67 65 65 Respiratory Rate 16 17 Blood Pressure 101/41 L 101/49 L Pulse Oximetry 94 L 94 L 94 L 05/12/18 22:00 05/12/18 22:01 05/12/18 22:15 Temperature Pulse Rate 65 65 64 Respiratory Rate 17 17 Blood Pressure 106/53 L Pulse Oximetry 95 95 96 05/12/18 22:16 05/12/18 22:30 05/12/18 22:31 Temperature Pulse Rate 63 63 63 Respiratory Rate 18 17 Blood Pressure 107/53 L 102/49 L Pulse Oximetry 96 96 96 05/12/18 22:45 05/12/18 22:46 05/12/18 23:00 Temperature Pulse Rate 63 63 63 Respiratory Rate 18 19 17 Blood Pressure 99/48 L Pulse Oximetry 96 96 96 05/12/18 23:01 05/12/18 23:15 05/12/18 23:16 Temperature Pulse Rate 63 64 64 Respiratory Rate 18 19 17 Blood Pressure 99/49 L 108/54 L Pulse Oximetry 97 96 96 05/12/18 23:30 05/12/18 23:31 05/12/18 23:45 Temperature Pulse Rate 64 64 64 Respiratory Rate 16 Blood Pressure 111/53 L Pulse Oximetry 96 97 97 05/12/18 23:46 05/13/18 00:00 05/13/18 00:01 Temperature 98.6 F Pulse Rate 64 64 64 Respiratory Rate 17 Blood Pressure 110/54 L 114/57 L Pulse Oximetry 97 97 96 05/13/18 00:15 05/13/18 00:16 05/13/18 00:30 Temperature Pulse Rate 64 64 64 Respiratory Rate 16 18 18 Blood Pressure 110/55 L Pulse Oximetry 97 97 96 05/13/18 00:31 05/13/18 00:45 05/13/18 00:57 Temperature Pulse Rate 64 77 74 Respiratory Rate 17 21 20 Blood Pressure 111/56 L 140/65 Pulse Oximetry 96 79 L 97 05/13/18 01:00 05/13/18 01:01 05/13/18 01:15 Temperature Pulse Rate 70 71 66 Respiratory Rate 16 19 14 Blood Pressure 129/63 Pulse Oximetry 96 96 96 05/13/18 01:16 05/13/18 01:30 05/13/18 01:31 Temperature Pulse Rate 66 64 65 Respiratory Rate 22 21 Blood Pressure 121/60 116/54 L Pulse Oximetry 96 96 96 05/13/18 01:45 05/13/18 01:46 05/13/18 02:00 Temperature Pulse Rate 63 62 62 Respiratory Rate 19 19 20 Blood Pressure 111/53 L Pulse Oximetry 96 96 96 05/13/18 02:01 05/13/18 02:15 05/13/18 02:16 Temperature Pulse Rate 62 63 63 Respiratory Rate 12 20 16 Blood Pressure 109/53 L 114/54 L Pulse Oximetry 96 96 96 05/13/18 02:30 05/13/18 02:31 05/13/18 02:45 Temperature Pulse Rate 63 63 62 Respiratory Rate 17 21 17 Blood Pressure 113/56 L Pulse Oximetry 96 96 96 05/13/18 02:46 05/13/18 03:00 05/13/18 03:01 Temperature Pulse Rate 62 63 62 Respiratory Rate 19 19 19 Blood Pressure 113/56 L 117/57 L Pulse Oximetry 96 97 97 05/13/18 03:15 05/13/18 03:16 05/13/18 03:30 Temperature Pulse Rate 61 61 61 Respiratory Rate 15 21 14 Blood Pressure 108/51 L Pulse Oximetry 97 97 97 05/13/18 03:31 05/13/18 03:45 05/13/18 03:46 Temperature Pulse Rate 61 61 61 Respiratory Rate 16 19 18 Blood Pressure 111/54 L 110/53 L Pulse Oximetry 97 97 97 05/13/18 04:00 05/13/18 04:01 05/13/18 04:15 Temperature 98.6 F Pulse Rate 61 61 61 Respiratory Rate 18 15 16 Blood Pressure 113/55 L Pulse Oximetry 97 97 97 05/13/18 04:16 05/13/18 04:30 05/13/18 04:31 Temperature Pulse Rate 61 65 64 Respiratory Rate 20 15 16 Blood Pressure 115/56 L 118/54 L Pulse Oximetry 97 94 L 94 L 05/13/18 04:45 05/13/18 04:46 05/13/18 05:00 Temperature Pulse Rate 64 65 63 Respiratory Rate 16 18 Blood Pressure 112/53 L Pulse Oximetry 94 L 94 L 94 L 05/13/18 05:01 05/13/18 05:15 05/13/18 05:16 Temperature Pulse Rate 63 62 62 Respiratory Rate 9 L 9 L Blood Pressure 109/56 L 109/55 L Pulse Oximetry 94 L 94 L 93 L 05/13/18 05:30 05/13/18 05:31 05/13/18 05:45 Temperature Pulse Rate 62 62 62 Respiratory Rate 13 12 15 Blood Pressure 108/54 L Pulse Oximetry 94 L 94 L 88 L 05/13/18 05:46 05/13/18 06:00 05/13/18 06:01 Temperature Pulse Rate 62 70 68 Respiratory Rate 16 21 17 Blood Pressure 104/54 L 126/60 Pulse Oximetry 95 95 94 L 05/13/18 06:15 05/13/18 06:16 05/13/18 06:30 Temperature Pulse Rate 63 63 62 Respiratory Rate 18 17 16 Blood Pressure 118/58 L Pulse Oximetry 92 L 92 L 92 L 05/13/18 06:31 05/13/18 06:45 05/13/18 06:46 Temperature Pulse Rate 62 62 62 Respiratory Rate 16 16 18 Blood Pressure 110/56 L 111/54 L Pulse Oximetry 92 L 92 L 92 L 05/13/18 07:00 05/13/18 07:01 05/13/18 07:15 Temperature Pulse Rate 61 62 61 Respiratory Rate 16 16 16 Blood Pressure 109/54 L Pulse Oximetry 93 L 93 L 93 L 05/13/18 07:16 05/13/18 07:30 05/13/18 07:31 Temperature Pulse Rate 61 61 61 Respiratory Rate 16 19 16 Blood Pressure 110/52 L 111/54 L Pulse Oximetry 93 L 94 L 94 L 05/13/18 07:45 05/13/18 07:46 05/13/18 08:00 Temperature Pulse Rate 61 61 68 Respiratory Rate 16 18 19 Blood Pressure 112/55 L Pulse Oximetry 94 L 94 L 95 05/13/18 08:01 05/13/18 08:15 05/13/18 08:16 Temperature Pulse Rate 64 65 68 Respiratory Rate 14 17 19 Blood Pressure 123/58 L 128/63 Pulse Oximetry 95 95 95 05/13/18 08:30 05/13/18 08:31 05/13/18 08:45 Temperature Pulse Rate 69 69 69 Respiratory Rate 19 19 19 Blood Pressure 121/56 L Pulse Oximetry 93 L 93 L 92 L 05/13/18 08:46 05/13/18 09:00 05/13/18 09:01 Temperature Pulse Rate 69 68 68 Respiratory Rate 21 20 20 Blood Pressure 122/60 121/57 L Pulse Oximetry 92 L 92 L 92 L 05/13/18 09:15 05/13/18 09:16 05/13/18 09:18 Temperature Pulse Rate 67 67 Respiratory Rate 19 20 20 Blood Pressure 128/60 Pulse Oximetry 93 L 93 L 94 L 05/13/18 09:30 05/13/18 09:31 05/13/18 09:45 Temperature Pulse Rate 68 68 71 Respiratory Rate 23 22 25 H Blood Pressure 127/60 Pulse Oximetry 93 L 92 L 93 L 05/13/18 09:46 05/13/18 10:00 05/13/18 10:01 Temperature Pulse Rate 72 70 70 Respiratory Rate 25 H 22 24 Blood Pressure 125/57 L 134/60 Pulse Oximetry 93 L 93 L 93 L 05/13/18 10:15 05/13/18 10:16 05/13/18 10:30 Temperature Pulse Rate 72 72 71 Respiratory Rate 24 23 22 Blood Pressure 139/63 Pulse Oximetry 93 L 93 L 93 L 05/13/18 11:52 Temperature Pulse Rate Respiratory Rate 28 H Blood Pressure Pulse Oximetry 92 L Intake & Output 05/12/18 05/13/18 05/13/18 18:59 06:59 18:59 Intake Total 1300 / 1300 2110 / 2110 1000 / 1000 Output Total 825 / 825 850 / 850 Balance 475 / 475 1260 / 1260 1000 / 1000 Weight 86.3 kg Intake: IV 1100 / 1100 2110 / 2110 1000 / 1000 Protonix Inj 80 MG In NS Inj 195 / 195 1000 / 1000 100 ML @ 10 mls/hr IV.CONT Q10H [facility] Rx#:[id number] Neosynephrine Inj 40 MG In D5W 500 / 500 Inj 496 ML @ 40 MCG/MIN 30 mls/ hr IV.CONT TITRATE PRN Rx#: [id number] Diprivan 1000 mg/100 ml Inj 1, 100 / 100 175 / 175 000 mg In 100 ml @ 5 MCG/KG/MIN 2.376 mls/hr IV.CONT TITRATE PRN Rx#:[id number] NS Inj 1,000 ML @ 200 mls/hr IV 1000 / 1000 1000 / 1000 .SIG .Q5H [facility] Rx#:[id number] fentaNYL 10 mcg/mL Premix Drip 240 / 240 2,500 mcg In 250 ml @ 50 MCG/HR 5 mls/hr IV.SIG TITRATE PRN Rx #:[id number] Anesthesia Amount 200 / 200 Output: Urine Amount (Catheter) 425 / 425 750 / 750 Indwelling Urethral Catheter 425 / 425 750 / 750 Gastric Drainage 400 / 400 100 / 100 Orogastric Tube 400 / 400 100 / 100 Other: Date of Last Bowel Movement 05/12/18 05/13/18 05/13/18 # Bowel Movements 2 # Incontinent Bowel Movements 2 4 - Constitutional no acute distress - Routine HEENT Exam Eye: Present: PERRL ENT: Present: mucous membranes dry - Routine Respiratory Exam Present: patient mechanically ventilated, CTA bilaterally - Routine Cardiovascular Exam Present: S1, S2. Absent: murmur, gallop, rubs - Routine Abdominal Exam Present: normoactive bowel sounds Comments: GI bleed present. - Routine Skin Exam Present: intact - Routine Neurological Exam Sedated. - Detailed Neurological Exam: Coma Scale Eye Opening: None Verbal Response: None Motor Response: None [place] Coma Scale Total: 3 - Routine Psychiatric Exam Present: unable to assess - Urinary Catheter Management Indwelling Urethral Catheter Cath placed during this visit: yes Reason for continuing: Hourly intake/output Insertion date: 05/12/18 Insertion time: 00:42 Results 05/13/18 05:52 05/13/18 05:52 Cardiac Enzymes 05/11/18 05/12/18 05/13/18 Range/Units 17:45 09:52 05:52 AST 31 139 H 51 H (15-37) U/L Coagulation 05/11/18 Range/Units 17:45 PT 12.7 H (9.8-11.6) sec APTT 27.1 (23.4-31.7) sec CBC 05/11/18 05/11/18 05/11/18 Range/Units 15:12 17:45 21:01 WBC 12.7 H (4.0-11.0) th/mm3 RBC 1.74 L (4.50-5.90) mil/mm3 Hgb 7.2 L 6.2 L* 11.5 L D (13.0-17.0) gm/dL Hct 21.2 L 17.1 L* 33.6 L (39.0-51.0) % Plt Count 275 (150-450) th/mm3 05/12/18 05/12/18 05/13/18 Range/Units 03:02 09:52 05:52 WBC 25.9 H D 30.8 H 18.2 H (4.0-11.0) th/mm3 RBC 3.73 L 3.24 L 2.81 L (4.50-5.90) mil/mm3 Hgb 11.6 L 9.8 L 8.7 L (13.0-17.0) gm/dL Hct 32.6 L 28.7 L 25.4 L (39.0-51.0) % Plt Count 224 248 195 (150-450) th/mm3 Comprehensive Metabolic Panel 05/11/18 05/12/18 05/13/18 Range/Units 17:45 09:52 05:52 Sodium 140 139 143 (136-145) meq/L Potassium 5.2 H D 4.5 3.8 (3.5-5.1) meq/L Chloride 103 106 112 H (98-107) meq/L Carbon Dioxide 22.3 19.3 L 20.6 L (21.0-32.0) meq/L BUN 63 H 87 H 80 H (7-18) mg/dL Creatinine 1.96 H 2.41 H 2.34 H (0.60-1.30) mg/dL Calcium 7.4 L* 7.0 L* 6.7 L* (8.5-10.1) mg/dL AST 31 139 H 51 H (15-37) U/L ALT 34 115 H 89 H (12-78) U/L Alkaline Phosphatase 63 64 64 (45-117) U/L Total Protein 5.0 L D 4.8 L 4.8 L (6.4-8.2) g/dL Albumin 2.1 L 2.1 L 1.8 L (3.4-5.0) g/dL Intake and Output 05/12/18 05/13/18 05/13/18 22:59 06:59 14:59 Intake Total 2695 / 2695 515 / 515 1000 / 1000 Output Total 825 / 825 850 / 850 Balance 1870 / 1870 -335 / -335 1000 / 1000 Intake: IV 2695 / 2695 515 / 515 1000 / 1000 Protonix Inj 80 MG In NS Inj 95 / 95 100 / 100 1000 / 1000 100 ML @ 10 mls/hr IV.CONT Q10H [facility] Rx#:[id number] Neosynephrine Inj 40 MG In D5W 500 / 500 Inj 496 ML @ 40 MCG/MIN 30 mls/ hr IV.CONT TITRATE PRN Rx#: [id number] Diprivan 1000 mg/100 ml Inj 1, 100 / 100 175 / 175 000 mg In 100 ml @ 5 MCG/KG/MIN 2.376 mls/hr IV.CONT TITRATE PRN Rx#:[id number] NS Inj 1,000 ML @ 200 mls/hr IV 1999 .SIG .Q5H [facility] Rx#:[id number] fentaNYL 10 mcg/mL Premix Drip 240 / 240 2,500 mcg In 250 ml @ 50 MCG/HR 5 mls/hr IV.SIG TITRATE PRN Rx #:[id number] Output: Urine Amount (Catheter) 425 / 425 750 / 750 Indwelling Urethral Catheter 425 / 425 750 / 750 Gastric Drainage 400 / 400 100 / 100 Orogastric Tube 400 / 400 100 / 100 Other: Date of Last Bowel Movement 05/12/18 05/13/18 05/13/18 # Bowel Movements 2 # Incontinent Bowel Movements 2 4 Weight 86.3 kg - Imaging and Cardiology Imaging: Impressions Chest X-Ray 05/11/18 18:21 CONCLUSION: ET tube in good position. Assessment and Plan - Assessment (1) GI (gastrointestinal hemorrhage) Code(s): K92.2 - Gastrointestinal hemorrhage, unspecified Status: Acute (2) Acute ischemic left MCA stroke Code(s): I63.512 - Cerebral infarction due to unspecified occlusion or stenosis of left middle cerebral artery Status: Acute (3) Hypertension Code(s): I10 - Essential (primary) hypertension Status: Chronic (4) Hyperlipidemia Code(s): E78.5 - Hyperlipidemia, unspecified Status: Chronic (5) Sick sinus syndrome Code(s): I49.5 - Sick sinus syndrome Status: Acute (6) Bradycardia Code(s): R00.1 - Bradycardia, unspecified Status: Acute (7) Acute kidney injury Code(s): N17.9 - Acute kidney failure, unspecified Status: Acute - Plan Patient remains intubated. Vital signs are stable at this time. Patient continues to have signs of GI bleeding, Hgb today is 8.7, transfused yest, GI evaluation in progress. We will continue to hold anticoagulation. There are no new cardiac issues at this time, continue current cardiac treatment plan. We will continue to monitor during his hospitalization. The patient was seen and evaluated by Dr. Rick who participated in care, management and decision making. - Attending Attestation Patient seen and examined. I reviewed and agree with the evaluation and plan as presented. GI evaluation in progress for continuing GIB. Continue ICU care. (3) Hypertension Qualifiers: Hypertension type: essential hypertension Qualified Code(s): I10 - Essential (primary) hypertension
--- NOTE | 2018-05-13 13:01 | P.PNGI ---
Subjective Interval history: Patient currently remains in the intensive care setting NG tube shows dark maroon colored return status post EGD on 05/12/2018, NG tube now on low intermittent suction. Ventilator management <Sravanthi Harris - Last Filed: 05/13/18 13:01> Physical Exam Vital signs: Vital Signs 05/12/18 13:00 05/12/18 13:15 05/12/18 13:30 Temperature Pulse Rate 65 65 65 Respiratory Rate 16 16 16 Blood Pressure 123/56 L 119/56 L 124/58 L Pulse Oximetry 98 98 98 05/12/18 13:45 05/12/18 14:00 05/12/18 14:15 Temperature Pulse Rate 64 64 64 Respiratory Rate 16 16 16 Blood Pressure 112/54 L 125/61 121/59 L Pulse Oximetry 98 97 97 05/12/18 14:30 05/12/18 14:45 05/12/18 15:00 Temperature Pulse Rate 64 64 66 Respiratory Rate 17 16 16 Blood Pressure 129/60 120/60 129/59 L Pulse Oximetry 98 98 97 05/12/18 15:15 05/12/18 15:22 05/12/18 15:30 Temperature Pulse Rate 64 65 Respiratory Rate 16 16 16 Blood Pressure 130/59 L 119/56 L Pulse Oximetry 97 98 98 05/12/18 15:45 05/12/18 16:00 05/12/18 16:15 Temperature 98.6 F Pulse Rate 65 70 75 Respiratory Rate 15 17 17 Blood Pressure 128/60 136/62 164/70 H Pulse Oximetry 97 98 96 05/12/18 16:30 05/12/18 16:45 05/12/18 16:46 Temperature Pulse Rate 90 82 81 Respiratory Rate 28 H 19 20 Blood Pressure 158/120 H 141/62 H Pulse Oximetry 99 98 91 L 05/12/18 17:00 05/12/18 17:01 05/12/18 17:15 Temperature Pulse Rate 73 73 75 Respiratory Rate 17 17 17 Blood Pressure 128/56 L Pulse Oximetry 100 100 100 05/12/18 17:16 05/12/18 17:30 05/12/18 17:31 Temperature Pulse Rate 75 70 70 Respiratory Rate 15 17 17 Blood Pressure 123/58 L 101/51 L Pulse Oximetry 100 100 100 05/12/18 17:45 05/12/18 17:46 05/12/18 18:00 Temperature Pulse Rate 68 68 74 Respiratory Rate 16 14 18 Blood Pressure 119/59 L Pulse Oximetry 100 100 100 05/12/18 18:01 05/12/18 18:15 05/12/18 18:16 Temperature Pulse Rate 70 66 65 Respiratory Rate 17 13 14 Blood Pressure 138/59 L 133/61 Pulse Oximetry 100 100 100 05/12/18 18:30 05/12/18 18:31 05/12/18 18:45 Temperature Pulse Rate 72 72 70 Respiratory Rate 16 Blood Pressure 127/61 Pulse Oximetry 97 97 97 05/12/18 18:46 05/12/18 19:00 05/12/18 19:01 Temperature Pulse Rate 70 68 70 Respiratory Rate 16 Blood Pressure 131/59 L 130/60 Pulse Oximetry 97 97 97 05/12/18 19:15 05/12/18 19:16 05/12/18 19:19 Temperature Pulse Rate 69 69 Respiratory Rate 17 17 Blood Pressure 134/60 Pulse Oximetry 98 97 98 05/12/18 19:30 05/12/18 19:31 05/12/18 19:45 Temperature Pulse Rate 68 68 67 Respiratory Rate 17 Blood Pressure 129/58 L Pulse Oximetry 97 97 97 05/12/18 19:46 05/12/18 20:00 05/12/18 20:01 Temperature 98.6 F Pulse Rate 68 66 66 Respiratory Rate 16 Blood Pressure 132/60 120/56 L Pulse Oximetry 97 97 97 05/12/18 20:15 05/12/18 20:16 05/12/18 20:25 Temperature Pulse Rate 66 66 85 Respiratory Rate 16 Blood Pressure 120/58 L 119/70 Pulse Oximetry 97 97 99 05/12/18 20:30 05/12/18 20:31 05/12/18 20:45 Temperature Pulse Rate 76 74 70 Respiratory Rate 18 Blood Pressure 134/72 Pulse Oximetry 98 98 95 05/12/18 20:46 05/12/18 21:00 05/12/18 21:01 Temperature Pulse Rate 71 79 79 Respiratory Rate 17 17 22 Blood Pressure 118/58 L 105/51 L Pulse Oximetry 95 96 93 L 05/12/18 21:15 05/12/18 21:16 05/12/18 21:30 Temperature Pulse Rate 71 71 68 Respiratory Rate 17 17 16 Blood Pressure 111/56 L Pulse Oximetry 94 L 94 L 94 L 05/12/18 21:31 05/12/18 21:45 05/12/18 21:46 Temperature Pulse Rate 67 65 65 Respiratory Rate 16 17 Blood Pressure 101/41 L 101/49 L Pulse Oximetry 94 L 94 L 94 L 05/12/18 22:00 05/12/18 22:01 05/12/18 22:15 Temperature Pulse Rate 65 65 64 Respiratory Rate 17 17 Blood Pressure 106/53 L Pulse Oximetry 95 95 96 05/12/18 22:16 05/12/18 22:30 05/12/18 22:31 Temperature Pulse Rate 63 63 63 Respiratory Rate 18 17 Blood Pressure 107/53 L 102/49 L Pulse Oximetry 96 96 96 05/12/18 22:45 05/12/18 22:46 05/12/18 23:00 Temperature Pulse Rate 63 63 63 Respiratory Rate 18 19 17 Blood Pressure 99/48 L Pulse Oximetry 96 96 96 05/12/18 23:01 05/12/18 23:15 05/12/18 23:16 Temperature Pulse Rate 63 64 64 Respiratory Rate 18 19 17 Blood Pressure 99/49 L 108/54 L Pulse Oximetry 97 96 96 05/12/18 23:30 05/12/18 23:31 05/12/18 23:45 Temperature Pulse Rate 64 64 64 Respiratory Rate 16 Blood Pressure 111/53 L Pulse Oximetry 96 97 97 05/12/18 23:46 05/13/18 00:00 05/13/18 00:01 Temperature 98.6 F Pulse Rate 64 64 64 Respiratory Rate 17 Blood Pressure 110/54 L 114/57 L Pulse Oximetry 97 97 96 05/13/18 00:15 05/13/18 00:16 05/13/18 00:30 Temperature Pulse Rate 64 64 64 Respiratory Rate 16 18 18 Blood Pressure 110/55 L Pulse Oximetry 97 97 96 05/13/18 00:31 05/13/18 00:45 05/13/18 00:57 Temperature Pulse Rate 64 77 74 Respiratory Rate 17 21 20 Blood Pressure 111/56 L 140/65 Pulse Oximetry 96 79 L 97 05/13/18 01:00 05/13/18 01:01 05/13/18 01:15 Temperature Pulse Rate 70 71 66 Respiratory Rate 16 19 14 Blood Pressure 129/63 Pulse Oximetry 96 96 96 05/13/18 01:16 05/13/18 01:30 05/13/18 01:31 Temperature Pulse Rate 66 64 65 Respiratory Rate 22 21 Blood Pressure 121/60 116/54 L Pulse Oximetry 96 96 96 05/13/18 01:45 05/13/18 01:46 05/13/18 02:00 Temperature Pulse Rate 63 62 62 Respiratory Rate 19 19 20 Blood Pressure 111/53 L Pulse Oximetry 96 96 96 05/13/18 02:01 05/13/18 02:15 05/13/18 02:16 Temperature Pulse Rate 62 63 63 Respiratory Rate 12 20 16 Blood Pressure 109/53 L 114/54 L Pulse Oximetry 96 96 96 05/13/18 02:30 05/13/18 02:31 05/13/18 02:45 Temperature Pulse Rate 63 63 62 Respiratory Rate 17 21 17 Blood Pressure 113/56 L Pulse Oximetry 96 96 96 05/13/18 02:46 05/13/18 03:00 05/13/18 03:01 Temperature Pulse Rate 62 63 62 Respiratory Rate 19 19 19 Blood Pressure 113/56 L 117/57 L Pulse Oximetry 96 97 97 05/13/18 03:15 05/13/18 03:16 05/13/18 03:30 Temperature Pulse Rate 61 61 61 Respiratory Rate 15 21 14 Blood Pressure 108/51 L Pulse Oximetry 97 97 97 05/13/18 03:31 05/13/18 03:45 05/13/18 03:46 Temperature Pulse Rate 61 61 61 Respiratory Rate 16 19 18 Blood Pressure 111/54 L 110/53 L Pulse Oximetry 97 97 97 05/13/18 04:00 05/13/18 04:01 05/13/18 04:15 Temperature 98.6 F Pulse Rate 61 61 61 Respiratory Rate 18 15 16 Blood Pressure 113/55 L Pulse Oximetry 97 97 97 05/13/18 04:16 05/13/18 04:30 05/13/18 04:31 Temperature Pulse Rate 61 65 64 Respiratory Rate 20 15 16 Blood Pressure 115/56 L 118/54 L Pulse Oximetry 97 94 L 94 L 05/13/18 04:45 05/13/18 04:46 05/13/18 05:00 Temperature Pulse Rate 64 65 63 Respiratory Rate 16 18 Blood Pressure 112/53 L Pulse Oximetry 94 L 94 L 94 L 05/13/18 05:01 05/13/18 05:15 05/13/18 05:16 Temperature Pulse Rate 63 62 62 Respiratory Rate 9 L 9 L Blood Pressure 109/56 L 109/55 L Pulse Oximetry 94 L 94 L 93 L 05/13/18 05:30 05/13/18 05:31 05/13/18 05:45 Temperature Pulse Rate 62 62 62 Respiratory Rate 13 12 15 Blood Pressure 108/54 L Pulse Oximetry 94 L 94 L 88 L 05/13/18 05:46 05/13/18 06:00 05/13/18 06:01 Temperature Pulse Rate 62 70 68 Respiratory Rate 16 21 17 Blood Pressure 104/54 L 126/60 Pulse Oximetry 95 95 94 L 05/13/18 06:15 05/13/18 06:16 05/13/18 06:30 Temperature Pulse Rate 63 63 62 Respiratory Rate 18 17 16 Blood Pressure 118/58 L Pulse Oximetry 92 L 92 L 92 L 05/13/18 06:31 05/13/18 06:45 05/13/18 06:46 Temperature Pulse Rate 62 62 62 Respiratory Rate 16 16 18 Blood Pressure 110/56 L 111/54 L Pulse Oximetry 92 L 92 L 92 L 05/13/18 07:00 05/13/18 07:01 05/13/18 07:15 Temperature Pulse Rate 61 62 61 Respiratory Rate 16 16 16 Blood Pressure 109/54 L Pulse Oximetry 93 L 93 L 93 L 05/13/18 07:16 05/13/18 07:30 05/13/18 07:31 Temperature Pulse Rate 61 61 61 Respiratory Rate 16 19 16 Blood Pressure 110/52 L 111/54 L Pulse Oximetry 93 L 94 L 94 L 05/13/18 07:45 05/13/18 07:46 05/13/18 08:00 Temperature Pulse Rate 61 61 68 Respiratory Rate 16 18 19 Blood Pressure 112/55 L Pulse Oximetry 94 L 94 L 95 05/13/18 08:01 05/13/18 08:15 05/13/18 08:16 Temperature Pulse Rate 64 65 68 Respiratory Rate 14 17 19 Blood Pressure 123/58 L 128/63 Pulse Oximetry 95 95 95 05/13/18 08:30 05/13/18 08:31 05/13/18 08:45 Temperature Pulse Rate 69 69 69 Respiratory Rate 19 19 19 Blood Pressure 121/56 L Pulse Oximetry 93 L 93 L 92 L 05/13/18 08:46 05/13/18 09:00 05/13/18 09:01 Temperature Pulse Rate 69 68 68 Respiratory Rate 21 20 20 Blood Pressure 122/60 121/57 L Pulse Oximetry 92 L 92 L 92 L 05/13/18 09:15 05/13/18 09:16 05/13/18 09:18 Temperature Pulse Rate 67 67 Respiratory Rate 19 20 20 Blood Pressure 128/60 Pulse Oximetry 93 L 93 L 94 L 05/13/18 09:30 05/13/18 09:31 05/13/18 09:45 Temperature Pulse Rate 68 68 71 Respiratory Rate 23 22 25 H Blood Pressure 127/60 Pulse Oximetry 93 L 92 L 93 L 05/13/18 09:46 05/13/18 10:00 05/13/18 10:01 Temperature Pulse Rate 72 70 70 Respiratory Rate 25 H 22 24 Blood Pressure 125/57 L 134/60 Pulse Oximetry 93 L 93 L 93 L 05/13/18 10:15 05/13/18 10:16 05/13/18 10:30 Temperature Pulse Rate 72 72 71 Respiratory Rate 24 23 22 Blood Pressure 139/63 Pulse Oximetry 93 L 93 L 93 L 05/13/18 10:31 05/13/18 10:45 05/13/18 10:46 Temperature Pulse Rate 71 73 72 Respiratory Rate 22 25 H 24 Blood Pressure 158/67 H 148/63 H Pulse Oximetry 93 L 93 L 93 L 05/13/18 11:00 05/13/18 11:01 05/13/18 11:15 Temperature Pulse Rate 72 74 73 Respiratory Rate 21 25 H 24 Blood Pressure 125/60 Pulse Oximetry 93 L 94 L 91 L 05/13/18 11:16 05/13/18 11:30 05/13/18 11:31 Temperature Pulse Rate 73 78 78 Respiratory Rate 23 24 24 Blood Pressure 134/56 L 142/64 H Pulse Oximetry 91 L 92 L 91 L 05/13/18 11:45 05/13/18 11:46 05/13/18 11:52 Temperature Pulse Rate 79 80 Respiratory Rate 24 22 28 H Blood Pressure 140/69 Pulse Oximetry 91 L 91 L 92 L 05/13/18 12:00 05/13/18 12:01 05/13/18 12:15 Temperature Pulse Rate 89 89 82 Respiratory Rate 31 H 29 H 22 Blood Pressure 155/65 H Pulse Oximetry 93 L 92 L 94 L 05/13/18 12:16 05/13/18 12:30 05/13/18 12:31 Temperature Pulse Rate 81 76 76 Respiratory Rate 20 18 19 Blood Pressure 138/65 123/60 Pulse Oximetry 94 L 96 96 Intake & Output 05/12/18 05/13/18 05/13/18 18:59 06:59 18:59 Intake Total 1300 / 1300 2109 / 2109 Output Total 825 / 825 850 / 850 Balance 475 / 475 1260 / 1260 1999 Weight 86.3 kg Intake: IV 1100 / 1100 2109 Protonix Inj 80 MG In NS Inj 195 / 195 1000 / 1000 100 ML @ 10 mls/hr IV.CONT Q10H [facility] Rx#:[id number] Neosynephrine Inj 40 MG In D5W 500 / 500 Inj 496 ML @ 40 MCG/MIN 30 mls/ hr IV.CONT TITRATE PRN Rx#: [id number] Diprivan 1000 mg/100 ml Inj 1, 100 / 100 175 / 175 000 mg In 100 ml @ 5 MCG/KG/MIN 2.376 mls/hr IV.CONT TITRATE PRN Rx#:[id number] NS Inj 1,000 ML @ 200 mls/hr IV 1000 / 1000 1000 / 1000 1000 / 1000 .SIG .Q5H [facility] Rx#:[id number] fentaNYL 10 mcg/mL Premix Drip 240 / 240 2,500 mcg In 250 ml @ 50 MCG/HR 5 mls/hr IV.SIG TITRATE PRN Rx #:[id number] Anesthesia Amount 200 / 200 Output: Urine Amount (Catheter) 425 / 425 750 / 750 Indwelling Urethral Catheter 425 / 425 750 / 750 Gastric Drainage 400 / 400 100 / 100 Orogastric Tube 400 / 400 100 / 100 Other: Date of Last Bowel Movement 05/12/18 05/13/18 05/13/18 # Bowel Movements 2 # Incontinent Bowel Movements 2 4 - Constitutional moderate distress, obtunded - Routine HEENT Exam Head: Present: normocephalic (Pale) ENT: Present: mucous membranes moist (NG tube maroon colored blood) - Routine Neck Exam Present: supple - Routine Respiratory Exam Present: distant breath sounds - Routine Cardiovascular Exam Present: S1, S2 - Routine Abdominal Exam Present: soft (Round, soft bowel sounds) - Routine Skin Exam Present: pallor - Urinary Catheter Management Indwelling Urethral Catheter Cath placed during this visit: yes Reason for continuing: Hourly intake/output Insertion date: 05/12/18 Insertion time: 00:42 <Sravanthi Harris - Last Filed: 05/13/18 13:01> Vital signs: Vital Signs 05/12/18 20:30 05/12/18 20:31 05/12/18 20:45 Temperature Pulse Rate 76 74 70 Respiratory Rate 18 Blood Pressure 134/72 Pulse Oximetry 98 98 95 05/12/18 20:46 05/12/18 21:00 05/12/18 21:01 Temperature Pulse Rate 71 79 79 Respiratory Rate 17 17 22 Blood Pressure 118/58 L 105/51 L Pulse Oximetry 95 96 93 L 05/12/18 21:15 05/12/18 21:16 05/12/18 21:30 Temperature Pulse Rate 71 71 68 Respiratory Rate 17 17 16 Blood Pressure 111/56 L Pulse Oximetry 94 L 94 L 94 L 05/12/18 21:31 05/12/18 21:45 05/12/18 21:46 Temperature Pulse Rate 67 65 65 Respiratory Rate 16 17 Blood Pressure 101/41 L 101/49 L Pulse Oximetry 94 L 94 L 94 L 05/12/18 22:00 05/12/18 22:01 05/12/18 22:15 Temperature Pulse Rate 65 65 64 Respiratory Rate 17 17 Blood Pressure 106/53 L Pulse Oximetry 95 95 96 05/12/18 22:16 05/12/18 22:30 05/12/18 22:31 Temperature Pulse Rate 63 63 63 Respiratory Rate 18 17 Blood Pressure 107/53 L 102/49 L Pulse Oximetry 96 96 96 05/12/18 22:45 05/12/18 22:46 05/12/18 23:00 Temperature Pulse Rate 63 63 63 Respiratory Rate 18 19 17 Blood Pressure 99/48 L Pulse Oximetry 96 96 96 05/12/18 23:01 05/12/18 23:15 05/12/18 23:16 Temperature Pulse Rate 63 64 64 Respiratory Rate 18 19 17 Blood Pressure 99/49 L 108/54 L Pulse Oximetry 97 96 96 05/12/18 23:30 05/12/18 23:31 05/12/18 23:45 Temperature Pulse Rate 64 64 64 Respiratory Rate 16 Blood Pressure 111/53 L Pulse Oximetry 96 97 97 05/12/18 23:46 05/13/18 00:00 05/13/18 00:01 Temperature 98.6 F Pulse Rate 64 64 64 Respiratory Rate 17 Blood Pressure 110/54 L 114/57 L Pulse Oximetry 97 97 96 05/13/18 00:15 05/13/18 00:16 05/13/18 00:30 Temperature Pulse Rate 64 64 64 Respiratory Rate 16 18 18 Blood Pressure 110/55 L Pulse Oximetry 97 97 96 05/13/18 00:31 05/13/18 00:45 05/13/18 00:57 Temperature Pulse Rate 64 77 74 Respiratory Rate 17 21 20 Blood Pressure 111/56 L 140/65 Pulse Oximetry 96 79 L 97 05/13/18 01:00 05/13/18 01:01 05/13/18 01:15 Temperature Pulse Rate 70 71 66 Respiratory Rate 16 19 14 Blood Pressure 129/63 Pulse Oximetry 96 96 96 05/13/18 01:16 05/13/18 01:30 05/13/18 01:31 Temperature Pulse Rate 66 64 65 Respiratory Rate 22 21 Blood Pressure 121/60 116/54 L Pulse Oximetry 96 96 96 05/13/18 01:45 05/13/18 01:46 05/13/18 02:00 Temperature Pulse Rate 63 62 62 Respiratory Rate 19 19 20 Blood Pressure 111/53 L Pulse Oximetry 96 96 96 05/13/18 02:01 05/13/18 02:15 05/13/18 02:16 Temperature Pulse Rate 62 63 63 Respiratory Rate 12 20 16 Blood Pressure 109/53 L 114/54 L Pulse Oximetry 96 96 96 05/13/18 02:30 05/13/18 02:31 05/13/18 02:45 Temperature Pulse Rate 63 63 62 Respiratory Rate 17 21 17 Blood Pressure 113/56 L Pulse Oximetry 96 96 96 05/13/18 02:46 05/13/18 03:00 05/13/18 03:01 Temperature Pulse Rate 62 63 62 Respiratory Rate 19 19 19 Blood Pressure 113/56 L 117/57 L Pulse Oximetry 96 97 97 05/13/18 03:15 05/13/18 03:16 05/13/18 03:30 Temperature Pulse Rate 61 61 61 Respiratory Rate 15 21 14 Blood Pressure 108/51 L Pulse Oximetry 97 97 97 05/13/18 03:31 05/13/18 03:45 05/13/18 03:46 Temperature Pulse Rate 61 61 61 Respiratory Rate 16 19 18 Blood Pressure 111/54 L 110/53 L Pulse Oximetry 97 97 97 05/13/18 04:00 05/13/18 04:01 05/13/18 04:15 Temperature 98.6 F Pulse Rate 61 61 61 Respiratory Rate 18 15 16 Blood Pressure 113/55 L Pulse Oximetry 97 97 97 05/13/18 04:16 05/13/18 04:30 05/13/18 04:31 Temperature Pulse Rate 61 65 64 Respiratory Rate 20 15 16 Blood Pressure 115/56 L 118/54 L Pulse Oximetry 97 94 L 94 L 05/13/18 04:45 05/13/18 04:46 05/13/18 05:00 Temperature Pulse Rate 64 65 63 Respiratory Rate 16 18 Blood Pressure 112/53 L Pulse Oximetry 94 L 94 L 94 L 05/13/18 05:01 05/13/18 05:15 05/13/18 05:16 Temperature Pulse Rate 63 62 62 Respiratory Rate 9 L 9 L Blood Pressure 109/56 L 109/55 L Pulse Oximetry 94 L 94 L 93 L 05/13/18 05:30 05/13/18 05:31 05/13/18 05:45 Temperature Pulse Rate 62 62 62 Respiratory Rate 13 12 15 Blood Pressure 108/54 L Pulse Oximetry 94 L 94 L 88 L 05/13/18 05:46 05/13/18 06:00 05/13/18 06:01 Temperature Pulse Rate 62 70 68 Respiratory Rate 16 21 17 Blood Pressure 104/54 L 126/60 Pulse Oximetry 95 95 94 L 05/13/18 06:15 05/13/18 06:16 05/13/18 06:30 Temperature Pulse Rate 63 63 62 Respiratory Rate 18 17 16 Blood Pressure 118/58 L Pulse Oximetry 92 L 92 L 92 L 05/13/18 06:31 05/13/18 06:45 05/13/18 06:46 Temperature Pulse Rate 62 62 62 Respiratory Rate 16 16 18 Blood Pressure 110/56 L 111/54 L Pulse Oximetry 92 L 92 L 92 L 05/13/18 07:00 05/13/18 07:01 05/13/18 07:15 Temperature Pulse Rate 61 62 61 Respiratory Rate 16 16 16 Blood Pressure 109/54 L Pulse Oximetry 93 L 93 L 93 L 05/13/18 07:16 05/13/18 07:30 05/13/18 07:31 Temperature Pulse Rate 61 61 61 Respiratory Rate 16 19 16 Blood Pressure 110/52 L 111/54 L Pulse Oximetry 93 L 94 L 94 L 05/13/18 07:45 05/13/18 07:46 05/13/18 08:00 Temperature Pulse Rate 61 61 68 Respiratory Rate 16 18 19 Blood Pressure 112/55 L Pulse Oximetry 94 L 94 L 95 05/13/18 08:01 05/13/18 08:15 05/13/18 08:16 Temperature Pulse Rate 64 65 68 Respiratory Rate 14 17 19 Blood Pressure 123/58 L 128/63 Pulse Oximetry 95 95 95 05/13/18 08:30 05/13/18 08:31 05/13/18 08:45 Temperature Pulse Rate 69 69 69 Respiratory Rate 19 19 19 Blood Pressure 121/56 L Pulse Oximetry 93 L 93 L 92 L 05/13/18 08:46 05/13/18 09:00 05/13/18 09:01 Temperature Pulse Rate 69 68 68 Respiratory Rate 21 20 20 Blood Pressure 122/60 121/57 L Pulse Oximetry 92 L 92 L 92 L 05/13/18 09:15 05/13/18 09:16 05/13/18 09:18 Temperature Pulse Rate 67 67 Respiratory Rate 19 20 20 Blood Pressure 128/60 Pulse Oximetry 93 L 93 L 94 L 05/13/18 09:30 05/13/18 09:31 05/13/18 09:45 Temperature Pulse Rate 68 68 71 Respiratory Rate 23 22 25 H Blood Pressure 127/60 Pulse Oximetry 93 L 92 L 93 L 05/13/18 09:46 05/13/18 10:00 05/13/18 10:01 Temperature Pulse Rate 72 70 70 Respiratory Rate 25 H 22 24 Blood Pressure 125/57 L 134/60 Pulse Oximetry 93 L 93 L 93 L 05/13/18 10:15 05/13/18 10:16 05/13/18 10:30 Temperature Pulse Rate 72 72 71 Respiratory Rate 24 23 22 Blood Pressure 139/63 Pulse Oximetry 93 L 93 L 93 L 05/13/18 10:31 05/13/18 10:45 05/13/18 10:46 Temperature Pulse Rate 71 73 72 Respiratory Rate 22 25 H 24 Blood Pressure 158/67 H 148/63 H Pulse Oximetry 93 L 93 L 93 L 05/13/18 11:00 05/13/18 11:01 05/13/18 11:15 Temperature Pulse Rate 72 74 73 Respiratory Rate 21 25 H 24 Blood Pressure 125/60 Pulse Oximetry 93 L 94 L 91 L 05/13/18 11:16 05/13/18 11:30 05/13/18 11:31 Temperature Pulse Rate 73 78 78 Respiratory Rate 23 24 24 Blood Pressure 134/56 L 142/64 H Pulse Oximetry 91 L 92 L 91 L 05/13/18 11:45 05/13/18 11:46 05/13/18 11:52 Temperature Pulse Rate 79 80 Respiratory Rate 24 22 28 H Blood Pressure 140/69 Pulse Oximetry 91 L 91 L 92 L 05/13/18 12:00 05/13/18 12:01 05/13/18 12:15 Temperature Pulse Rate 89 89 82 Respiratory Rate 31 H 29 H 22 Blood Pressure 155/65 H Pulse Oximetry 93 L 92 L 94 L 05/13/18 12:16 05/13/18 12:30 05/13/18 12:31 Temperature Pulse Rate 81 76 76 Respiratory Rate 20 18 19 Blood Pressure 138/65 123/60 Pulse Oximetry 94 L 96 96 05/13/18 12:45 05/13/18 12:46 05/13/18 13:00 Temperature Pulse Rate 74 74 72 Respiratory Rate 18 18 17 Blood Pressure 120/59 L Pulse Oximetry 97 97 97 05/13/18 13:01 05/13/18 13:15 05/13/18 13:16 Temperature Pulse Rate 72 70 70 Respiratory Rate 17 18 17 Blood Pressure 119/59 L 118/58 L Pulse Oximetry 97 98 98 05/13/18 13:30 05/13/18 13:31 05/13/18 13:45 Temperature Pulse Rate 70 70 69 Respiratory Rate 17 16 16 Blood Pressure 122/60 Pulse Oximetry 98 98 99 05/13/18 13:46 05/13/18 14:00 05/13/18 14:01 Temperature Pulse Rate 69 70 70 Respiratory Rate 16 17 17 Blood Pressure 127/60 127/61 Pulse Oximetry 99 99 99 05/13/18 14:15 05/13/18 14:16 05/13/18 14:30 Temperature Pulse Rate 69 69 69 Respiratory Rate 18 16 16 Blood Pressure 122/59 L Pulse Oximetry 99 99 99 05/13/18 14:31 05/13/18 14:45 05/13/18 14:46 Temperature Pulse Rate 70 69 69 Respiratory Rate 16 17 15 Blood Pressure 128/60 124/60 Pulse Oximetry 99 99 99 05/13/18 15:00 05/13/18 15:01 05/13/18 15:15 Temperature Pulse Rate 70 70 69 Respiratory Rate 17 17 16 Blood Pressure 129/61 Pulse Oximetry 99 99 99 05/13/18 15:16 05/13/18 15:30 05/13/18 15:31 Temperature Pulse Rate 70 76 75 Respiratory Rate 16 18 18 Blood Pressure 128/61 145/63 H Pulse Oximetry 99 99 99 05/13/18 15:45 05/13/18 15:46 05/13/18 16:00 Temperature Pulse Rate 80 81 82 Respiratory Rate 20 27 H 22 Blood Pressure 148/66 H Pulse Oximetry 97 97 95 05/13/18 16:01 05/13/18 16:15 05/13/18 16:16 Temperature Pulse Rate 82 83 84 Respiratory Rate 21 22 22 Blood Pressure 150/65 H 148/64 H Pulse Oximetry 95 95 95 05/13/18 16:17 05/13/18 16:30 05/13/18 16:31 Temperature Pulse Rate 79 79 Respiratory Rate 20 20 20 Blood Pressure 131/59 L Pulse Oximetry 95 96 96 05/13/18 16:45 05/13/18 16:46 05/13/18 17:00 Temperature Pulse Rate 82 81 86 Respiratory Rate 21 20 35 H Blood Pressure 140/63 Pulse Oximetry 96 96 87 L 05/13/18 17:01 05/13/18 17:15 05/13/18 17:16 Temperature Pulse Rate 87 87 87 Respiratory Rate 31 H 29 H 26 H Blood Pressure 145/67 H 144/65 H Pulse Oximetry 95 92 L 92 L 05/13/18 17:30 05/13/18 17:31 05/13/18 17:45 Temperature Pulse Rate 84 84 84 Respiratory Rate 24 24 21 Blood Pressure 138/62 Pulse Oximetry 93 L 93 L 94 L 05/13/18 17:46 05/13/18 18:00 05/13/18 18:01 Temperature Pulse Rate 83 82 81 Respiratory Rate 22 21 20 Blood Pressure 134/63 138/56 L Pulse Oximetry 94 L 95 95 05/13/18 18:15 05/13/18 18:16 05/13/18 18:30 Temperature Pulse Rate 81 80 83 Respiratory Rate 19 19 20 Blood Pressure 134/60 Pulse Oximetry 95 95 96 05/13/18 19:56 Temperature Pulse Rate Respiratory Rate 26 H Blood Pressure Pulse Oximetry 97 Intake & Output 05/13/18 05/13/18 05/14/18 06:59 18:59 06:59 Intake Total 2110 / 2110 3100 / 3100 Output Total 850 / 850 950 / 950 Balance 1260 / 1260 2150 / 2150 Weight 86.3 kg Intake: IV 2110 / 2110 3100 / 3100 Protonix Inj 80 MG In NS Inj 195 / 195 1000 / 1000 100 ML @ 10 mls/hr IV.CONT Q10H [facility] Rx#:[id number] Neosynephrine Inj 40 MG In D5W 500 / 500 Inj 496 ML @ 40 MCG/MIN 30 mls/ hr IV.CONT TITRATE PRN Rx#: [id number] Diprivan 1000 mg/100 ml Inj 1, 175 / 175 100 / 100 000 mg In 100 ml @ 5 MCG/KG/MIN 2.376 mls/hr IV.CONT TITRATE PRN Rx#:[id number] NS Inj 1,000 ML @ 200 mls/hr IV 1000 / 1000 1999 / 1999 .SIG .Q5H [facility] Rx#:[id number] fentaNYL 10 mcg/mL Premix Drip 240 / 240 2,500 mcg In 250 ml @ 50 MCG/HR 5 mls/hr IV.SIG TITRATE PRN Rx #:[id number] Output: Urine Amount (Catheter) 750 / 750 900 / 900 Indwelling Urethral Catheter 750 / 750 900 / 900 Gastric Drainage 100 / 100 50 / 50 Orogastric Tube 100 / 100 50 / 50 Other: Date of Last Bowel Movement 05/13/18 05/13/18 # Incontinent Bowel Movements 4 - Urinary Catheter Management Indwelling Urethral Catheter Cath placed during this visit: no <Trudy Portillo - Last Filed: 05/13/18 20:27> Results - Labs CBC & Chem 7: 05/13/18 05:52 05/13/18 05:52 Laboratory Results - last 24 hr 05/12/18 05/12/18 05/13/18 18:02 23:31 05:50 WBC RBC Hgb Hct MCV MCH MCHC RDW Plt Count MPV Sodium Potassium Chloride Carbon Dioxide Anion Gap BUN Creatinine Estimated GFR POC Glucose 336 H 265 H 190 H Random Glucose Calcium Prot Corrected Calcium Phosphorus Magnesium Total Bilirubin AST ALT Alkaline Phosphatase Total Protein Albumin 05/13/18 05/13/18 05/13/18 05:52 05:52 11:54 WBC 18.2 H RBC 2.81 L Hgb 8.7 L Hct 25.4 L MCV 90.5 MCH 30.9 MCHC 34.2 RDW 21.2 H Plt Count 195 MPV 8.2 Sodium 143 Potassium 3.8 Chloride 112 H Carbon Dioxide 20.6 L Anion Gap 10 BUN 80 H Creatinine 2.34 H Estimated GFR 27 L POC Glucose 145 H Random Glucose 181 H D Calcium 6.7 L* Prot Corrected Calcium 7.9 L Phosphorus 3.5 D Magnesium 1.5 Total Bilirubin 0.5 AST 51 H ALT 89 H Alkaline Phosphatase 64 Total Protein 4.8 L Albumin 1.8 L <Sravanthi Harris - Last Filed: 05/13/18 13:01> - Labs CBC & Chem 7: 05/13/18 05:52 05/13/18 05:52 Laboratory Results - last 24 hr 05/12/18 05/13/18 05/13/18 23:31 05:50 05:52 WBC 18.2 H RBC 2.81 L Hgb 8.7 L Hct 25.4 L MCV 90.5 MCH 30.9 MCHC 34.2 RDW 21.2 H Plt Count 195 MPV 8.2 Sodium Potassium Chloride Carbon Dioxide Anion Gap BUN Creatinine Estimated GFR POC Glucose 265 H 190 H Random Glucose Calcium Prot Corrected Calcium Phosphorus Magnesium Total Bilirubin AST ALT Alkaline Phosphatase Total Protein Albumin 05/13/18 05/13/18 05/13/18 05:52 11:54 17:15 WBC RBC Hgb Hct MCV MCH MCHC RDW Plt Count MPV Sodium 143 Potassium 3.8 Chloride 112 H Carbon Dioxide 20.6 L Anion Gap 10 BUN 80 H Creatinine 2.34 H Estimated GFR 27 L POC Glucose 145 H 165 H Random Glucose 181 H D Calcium 6.7 L* Prot Corrected Calcium 7.9 L Phosphorus 3.5 D Magnesium 1.5 Total Bilirubin 0.5 AST 51 H ALT 89 H Alkaline Phosphatase 64 Total Protein 4.8 L Albumin 1.8 L <Trudy Portillo - Last Filed: 05/13/18 20:27> Assessment and Plan (1) Anemia Status: Acute Code(s): D64.9 - Anemia, unspecified (2) GI (gastrointestinal hemorrhage) Status: Acute Code(s): K92.2 - Gastrointestinal hemorrhage, unspecified (3) Coffee ground emesis Status: Acute Code(s): K92.0 - Hematemesis - Plan Coffee-ground emesis GI bleeding Anemia Patient brought in to [facility] today due to coffee-ground emesis at home. As per ER documentation. EMS reports large amount of coffee-ground emesis noted at home. On arrival hemoglobin 7.7 hematocrit 23.0 platelet count 344. INR 1.1. Patient recently admitted on 05/01/2018 for anemia due to GI bleeding. 05/05/2018 EGD revealed the following findings: 1. Submucosal lesion second portion of duodenum -round-2 cm-biopsy gastritis antrum-biopsy esophagitis grade c -distal esophagus-biopsy 2. Retroflexed views revealed a hiatal hernia 05/13/2018 labs reviewed showing decrease in white count 18.2, current hemoglobin 8.7, bilirubin 0.5, AST 51 ALT 89 probably related to some shock liver and hypotension related to acute GI bleeding. She continues with dark maroon colored blood via NG tube but has slowed down over the past 12 hours. 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 No no active bleeding but the etiology for the bleed is still unclear. Recommend EGD in 2-3 days scan PLAN Diet n.p.o. for now NG tube connected to low intermittent suction with intensive intake and output Supportive care Monitor labs with special attention to hemoglobin and transfuse as needed N.p.o. at midnight Consent for EGD repeat and reevaluate in a.m. Continue with current supportive care Monitor labs and transfuse as needed Probably an EGD in 2-3 days She was seen per Dr. Portillo and myself, note was written on his behalf <Sravanthi Harris - Last Filed: 05/13/18 13:01> (1) Anemia Status: Acute Code(s): D64.9 - Anemia, unspecified (2) GI (gastrointestinal hemorrhage) Status: Acute Code(s): K92.2 - Gastrointestinal hemorrhage, unspecified (3) Coffee ground emesis Status: Acute Code(s): K92.0 - Hematemesis - Plan Agree with above note and plan, plan EGD tomorrow to rule out source of GI bleed <Trudy Portillo - Last Filed: 05/13/18 20:27>
--- NOTE | 2018-05-13 16:38 | P.PNFP ---
Subjective Interval history: Delayed entry seen earlier this am Remains sedated on ventilator support Results - Labs Result diagrams: 05/13/18 05:52 05/13/18 05:52 Abnormal lab results 05/12/18 05/12/18 05/13/18 Range/Units 18:02 23:31 05:50 WBC (4.0-11.0) th/mm3 RBC (4.50-5.90) mil/mm3 Hgb (13.0-17.0) gm/dL Hct (39.0-51.0) % RDW (11.6-17.2) % Chloride (98-107) meq/L Carbon Dioxide (21.0-32.0) meq/L BUN (7-18) mg/dL Creatinine (0.60-1.30) mg/dL Estimated GFR (>89) mL/min POC Glucose 336 H 265 H 190 H (68-110) mg/dl Random Glucose (74-106) mg/dL Calcium (8.5-10.1) mg/dL Prot Corrected Calcium (8.5-10.1) mg/dL AST (15-37) U/L ALT (12-78) U/L Total Protein (6.4-8.2) g/dL Albumin (3.4-5.0) g/dL 05/13/18 05/13/18 05/13/18 Range/Units 05:52 05:52 11:54 WBC 18.2 H (4.0-11.0) th/mm3 RBC 2.81 L (4.50-5.90) mil/mm3 Hgb 8.7 L (13.0-17.0) gm/dL Hct 25.4 L (39.0-51.0) % RDW 21.2 H (11.6-17.2) % Chloride 112 H (98-107) meq/L Carbon Dioxide 20.6 L (21.0-32.0) meq/L BUN 80 H (7-18) mg/dL Creatinine 2.34 H (0.60-1.30) mg/dL Estimated GFR 27 L (>89) mL/min POC Glucose 145 H (68-110) mg/dl Random Glucose 181 H D (74-106) mg/dL Calcium 6.7 L* (8.5-10.1) mg/dL Prot Corrected Calcium 7.9 L (8.5-10.1) mg/dL AST 51 H (15-37) U/L ALT 89 H (12-78) U/L Total Protein 4.8 L (6.4-8.2) g/dL Albumin 1.8 L (3.4-5.0) g/dL Short CBC 05/13/18 Range/Units 05:52 WBC 18.2 H (4.0-11.0) th/mm3 Hgb 8.7 L (13.0-17.0) gm/dL Hct 25.4 L (39.0-51.0) % Plt Count 195 (150-450) th/mm3 BMP 05/13/18 05:52 Sodium 143 Potassium 3.8 Chloride 112 H Carbon Dioxide 20.6 L BUN 80 H Creatinine 2.34 H Calcium 6.7 L* Liver Function 05/13/18 Range/Units 05:52 Total Bilirubin 0.5 (0.2-1.0) mg/dL AST 51 H (15-37) U/L ALT 89 H (12-78) U/L Alkaline Phosphatase 64 (45-117) U/L Albumin 1.8 L (3.4-5.0) g/dL Physical Exam Vital signs: Vital Signs 05/12/18 16:45 05/12/18 16:46 05/12/18 17:00 Temperature Pulse Rate 82 81 73 Respiratory Rate 19 20 17 Blood Pressure 141/62 H Pulse Oximetry 98 91 L 100 05/12/18 17:01 05/12/18 17:15 05/12/18 17:16 Temperature Pulse Rate 73 75 75 Respiratory Rate 17 17 15 Blood Pressure 128/56 L 123/58 L Pulse Oximetry 100 100 100 05/12/18 17:30 05/12/18 17:31 05/12/18 17:45 Temperature Pulse Rate 70 70 68 Respiratory Rate 17 17 16 Blood Pressure 101/51 L Pulse Oximetry 100 100 100 05/12/18 17:46 05/12/18 18:00 05/12/18 18:01 Temperature Pulse Rate 68 74 70 Respiratory Rate 14 18 17 Blood Pressure 119/59 L 138/59 L Pulse Oximetry 100 100 100 05/12/18 18:15 05/12/18 18:16 05/12/18 18:30 Temperature Pulse Rate 66 65 72 Respiratory Rate 13 14 16 Blood Pressure 133/61 Pulse Oximetry 100 100 97 05/12/18 18:31 05/12/18 18:45 05/12/18 18:46 Temperature Pulse Rate 72 70 70 Respiratory Rate Blood Pressure 127/61 131/59 L Pulse Oximetry 97 97 97 05/12/18 19:00 05/12/18 19:01 05/12/18 19:15 Temperature Pulse Rate 68 70 69 Respiratory Rate 16 17 Blood Pressure 130/60 Pulse Oximetry 97 97 98 05/12/18 19:16 05/12/18 19:19 05/12/18 19:30 Temperature Pulse Rate 69 68 Respiratory Rate 17 Blood Pressure 134/60 Pulse Oximetry 97 98 97 05/12/18 19:31 05/12/18 19:45 05/12/18 19:46 Temperature Pulse Rate 68 67 68 Respiratory Rate 17 Blood Pressure 129/58 L 132/60 Pulse Oximetry 97 97 97 05/12/18 20:00 05/12/18 20:01 05/12/18 20:15 Temperature 98.6 F Pulse Rate 66 66 66 Respiratory Rate 16 Blood Pressure 120/56 L Pulse Oximetry 97 97 97 05/12/18 20:16 05/12/18 20:25 05/12/18 20:30 Temperature Pulse Rate 66 85 76 Respiratory Rate 16 Blood Pressure 120/58 L 119/70 Pulse Oximetry 97 99 98 05/12/18 20:31 05/12/18 20:45 05/12/18 20:46 Temperature Pulse Rate 74 70 71 Respiratory Rate 18 17 Blood Pressure 134/72 118/58 L Pulse Oximetry 98 95 95 05/12/18 21:00 05/12/18 21:01 05/12/18 21:15 Temperature Pulse Rate 79 79 71 Respiratory Rate 17 22 17 Blood Pressure 105/51 L Pulse Oximetry 96 93 L 94 L 05/12/18 21:16 05/12/18 21:30 05/12/18 21:31 Temperature Pulse Rate 71 68 67 Respiratory Rate 17 16 16 Blood Pressure 111/56 L 101/41 L Pulse Oximetry 94 L 94 L 94 L 05/12/18 21:45 05/12/18 21:46 05/12/18 22:00 Temperature Pulse Rate 65 65 65 Respiratory Rate 17 17 Blood Pressure 101/49 L Pulse Oximetry 94 L 94 L 95 05/12/18 22:01 05/12/18 22:15 05/12/18 22:16 Temperature Pulse Rate 65 64 63 Respiratory Rate 17 Blood Pressure 106/53 L 107/53 L Pulse Oximetry 95 96 96 05/12/18 22:30 05/12/18 22:31 05/12/18 22:45 Temperature Pulse Rate 63 63 63 Respiratory Rate 18 17 18 Blood Pressure 102/49 L Pulse Oximetry 96 96 96 05/12/18 22:46 05/12/18 23:00 05/12/18 23:01 Temperature Pulse Rate 63 63 63 Respiratory Rate 19 17 18 Blood Pressure 99/48 L 99/49 L Pulse Oximetry 96 96 97 05/12/18 23:15 05/12/18 23:16 05/12/18 23:30 Temperature Pulse Rate 64 64 64 Respiratory Rate 19 17 16 Blood Pressure 108/54 L Pulse Oximetry 96 96 96 05/12/18 23:31 05/12/18 23:45 05/12/18 23:46 Temperature Pulse Rate 64 64 64 Respiratory Rate Blood Pressure 111/53 L 110/54 L Pulse Oximetry 97 97 97 05/13/18 00:00 05/13/18 00:01 05/13/18 00:15 Temperature 98.6 F Pulse Rate 64 64 64 Respiratory Rate 17 16 Blood Pressure 114/57 L Pulse Oximetry 97 96 97 05/13/18 00:16 05/13/18 00:30 05/13/18 00:31 Temperature Pulse Rate 64 64 64 Respiratory Rate 18 18 17 Blood Pressure 110/55 L 111/56 L Pulse Oximetry 97 96 96 05/13/18 00:45 05/13/18 00:57 05/13/18 01:00 Temperature Pulse Rate 77 74 70 Respiratory Rate 21 20 16 Blood Pressure 140/65 Pulse Oximetry 79 L 97 96 05/13/18 01:01 05/13/18 01:15 05/13/18 01:16 Temperature Pulse Rate 71 66 66 Respiratory Rate 19 14 Blood Pressure 129/63 121/60 Pulse Oximetry 96 96 96 05/13/18 01:30 05/13/18 01:31 05/13/18 01:45 Temperature Pulse Rate 64 65 63 Respiratory Rate 22 21 19 Blood Pressure 116/54 L Pulse Oximetry 96 96 96 05/13/18 01:46 05/13/18 02:00 05/13/18 02:01 Temperature Pulse Rate 62 62 62 Respiratory Rate 19 20 12 Blood Pressure 111/53 L 109/53 L Pulse Oximetry 96 96 96 05/13/18 02:15 05/13/18 02:16 05/13/18 02:30 Temperature Pulse Rate 63 63 63 Respiratory Rate 20 16 17 Blood Pressure 114/54 L Pulse Oximetry 96 96 96 05/13/18 02:31 05/13/18 02:45 05/13/18 02:46 Temperature Pulse Rate 63 62 62 Respiratory Rate 21 17 19 Blood Pressure 113/56 L 113/56 L Pulse Oximetry 96 96 96 05/13/18 03:00 05/13/18 03:01 05/13/18 03:15 Temperature Pulse Rate 63 62 61 Respiratory Rate 19 19 15 Blood Pressure 117/57 L Pulse Oximetry 97 97 97 05/13/18 03:16 05/13/18 03:30 05/13/18 03:31 Temperature Pulse Rate 61 61 61 Respiratory Rate 21 14 16 Blood Pressure 108/51 L 111/54 L Pulse Oximetry 97 97 97 05/13/18 03:45 05/13/18 03:46 05/13/18 04:00 Temperature Pulse Rate 61 61 61 Respiratory Rate 19 18 18 Blood Pressure 110/53 L Pulse Oximetry 97 97 97 05/13/18 04:01 05/13/18 04:15 05/13/18 04:16 Temperature 98.6 F Pulse Rate 61 61 61 Respiratory Rate 15 16 20 Blood Pressure 113/55 L 115/56 L Pulse Oximetry 97 97 97 05/13/18 04:30 05/13/18 04:31 05/13/18 04:45 Temperature Pulse Rate 65 64 64 Respiratory Rate 15 16 16 Blood Pressure 118/54 L Pulse Oximetry 94 L 94 L 94 L 05/13/18 04:46 05/13/18 05:00 05/13/18 05:01 Temperature Pulse Rate 65 63 63 Respiratory Rate 18 Blood Pressure 112/53 L 109/56 L Pulse Oximetry 94 L 94 L 94 L 05/13/18 05:15 05/13/18 05:16 05/13/18 05:30 Temperature Pulse Rate 62 62 62 Respiratory Rate 9 L 9 L 13 Blood Pressure 109/55 L Pulse Oximetry 94 L 93 L 94 L 05/13/18 05:31 05/13/18 05:45 05/13/18 05:46 Temperature Pulse Rate 62 62 62 Respiratory Rate 12 15 16 Blood Pressure 108/54 L 104/54 L Pulse Oximetry 94 L 88 L 95 05/13/18 06:00 05/13/18 06:01 05/13/18 06:15 Temperature Pulse Rate 70 68 63 Respiratory Rate 21 17 18 Blood Pressure 126/60 Pulse Oximetry 95 94 L 92 L 05/13/18 06:16 05/13/18 06:30 05/13/18 06:31 Temperature Pulse Rate 63 62 62 Respiratory Rate 17 16 16 Blood Pressure 118/58 L 110/56 L Pulse Oximetry 92 L 92 L 92 L 05/13/18 06:45 05/13/18 06:46 05/13/18 07:00 Temperature Pulse Rate 62 62 61 Respiratory Rate 16 18 16 Blood Pressure 111/54 L Pulse Oximetry 92 L 92 L 93 L 05/13/18 07:01 05/13/18 07:15 05/13/18 07:16 Temperature Pulse Rate 62 61 61 Respiratory Rate 16 16 16 Blood Pressure 109/54 L 110/52 L Pulse Oximetry 93 L 93 L 93 L 05/13/18 07:30 05/13/18 07:31 05/13/18 07:45 Temperature Pulse Rate 61 61 61 Respiratory Rate 19 16 16 Blood Pressure 111/54 L Pulse Oximetry 94 L 94 L 94 L 05/13/18 07:46 05/13/18 08:00 05/13/18 08:01 Temperature Pulse Rate 61 68 64 Respiratory Rate 18 19 14 Blood Pressure 112/55 L 123/58 L Pulse Oximetry 94 L 95 95 05/13/18 08:15 05/13/18 08:16 05/13/18 08:30 Temperature Pulse Rate 65 68 69 Respiratory Rate 17 19 19 Blood Pressure 128/63 Pulse Oximetry 95 95 93 L 05/13/18 08:31 05/13/18 08:45 05/13/18 08:46 Temperature Pulse Rate 69 69 69 Respiratory Rate 19 19 21 Blood Pressure 121/56 L 122/60 Pulse Oximetry 93 L 92 L 92 L 05/13/18 09:00 05/13/18 09:01 05/13/18 09:15 Temperature Pulse Rate 68 68 67 Respiratory Rate 20 20 19 Blood Pressure 121/57 L Pulse Oximetry 92 L 92 L 93 L 05/13/18 09:16 05/13/18 09:18 05/13/18 09:30 Temperature Pulse Rate 67 68 Respiratory Rate 20 20 23 Blood Pressure 128/60 Pulse Oximetry 93 L 94 L 93 L 05/13/18 09:31 05/13/18 09:45 05/13/18 09:46 Temperature Pulse Rate 68 71 72 Respiratory Rate 22 25 H 25 H Blood Pressure 127/60 125/57 L Pulse Oximetry 92 L 93 L 93 L 05/13/18 10:00 05/13/18 10:01 05/13/18 10:15 Temperature Pulse Rate 70 70 72 Respiratory Rate 22 24 24 Blood Pressure 134/60 Pulse Oximetry 93 L 93 L 93 L 05/13/18 10:16 05/13/18 10:30 05/13/18 10:31 Temperature Pulse Rate 72 71 71 Respiratory Rate 23 22 22 Blood Pressure 139/63 158/67 H Pulse Oximetry 93 L 93 L 93 L 05/13/18 10:45 05/13/18 10:46 05/13/18 11:00 Temperature Pulse Rate 73 72 72 Respiratory Rate 25 H 24 21 Blood Pressure 148/63 H Pulse Oximetry 93 L 93 L 93 L 05/13/18 11:01 05/13/18 11:15 05/13/18 11:16 Temperature Pulse Rate 74 73 73 Respiratory Rate 25 H 24 23 Blood Pressure 125/60 134/56 L Pulse Oximetry 94 L 91 L 91 L 05/13/18 11:30 05/13/18 11:31 05/13/18 11:45 Temperature Pulse Rate 78 78 79 Respiratory Rate 24 24 24 Blood Pressure 142/64 H Pulse Oximetry 92 L 91 L 91 L 05/13/18 11:46 05/13/18 11:52 05/13/18 12:00 Temperature Pulse Rate 80 89 Respiratory Rate 22 28 H 31 H Blood Pressure 140/69 Pulse Oximetry 91 L 92 L 93 L 05/13/18 12:01 05/13/18 12:15 05/13/18 12:16 Temperature Pulse Rate 89 82 81 Respiratory Rate 29 H 22 20 Blood Pressure 155/65 H 138/65 Pulse Oximetry 92 L 94 L 94 L 05/13/18 12:30 05/13/18 12:31 05/13/18 12:45 Temperature Pulse Rate 76 76 74 Respiratory Rate 18 19 18 Blood Pressure 123/60 Pulse Oximetry 96 96 97 05/13/18 12:46 05/13/18 13:00 05/13/18 13:01 Temperature Pulse Rate 74 72 72 Respiratory Rate 18 17 17 Blood Pressure 120/59 L 119/59 L Pulse Oximetry 97 97 97 05/13/18 13:15 05/13/18 13:16 05/13/18 13:30 Temperature Pulse Rate 70 70 70 Respiratory Rate 18 17 17 Blood Pressure 118/58 L Pulse Oximetry 98 98 98 05/13/18 13:31 05/13/18 13:45 05/13/18 13:46 Temperature Pulse Rate 70 69 69 Respiratory Rate 16 16 16 Blood Pressure 122/60 127/60 Pulse Oximetry 98 99 99 05/13/18 14:00 05/13/18 14:01 05/13/18 16:17 Temperature Pulse Rate 70 70 Respiratory Rate 17 17 20 Blood Pressure 127/61 Pulse Oximetry 99 99 95 Intake & Output 05/12/18 05/13/18 05/13/18 18:59 06:59 18:59 Intake Total 1300 / 1300 2109 / 2109 Output Total 825 / 825 850 / 850 Balance 475 / 475 1260 / 1260 1999 Weight 86.3 kg Intake: IV 1100 / 1100 2109 Protonix Inj 80 MG In NS Inj 195 / 195 1000 / 1000 100 ML @ 10 mls/hr IV.CONT Q10H [facility] Rx#:[id number] Neosynephrine Inj 40 MG In D5W 500 / 500 Inj 496 ML @ 40 MCG/MIN 30 mls/ hr IV.CONT TITRATE PRN Rx#: [id number] Diprivan 1000 mg/100 ml Inj 1, 100 / 100 175 / 175 000 mg In 100 ml @ 5 MCG/KG/MIN 2.376 mls/hr IV.CONT TITRATE PRN Rx#:[id number] NS Inj 1,000 ML @ 200 mls/hr IV 1000 / 1000 1000 / 1000 1000 / 1000 .SIG .Q5H [facility] Rx#:[id number] fentaNYL 10 mcg/mL Premix Drip 240 / 240 2,500 mcg In 250 ml @ 50 MCG/HR 5 mls/hr IV.SIG TITRATE PRN Rx #:[id number] Anesthesia Amount 200 / 200 Output: Urine Amount (Catheter) 425 / 425 750 / 750 Indwelling Urethral Catheter 425 / 425 750 / 750 Gastric Drainage 400 / 400 100 / 100 Orogastric Tube 400 / 400 100 / 100 Other: Date of Last Bowel Movement 05/12/18 05/13/18 05/13/18 # Bowel Movements 2 # Incontinent Bowel Movements 2 4 - Constitutional no acute distress - Routine Respiratory Exam Present: patient mechanically ventilated - Routine Cardiovascular Exam Present: S1, S2 - Routine Abdominal Exam Present: soft - Routine Extremities Exam Present: pulses intact - Routine Skin Exam Present: dry, warm - Urinary Catheter Management Indwelling Urethral Catheter Cath placed during this visit: yes Reason for continuing: Hourly intake/output Insertion date: 05/12/18 Insertion time: 00:42 Assessment and Plan - Assessment (1) GI (gastrointestinal hemorrhage) Code(s): K92.2 - Gastrointestinal hemorrhage, unspecified Status: Acute Plan: gi following, transfuse as needed follow hgb closely EGD pending - Assessment and Plan 05/12/18- Transferred to ICU yesterday, intubated for airway protection. EGD attempted yesterday, scheduled for repeat today. Received 3 units of Blood, HGB stable currently. Inbound Sales Manager following. 05/13/18- Remains intubated with ventilator support. NG with dark blood, Hgb 8.7 this am received transfusion yesterday, EGD pending in am. Inbound Sales Manager following.
--- NOTE | 2018-05-14 00:54 | CT ---
EXAM DATE: 05/14/2018 12:47 AM EST AGE/SEX: 77 years / Male INDICATIONS: Altered mental status. CLINICAL DATA: This is the patient's initial encounter. Patient reports that signs and symptoms have been present for 1 day and indicates a pain score of Nonresponsive. MEDICAL/SURGICAL HISTORY: Cerebrovascular disease. Diabetes. Hypertension. GI Bleed. None. RADIATION DOSE: 56.35 CTDI (mGy) COMPARISON: [facility] – [place], CT HEAD W/O CONTRAST, 04/13/2018. . TECHNIQUE: CT of the head without contrast. Using automated exposure control and adjustment of the mA and/or kV according to patient size, radiation dose was kept as low as reasonably achievable to ob tain optimal diagnostic quality images. DICOM format image data is available electronically for revi ew and comparison. FINDINGS: There is mild streak and motion artifact. Cerebrum: The ventricles are normal for age with mild to moderate atrophic change with sulcal and ve ntricular prominence. No evidence of midline shift, mass lesion, hemorrhage or acute infarction. No extraaxial fluid collections are seen. Posterior Fossa: The cerebellum and brainstem are intact. The 4th ventricle is midline. The cerebe llopontine angle is unremarkable. Extracranial: The visualized portion of the orbits is intact. Skull: The calvaria is intact. No evidence of skull fracture. CONCLUSION: 1. Stable appearance with mild atrophy. There is no hemorrhage or mass effect. . Electronically signed by: Casey Keith MD 05/14/2018 12:53 AM EST
[2018-05-14] MEDS: Sod Chloride 0.9% Inj 1,000 ML IV.SIG SCH ×5 (01:08→20:15)
[2018-05-14] MEDS: Insulin NovoLOG Aspart Correctional Sugar Inj SQ SCH ×4 (01:09→18:43)
[2018-05-14] MEDS: Pantoprazole Inj 80 MG in Sodium Chlor 0.9% Inj 100 ML IV.CONT SCH ×3 (03:53→16:40)
[2018-05-14] MEDS: Propofol 1000 mg/100 ml Inj 1,000 MG/100 ML BOTTLE IV.CONT PRN ×3 (04:15→18:42)
[2018-05-14] MEDS: Chlorhexidine Gluconate 2% 1 Pack (2 Cloths) TOPICAL SCH (05:16)
--- NOTE | 2018-05-14 08:37 | P.PNCC ---
Subjective Subjective Remarks/Hospital Course: 77-year-old male has been admitted for an evaluation of coffee-ground emesis at home. EMS reports patient had a large amount of coffee-ground emesis at home. Patient denied shortness of breath weakness, nausea, headache or dizziness. EGD due to anemia and GI bleeding was performed on 05/05/[address] Smith. Findings include submucosal lesion at the second port of the duodenum, gastritis in the antrum, esophagitis grade C and hiatal hernia. Patient has a medical history significant for CVA, hypertension, hyperlipidemia , sick sinus syndrome, diabetes, bradycardia and GI bleed on anticoagulation.. Patient currently on aspirin and Plavix 75 mg p.o. daily for past medical history of CVA. Patient is awake and alert, denies abdominal pain. Patient was initially admitted to medicine, however while on the [facility] floor he has developed hematemesis with copious amounts of blood requiring emergent transfer to ICU and required intubation. 05/12: Remains critically ill in the ICU on the vent. H&H stable overnight. Hypotension resolved and improved with IV fluid boluses. GI planning for another endoscopy today. 05/13: Requiring increased FiO2. Mechanics acceptable. NG with continued blood. 05/14: Remains intubated sedated with propofol and fentanyl. CT of the head done yesterday night no acute findings. Patient had bloody output from the NG tube. GE GI planning for re-scope today. FiO2 down to 45% Objective Vital Signs / I&O: Vital Signs 05/13/18 08:30 05/13/18 08:31 05/13/18 08:45 Temperature Pulse Rate 69 69 69 Respiratory Rate 19 19 19 Blood Pressure 121/56 L Pulse Oximetry 93 L 93 L 92 L 05/13/18 08:46 05/13/18 09:00 05/13/18 09:01 Temperature Pulse Rate 69 68 68 Respiratory Rate 21 20 20 Blood Pressure 122/60 121/57 L Pulse Oximetry 92 L 92 L 92 L 05/13/18 09:15 05/13/18 09:16 05/13/18 09:18 Temperature Pulse Rate 67 67 Respiratory Rate 19 20 20 Blood Pressure 128/60 Pulse Oximetry 93 L 93 L 94 L 05/13/18 09:30 05/13/18 09:31 05/13/18 09:45 Temperature Pulse Rate 68 68 71 Respiratory Rate 23 22 25 H Blood Pressure 127/60 Pulse Oximetry 93 L 92 L 93 L 05/13/18 09:46 05/13/18 10:00 05/13/18 10:01 Temperature Pulse Rate 72 70 70 Respiratory Rate 25 H 22 24 Blood Pressure 125/57 L 134/60 Pulse Oximetry 93 L 93 L 93 L 05/13/18 10:15 05/13/18 10:16 05/13/18 10:30 Temperature Pulse Rate 72 72 71 Respiratory Rate 24 23 22 Blood Pressure 139/63 Pulse Oximetry 93 L 93 L 93 L 05/13/18 10:31 05/13/18 10:45 05/13/18 10:46 Temperature Pulse Rate 71 73 72 Respiratory Rate 22 25 H 24 Blood Pressure 158/67 H 148/63 H Pulse Oximetry 93 L 93 L 93 L 05/13/18 11:00 05/13/18 11:01 05/13/18 11:15 Temperature Pulse Rate 72 74 73 Respiratory Rate 21 25 H 24 Blood Pressure 125/60 Pulse Oximetry 93 L 94 L 91 L 05/13/18 11:16 05/13/18 11:30 05/13/18 11:31 Temperature Pulse Rate 73 78 78 Respiratory Rate 23 24 24 Blood Pressure 134/56 L 142/64 H Pulse Oximetry 91 L 92 L 91 L 05/13/18 11:45 05/13/18 11:46 05/13/18 11:52 Temperature Pulse Rate 79 80 Respiratory Rate 24 22 28 H Blood Pressure 140/69 Pulse Oximetry 91 L 91 L 92 L 05/13/18 12:00 05/13/18 12:01 05/13/18 12:15 Temperature Pulse Rate 89 89 82 Respiratory Rate 31 H 29 H 22 Blood Pressure 155/65 H Pulse Oximetry 93 L 92 L 94 L 05/13/18 12:16 05/13/18 12:30 05/13/18 12:31 Temperature Pulse Rate 81 76 76 Respiratory Rate 20 18 19 Blood Pressure 138/65 123/60 Pulse Oximetry 94 L 96 96 05/13/18 12:45 05/13/18 12:46 05/13/18 13:00 Temperature Pulse Rate 74 74 72 Respiratory Rate 18 18 17 Blood Pressure 120/59 L Pulse Oximetry 97 97 97 05/13/18 13:01 05/13/18 13:15 05/13/18 13:16 Temperature Pulse Rate 72 70 70 Respiratory Rate 17 18 17 Blood Pressure 119/59 L 118/58 L Pulse Oximetry 97 98 98 05/13/18 13:30 05/13/18 13:31 05/13/18 13:45 Temperature Pulse Rate 70 70 69 Respiratory Rate 17 16 16 Blood Pressure 122/60 Pulse Oximetry 98 98 99 05/13/18 13:46 05/13/18 14:00 05/13/18 14:01 Temperature Pulse Rate 69 70 70 Respiratory Rate 16 17 17 Blood Pressure 127/60 127/61 Pulse Oximetry 99 99 99 05/13/18 14:15 05/13/18 14:16 05/13/18 14:30 Temperature Pulse Rate 69 69 69 Respiratory Rate 18 16 16 Blood Pressure 122/59 L Pulse Oximetry 99 99 99 05/13/18 14:31 05/13/18 14:45 05/13/18 14:46 Temperature Pulse Rate 70 69 69 Respiratory Rate 16 17 15 Blood Pressure 128/60 124/60 Pulse Oximetry 99 99 99 05/13/18 15:00 05/13/18 15:01 05/13/18 15:15 Temperature Pulse Rate 70 70 69 Respiratory Rate 17 17 16 Blood Pressure 129/61 Pulse Oximetry 99 99 99 05/13/18 15:16 05/13/18 15:30 05/13/18 15:31 Temperature Pulse Rate 70 76 75 Respiratory Rate 16 18 18 Blood Pressure 128/61 145/63 H Pulse Oximetry 99 99 99 05/13/18 15:45 05/13/18 15:46 05/13/18 16:00 Temperature Pulse Rate 80 81 82 Respiratory Rate 20 27 H 22 Blood Pressure 148/66 H Pulse Oximetry 97 97 95 05/13/18 16:01 05/13/18 16:15 05/13/18 16:16 Temperature Pulse Rate 82 83 84 Respiratory Rate 21 22 22 Blood Pressure 150/65 H 148/64 H Pulse Oximetry 95 95 95 05/13/18 16:17 05/13/18 16:30 05/13/18 16:31 Temperature Pulse Rate 79 79 Respiratory Rate 20 20 20 Blood Pressure 131/59 L Pulse Oximetry 95 96 96 05/13/18 16:45 05/13/18 16:46 05/13/18 17:00 Temperature Pulse Rate 82 81 86 Respiratory Rate 21 20 35 H Blood Pressure 140/63 Pulse Oximetry 96 96 87 L 05/13/18 17:01 05/13/18 17:15 05/13/18 17:16 Temperature Pulse Rate 87 87 87 Respiratory Rate 31 H 29 H 26 H Blood Pressure 145/67 H 144/65 H Pulse Oximetry 95 92 L 92 L 05/13/18 17:30 05/13/18 17:31 05/13/18 17:45 Temperature Pulse Rate 84 84 84 Respiratory Rate 24 24 21 Blood Pressure 138/62 Pulse Oximetry 93 L 93 L 94 L 05/13/18 17:46 05/13/18 18:00 05/13/18 18:01 Temperature Pulse Rate 83 82 81 Respiratory Rate 22 21 20 Blood Pressure 134/63 138/56 L Pulse Oximetry 94 L 95 95 05/13/18 18:15 05/13/18 18:16 05/13/18 18:30 Temperature Pulse Rate 81 80 83 Respiratory Rate 19 19 20 Blood Pressure 134/60 Pulse Oximetry 95 95 96 05/13/18 18:31 05/13/18 18:46 05/13/18 19:00 Temperature Pulse Rate 83 84 81 Respiratory Rate 20 21 21 Blood Pressure 152/66 H 159/71 H Pulse Oximetry 96 97 96 05/13/18 19:01 05/13/18 19:16 05/13/18 19:31 Temperature Pulse Rate 82 83 82 Respiratory Rate 22 23 23 Blood Pressure 152/65 H 149/67 H 151/67 H Pulse Oximetry 96 96 96 05/13/18 19:46 05/13/18 19:56 05/13/18 20:00 Temperature Pulse Rate 85 83 Respiratory Rate 28 H 26 H 24 Blood Pressure 148/65 H Pulse Oximetry 98 97 96 05/13/18 20:01 05/13/18 20:16 05/13/18 20:31 Temperature 98.3 F Pulse Rate 82 82 81 Respiratory Rate 25 H 23 23 Blood Pressure 145/66 H 147/63 H 152/69 H Pulse Oximetry 96 97 96 05/13/18 20:46 05/13/18 21:00 05/13/18 21:01 Temperature Pulse Rate 82 82 83 Respiratory Rate 23 24 22 Blood Pressure 160/67 H 152/70 H Pulse Oximetry 97 97 97 05/13/18 22:01 05/13/18 22:16 05/13/18 22:31 Temperature Pulse Rate 81 86 85 Respiratory Rate 23 25 H 25 H Blood Pressure 148/65 H 168/69 H 159/71 H Pulse Oximetry 98 98 97 05/13/18 22:46 05/13/18 23:00 05/13/18 23:01 Temperature Pulse Rate 87 90 89 Respiratory Rate 27 H 27 H 27 H Blood Pressure 173/75 H 182/72 H Pulse Oximetry 97 97 97 05/13/18 23:16 05/13/18 23:31 05/13/18 23:46 Temperature Pulse Rate 90 87 88 Respiratory Rate 29 H 25 H 25 H Blood Pressure 168/72 H 162/70 H 167/72 H Pulse Oximetry 97 98 98 05/14/18 00:00 05/14/18 00:01 05/14/18 00:16 Temperature 99.5 F Pulse Rate 89 88 88 Respiratory Rate 26 H 26 H 26 H Blood Pressure 168/72 H 174/72 H Pulse Oximetry 99 98 99 05/14/18 00:30 05/14/18 00:33 05/14/18 00:49 Temperature Pulse Rate 86 89 Respiratory Rate 25 H 29 H Blood Pressure 168/74 H 161/69 H Pulse Oximetry 100 99 100 05/14/18 01:00 05/14/18 01:01 05/14/18 01:04 Temperature Pulse Rate 87 86 Respiratory Rate 27 H 26 H 24 Blood Pressure 159/70 H Pulse Oximetry 99 99 98 05/14/18 01:19 05/14/18 01:34 05/14/18 02:00 Temperature Pulse Rate 82 81 79 Respiratory Rate 15 21 20 Blood Pressure 152/68 H 150/65 H Pulse Oximetry 96 96 97 05/14/18 02:04 05/14/18 02:19 05/14/18 02:34 Temperature Pulse Rate 79 83 86 Respiratory Rate 20 25 H 25 H Blood Pressure 166/70 H 166/74 H 177/98 H Pulse Oximetry 97 98 98 05/14/18 02:49 05/14/18 03:00 05/14/18 03:04 Temperature Pulse Rate 89 85 83 Respiratory Rate 28 H 25 H 21 Blood Pressure 179/76 H 184/77 H Pulse Oximetry 97 99 100 05/14/18 03:37 05/14/18 03:52 05/14/18 04:00 Temperature Pulse Rate 89 91 H Respiratory Rate 30 H 30 H 30 H Blood Pressure 173/74 H Pulse Oximetry 98 97 97 05/14/18 04:01 05/14/18 04:24 05/14/18 04:54 Temperature Pulse Rate 92 H 93 H 82 Respiratory Rate 31 H 32 H 23 Blood Pressure 179/77 H 166/72 H 135/61 Pulse Oximetry 97 99 98 05/14/18 05:00 05/14/18 06:00 05/14/18 06:24 Temperature Pulse Rate 81 77 75 Respiratory Rate 23 24 22 Blood Pressure 159/70 H Pulse Oximetry 98 100 100 05/14/18 06:54 05/14/18 07:39 Temperature Pulse Rate 86 Respiratory Rate 30 H 25 H Blood Pressure 153/67 H Pulse Oximetry 96 97 Intake & Output 05/13/18 05/14/18 05/14/18 18:59 06:59 18:59 Intake Total 3100 / 3100 2100 / 2100 Output Total 950 / 950 1200 / 1200 Balance 2150 / 2150 900 / 900 Weight 88.2 kg Intake: IV 3100 / 3100 2100 / 2100 Protonix Inj 80 MG In NS Inj 1000 / 1000 100 / 100 100 ML @ 10 mls/hr IV.CONT Q10H [facility] Rx#:[id number] Diprivan 1000 mg/100 ml Inj 1, 100 / 100 0 / 0 000 mg In 100 ml @ 5 MCG/KG/MIN 2.376 mls/hr IV.CONT TITRATE PRN Rx#:[id number] NS Inj 1,000 ML @ 200 mls/hr IV 1999 / 1999 .SIG .Q5H [facility] Rx#:[id number] Output: Urine Amount (Catheter) 900 / 900 1200 / 1200 Indwelling Urethral Catheter 900 / 900 1200 / 1200 Gastric Drainage 50 / 50 Orogastric Tube 50 / 50 Other: Date of Last Bowel Movement 05/13/18 05/14/18 # Bowel Movements 1 Result Diagrams: 05/14/18 05:07 05/13/18 05:52 Objective Remarks: - Constitutional Intubated sedated - Routine HEENT Exam Head: Present: normocephalic, atraumatic Eye: Present: PERRL - Routine Neck Exam Present: supple. Absent: JVD, carotid bruit - Routine Respiratory Exam Present: patient mechanically ventilated, few rhonchi, no wheezes. No stridor, wheezes - Routine Cardiovascular Exam Present: RRR, S1, S2, tachycardia, improved after starting fentanyl - Routine Abdominal Exam Present: soft, normoactive bowel sounds, no guarding. No tenderness, distended - Routine Extremities Exam Absent: cyanosis, clubbing, edema - Routine Skin Exam Present: intact. Absent: cyanosis, erythema - Routine Neurological Exam Present: Intubated sedated withdraws to pain x4. Not following commands no spontaneous eye opening while sedated. Spontaneously moves extremities Assessment and Plan - Assessment and Plan Plan: Respiratory failure -Intubated for an airway protection -No weaning until hemodynamically stable -Gastroenterology planning for another endoscopy today 05/14/2018 -Consider SBT after repeat EGD -Vent bundle, DuoNeb's as needed Acute GI bleed -Status post emergent EGD -No obvious source identified during procedure, -Monitor H&H, continues to have bloody NG tube output -Transfuse as needed to keep hemoglobin above 7 -Protonix drip -Repeat endoscopy by GI today -Further management per gastroenterology Diabetes -Insulin sliding scale -Improving control Hypertension -Hold antihypertensive meds due to acute GI bleeding and possible hypotension Anemia -Acute blood loss anemia -Frequent H&H -Transfuse to keep hemoglobin above 7 Acute kidney injury -Dehydration -Volume loss -Aggressive IV fluid hydration -Strict I's and -Monitor creatinine levels, currently worsening consult nephrology DVT GI prophylaxis -Teds SCDs -Protonix drip -No pharmacological DVT prophylaxis due to acute GI bleed Overall impression: Remains critically ill and unstable with increasing O2 requirements, continued GI bleed. Unable to wean from ventilator. Critical Care 35 mins
[2018-05-14] MEDS: amLODIPine 5 MG Tablet PO SCH (08:54)
--- NOTE | 2018-05-14 09:02 | XR ---
EXAM DATE: 05/14/2018 8:59 AM EST AGE/SEX: 77 years / Male INDICATIONS: Short of breath, evaluate respiratory disease CLINICAL DATA: This is the patient's subsequent encounter. Patient reports that signs and symptoms h ave been present for 1 month and indicates a pain score of Nonresponsive. MEDICAL/SURGICAL HISTORY: Cerebrovascular disease. Hypertension. Gastrointestinal bleed. AMS Non-responsive. ET tube COMPARISON: [facility], CHEST 1V SINGLE AP, 05/11/2018. . FINDINGS: Scattered perihilar and bibasilar infiltrates are noted consistent with mild pulmonary vascular conge stion versus pneumonia. Clinical correlation is recommended. The nasogastric tube has its tip in stom ach. The endotracheal tube is in good position 3 cm above the katy. The heart is stable. Degenerati ve changes and scoliosis of the thoracolumbar spine are noted. CONCLUSION: 1. Scattered perihilar and bibasilar infiltrates are noted consistent with mild pulmonary vascular c ongestion versus pneumonia. Clinical correlation is recommended. 2. Degenerative changes and scoliosis of the thoracolumbar spine. Electronically signed by: Arthur Abdi MD 05/14/2018 9:01 AM EST
--- NOTE | 2018-05-14 15:04 | P.PNCA ---
Subjective Interval history: Patient intubated and sedated. Still anemic req transfusion. F/u EGD planned. Medications and Allergies Active Medications: Active Medications Amlodipine Besylate (Norvasc) 5 mg PO DAILY [facility] Last Admin: 05/14/18 08:54 Dose: 5 mg Atorvastatin Calcium (Lipitor) 40 mg PO HS [facility] Last Admin: 05/13/18 22:42 Dose: Not Given Chlorhexidine Gluconate (Chlorhexidine 2% Cloth) 3 pack TOPICAL DAILY@0400 [facility] Stop: 05/18/18 03:59 Last Admin: 05/14/18 05:16 Dose: 3 pack Chlorhexidine Gluconate (Chlorhexidine 2% Cloth) 3 pack TOPICAL DAILY@0400 PRN PRN Reason: Extra cloth needed Stop: 05/18/18 03:59 Dextrose (D50w Vial) 50 ml IV.PUSH UNSCH PRN PRN Reason: PER HYPOGLYCEMIA PROTOCOL Glucagon (Glucagon Inj) 1 mg OTHER PRN PRN PRN Reason: for Hypoglycemia Protocol Glyburide (Diabeta) 5 mg PO BID [facility] Last Admin: 05/14/18 08:54 Dose: 5 mg Propofol (Diprivan 1000 Mg/100 Ml Inj) 1,000 mg in 100 mls @ 2.376 mls/hr IV.CONT TITRATE PRN; Protocol PRN Reason: Per Protocol Last Admin: 05/14/18 11:16 Dose: 30 mcg/kg/min, 14.26 mls/hr Midazolam HCl (Versed Inj) 50 mg in 50 mls @ 2 mls/hr IV.CONT TITRATE PRN; Protocol PRN Reason: Per Protocol Last Titration: 05/11/18 20:47 Dose: 0 mg/hr, 0 mls/hr Phenylephrine HCl 40 mg/ (Dextrose) 500 mls @ 30 mls/hr IV.CONT TITRATE PRN; Protocol PRN Reason: Per Protocol Last Titration: 05/13/18 17:11 Dose: 0 mcg/min, 0 mls/hr Fentanyl (Fentanyl 10 Mcg/Ml Premix Drip) 2,500 mcg in 250 mls @ 5 mls/hr IV.SIG TITRATE PRN; Protocol PRN Reason: Per Protocol Last Titration: 05/14/18 08:17 Dose: 50 mcg/hr, 5 mls/hr Sodium Chloride (Ns Inj) 1,000 mls @ 200 mls/hr IV.SIG .Q5H [facility] Last Admin: 05/14/18 10:27 Dose: 200 mls/hr Pantoprazole Sodium 80 mg/ (Sodium Chloride) 100 mls @ 10 mls/hr IV.CONT Q10H [facility] Last Infusion: 05/14/18 13:39 Dose: Infused Insulin Aspart (Novolog Insulin Correctional Sugar Inj) 0 unit SQ Q6HR [facility]; Protocol Last Admin: 05/14/18 12:19 Dose: 2 unit Metformin HCl (Glucophage) 1,000 mg PO BID [facility] Last Admin: 05/12/18 09:03 Dose: Not Given Terbutaline Sulfate (Brethine Inj) 1 mg SQ UNSCH PRN PRN Reason: For Extravasation Allergies Allergy/AdvReac Type Severity Reaction Status Date / Time No Known Allergies Allergy Verified 05/11/18 08:54 Home Medications Medication Instructions Recorded Confirmed Type glyburide 5 mg PO BID 04/13/18 05/11/18 History metformin 1,000 mg PO BID 04/13/18 05/11/18 History Physical Exam Vital signs: Vital Signs 05/13/18 15:15 05/13/18 15:16 05/13/18 15:30 Temperature Pulse Rate 69 70 76 Respiratory Rate 16 16 18 Blood Pressure 128/61 Pulse Oximetry 99 99 99 05/13/18 15:31 05/13/18 15:45 05/13/18 15:46 Temperature Pulse Rate 75 80 81 Respiratory Rate 18 20 27 H Blood Pressure 145/63 H 148/66 H Pulse Oximetry 99 97 97 05/13/18 16:00 05/13/18 16:01 05/13/18 16:15 Temperature Pulse Rate 82 82 83 Respiratory Rate 22 21 22 Blood Pressure 150/65 H Pulse Oximetry 95 95 95 05/13/18 16:16 05/13/18 16:17 05/13/18 16:30 Temperature Pulse Rate 84 79 Respiratory Rate 22 20 20 Blood Pressure 148/64 H Pulse Oximetry 95 95 96 05/13/18 16:31 05/13/18 16:45 05/13/18 16:46 Temperature Pulse Rate 79 82 81 Respiratory Rate 20 21 20 Blood Pressure 131/59 L 140/63 Pulse Oximetry 96 96 96 05/13/18 17:00 05/13/18 17:01 05/13/18 17:15 Temperature Pulse Rate 86 87 87 Respiratory Rate 35 H 31 H 29 H Blood Pressure 145/67 H Pulse Oximetry 87 L 95 92 L 05/13/18 17:16 05/13/18 17:30 05/13/18 17:31 Temperature Pulse Rate 87 84 84 Respiratory Rate 26 H 24 24 Blood Pressure 144/65 H 138/62 Pulse Oximetry 92 L 93 L 93 L 05/13/18 17:45 05/13/18 17:46 05/13/18 18:00 Temperature Pulse Rate 84 83 82 Respiratory Rate 21 22 21 Blood Pressure 134/63 Pulse Oximetry 94 L 94 L 95 05/13/18 18:01 05/13/18 18:15 05/13/18 18:16 Temperature Pulse Rate 81 81 80 Respiratory Rate 20 19 19 Blood Pressure 138/56 L 134/60 Pulse Oximetry 95 95 95 05/13/18 18:30 05/13/18 18:31 05/13/18 18:46 Temperature Pulse Rate 83 83 84 Respiratory Rate 20 20 21 Blood Pressure 152/66 H 159/71 H Pulse Oximetry 96 96 97 05/13/18 19:00 05/13/18 19:01 05/13/18 19:16 Temperature Pulse Rate 81 82 83 Respiratory Rate 21 22 23 Blood Pressure 152/65 H 149/67 H Pulse Oximetry 96 96 96 05/13/18 19:31 05/13/18 19:46 05/13/18 19:56 Temperature Pulse Rate 82 85 Respiratory Rate 23 28 H 26 H Blood Pressure 151/67 H 148/65 H Pulse Oximetry 96 98 97 05/13/18 20:00 05/13/18 20:01 05/13/18 20:16 Temperature 98.3 F Pulse Rate 83 82 82 Respiratory Rate 24 25 H 23 Blood Pressure 145/66 H 147/63 H Pulse Oximetry 96 96 97 05/13/18 20:31 05/13/18 20:46 05/13/18 21:00 Temperature Pulse Rate 81 82 82 Respiratory Rate 23 23 24 Blood Pressure 152/69 H 160/67 H Pulse Oximetry 96 97 97 05/13/18 21:01 05/13/18 22:01 05/13/18 22:16 Temperature Pulse Rate 83 81 86 Respiratory Rate 22 23 25 H Blood Pressure 152/70 H 148/65 H 168/69 H Pulse Oximetry 97 98 98 05/13/18 22:31 05/13/18 22:46 05/13/18 23:00 Temperature Pulse Rate 85 87 90 Respiratory Rate 25 H 27 H 27 H Blood Pressure 159/71 H 173/75 H Pulse Oximetry 97 97 97 05/13/18 23:01 05/13/18 23:16 05/13/18 23:31 Temperature Pulse Rate 89 90 87 Respiratory Rate 27 H 29 H 25 H Blood Pressure 182/72 H 168/72 H 162/70 H Pulse Oximetry 97 97 98 05/13/18 23:46 05/14/18 00:00 05/14/18 00:01 Temperature 99.5 F Pulse Rate 88 89 88 Respiratory Rate 25 H 26 H 26 H Blood Pressure 167/72 H 168/72 H Pulse Oximetry 98 99 98 05/14/18 00:16 05/14/18 00:30 05/14/18 00:33 Temperature Pulse Rate 88 86 Respiratory Rate 26 H 25 H Blood Pressure 174/72 H 168/74 H Pulse Oximetry 99 100 99 05/14/18 00:49 05/14/18 01:00 05/14/18 01:01 Temperature Pulse Rate 89 87 Respiratory Rate 29 H 27 H 26 H Blood Pressure 161/69 H Pulse Oximetry 100 99 99 05/14/18 01:04 05/14/18 01:19 05/14/18 01:34 Temperature Pulse Rate 86 82 81 Respiratory Rate 24 15 21 Blood Pressure 159/70 H 152/68 H 150/65 H Pulse Oximetry 98 96 96 05/14/18 02:00 05/14/18 02:04 05/14/18 02:19 Temperature Pulse Rate 79 79 83 Respiratory Rate 20 20 25 H Blood Pressure 166/70 H 166/74 H Pulse Oximetry 97 97 98 05/14/18 02:34 05/14/18 02:49 05/14/18 03:00 Temperature Pulse Rate 86 89 85 Respiratory Rate 25 H 28 H 25 H Blood Pressure 177/98 H 179/76 H Pulse Oximetry 98 97 99 05/14/18 03:04 05/14/18 03:37 05/14/18 03:52 Temperature Pulse Rate 83 89 Respiratory Rate 21 30 H 30 H Blood Pressure 184/77 H 173/74 H Pulse Oximetry 100 98 97 05/14/18 04:00 05/14/18 04:01 11/15/18 04:24 Temperature Pulse Rate 91 H 92 H 93 H Respiratory Rate 30 H 31 H 32 H Blood Pressure 179/77 H 166/72 H Pulse Oximetry 97 97 99 05/14/18 04:54 05/14/18 05:00 05/14/18 06:00 Temperature Pulse Rate 82 81 77 Respiratory Rate 23 23 24 Blood Pressure 135/61 Pulse Oximetry 98 98 100 05/14/18 06:24 05/14/18 06:54 05/14/18 07:00 Temperature Pulse Rate 75 86 87 Respiratory Rate 22 30 H 30 H Blood Pressure 159/70 H 153/67 H Pulse Oximetry 100 96 96 05/14/18 07:24 05/14/18 07:39 05/14/18 07:54 Temperature 98.6 F Pulse Rate 86 85 Respiratory Rate 30 H 25 H 29 H Blood Pressure 151/69 H 153/67 H Pulse Oximetry 96 97 96 05/14/18 08:00 05/14/18 08:24 05/14/18 08:54 Temperature Pulse Rate 77 81 73 Respiratory Rate 28 H 22 18 Blood Pressure 141/64 H 134/63 Pulse Oximetry 100 99 100 05/14/18 09:00 05/14/18 09:24 05/14/18 09:54 Temperature Pulse Rate 72 74 79 Respiratory Rate 18 21 26 H Blood Pressure 150/65 H 155/68 H Pulse Oximetry 100 100 100 05/14/18 10:00 05/14/18 10:24 05/14/18 10:54 Temperature Pulse Rate 77 77 72 Respiratory Rate 25 H 25 H 22 Blood Pressure 151/68 H 146/66 H Pulse Oximetry 100 100 99 05/14/18 11:00 05/14/18 11:24 05/14/18 11:37 Temperature Pulse Rate 70 65 Respiratory Rate 20 19 20 Blood Pressure 120/56 L Pulse Oximetry 100 99 98 05/14/18 11:54 05/14/18 12:00 05/14/18 12:24 Temperature 98.6 F Pulse Rate 64 64 68 Respiratory Rate 19 18 16 Blood Pressure 119/57 L 149/65 H Pulse Oximetry 98 99 100 05/14/18 12:54 05/14/18 13:00 05/14/18 13:24 Temperature Pulse Rate 63 63 68 Respiratory Rate 18 18 17 Blood Pressure 126/59 L 150/67 H Pulse Oximetry 99 99 98 05/14/18 13:54 11/15/18 14:00 Temperature Pulse Rate 62 63 Respiratory Rate 17 17 Blood Pressure 122/58 L Pulse Oximetry 98 98 Intake & Output 05/13/18 05/14/18 05/14/18 18:59 06:59 18:59 Intake Total 3100 / 3100 2100 / 2100 1100 / 1100 Output Total 950 / 950 1200 / 1200 Balance 2150 / 2150 900 / 900 1100 / 1100 Weight 194 lb 7.163 oz Intake: IV 3100 / 3100 2100 / 2100 1100 / 1100 Protonix Inj 80 MG In NS Inj 1000 / 1000 100 / 100 100 / 100 100 ML @ 10 mls/hr IV.CONT Q10H [facility] Rx#:[id number] Diprivan 1000 mg/100 ml Inj 1, 100 / 100 0 / 0 000 mg In 100 ml @ 5 MCG/KG/MIN 2.376 mls/hr IV.CONT TITRATE PRN Rx#:[id number] NS Inj 1,000 ML @ 200 mls/hr IV 1999 / 2000 2000 / 2000 1000 / 1000 .SIG .Q5H [facility] Rx#:[id number] Output: Urine Amount (Catheter) 900 / 900 1200 / 1200 Indwelling Urethral Catheter 900 / 900 1200 / 1200 Gastric Drainage 50 / 50 Orogastric Tube 50 / 50 Other: Date of Last Bowel Movement 05/13/18 05/14/18 05/14/18 # Bowel Movements 1 Narrative: Intubated, sedated lungs clear cor reg abd soft no edema neuro grossly intact - Urinary Catheter Management Indwelling Urethral Catheter Cath placed during this visit: yes Reason for continuing: Hourly intake/output Insertion date: 05/12/18 Insertion time: 00:42 Results 05/14/18 05:07 05/13/18 05:52 Cardiac Enzymes 05/13/18 Range/Units 05:52 AST 51 H (15-37) U/L CBC 05/13/18 05/14/18 Range/Units 05:52 05:07 WBC 18.2 H (4.0-11.0) th/mm3 RBC 2.81 L (4.50-5.90) mil/mm3 Hgb 8.7 L 8.2 L (13.0-17.0) gm/dL Hct 25.4 L (39.0-51.0) % Plt Count 195 (150-450) th/mm3 Comprehensive Metabolic Panel 05/13/18 Range/Units 05:52 Sodium 143 (136-145) meq/L Potassium 3.8 (3.5-5.1) meq/L Chloride 112 H (98-107) meq/L Carbon Dioxide 20.6 L (21.0-32.0) meq/L BUN 80 H (7-18) mg/dL Creatinine 2.34 H (0.60-1.30) mg/dL Calcium 6.7 L* (8.5-10.1) mg/dL AST 51 H (15-37) U/L ALT 89 H (12-78) U/L Alkaline Phosphatase 64 (45-117) U/L Total Protein 4.8 L (6.4-8.2) g/dL Albumin 1.8 L (3.4-5.0) g/dL Intake and Output 05/14/18 05/14/18 05/14/18 06:59 14:59 22:59 Intake Total 1100 / 1100 1100 / 1100 Output Total 1200 / 1200 Balance -100 / -100 1100 / 1100 Intake: IV 1100 / 1100 1100 / 1100 Protonix Inj 80 MG In NS Inj 100 / 100 100 / 100 100 ML @ 10 mls/hr IV.CONT Q10H [facility] Rx#:[id number] NS Inj 1,000 ML @ 200 mls/hr IV 1000 / 1000 1000 / 1000 .SIG .Q5H [facility] Rx#:[id number] Output: Urine Amount (Catheter) 1200 / 1200 Indwelling Urethral Catheter 1200 / 1200 Other: Date of Last Bowel Movement 05/14/18 05/14/18 # Bowel Movements 1 Weight 194 lb 7.163 oz - Imaging and Cardiology Imaging: Impressions Chest X-Ray 05/14/18 00:00 CONCLUSION: 1. Scattered perihilar and bibasilar infiltrates are noted consistent with mild pulmonary vascular congestion versus pneumonia. Clinical correlation is recommended. 2. Degenerative changes and scoliosis of the thoracolumbar spine. Head CT 05/14/18 00:00 CONCLUSION: 1. Stable appearance with mild atrophy. There is no hemorrhage or mass effect. . Assessment and Plan - Assessment (1) GI (gastrointestinal hemorrhage) Code(s): K92.2 - Gastrointestinal hemorrhage, unspecified Status: Acute (2) Acute ischemic left MCA stroke Code(s): I63.512 - Cerebral infarction due to unspecified occlusion or stenosis of left middle cerebral artery Status: Acute (3) Hypertension Code(s): I10 - Essential (primary) hypertension Status: Chronic (4) Hyperlipidemia Code(s): E78.5 - Hyperlipidemia, unspecified Status: Chronic (5) Sick sinus syndrome Code(s): I49.5 - Sick sinus syndrome Status: Acute (6) Bradycardia Code(s): R00.1 - Bradycardia, unspecified Status: Acute (7) Acute kidney injury Code(s): N17.9 - Acute kidney failure, unspecified Status: Acute - Plan Still anemic, continue to transfuse as necessary. F/u EGD planned. We will continue to hold anticoagulation. There are no new cardiac issues at this time, continue current cardiac treatment plan. We will continue to monitor during his hospitalization. (3) Hypertension Qualifiers: Hypertension type: essential hypertension Qualified Code(s): I10 - Essential (primary) hypertension
--- NOTE | 2018-05-14 15:53 | P.CONNP ---
History of Present Illness Consult date: 05/14/18 Reason for Consult: Acute on apparent chronic kidney disease. Primary Care Provider: Travis Lancaster DO Chief Complaint: pt presented to ED with coffee ground emesis and lethargy History of Present Illness: This patient is a 77-year-old male unable to provide me with any history at this time because of his clinical condition. On reviewing the records the patient has a history of diabetes mellitus, hypertension as well as a recent CVA. Also previous renal indices have been abnormal with a creatinine of 1.55 April 16, 2018 suggesting chronic kidney disease also. Patient was admitted to this institution on May 11, 2018 with a GI bleed manifested by hematemesis. Underwent endoscopy but no specific bleeding lesion found although there was mention of gastritis and esophagitis. Scheduled for repeat endoscopy today. Presentation creatinine level 1.84 deteriorating to a level of 2.34 today. Mention of ongoing evidence of GI bleeding. Has been hydrated aggressively overnight with IV fluids and urine output appears to be moving. Metformin is on hold. Review of Systems unobtainable due to mental status PMFSH - History History Provided By: Medical Record - Medical History Medical History: Medical History (Last Updated 05/14/18 @ 15:49 by Jarod Amor MD) Chronic kidney disease (CKD) stage G3a/A1, moderately decreased glomerular filtration rate (GFR) between 45-59 mL/min/1.73 square meter and albuminuria creatinine ratio less than 30 mg/g MDRO (multiple drug resistant organisms) resistance Onset Date: ~05/11/18 CVA (cerebral vascular accident) Diabetes Frequent falls Hypertension - Surgical History Surgical History: Surgical History (Last Reviewed 05/11/18 @ 08:53 by Geovanna Jean-Baptiste RN) No history of previous surgery - Family History Family History: Family History (Last Reviewed 04/15/18 @ 08:26 by Marichuy Grady) Other Diabetes mellitus - Tobacco History Second Hand Smoke Exposure: No Smoking Status: Former smoker Tobacco Type: Cigarettes - Alcohol History How Often Do You Have a Drink Containing Alcohol: Never - Substance Use History Substance History: No History of Abuse - Travel History Recent Travel in the [place] Within the Last 8 Weeks: No Recent Travel Out of the Country Within the Last 8 Weeks: No - Immunization History Tetanus Immunization: Unsure Hx Influenza Vaccine This Season: Unable to Assess Medications and Allergies Active Medications: Active Medications Amlodipine Besylate (Norvasc) 5 mg PO DAILY [facility] Last Admin: 05/14/18 08:54 Dose: 5 mg Atorvastatin Calcium (Lipitor) 40 mg PO HS [facility] Last Admin: 05/13/18 22:42 Dose: Not Given Chlorhexidine Gluconate (Chlorhexidine 2% Cloth) 3 pack TOPICAL DAILY@0400 [facility] Stop: 05/18/18 03:59 Last Admin: 05/14/18 05:16 Dose: 3 pack Chlorhexidine Gluconate (Chlorhexidine 2% Cloth) 3 pack TOPICAL DAILY@0400 PRN PRN Reason: Extra cloth needed Stop: 05/18/18 03:59 Dextrose (D50w Vial) 50 ml IV.PUSH UNSCH PRN PRN Reason: PER HYPOGLYCEMIA PROTOCOL Glucagon (Glucagon Inj) 1 mg OTHER PRN PRN PRN Reason: for Hypoglycemia Protocol Glyburide (Diabeta) 5 mg PO BID [facility] Last Admin: 05/14/18 08:54 Dose: 5 mg Propofol (Diprivan 1000 Mg/100 Ml Inj) 1,000 mg in 100 mls @ 2.376 mls/hr IV.CONT TITRATE PRN; Protocol PRN Reason: Per Protocol Last Admin: 05/14/18 11:16 Dose: 30 mcg/kg/min, 14.26 mls/hr Midazolam HCl (Versed Inj) 50 mg in 50 mls @ 2 mls/hr IV.CONT TITRATE PRN; Protocol PRN Reason: Per Protocol Last Titration: 05/11/18 20:47 Dose: 0 mg/hr, 0 mls/hr Phenylephrine HCl 40 mg/ (Dextrose) 500 mls @ 30 mls/hr IV.CONT TITRATE PRN; Protocol PRN Reason: Per Protocol Last Titration: 05/13/18 17:11 Dose: 0 mcg/min, 0 mls/hr Fentanyl (Fentanyl 10 Mcg/Ml Premix Drip) 2,500 mcg in 250 mls @ 5 mls/hr IV.SIG TITRATE PRN; Protocol PRN Reason: Per Protocol Last Titration: 05/14/18 08:17 Dose: 50 mcg/hr, 5 mls/hr Sodium Chloride (Ns Inj) 1,000 mls @ 150 mls/hr IV.SIG .Q6H40M [facility] Last Admin: 05/14/18 10:27 Dose: 200 mls/hr Pantoprazole Sodium 80 mg/ (Sodium Chloride) 100 mls @ 10 mls/hr IV.CONT Q10H [facility] Last Infusion: 05/14/18 13:39 Dose: Infused Insulin Aspart (Novolog Insulin Correctional Sugar Inj) 0 unit SQ Q6HR [facility]; Protocol Last Admin: 05/14/18 12:19 Dose: 2 unit Terbutaline Sulfate (Brethine Inj) 1 mg SQ UNSCH PRN PRN Reason: For Extravasation Allergies Allergy/AdvReac Type Severity Reaction Status Date / Time No Known Allergies Allergy Verified 05/11/18 08:54 Home Medications Medication Instructions Recorded Confirmed Type glyburide 5 mg PO BID 04/13/18 05/11/18 History metformin 1,000 mg PO BID 04/13/18 05/11/18 History Exam Vital signs: Vital Signs 05/13/18 16:00 05/13/18 16:01 05/13/18 16:15 Temperature Pulse Rate 82 82 83 Respiratory Rate 22 21 22 Blood Pressure 150/65 H Pulse Oximetry 95 95 95 05/13/18 16:16 05/13/18 16:17 05/13/18 16:30 Temperature Pulse Rate 84 79 Respiratory Rate 22 20 20 Blood Pressure 148/64 H Pulse Oximetry 95 95 96 05/13/18 16:31 05/13/18 16:45 05/13/18 16:46 Temperature Pulse Rate 79 82 81 Respiratory Rate 20 21 20 Blood Pressure 131/59 L 140/63 Pulse Oximetry 96 96 96 05/13/18 17:00 05/13/18 17:01 05/13/18 17:15 Temperature Pulse Rate 86 87 87 Respiratory Rate 35 H 31 H 29 H Blood Pressure 145/67 H Pulse Oximetry 87 L 95 92 L 05/13/18 17:16 05/13/18 17:30 05/13/18 17:31 Temperature Pulse Rate 87 84 84 Respiratory Rate 26 H 24 24 Blood Pressure 144/65 H 138/62 Pulse Oximetry 92 L 93 L 93 L 05/13/18 17:45 05/13/18 17:46 05/13/18 18:00 Temperature Pulse Rate 84 83 82 Respiratory Rate 21 22 21 Blood Pressure 134/63 Pulse Oximetry 94 L 94 L 95 05/13/18 18:01 05/13/18 18:15 05/13/18 18:16 Temperature Pulse Rate 81 81 80 Respiratory Rate 20 19 19 Blood Pressure 138/56 L 134/60 Pulse Oximetry 95 95 95 05/13/18 18:30 05/13/18 18:31 05/13/18 18:46 Temperature Pulse Rate 83 83 84 Respiratory Rate 20 20 21 Blood Pressure 152/66 H 159/71 H Pulse Oximetry 96 96 97 05/13/18 19:00 05/13/18 19:01 05/13/18 19:16 Temperature Pulse Rate 81 82 83 Respiratory Rate 21 22 23 Blood Pressure 152/65 H 149/67 H Pulse Oximetry 96 96 96 05/13/18 19:31 05/13/18 19:46 05/13/18 19:56 Temperature Pulse Rate 82 85 Respiratory Rate 23 28 H 26 H Blood Pressure 151/67 H 148/65 H Pulse Oximetry 96 98 97 05/13/18 20:00 05/13/18 20:01 05/13/18 20:16 Temperature 98.3 F Pulse Rate 83 82 82 Respiratory Rate 24 25 H 23 Blood Pressure 145/66 H 147/63 H Pulse Oximetry 96 96 97 05/13/18 20:31 05/13/18 20:46 05/13/18 21:00 Temperature Pulse Rate 81 82 82 Respiratory Rate 23 23 24 Blood Pressure 152/69 H 160/67 H Pulse Oximetry 96 97 97 05/13/18 21:01 05/13/18 22:01 05/13/18 22:16 Temperature Pulse Rate 83 81 86 Respiratory Rate 22 23 25 H Blood Pressure 152/70 H 148/65 H 168/69 H Pulse Oximetry 97 98 98 05/13/18 22:31 05/13/18 22:46 05/13/18 23:00 Temperature Pulse Rate 85 87 90 Respiratory Rate 25 H 27 H 27 H Blood Pressure 159/71 H 173/75 H Pulse Oximetry 97 97 97 05/13/18 23:01 05/13/18 23:16 05/13/18 23:31 Temperature Pulse Rate 89 90 87 Respiratory Rate 27 H 29 H 25 H Blood Pressure 182/72 H 168/72 H 162/70 H Pulse Oximetry 97 97 98 05/13/18 23:46 05/14/18 00:00 05/14/18 00:01 Temperature 99.5 F Pulse Rate 88 89 88 Respiratory Rate 25 H 26 H 26 H Blood Pressure 167/72 H 168/72 H Pulse Oximetry 98 99 98 05/14/18 00:16 05/14/18 00:30 05/14/18 00:33 Temperature Pulse Rate 88 86 Respiratory Rate 26 H 25 H Blood Pressure 174/72 H 168/74 H Pulse Oximetry 99 100 99 05/14/18 00:49 05/14/18 01:00 05/14/18 01:01 Temperature Pulse Rate 89 87 Respiratory Rate 29 H 27 H 26 H Blood Pressure 161/69 H Pulse Oximetry 100 99 99 05/14/18 01:04 05/14/18 01:19 05/14/18 01:34 Temperature Pulse Rate 86 82 81 Respiratory Rate 24 15 21 Blood Pressure 159/70 H 152/68 H 150/65 H Pulse Oximetry 98 96 96 05/14/18 02:00 05/14/18 02:04 05/14/18 02:19 Temperature Pulse Rate 79 79 83 Respiratory Rate 20 20 25 H Blood Pressure 166/70 H 166/74 H Pulse Oximetry 97 97 98 05/14/18 02:34 05/14/18 02:49 05/14/18 03:00 Temperature Pulse Rate 86 89 85 Respiratory Rate 25 H 28 H 25 H Blood Pressure 177/98 H 179/76 H Pulse Oximetry 98 97 99 05/14/18 03:04 05/14/18 03:37 05/14/18 03:52 Temperature Pulse Rate 83 89 Respiratory Rate 21 30 H 30 H Blood Pressure 184/77 H 173/74 H Pulse Oximetry 100 98 97 05/14/18 04:00 05/14/18 04:01 05/14/18 04:24 Temperature Pulse Rate 91 H 92 H 93 H Respiratory Rate 30 H 31 H 32 H Blood Pressure 179/77 H 166/72 H Pulse Oximetry 97 97 99 05/14/18 04:54 05/14/18 05:00 05/14/18 06:00 Temperature Pulse Rate 82 81 77 Respiratory Rate 23 23 24 Blood Pressure 135/61 Pulse Oximetry 98 98 100 05/14/18 06:24 05/14/18 06:54 05/14/18 07:00 Temperature Pulse Rate 75 86 87 Respiratory Rate 22 30 H 30 H Blood Pressure 159/70 H 153/67 H Pulse Oximetry 100 96 96 05/14/18 07:24 05/14/18 07:39 05/14/18 07:54 Temperature 98.6 F Pulse Rate 86 85 Respiratory Rate 30 H 25 H 29 H Blood Pressure 151/69 H 153/67 H Pulse Oximetry 96 97 96 05/14/18 08:00 05/14/18 08:24 05/14/18 08:54 Temperature Pulse Rate 77 81 73 Respiratory Rate 28 H 22 18 Blood Pressure 141/64 H 134/63 Pulse Oximetry 100 99 100 05/14/18 09:00 05/14/18 09:24 05/14/18 09:54 Temperature Pulse Rate 72 74 79 Respiratory Rate 18 21 26 H Blood Pressure 150/65 H 155/68 H Pulse Oximetry 100 100 100 05/14/18 10:00 05/14/18 10:24 05/14/18 10:54 Temperature Pulse Rate 77 77 72 Respiratory Rate 25 H 25 H 22 Blood Pressure 151/68 H 146/66 H Pulse Oximetry 100 100 99 05/14/18 11:00 05/14/18 11:24 05/14/18 11:37 Temperature Pulse Rate 70 65 Respiratory Rate 20 19 20 Blood Pressure 120/56 L Pulse Oximetry 100 99 98 05/14/18 11:54 05/14/18 12:00 05/14/18 12:24 Temperature 98.6 F Pulse Rate 64 64 68 Respiratory Rate 19 18 16 Blood Pressure 119/57 L 149/65 H Pulse Oximetry 98 99 100 05/14/18 12:54 05/14/18 13:00 05/14/18 13:24 Temperature Pulse Rate 63 63 68 Respiratory Rate 18 18 17 Blood Pressure 126/59 L 150/67 H Pulse Oximetry 99 99 98 05/14/18 13:54 05/14/18 14:00 05/14/18 15:28 Temperature Pulse Rate 62 63 Respiratory Rate 17 17 18 Blood Pressure 122/58 L Pulse Oximetry 98 98 99 Intake & Output 05/13/18 05/14/18 05/14/18 18:59 06:59 18:59 Intake Total 3100 / 3100 2100 / 2100 1100 / 1100 Output Total 950 / 950 1200 / 1200 Balance 2150 / 2150 900 / 900 1100 / 1100 Weight 88.2 kg Intake: IV 3100 / 3100 2100 / 2100 1100 / 1100 Protonix Inj 80 MG In NS Inj 1000 / 1000 100 / 100 100 / 100 100 ML @ 10 mls/hr IV.CONT Q10H [facility] Rx#:[id number] Diprivan 1000 mg/100 ml Inj 1, 100 / 100 0 / 0 000 mg In 100 ml @ 5 MCG/KG/MIN 2.376 mls/hr IV.CONT TITRATE PRN Rx#:[id number] NS Inj 1,000 ML @ 200 mls/hr IV 1999 1000 / 1000 .SIG .Q5H [facility] Rx#:[id number] Output: Urine Amount (Catheter) 900 / 900 1200 / 1200 Indwelling Urethral Catheter 900 / 900 1200 / 1200 Gastric Drainage 50 / 50 Orogastric Tube 50 / 50 Other: Date of Last Bowel Movement 05/13/18 05/14/18 05/14/18 # Bowel Movements 1 Narrative: GENERAL: Elderly appearing gentleman with an ET tube in place on the ventilator. SKIN: Warm and dry. HEAD: Normocephalic. EYES: No scleral icterus. No injection or drainage. NECK: Supple, trachea midline. No JVD. CARDIOVASCULAR: Regular rate and rhythm without murmurs, gallops, or rubs. RESPIRATORY: Breath sounds equal bilaterally. No accessory muscle use. GASTROINTESTINAL: Abdomen soft, non-tender, nondistended. MUSCULOSKELETAL: No cyanosis, trace edema extremities. BACK: Nontender without obvious deformity. . Results - Lab Results 05/14/18 05:07 05/13/18 05:52 Most recent lab results ABG pH 7.36 (7.380-7.420) L 05/11/18 20:14 ABG pCO2 29 mmHg (38-42) L 05/11/18 20:14 ABG pO2 531 mmHg (61-120) H 05/11/18 20:14 ABG HCO3 16 mmol/L (22-26) L* 05/11/18 20:14 Calcium 6.7 mg/dL (8.5-10.1) L* 05/13/18 05:52 Phosphorus 3.5 mg/dL (2.5-4.9) D 05/13/18 05:52 Magnesium 1.5 mg/dL (1.5-2.5) 05/13/18 05:52 - Image Kidney/bladder ultrasound: pending Assessment and Plan - Assessment (1) Acute on chronic renal insufficiency Code(s): N28.9 - Disorder of kidney and ureter, unspecified; N18.9 - Chronic kidney disease, unspecified Status: Acute Plan: Most likely related to hemodynamic factors secondary to ongoing GI bleeding. Continue IV hydration but at this point in time reduce IV rate from 200-150 mL/ h as urine output has improved there is some developing edema. Serological studies have been ordered. Medications should be adjusted for the patient's estimated GFR if clinically indicated. Avoid agents with significant potential for nephrotoxicity possible including NSAIDs for analgesia, iodine contrast agents. Gadolinium is contraindicated if the GFR is below 30. (2) CKD (chronic kidney disease) stage 3, GFR 30-59 ml/min Code(s): N18.3 - Chronic kidney disease, stage 3 (moderate) Status: Acute Plan: Most likely related to nephrosclerosis of hypertension and aging with possible superimposed diabetic nephropathy. In addition we will screen for myeloma given previous anemia with renal insufficiency. (3) Metabolic acidosis Code(s): E87.2 - Acidosis Status: Acute Plan: Mild, secondary to acute renal insufficiency. Continue to monitor. If worsens consider bicarbonate therapy.
--- NOTE | 2018-05-14 16:04 | P.PNFP ---
Subjective Interval history: intubated resting quietly no new events Results - Labs Result diagrams: 05/14/18 05:07 05/13/18 05:52 Abnormal lab results 05/13/18 05/13/18 05/14/18 Range/Units 17:15 23:08 00:56 Hgb (13.0-17.0) gm/dL POC Glucose 165 H 177 H 208 H (68-110) mg/dl 05/14/18 05/14/18 05/14/18 Range/Units 05:07 06:33 11:31 Hgb 8.2 L (13.0-17.0) gm/dL POC Glucose 186 H 198 H (68-110) mg/dl Short CBC 05/14/18 Range/Units 05:07 Hgb 8.2 L (13.0-17.0) gm/dL - Imaging Impressions Chest X-Ray 05/14/18 00:00 CONCLUSION: 1. Scattered perihilar and bibasilar infiltrates are noted consistent with mild pulmonary vascular congestion versus pneumonia. Clinical correlation is recommended. 2. Degenerative changes and scoliosis of the thoracolumbar spine. Head CT 05/14/18 00:00 CONCLUSION: 1. Stable appearance with mild atrophy. There is no hemorrhage or mass effect. . Physical Exam Vital signs: Vital Signs 05/13/18 16:15 05/13/18 16:16 05/13/18 16:17 Temperature Pulse Rate 83 84 Respiratory Rate 22 22 20 Blood Pressure 148/64 H Pulse Oximetry 95 95 95 05/13/18 16:30 05/13/18 16:31 05/13/18 16:45 Temperature Pulse Rate 79 79 82 Respiratory Rate 20 20 21 Blood Pressure 131/59 L Pulse Oximetry 96 96 96 05/13/18 16:46 05/13/18 17:00 05/13/18 17:01 Temperature Pulse Rate 81 86 87 Respiratory Rate 20 35 H 31 H Blood Pressure 140/63 145/67 H Pulse Oximetry 96 87 L 95 05/13/18 17:15 05/13/18 17:16 05/13/18 17:30 Temperature Pulse Rate 87 87 84 Respiratory Rate 29 H 26 H 24 Blood Pressure 144/65 H Pulse Oximetry 92 L 92 L 93 L 05/13/18 17:31 05/13/18 17:45 11/14/18 17:46 Temperature Pulse Rate 84 84 83 Respiratory Rate 24 21 22 Blood Pressure 138/62 134/63 Pulse Oximetry 93 L 94 L 94 L 05/13/18 18:00 05/13/18 18:01 05/13/18 18:15 Temperature Pulse Rate 82 81 81 Respiratory Rate 21 20 19 Blood Pressure 138/56 L Pulse Oximetry 95 95 95 05/13/18 18:16 05/13/18 18:30 05/13/18 18:31 Temperature Pulse Rate 80 83 83 Respiratory Rate 19 20 20 Blood Pressure 134/60 152/66 H Pulse Oximetry 95 96 96 05/13/18 18:46 05/13/18 19:00 05/13/18 19:01 Temperature Pulse Rate 84 81 82 Respiratory Rate 21 21 22 Blood Pressure 159/71 H 152/65 H Pulse Oximetry 97 96 96 05/13/18 19:16 05/13/18 19:31 05/13/18 19:46 Temperature Pulse Rate 83 82 85 Respiratory Rate 23 23 28 H Blood Pressure 149/67 H 151/67 H 148/65 H Pulse Oximetry 96 96 98 05/13/18 19:56 05/13/18 20:00 05/13/18 20:01 Temperature Pulse Rate 83 82 Respiratory Rate 26 H 24 25 H Blood Pressure 145/66 H Pulse Oximetry 97 96 96 05/13/18 20:16 05/13/18 20:31 05/13/18 20:46 Temperature 98.3 F Pulse Rate 82 81 82 Respiratory Rate 23 23 23 Blood Pressure 147/63 H 152/69 H 160/67 H Pulse Oximetry 97 96 97 05/13/18 21:00 05/13/18 21:01 05/13/18 22:01 Temperature Pulse Rate 82 83 81 Respiratory Rate 24 22 23 Blood Pressure 152/70 H 148/65 H Pulse Oximetry 97 97 98 05/13/18 22:16 05/13/18 22:31 05/13/18 22:46 Temperature Pulse Rate 86 85 87 Respiratory Rate 25 H 25 H 27 H Blood Pressure 168/69 H 159/71 H 173/75 H Pulse Oximetry 98 97 97 05/13/18 23:00 05/13/18 23:01 05/13/18 23:16 Temperature Pulse Rate 90 89 90 Respiratory Rate 27 H 27 H 29 H Blood Pressure 182/72 H 168/72 H Pulse Oximetry 97 97 97 05/13/18 23:31 05/13/18 23:46 05/14/18 00:00 Temperature 99.5 F Pulse Rate 87 88 89 Respiratory Rate 25 H 25 H 26 H Blood Pressure 162/70 H 167/72 H Pulse Oximetry 98 98 99 05/14/18 00:01 05/14/18 00:16 05/14/18 00:30 Temperature Pulse Rate 88 88 Respiratory Rate 26 H 26 H Blood Pressure 168/72 H 174/72 H Pulse Oximetry 98 99 100 05/14/18 00:33 05/14/18 00:49 05/14/18 01:00 Temperature Pulse Rate 86 89 87 Respiratory Rate 25 H 29 H 27 H Blood Pressure 168/74 H 161/69 H Pulse Oximetry 99 100 99 05/14/18 01:01 05/14/18 01:04 05/14/18 01:19 Temperature Pulse Rate 86 82 Respiratory Rate 26 H 24 15 Blood Pressure 159/70 H 152/68 H Pulse Oximetry 99 98 96 05/14/18 01:34 05/14/18 02:00 05/14/18 02:04 Temperature Pulse Rate 81 79 79 Respiratory Rate 21 20 20 Blood Pressure 150/65 H 166/70 H Pulse Oximetry 96 97 97 05/14/18 02:19 05/14/18 02:34 05/14/18 02:49 Temperature Pulse Rate 83 86 89 Respiratory Rate 25 H 25 H 28 H Blood Pressure 166/74 H 177/98 H 179/76 H Pulse Oximetry 98 98 97 05/14/18 03:00 05/14/18 03:04 05/14/18 03:37 Temperature Pulse Rate 85 83 89 Respiratory Rate 25 H 21 30 H Blood Pressure 184/77 H 173/74 H Pulse Oximetry 99 100 98 05/14/18 03:52 05/14/18 04:00 05/14/18 04:01 Temperature Pulse Rate 91 H 92 H Respiratory Rate 30 H 30 H 31 H Blood Pressure 179/77 H Pulse Oximetry 97 97 97 05/14/18 04:24 05/14/18 04:54 05/14/18 05:00 Temperature Pulse Rate 93 H 82 81 Respiratory Rate 32 H 23 23 Blood Pressure 166/72 H 135/61 Pulse Oximetry 99 98 98 05/14/18 06:00 05/14/18 06:24 05/14/18 06:54 Temperature Pulse Rate 77 75 86 Respiratory Rate 24 22 30 H Blood Pressure 159/70 H 153/67 H Pulse Oximetry 100 100 96 05/14/18 07:00 05/14/18 07:24 05/14/18 07:39 Temperature Pulse Rate 87 86 Respiratory Rate 30 H 30 H 25 H Blood Pressure 151/69 H Pulse Oximetry 96 96 97 05/14/18 07:54 05/14/18 08:00 05/14/18 08:24 Temperature 98.6 F Pulse Rate 85 77 81 Respiratory Rate 29 H 28 H 22 Blood Pressure 153/67 H 141/64 H Pulse Oximetry 96 100 99 05/14/18 08:54 05/14/18 09:00 05/14/18 09:24 Temperature Pulse Rate 73 72 74 Respiratory Rate 18 18 21 Blood Pressure 134/63 150/65 H Pulse Oximetry 100 100 100 05/14/18 09:54 05/14/18 10:00 05/14/18 10:24 Temperature Pulse Rate 79 77 77 Respiratory Rate 26 H 25 H 25 H Blood Pressure 155/68 H 151/68 H Pulse Oximetry 100 100 100 05/14/18 10:54 05/14/18 11:00 05/14/18 11:24 Temperature Pulse Rate 72 70 65 Respiratory Rate 22 20 19 Blood Pressure 146/66 H 120/56 L Pulse Oximetry 99 100 99 05/14/18 11:37 05/14/18 11:54 05/14/18 12:00 Temperature 98.6 F Pulse Rate 64 64 Respiratory Rate 20 19 18 Blood Pressure 119/57 L Pulse Oximetry 98 98 99 05/14/18 12:24 05/14/18 12:54 05/14/18 13:00 Temperature Pulse Rate 68 63 63 Respiratory Rate 16 18 18 Blood Pressure 149/65 H 126/59 L Pulse Oximetry 100 99 99 05/14/18 13:24 05/14/18 13:54 05/14/18 14:00 Temperature Pulse Rate 68 62 63 Respiratory Rate 17 17 17 Blood Pressure 150/67 H 122/58 L Pulse Oximetry 98 98 98 05/14/18 15:28 Temperature Pulse Rate Respiratory Rate 18 Blood Pressure Pulse Oximetry 99 Intake & Output 05/13/18 05/14/18 05/14/18 18:59 06:59 18:59 Intake Total 3100 / 3100 2100 / 2100 1100 / 1100 Output Total 950 / 950 1200 / 1200 Balance 2150 / 2150 900 / 900 1100 / 1100 Weight 88.2 kg Intake: IV 3100 / 3100 2100 / 2100 1100 / 1100 Protonix Inj 80 MG In NS Inj 1000 / 1000 100 / 100 100 / 100 100 ML @ 10 mls/hr IV.CONT Q10H [facility] Rx#:[id number] Diprivan 1000 mg/100 ml Inj 1, 100 / 100 0 / 0 000 mg In 100 ml @ 5 MCG/KG/MIN 2.376 mls/hr IV.CONT TITRATE PRN Rx#:[id number] NS Inj 1,000 ML @ 200 mls/hr IV 2000 / 1999 2000 / 2000 1000 / 1000 .SIG .Q5H [facility] Rx#:[id number] Output: Urine Amount (Catheter) 900 / 900 1200 / 1200 Indwelling Urethral Catheter 900 / 900 1200 / 1200 Gastric Drainage 50 / 50 Orogastric Tube 50 / 50 Other: Date of Last Bowel Movement 05/13/18 05/14/18 05/14/18 # Bowel Movements 1 - Constitutional no acute distress - Routine HEENT Exam Head: Present: normocephalic, atraumatic ENT: Present: mucous membranes dry - Routine Respiratory Exam Present: CTA bilaterally Comments: intubated - Routine Cardiovascular Exam Present: RRR - Routine Abdominal Exam Present: soft, normoactive bowel sounds - Urinary Catheter Management Indwelling Urethral Catheter Cath placed during this visit: yes Reason for continuing: Hourly intake/output Insertion date: 05/12/18 Insertion time: 00:42 Assessment and Plan - Assessment (1) GI (gastrointestinal hemorrhage) Code(s): K92.2 - Gastrointestinal hemorrhage, unspecified Status: Acute Plan: gi following, transfuse as needed follow hgb closely EGD pending 05/14 no repoted bleeding hgb 8.2 - Assessment and Plan 05/12/18- Transferred to ICU yesterday, intubated for airway protection. EGD attempted yesterday, scheduled for repeat today. Received 3 units of Blood, HGB stable currently. [employer]ist following. 05/13/18- Remains intubated with ventilator support. NG with dark blood, Hgb 8.7 this am received transfusion yesterday, EGD pending in am. [employer] Specialist following. 05/14 wean vent follow hgb closely will need snf at discharge Discharge Planning: snf
[2018-05-14 17:17] LABS: Calcium 7.2 mg/dL (8.5-10.1); Carbon Dioxide 19.8 meq/L (21.0-32.0); Potassium 3.5 meq/L (3.5-5.1)
[2018-05-14 18:00] LABS: Amorphous Sediment,Urine Rare /hpf; Bacteria,Urine Few /hpf; Bilirubin,Urine Negative (Negative); Clarity,Urine Hazy (Clear); Color,Urine Yellow (Yellw/Straw); Glucose,Urine (UA) 50 mg/dL (Negative); Hyaline Casts,Urine 1 /lpf (0-3); Leukocyte Esterase,Urine Trace (Negative); Mucus,Urine Few /lpf (Occasional); Nitrite,Urine Negative (Negative); Specific Gravity,Urine 1.019 (1.002-1.035); Squamous Epithelial Cell,Urine <1 /hpf (0-5)
[2018-05-14 18:07] LABS: Total Protein 4.8 g/dL (6.4-8.2)
[2018-05-14 18:16] LABS: Baso % (Auto) 0.2 % (0.0-2.0); Eos % (Auto) 0.1 % (0.0-4.0); Hemoglobin 8.5 gm/dL (13.0-17.0); Lymph # (Auto) 0.4 th/mm3 (1.0-4.8); Lymph % (Auto) 4.4 % (9.0-44.0); Mean Corpuscular HGB Conc 35.4 % (32.0-36.0); Mean Corpuscular Hemoglobin 32.4 pg (27.0-34.0); Mean Corpuscular Volume 91.3 fL (80.0-100.0); Mean Platelet Volume 8.3 fL (7.0-11.0); Mono # (Auto) 0.5 th/mm3 (0.0-0.9); Mono % (Auto) 5.7 % (0.0-8.0); Neut # (Auto) 8.5 th/mm3 (1.8-7.7); Neut % (Auto) 89.6 % (16.0-70.0); Platelet Count 158 th/mm3 (150-450); Red Blood Count 2.62 mil/mm3 (4.50-5.90); Red Cell Distribution Width 20.7 % (11.6-17.2); White Blood Count 9.5 th/mm3 (4.0-11.0)
--- NOTE | 2018-05-14 19:37 | US ---
EXAM DATE: 05/14/2018 7:11 PM EST AGE/SEX: 77 years / Male INDICATIONS: Increased BUN and Creatinine. CLINICAL DATA: This is the patient's initial encounter. Patient reports that signs and symptoms have been present for 1 day and indicates a pain score of 2/10. MEDICAL/SURGICAL HISTORY: Hypertension. Diabetes. None. COMPARISON: [facility], CT ABDOMEN W AND W/O CONTRAST, 04/30/2016. . MEASUREMENTS: Right Kidney:__11.0 x 5.2 x 4.8 cm Left Kidney:__9.8 x 5.2 x 5.0 cm FINDINGS: Right Kidney: Normal echotexture and cortical thickness. No mass or hydronephrosis. Left Kidney: There is a 4.8 x 4.1 x 4.9 cm left renal mass identified on recent CT as well and slight ly increased in size compared to CT exam from 2016. Bladder: Kuhn catheter is present. Bladder decompressed. Other: None. CONCLUSION: 1. Left renal mass measuring up to 4.9 cm. This is stable to minimally increased from previous CT me asurement of 4.6 cm in 2016. No hydronephrosis. Kuhn catheter in decompressed bladder. Electronically signed by: Ian Diez MD 05/14/2018 7:22 PM EST
--- NOTE | 2018-05-14 20:11 | P.PNGI ---
Subjective Interval history: Patient laying in bed, seems to be comfortable, no new complaint intubated minimal output from the NG tube no sign of active bleeding, slight drop in his hemoglobin Physical Exam Vital signs: Vital Signs 05/13/18 20:16 05/13/18 20:31 05/13/18 20:46 Temperature 98.3 F Pulse Rate 82 81 82 Respiratory Rate 23 23 23 Blood Pressure 147/63 H 152/69 H 160/67 H Pulse Oximetry 97 96 97 05/13/18 21:00 05/13/18 21:01 05/13/18 22:01 Temperature Pulse Rate 82 83 81 Respiratory Rate 24 22 23 Blood Pressure 152/70 H 148/65 H Pulse Oximetry 97 97 98 05/13/18 22:16 05/13/18 22:31 05/13/18 22:46 Temperature Pulse Rate 86 85 87 Respiratory Rate 25 H 25 H 27 H Blood Pressure 168/69 H 159/71 H 173/75 H Pulse Oximetry 98 97 97 05/13/18 23:00 05/13/18 23:01 05/13/18 23:16 Temperature Pulse Rate 90 89 90 Respiratory Rate 27 H 27 H 29 H Blood Pressure 182/72 H 168/72 H Pulse Oximetry 97 97 97 05/13/18 23:31 05/13/18 23:46 05/14/18 00:00 Temperature 99.5 F Pulse Rate 87 88 89 Respiratory Rate 25 H 25 H 26 H Blood Pressure 162/70 H 167/72 H Pulse Oximetry 98 98 99 05/14/18 00:01 05/14/18 00:16 05/14/18 00:30 Temperature Pulse Rate 88 88 Respiratory Rate 26 H 26 H Blood Pressure 168/72 H 174/72 H Pulse Oximetry 98 99 100 05/14/18 00:33 05/14/18 00:49 05/14/18 01:00 Temperature Pulse Rate 86 89 87 Respiratory Rate 25 H 29 H 27 H Blood Pressure 168/74 H 161/69 H Pulse Oximetry 99 100 99 05/14/18 01:01 05/14/18 01:04 05/14/18 01:19 Temperature Pulse Rate 86 82 Respiratory Rate 26 H 24 15 Blood Pressure 159/70 H 152/68 H Pulse Oximetry 99 98 96 05/14/18 01:34 05/14/18 02:00 05/14/18 02:04 Temperature Pulse Rate 81 79 79 Respiratory Rate 21 20 20 Blood Pressure 150/65 H 166/70 H Pulse Oximetry 96 97 97 05/14/18 02:19 05/14/18 02:34 05/14/18 02:49 Temperature Pulse Rate 83 86 89 Respiratory Rate 25 H 25 H 28 H Blood Pressure 166/74 H 177/98 H 179/76 H Pulse Oximetry 98 98 97 05/14/18 03:00 05/14/18 03:04 05/14/18 03:37 Temperature Pulse Rate 85 83 89 Respiratory Rate 25 H 21 30 H Blood Pressure 184/77 H 173/74 H Pulse Oximetry 99 100 98 05/14/18 03:52 05/14/18 04:00 05/14/18 04:01 Temperature Pulse Rate 91 H 92 H Respiratory Rate 30 H 30 H 31 H Blood Pressure 179/77 H Pulse Oximetry 97 97 97 05/14/18 04:24 05/14/18 04:54 05/14/18 05:00 Temperature Pulse Rate 93 H 82 81 Respiratory Rate 32 H 23 23 Blood Pressure 166/72 H 135/61 Pulse Oximetry 99 98 98 05/14/18 06:00 05/14/18 06:24 05/14/18 06:54 Temperature Pulse Rate 77 75 86 Respiratory Rate 24 22 30 H Blood Pressure 159/70 H 153/67 H Pulse Oximetry 100 100 96 05/14/18 07:00 05/14/18 07:24 05/14/18 07:39 Temperature Pulse Rate 87 86 Respiratory Rate 30 H 30 H 25 H Blood Pressure 151/69 H Pulse Oximetry 96 96 97 05/14/18 07:54 05/14/18 08:00 05/14/18 08:24 Temperature 98.6 F Pulse Rate 85 77 81 Respiratory Rate 29 H 28 H 22 Blood Pressure 153/67 H 141/64 H Pulse Oximetry 96 100 99 05/14/18 08:54 05/14/18 09:00 05/14/18 09:24 Temperature Pulse Rate 73 72 74 Respiratory Rate 18 18 21 Blood Pressure 134/63 150/65 H Pulse Oximetry 100 100 100 05/14/18 09:54 05/14/18 10:00 05/14/18 10:24 Temperature Pulse Rate 79 77 77 Respiratory Rate 26 H 25 H 25 H Blood Pressure 155/68 H 151/68 H Pulse Oximetry 100 100 100 05/14/18 10:54 05/14/18 11:00 05/14/18 11:24 Temperature Pulse Rate 72 70 65 Respiratory Rate 22 20 19 Blood Pressure 146/66 H 120/56 L Pulse Oximetry 99 100 99 05/14/18 11:37 05/14/18 11:54 05/14/18 12:00 Temperature 98.6 F Pulse Rate 64 64 Respiratory Rate 20 19 18 Blood Pressure 119/57 L Pulse Oximetry 98 98 99 05/14/18 12:24 05/14/18 12:54 05/14/18 13:00 Temperature Pulse Rate 68 63 63 Respiratory Rate 16 18 18 Blood Pressure 149/65 H 126/59 L Pulse Oximetry 100 99 99 05/14/18 13:24 05/14/18 13:54 05/14/18 14:00 Temperature Pulse Rate 68 62 63 Respiratory Rate 17 17 17 Blood Pressure 150/67 H 122/58 L Pulse Oximetry 98 98 98 05/14/18 14:24 05/14/18 14:54 05/14/18 15:00 Temperature Pulse Rate 61 61 61 Respiratory Rate 18 18 18 Blood Pressure 120/58 L 124/59 L Pulse Oximetry 99 99 99 05/14/18 15:24 05/14/18 15:28 05/14/18 15:54 Temperature Pulse Rate 60 62 Respiratory Rate 20 18 21 Blood Pressure 124/59 L 128/60 Pulse Oximetry 99 99 99 05/14/18 16:00 05/14/18 16:24 05/14/18 16:54 Temperature 98.6 F Pulse Rate 62 73 79 Respiratory Rate 20 30 H 37 H Blood Pressure 140/60 142/67 H Pulse Oximetry 99 97 95 05/14/18 17:00 05/14/18 17:24 05/14/18 17:54 Temperature Pulse Rate 80 70 68 Respiratory Rate 37 H 20 20 Blood Pressure 140/65 147/66 H Pulse Oximetry 94 L 97 98 05/14/18 18:00 05/14/18 18:24 Temperature Pulse Rate 66 65 Respiratory Rate 19 19 Blood Pressure 138/63 Pulse Oximetry 97 97 Intake & Output 05/14/18 05/14/18 05/15/18 06:59 18:59 06:59 Intake Total 2100 / 2100 2200 / 2200 Output Total 1200 / 1200 851 / 851 Balance 900 / 900 1349 / 1349 Weight 88.2 kg Intake: IV 2100 / 2100 2200 / 2200 Protonix Inj 80 MG In NS Inj 100 / 100 100 / 100 100 ML @ 10 mls/hr IV.CONT Q10H [facility] Rx#:[id number] Diprivan 1000 mg/100 ml Inj 1, 0 / 0 100 / 100 000 mg In 100 ml @ 5 MCG/KG/MIN 2.376 mls/hr IV.CONT TITRATE PRN Rx#:[id number] NS Inj 1,000 ML @ 150 mls/hr IV 1999 .SIG .Q6H40M [facility] Rx#:[id number] Oral 0 / 0 Output: Stool 1 / 1 Urine Amount (Catheter) 1200 / 1200 800 / 800 Indwelling Urethral Catheter 1200 / 1200 800 / 800 Gastric Drainage 50 / 50 Orogastric Tube 50 / 50 Other: Date of Last Bowel Movement 05/14/18 05/14/18 # Bowel Movements 1 1 - Constitutional no acute distress, somnolent - Routine HEENT Exam Head: Present: normocephalic - Routine Neck Exam Present: supple - Routine Respiratory Exam Present: decreased breath sounds - Routine Cardiovascular Exam Present: RRR, S1, S2 - Routine Abdominal Exam Present: soft, normoactive bowel sounds - Urinary Catheter Management Indwelling Urethral Catheter Cath placed during this visit: yes Reason for continuing: Hourly intake/output Insertion date: 05/12/18 Insertion time: 00:42 Results - Labs CBC & Chem 7: 05/14/18 12:45 05/14/18 16:17 Laboratory Results - last 24 hr 05/13/18 05/14/18 05/14/18 23:08 00:56 05:07 WBC RBC Hgb 8.2 L Hct MCV MCH MCHC RDW Plt Count MPV Neut % (Auto) Lymph % (Auto) Todd % (Auto) Eos % (Auto) Baso % (Auto) Neut # (Auto) Lymph # (Auto) Todd # (Auto) Eos # (Auto) Baso # (Auto) WBC Differential Differential Comment Sodium Potassium Chloride Carbon Dioxide Anion Gap BUN Creatinine Estimated GFR POC Glucose 177 H 208 H Random Glucose Calcium Prot Corrected Calcium Total Protein Urine Color Urine Clarity Urine pH Ur Specific [place] Urine Protein Urine Glucose (UA) Urine Ketones Urine Occult Blood Urine Nitrate Urine Bilirubin Urine Urobilinogen Ur Leukocyte Esterase Urine RBC Urine WBC Ur Squamous Epith Cells Amorphous Sediment Urine Bacteria Hyaline Casts Urine Mucus Ur Microscopic Review 05/14/18 05/14/18 05/14/18 06:33 11:31 12:45 WBC 9.5 RBC 2.62 L Hgb 8.5 L Hct 24.0 L MCV 91.3 MCH 32.4 MCHC 35.4 RDW 20.7 H Plt Count 158 MPV 8.3 Neut % (Auto) 89.6 H Lymph % (Auto) 4.4 L Todd % (Auto) 5.7 Eos % (Auto) 0.1 Baso % (Auto) 0.2 Neut # (Auto) 8.5 H Lymph # (Auto) 0.4 L Todd # (Auto) 0.5 Eos # (Auto) 0.0 Baso # (Auto) 0.0 WBC Differential . Differential Comment Auto diff final Sodium Potassium Chloride Carbon Dioxide Anion Gap BUN Creatinine Estimated GFR POC Glucose 186 H 198 H Random Glucose Calcium Prot Corrected Calcium Total Protein Urine Color Urine Clarity Urine pH Ur Specific [place] Urine Protein Urine Glucose (UA) Urine Ketones Urine Occult Blood Urine Nitrate Urine Bilirubin Urine Urobilinogen Ur Leukocyte Esterase Urine RBC Urine WBC Ur Squamous Epith Cells Amorphous Sediment Urine Bacteria Hyaline Casts Urine Mucus Ur Microscopic Review 05/14/18 05/14/18 05/14/18 16:17 17:08 18:04 WBC RBC Hgb Hct MCV MCH MCHC RDW Plt Count MPV Neut % (Auto) Lymph % (Auto) Todd % (Auto) Eos % (Auto) Baso % (Auto) Neut # (Auto) Lymph # (Auto) Todd # (Auto) Eos # (Auto) Baso # (Auto) WBC Differential Differential Comment Sodium 148 H Potassium 3.5 Chloride 119 H Carbon Dioxide 19.8 L Anion Gap 9 BUN 46 H Creatinine 1.51 H Estimated GFR 45 L POC Glucose 190 H Random Glucose 169 H Calcium 7.2 L* Prot Corrected Calcium 8.5 Total Protein 4.8 L Urine Color Yellow Urine Clarity Hazy H Urine pH 5.0 Ur Specific [place] 1.019 Urine Protein 100 H Urine Glucose (UA) 50 Urine Ketones Trace H Urine Occult Blood Small H Urine Nitrate Negative Urine Bilirubin Negative Urine Urobilinogen 2.0 H Ur Leukocyte Esterase Trace H Urine RBC 3 Urine WBC 6 H Ur Squamous Epith Cells <1 Amorphous Sediment Rare H Urine Bacteria Few H Hyaline Casts 1 Urine Mucus Few H Ur Microscopic Review Not Reportable - Imaging Impressions Chest X-Ray 05/14/18 00:00 CONCLUSION: 1. Scattered perihilar and bibasilar infiltrates are noted consistent with mild pulmonary vascular congestion versus pneumonia. Clinical correlation is recommended. 2. Degenerative changes and scoliosis of the thoracolumbar spine. Head CT 05/14/18 00:00 CONCLUSION: 1. Stable appearance with mild atrophy. There is no hemorrhage or mass effect. . Abdomen/Bladder Ultrasound 05/14/18 15:40 CONCLUSION: 1. Left renal mass measuring up to 4.9 cm. This is stable to minimally increased from previous CT measurement of 4.6 cm in 2016. No hydronephrosis. Kuhn catheter in decompressed bladder. Assessment and Plan (1) Anemia Status: Acute Code(s): D64.9 - Anemia, unspecified (2) GI (gastrointestinal hemorrhage) Status: Acute Code(s): K92.2 - Gastrointestinal hemorrhage, unspecified (3) Coffee ground emesis Status: Acute Code(s): K92.0 - Hematemesis - Plan Hemoglobin is stable, no sign of recent active bleeding, we will monitor H&H , plan EGD tomorrow to rule out source of GI bleed
[2018-05-14] MEDS: fentaNYL 10 mcg/mL Premix Drip 2,500 MCG/250 ML BAG IV.SIG PRN (21:30)
[2018-05-15] MEDS: Insulin NovoLOG Aspart Correctional Sugar Inj SQ SCH ×4 (00:24→18:04)
[2018-05-15] MEDS: Propofol 1000 mg/100 ml Inj 1,000 MG/100 ML BOTTLE IV.CONT PRN ×3 (01:05→21:26)
[2018-05-15] MEDS: Pantoprazole Inj 80 MG in Sodium Chlor 0.9% Inj 100 ML IV.CONT SCH ×3 (01:05→20:16)
[2018-05-15] MEDS: Sod Chloride 0.9% Inj 1,000 ML IV.SIG SCH ×2 (02:07→07:55)
[2018-05-15 03:17] LABS: Hematocrit 21.7 % (39.0-51.0); Hemoglobin 7.7 gm/dL (13.0-17.0); Mean Corpuscular HGB Conc 35.3 % (32.0-36.0); Mean Corpuscular Hemoglobin 31.8 pg (27.0-34.0); Mean Corpuscular Volume 90.1 fL (80.0-100.0); Mean Platelet Volume 8.2 fL (7.0-11.0); Platelet Count 158 th/mm3 (150-450); Red Blood Count 2.41 mil/mm3 (4.50-5.90); Red Cell Distribution Width 20.7 % (11.6-17.2); White Blood Count 9.8 th/mm3 (4.0-11.0)
[2018-05-15 03:55] LABS: Albumin 1.6 g/dL (3.4-5.0); Calcium 7.2 mg/dL (8.5-10.1); Carbon Dioxide 19.1 meq/L (21.0-32.0); Magnesium 1.3 mg/dL (1.5-2.5); Potassium 3.5 meq/L (3.5-5.1); Total Protein 4.8 g/dL (6.4-8.2)
[2018-05-15] MEDS: Chlorhexidine Gluconate 2% 1 Pack (2 Cloths) TOPICAL SCH (05:25)
[2018-05-15] MEDS: amLODIPine 5 MG Tablet PO SCH (08:08)
--- NOTE | 2018-05-15 08:51 | P.PNCC ---
Subjective Subjective Remarks/Hospital Course: 77-year-old male has been admitted for an evaluation of coffee-ground emesis at home. EMS reports patient had a large amount of coffee-ground emesis at home. Patient denied shortness of breath weakness, nausea, headache or dizziness. EGD due to anemia and GI bleeding was performed on 05/05/[address] Smith. Findings include submucosal lesion at the second port of the duodenum, gastritis in the antrum, esophagitis grade C and hiatal hernia. Patient has a medical history significant for CVA, hypertension, hyperlipidemia , sick sinus syndrome, diabetes, bradycardia and GI bleed on anticoagulation.. Patient currently on aspirin and Plavix 75 mg p.o. daily for past medical history of CVA. Patient is awake and alert, denies abdominal pain. Patient was initially admitted to medicine, however while on the [facility] floor he has developed hematemesis with copious amounts of blood requiring emergent transfer to ICU and required intubation. 05/12: Remains critically ill in the ICU on the vent. H&H stable overnight. Hypotension resolved and improved with IV fluid boluses. GI planning for another endoscopy today. 05/13: Requiring increased FiO2. Mechanics acceptable. NG with continued blood. 05/14: Remains intubated sedated with propofol and fentanyl. CT of the head done yesterday night no acute findings. Patient had bloody output from the NG tube. GE GI planning for re-scope today. FiO2 down to 45% 05/15: Hemoglobin has declined modestly, less than 1 g, nasogastric output continues to be dark. The plan is for endoscopy today to reassess upper GI status. Following that we will aim to extubate him as quickly as possible. Objective Vital Signs / I&O: Vital Signs 05/14/18 08:54 05/14/18 09:00 05/14/18 09:24 Temperature Pulse Rate 73 72 74 Respiratory Rate 18 18 21 Blood Pressure 134/63 150/65 H Pulse Oximetry 100 100 100 05/14/18 09:54 05/14/18 10:00 05/14/18 10:24 Temperature Pulse Rate 79 77 77 Respiratory Rate 26 H 25 H 25 H Blood Pressure 155/68 H 151/68 H Pulse Oximetry 100 100 100 05/14/18 10:54 05/14/18 11:00 05/14/18 11:24 Temperature Pulse Rate 72 70 65 Respiratory Rate 22 20 19 Blood Pressure 146/66 H 120/56 L Pulse Oximetry 99 100 99 05/14/18 11:37 05/14/18 11:54 05/14/18 12:00 Temperature 98.6 F Pulse Rate 64 64 Respiratory Rate 20 19 18 Blood Pressure 119/57 L Pulse Oximetry 98 98 99 05/14/18 12:24 05/14/18 12:54 05/14/18 13:00 Temperature Pulse Rate 68 63 63 Respiratory Rate 16 18 18 Blood Pressure 149/65 H 126/59 L Pulse Oximetry 100 99 99 05/14/18 13:24 05/14/18 13:54 05/14/18 14:00 Temperature Pulse Rate 68 62 63 Respiratory Rate 17 17 17 Blood Pressure 150/67 H 122/58 L Pulse Oximetry 98 98 98 05/14/18 14:24 05/14/18 14:54 05/14/18 15:00 Temperature Pulse Rate 61 61 61 Respiratory Rate 18 18 18 Blood Pressure 120/58 L 124/59 L Pulse Oximetry 99 99 99 05/14/18 15:24 05/14/18 15:28 05/14/18 15:54 Temperature Pulse Rate 60 62 Respiratory Rate 20 18 21 Blood Pressure 124/59 L 128/60 Pulse Oximetry 99 99 99 05/14/18 16:00 05/14/18 16:24 05/14/18 16:54 Temperature 98.6 F Pulse Rate 62 73 79 Respiratory Rate 20 30 H 37 H Blood Pressure 140/60 142/67 H Pulse Oximetry 99 97 95 05/14/18 17:00 05/14/18 17:24 05/14/18 17:54 Temperature Pulse Rate 80 70 68 Respiratory Rate 37 H 20 20 Blood Pressure 140/65 147/66 H Pulse Oximetry 94 L 97 98 05/14/18 18:00 05/14/18 18:24 05/14/18 18:54 Temperature Pulse Rate 66 65 72 Respiratory Rate 19 19 25 H Blood Pressure 138/63 153/68 H Pulse Oximetry 97 97 98 05/14/18 19:00 05/14/18 19:24 05/14/18 19:54 Temperature Pulse Rate 71 68 84 Respiratory Rate 23 20 32 H Blood Pressure 144/65 H 176/74 H Pulse Oximetry 98 98 96 05/14/18 20:00 05/14/18 20:24 05/14/18 20:45 Temperature 99 F Pulse Rate 82 72 Respiratory Rate 31 H 21 17 Blood Pressure 135/64 Pulse Oximetry 95 97 100 05/14/18 21:00 05/14/18 21:14 05/14/18 21:24 Temperature Pulse Rate 85 79 85 Respiratory Rate 43 H 27 H 35 H Blood Pressure 163/71 H 155/67 H Pulse Oximetry 95 96 94 L 05/14/18 21:54 05/14/18 22:00 05/14/18 22:24 Temperature Pulse Rate 69 67 66 Respiratory Rate 21 19 19 Blood Pressure 143/63 H 134/61 Pulse Oximetry 100 99 99 05/14/18 22:54 05/14/18 23:00 05/14/18 23:24 Temperature Pulse Rate 66 64 63 Respiratory Rate 16 20 16 Blood Pressure 133/61 128/60 Pulse Oximetry 99 100 99 05/14/18 23:29 05/14/18 23:54 05/15/18 00:00 Temperature 98.4 F Pulse Rate 63 63 Respiratory Rate 20 17 17 Blood Pressure 132/61 Pulse Oximetry 98 98 98 05/15/18 00:24 05/15/18 00:54 05/15/18 01:00 Temperature Pulse Rate 66 63 62 Respiratory Rate 18 17 15 Blood Pressure 144/65 H 127/58 L Pulse Oximetry 98 98 98 05/15/18 01:24 05/15/18 01:54 05/15/18 02:00 Temperature Pulse Rate 62 60 61 Respiratory Rate 17 16 16 Blood Pressure 125/59 L 123/59 L Pulse Oximetry 98 98 98 05/15/18 02:24 05/15/18 02:54 05/15/18 03:00 Temperature Pulse Rate 59 L 59 L 59 L Respiratory Rate 16 16 18 Blood Pressure 124/59 L 119/58 L Pulse Oximetry 99 98 99 05/15/18 03:24 05/15/18 03:54 05/15/18 04:00 Temperature 98.7 F Pulse Rate 58 L 56 L 56 L Respiratory Rate 16 16 16 Blood Pressure 117/56 L 112/57 L Pulse Oximetry 99 99 99 05/15/18 04:07 05/15/18 04:24 05/15/18 04:54 Temperature Pulse Rate 56 L 56 L Respiratory Rate 18 17 16 Blood Pressure 116/55 L 117/55 L Pulse Oximetry 99 99 99 05/15/18 05:00 05/15/18 05:24 05/15/18 05:54 Temperature Pulse Rate 55 L 56 L 56 L Respiratory Rate 16 17 17 Blood Pressure 118/56 L 112/54 L Pulse Oximetry 99 99 99 05/15/18 06:00 05/15/18 07:00 05/15/18 07:24 Temperature Pulse Rate 55 L 59 L 63 Respiratory Rate 16 19 23 Blood Pressure 125/61 Pulse Oximetry 99 94 L 92 L 05/15/18 07:54 05/15/18 08:00 05/15/18 08:28 Temperature 97.6 F Pulse Rate 74 72 Respiratory Rate 26 H 27 H Blood Pressure 141/65 H Pulse Oximetry 96 96 92 L Intake & Output 05/14/18 05/15/18 05/15/18 18:59 06:59 18:59 Intake Total 2200 / 2200 2450 / 2450 1100 / 1100 Output Total 851 / 851 650 / 650 Balance 1349 / 1349 1800 / 1800 1100 / 1100 Weight 89.9 kg Intake: IV 2200 / 2200 2450 / 2450 1100 / 1100 Protonix Inj 80 MG In NS Inj 100 / 100 100 / 100 100 ML @ 10 mls/hr IV.CONT Q10H [facility] Rx#:[id number] Diprivan 1000 mg/100 ml Inj 1, 100 / 100 100 / 100 100 / 100 000 mg In 100 ml @ 5 MCG/KG/MIN 2.376 mls/hr IV.CONT TITRATE PRN Rx#:[id number] NS Inj 1,000 ML @ 150 mls/hr IV 1999 / 1999 2000 / 1999 1000 / 1000 .SIG .Q6H40M [facility] Rx#:[id number] fentaNYL 10 mcg/mL Premix Drip 250 / 250 2,500 mcg In 250 ml @ 50 MCG/HR 5 mls/hr IV.SIG TITRATE PRN Rx #:[id number] Oral 0 / 0 Output: Stool 1 / 1 Urine Amount (Catheter) 800 / 800 550 / 550 Indwelling Urethral Catheter 800 / 800 550 / 550 Gastric Drainage 50 / 50 100 / 100 Orogastric Tube 50 / 50 100 / 100 Other: Date of Last Bowel Movement 05/14/18 05/14/18 05/14/18 # Bowel Movements 1 Result Diagrams: 05/15/18 03:04 05/15/18 03:04 Objective Remarks: - Constitutional Intubated sedated - Routine HEENT Exam Head: Present: normocephalic, atraumatic Eye: Present: PERRL - Routine Neck Exam Present: supple. Absent: JVD, carotid bruit - Routine Respiratory Exam Present: patient mechanically ventilated, few rhonchi, no wheezes. - Routine Cardiovascular Exam Present: RRR, S1, S2, - Routine Abdominal Exam Present: soft, normoactive bowel sounds, no guarding. No tenderness, distended - Routine Extremities Exam Absent: cyanosis, clubbing, edema - Routine Skin Exam Present: intact. Absent: cyanosis, erythema - Routine Neurological Exam Present: Intubated sedated withdraws to pain x4. Not following commands no spontaneous eye opening while sedated. Spontaneously moves extremities but too sedated to follow commands. Assessment and Plan - Assessment and Plan Plan: Respiratory failure -Intubated for an airway protection -No weaning until hemodynamically stable -Gastroenterology planning for another endoscopy today 05/14/2018 -Consider SBT after repeat EGD -Vent bundle, DuoNeb's as needed -Start spontaneous breathing trials later today. Acute GI bleed -Status post emergent EGD -No obvious source identified during procedure, -Monitor H&H, continues to have bloody NG tube output -Transfuse as needed to keep hemoglobin above 7 -Protonix drip -Repeat endoscopy by GI today Diabetes -Insulin sliding scale -Improving control Hypertension -Hold antihypertensive meds due to acute GI bleeding and possible hypotension Anemia -Acute blood loss anemia -Frequent H&H -Transfuse to keep hemoglobin above 7 Acute kidney injury -Dehydration -Volume loss -Aggressive IV fluid hydration -Strict I's and -Monitor creatinine levels, currently stable DVT GI prophylaxis -Teds SCDs -Protonix drip -No pharmacological DVT prophylaxis due to acute GI bleed Overall impression: Remains critically ill and unstable with increasing O2 requirements, continued GI bleed. Unable to wean from ventilator today but will try to start trials later Critical care 36 minutes
--- NOTE | 2018-05-15 09:35 | P.PNFP ---
Subjective Interval history: Sedated, remains on ventilator support Appears comfortable. Results - Labs Result diagrams: 05/15/18 03:04 05/15/18 03:04 Abnormal lab results 05/14/18 05/14/18 05/14/18 Range/Units 11:31 12:45 16:17 RBC 2.62 L (4.50-5.90) mil/mm3 Hgb 8.5 L (13.0-17.0) gm/dL Hct 24.0 L (39.0-51.0) % RDW 20.7 H (11.6-17.2) % Neut % (Auto) 89.6 H (16.0-70.0) % Lymph % (Auto) 4.4 L (9.0-44.0) % Neut # (Auto) 8.5 H (1.8-7.7) th/mm3 Lymph # (Auto) 0.4 L (1.0-4.8) th/mm3 Sodium 148 H (136-145) meq/L Chloride 119 H (98-107) meq/L Carbon Dioxide 19.8 L (21.0-32.0) meq/L BUN 46 H (7-18) mg/dL Creatinine 1.51 H (0.60-1.30) mg/dL Estimated GFR 45 L (>89) mL/min POC Glucose 198 H (68-110) mg/dl Random Glucose 169 H (74-106) mg/dL Calcium 7.2 L* (8.5-10.1) mg/dL Magnesium (1.5-2.5) mg/dL AST (15-37) U/L ALT (12-78) U/L Total Protein 4.8 L (6.4-8.2) g/dL Total Protein (PEP) (6.4-8.2) gm/dL Albumin (3.4-5.0) g/dL Urine Clarity (Clear) Urine Protein (Neg-Trace) mg/dL Urine Ketones (Negative) mg/dL Urine Occult Blood (Negative) Urine Urobilinogen (Less than 2) mg/dL Ur Leukocyte Esterase (Negative) Urine WBC (0-5) /hpf Amorphous Sediment (None) /hpf Urine Bacteria (None) /hpf Urine Mucus (Occasional) /lpf Complement C3 (90-180) mg/dL 05/14/18 05/14/18 05/15/18 Range/Units 17:08 18:04 00:10 RBC (4.50-5.90) mil/mm3 Hgb (13.0-17.0) gm/dL Hct (39.0-51.0) % RDW (11.6-17.2) % Neut % (Auto) (16.0-70.0) % Lymph % (Auto) (9.0-44.0) % Neut # (Auto) (1.8-7.7) th/mm3 Lymph # (Auto) (1.0-4.8) th/mm3 Sodium (136-145) meq/L Chloride (98-107) meq/L Carbon Dioxide (21.0-32.0) meq/L BUN (7-18) mg/dL Creatinine (0.60-1.30) mg/dL Estimated GFR (>89) mL/min POC Glucose 190 H 168 H (68-110) mg/dl Random Glucose (74-106) mg/dL Calcium (8.5-10.1) mg/dL Magnesium (1.5-2.5) mg/dL AST (15-37) U/L ALT (12-78) U/L Total Protein (6.4-8.2) g/dL Total Protein (PEP) (6.4-8.2) gm/dL Albumin (3.4-5.0) g/dL Urine Clarity Hazy H (Clear) Urine Protein 100 H (Neg-Trace) mg/dL Urine Ketones Trace H (Negative) mg/dL Urine Occult Blood Small H (Negative) Urine Urobilinogen 2.0 H (Less than 2) mg/dL Ur Leukocyte Esterase Trace H (Negative) Urine WBC 6 H (0-5) /hpf Amorphous Sediment Rare H (None) /hpf Urine Bacteria Few H (None) /hpf Urine Mucus Few H (Occasional) /lpf Complement C3 (90-180) mg/dL 05/15/18 05/15/18 05/15/18 Range/Units 03:04 03:04 06:12 RBC 2.41 L (4.50-5.90) mil/mm3 Hgb 7.7 L (13.0-17.0) gm/dL Hct 21.7 L (39.0-51.0) % RDW 20.7 H (11.6-17.2) % Neut % (Auto) (16.0-70.0) % Lymph % (Auto) (9.0-44.0) % Neut # (Auto) (1.8-7.7) th/mm3 Lymph # (Auto) (1.0-4.8) th/mm3 Sodium 149 H (136-145) meq/L Chloride 121 H (98-107) meq/L Carbon Dioxide 19.1 L (21.0-32.0) meq/L BUN 39 H (7-18) mg/dL Creatinine 1.37 H (0.60-1.30) mg/dL Estimated GFR 51 L (>89) mL/min POC Glucose 152 H (68-110) mg/dl Random Glucose 154 H (74-106) mg/dL Calcium 7.2 L* (8.5-10.1) mg/dL Magnesium 1.3 L (1.5-2.5) mg/dL AST 41 H (15-37) U/L ALT 80 H (12-78) U/L Total Protein 4.8 L (6.4-8.2) g/dL Total Protein (PEP) 4.8 L (6.4-8.2) gm/dL Albumin 1.6 L (3.4-5.0) g/dL Urine Clarity (Clear) Urine Protein (Neg-Trace) mg/dL Urine Ketones (Negative) mg/dL Urine Occult Blood (Negative) Urine Urobilinogen (Less than 2) mg/dL Ur Leukocyte Esterase (Negative) Urine WBC (0-5) /hpf Amorphous Sediment (None) /hpf Urine Bacteria (None) /hpf Urine Mucus (Occasional) /lpf Complement C3 89 L (90-180) mg/dL Short CBC 05/14/18 05/15/18 Range/Units 12:45 03:04 WBC 9.5 9.8 (4.0-11.0) th/mm3 Hgb 8.5 L 7.7 L (13.0-17.0) gm/dL Hct 24.0 L 21.7 L (39.0-51.0) % Plt Count 158 158 (150-450) th/mm3 BMP 05/14/18 05/15/18 16:17 03:04 Sodium 148 H 149 H Potassium 3.5 3.5 Chloride 119 H 121 H Carbon Dioxide 19.8 L 19.1 L BUN 46 H 39 H Creatinine 1.51 H 1.37 H Calcium 7.2 L* 7.2 L* Liver Function 05/15/18 Range/Units 03:04 Total Bilirubin 0.6 (0.2-1.0) mg/dL AST 41 H (15-37) U/L ALT 80 H (12-78) U/L Alkaline Phosphatase 77 (45-117) U/L Albumin 1.6 L (3.4-5.0) g/dL Urine 05/14/18 Range/Units 17:08 Urine Color Yellow (Yellw/Straw) Urine Clarity Hazy H (Clear) Urine pH 5.0 (5.0-8.5) Ur Specific Wilcox 1.019 (1.002-1.035) Urine Protein 100 H (Neg-Trace) mg/dL Urine Glucose (UA) 50 (Negative) mg/dL - Imaging Impressions Abdomen/Bladder Ultrasound 05/14/18 15:40 CONCLUSION: 1. Left renal mass measuring up to 4.9 cm. This is stable to minimally increased from previous CT measurement of 4.6 cm in 2016. No hydronephrosis. Kuhn catheter in decompressed bladder. Physical Exam Vital signs: Vital Signs 05/14/18 09:54 05/14/18 10:00 05/14/18 10:24 Temperature Pulse Rate 79 77 77 Respiratory Rate 26 H 25 H 25 H Blood Pressure 155/68 H 151/68 H Pulse Oximetry 100 100 100 05/14/18 10:54 05/14/18 11:00 05/14/18 11:24 Temperature Pulse Rate 72 70 65 Respiratory Rate 22 20 19 Blood Pressure 146/66 H 120/56 L Pulse Oximetry 99 100 99 05/14/18 11:37 05/14/18 11:54 05/14/18 12:00 Temperature 98.6 F Pulse Rate 64 64 Respiratory Rate 20 19 18 Blood Pressure 119/57 L Pulse Oximetry 98 98 99 05/14/18 12:24 05/14/18 12:54 05/14/18 13:00 Temperature Pulse Rate 68 63 63 Respiratory Rate 16 18 18 Blood Pressure 149/65 H 126/59 L Pulse Oximetry 100 99 99 05/14/18 13:24 05/14/18 13:54 05/14/18 14:00 Temperature Pulse Rate 68 62 63 Respiratory Rate 17 17 17 Blood Pressure 150/67 H 122/58 L Pulse Oximetry 98 98 98 05/14/18 14:24 05/14/18 14:54 05/14/18 15:00 Temperature Pulse Rate 61 61 61 Respiratory Rate 18 18 18 Blood Pressure 120/58 L 124/59 L Pulse Oximetry 99 99 99 05/14/18 15:24 05/14/18 15:28 05/14/18 15:54 Temperature Pulse Rate 60 62 Respiratory Rate 20 18 21 Blood Pressure 124/59 L 128/60 Pulse Oximetry 99 99 99 05/14/18 16:00 05/14/18 16:24 05/14/18 16:54 Temperature 98.6 F Pulse Rate 62 73 79 Respiratory Rate 20 30 H 37 H Blood Pressure 140/60 142/67 H Pulse Oximetry 99 97 95 05/14/18 17:00 05/14/18 17:24 05/14/18 17:54 Temperature Pulse Rate 80 70 68 Respiratory Rate 37 H 20 20 Blood Pressure 140/65 147/66 H Pulse Oximetry 94 L 97 98 05/14/18 18:00 05/14/18 18:24 05/14/18 18:54 Temperature Pulse Rate 66 65 72 Respiratory Rate 19 19 25 H Blood Pressure 138/63 153/68 H Pulse Oximetry 97 97 98 05/14/18 19:00 05/14/18 19:24 05/14/18 19:54 Temperature Pulse Rate 71 68 84 Respiratory Rate 23 20 32 H Blood Pressure 144/65 H 176/74 H Pulse Oximetry 98 98 96 05/14/18 20:00 05/14/18 20:24 05/14/18 20:45 Temperature 99 F Pulse Rate 82 72 Respiratory Rate 31 H 21 17 Blood Pressure 135/64 Pulse Oximetry 95 97 100 05/14/18 21:00 05/14/18 21:14 05/14/18 21:24 Temperature Pulse Rate 85 79 85 Respiratory Rate 43 H 27 H 35 H Blood Pressure 163/71 H 155/67 H Pulse Oximetry 95 96 94 L 05/14/18 21:54 05/14/18 22:00 05/14/18 22:24 Temperature Pulse Rate 69 67 66 Respiratory Rate 21 19 19 Blood Pressure 143/63 H 134/61 Pulse Oximetry 100 99 99 05/14/18 22:54 05/14/18 23:00 05/14/18 23:24 Temperature Pulse Rate 66 64 63 Respiratory Rate 16 20 16 Blood Pressure 133/61 128/60 Pulse Oximetry 99 100 99 05/14/18 23:29 05/14/18 23:54 05/15/18 00:00 Temperature 98.4 F Pulse Rate 63 63 Respiratory Rate 20 17 17 Blood Pressure 132/61 Pulse Oximetry 98 98 98 05/15/18 00:24 05/15/18 00:54 05/15/18 01:00 Temperature Pulse Rate 66 63 62 Respiratory Rate 18 17 15 Blood Pressure 144/65 H 127/58 L Pulse Oximetry 98 98 98 05/15/18 01:24 05/15/18 01:54 05/15/18 02:00 Temperature Pulse Rate 62 60 61 Respiratory Rate 17 16 16 Blood Pressure 125/59 L 123/59 L Pulse Oximetry 98 98 98 05/15/18 02:24 05/15/18 02:54 05/15/18 03:00 Temperature Pulse Rate 59 L 59 L 59 L Respiratory Rate 16 16 18 Blood Pressure 124/59 L 119/58 L Pulse Oximetry 99 98 99 05/15/18 03:24 05/15/18 03:54 05/15/18 04:00 Temperature 98.7 F Pulse Rate 58 L 56 L 56 L Respiratory Rate 16 16 16 Blood Pressure 117/56 L 112/57 L Pulse Oximetry 99 99 99 05/15/18 04:07 05/15/18 04:24 05/15/18 04:54 Temperature Pulse Rate 56 L 56 L Respiratory Rate 18 17 16 Blood Pressure 116/55 L 117/55 L Pulse Oximetry 99 99 99 05/15/18 05:00 05/15/18 05:24 05/15/18 05:54 Temperature Pulse Rate 55 L 56 L 56 L Respiratory Rate 16 17 17 Blood Pressure 118/56 L 112/54 L Pulse Oximetry 99 99 99 05/15/18 06:00 05/15/18 07:00 05/15/18 07:24 Temperature Pulse Rate 55 L 59 L 63 Respiratory Rate 16 19 23 Blood Pressure 125/61 Pulse Oximetry 99 94 L 92 L 05/15/18 07:54 05/15/18 08:00 11/16/18 08:28 Temperature 97.6 F Pulse Rate 74 72 Respiratory Rate 26 H 27 H Blood Pressure 141/65 H Pulse Oximetry 96 96 92 L Intake & Output 05/14/18 05/15/18 05/15/18 18:59 06:59 18:59 Intake Total 2200 / 2200 2450 / 2450 1100 / 1100 Output Total 851 / 851 650 / 650 Balance 1349 / 1349 1800 / 1800 1100 / 1100 Weight 89.9 kg Intake: IV 2200 / 2200 2450 / 2450 1100 / 1100 Protonix Inj 80 MG In NS Inj 100 / 100 100 / 100 100 ML @ 10 mls/hr IV.CONT Q10H [facility] Rx#:[id number] Diprivan 1000 mg/100 ml Inj 1, 100 / 100 100 / 100 100 / 100 000 mg In 100 ml @ 5 MCG/KG/MIN 2.376 mls/hr IV.CONT TITRATE PRN Rx#:[id number] NS Inj 1,000 ML @ 150 mls/hr IV 1999 / 1999 2000 / 2000 1000 / 1000 .SIG .Q6H40M [facility] Rx#:[id number] fentaNYL 10 mcg/mL Premix Drip 250 / 250 2,500 mcg In 250 ml @ 50 MCG/HR 5 mls/hr IV.SIG TITRATE PRN Rx #:[id number] Oral 0 / 0 Output: Stool 1 / 1 Urine Amount (Catheter) 800 / 800 550 / 550 Indwelling Urethral Catheter 800 / 800 550 / 550 Gastric Drainage 50 / 50 100 / 100 Orogastric Tube 50 / 50 100 / 100 Other: Date of Last Bowel Movement 05/14/18 05/14/18 05/14/18 # Bowel Movements 1 - Constitutional no acute distress - Routine Respiratory Exam Present: patient mechanically ventilated - Routine Cardiovascular Exam Present: S1, S2 - Routine Abdominal Exam Present: soft, normoactive bowel sounds - Routine Extremities Exam Present: pulses intact - Urinary Catheter Management Indwelling Urethral Catheter Cath placed during this visit: yes Reason for continuing: Hourly intake/output Insertion date: 05/12/18 Insertion time: 00:42 Assessment and Plan - Assessment (1) GI (gastrointestinal hemorrhage) Code(s): K92.2 - Gastrointestinal hemorrhage, unspecified Status: Acute Plan: gi following, transfuse as needed follow hgb closely EGD pending today, hgb7.7 - Assessment and Plan 05/12/18- Transferred to ICU yesterday, intubated for airway protection. EGD attempted yesterday, scheduled for repeat today. Received 3 units of Blood, HGB stable currently. [employer] following. 05/13/18- Remains intubated with ventilator support. NG with dark blood, Hgb 8.7 this am received transfusion yesterday, EGD pending in am. [employer] following. 05/14 wean vent follow hgb closely will need snf at discharge 05/15/18- EGD today, plans to extubate after. HGB 7.7 this am, Dark blood, noted via OG.
--- NOTE | 2018-05-15 12:05 | P.PCN ---
Date of procedure: 05/15/18 Pre-op diagnosis: Upper GI bleed Procedure: PROCEDURE PERFORMED EGD with clip placement and biopsy PROCEDURE: The procedure, risks and benefits were discussed with Patient/POA and informed consent was obtained. Anesthesia sedated Patient with Diprivan. Patient was placed in the left lateral decubitus position. EGD: The Pentax videoscope was introduced through the oropharynx and advanced to the second portion of the duodenum under direct visualization. Retroflexion was performed in the stomach. FINDINGS: The esophagus this appeared to be unremarkable and within normal limits The stomach there was a small ulcer in the cardia clean based at this point but due to recurrence of bleeding a clip was placed on this ulcer there was also some erythema and edema proximal to the ulcer of unclear significance this was biopsied the rest of the stomach was unremarkable and within normal limits The duodenum this was normal except for submucosal mass in the second portion of the duodenum most likely to be a lipoma ESTIMATED BLOOD LOSS: None SPECIMENS REMOVED: Gastric cardia COMPLICATIONS: None IMPRESSION: Gastric ulcer Gastritis of the gastric cardia Submucosal mass of the duodenum PLAN: Await biopsies Continue PPI Continue with current supportive care Okay to advance diet EGD with EUS in 2 months Anesthesia: MAC Surgeon: Gian Parra Condition: stable Disposition: ICU
[2018-05-15] MEDS: Sodium Chloride 0.45 % Inj 1,000 ML IV.CONT SCH ×2 (13:21→20:22)
[2018-05-15] MEDS ORDERED: Chlorothiazide Inj 500 MG Vial IV.PUSH ONE (16:22)
[2018-05-15] MEDS ORDERED: Potassium Chlor 20 mEq Premix 20 MEQ/100 ML PIGGYBACK IV.SIG ONE (16:24)
--- NOTE | 2018-05-15 16:29 | P.PNNP ---
Subjective Interval history: Still intubated on CPAP. Off sedation for several hours but still lethargic. Physical Exam Vital signs: Vital Signs 05/14/18 16:54 05/14/18 17:00 05/14/18 17:24 Temperature Pulse Rate 79 80 70 Respiratory Rate 37 H 37 H 20 Blood Pressure 142/67 H 140/65 Pulse Oximetry 95 94 L 97 05/14/18 17:54 05/14/18 18:00 05/14/18 18:24 Temperature Pulse Rate 68 66 65 Respiratory Rate 20 19 19 Blood Pressure 147/66 H 138/63 Pulse Oximetry 98 97 97 05/14/18 18:54 05/14/18 19:00 05/14/18 19:24 Temperature Pulse Rate 72 71 68 Respiratory Rate 25 H 23 20 Blood Pressure 153/68 H 144/65 H Pulse Oximetry 98 98 98 05/14/18 19:54 05/14/18 20:00 05/14/18 20:24 Temperature 99 F Pulse Rate 84 82 72 Respiratory Rate 32 H 31 H 21 Blood Pressure 176/74 H 135/64 Pulse Oximetry 96 95 97 05/14/18 20:45 05/14/18 21:00 05/14/18 21:14 Temperature Pulse Rate 85 79 Respiratory Rate 17 43 H 27 H Blood Pressure 163/71 H Pulse Oximetry 100 95 96 05/14/18 21:24 05/14/18 21:54 05/14/18 22:00 Temperature Pulse Rate 85 69 67 Respiratory Rate 35 H 21 19 Blood Pressure 155/67 H 143/63 H Pulse Oximetry 94 L 100 99 05/14/18 22:24 05/14/18 22:54 05/14/18 23:00 Temperature Pulse Rate 66 66 64 Respiratory Rate 19 16 20 Blood Pressure 134/61 133/61 Pulse Oximetry 99 99 100 05/14/18 23:24 05/14/18 23:29 05/14/18 23:54 Temperature Pulse Rate 63 63 Respiratory Rate 16 20 17 Blood Pressure 128/60 132/61 Pulse Oximetry 99 98 98 05/15/18 00:00 05/15/18 00:24 05/15/18 00:54 Temperature 98.4 F Pulse Rate 63 66 63 Respiratory Rate 17 18 17 Blood Pressure 144/65 H 127/58 L Pulse Oximetry 98 98 98 05/15/18 01:00 05/15/18 01:24 05/15/18 01:54 Temperature Pulse Rate 62 62 60 Respiratory Rate 15 17 16 Blood Pressure 125/59 L 123/59 L Pulse Oximetry 98 98 98 05/15/18 02:00 05/15/18 02:24 05/15/18 02:54 Temperature Pulse Rate 61 59 L 59 L Respiratory Rate 16 16 16 Blood Pressure 124/59 L 119/58 L Pulse Oximetry 98 99 98 05/15/18 03:00 05/15/18 03:24 05/15/18 03:54 Temperature Pulse Rate 59 L 58 L 56 L Respiratory Rate 18 16 16 Blood Pressure 117/56 L 112/57 L Pulse Oximetry 99 99 99 05/15/18 04:00 05/15/18 04:07 05/15/18 04:24 Temperature 98.7 F Pulse Rate 56 L 56 L Respiratory Rate 16 18 17 Blood Pressure 116/55 L Pulse Oximetry 99 99 99 05/15/18 04:54 05/15/18 05:00 05/15/18 05:24 Temperature Pulse Rate 56 L 55 L 56 L Respiratory Rate 16 16 17 Blood Pressure 117/55 L 118/56 L Pulse Oximetry 99 99 99 05/15/18 05:54 05/15/18 06:00 05/15/18 07:00 Temperature Pulse Rate 56 L 55 L 59 L Respiratory Rate 17 16 19 Blood Pressure 112/54 L Pulse Oximetry 99 99 94 L 05/15/18 07:24 05/15/18 07:54 05/15/18 08:00 Temperature 97.6 F Pulse Rate 63 74 72 Respiratory Rate 23 26 H 27 H Blood Pressure 125/61 141/65 H Pulse Oximetry 92 L 96 96 05/15/18 08:24 05/15/18 08:28 05/15/18 08:54 Temperature Pulse Rate 73 69 Respiratory Rate 26 H 20 Blood Pressure 151/64 H 143/63 H Pulse Oximetry 92 L 92 L 92 L 05/15/18 09:00 05/15/18 09:24 05/15/18 09:54 Temperature Pulse Rate 68 67 76 Respiratory Rate 18 15 29 H Blood Pressure 134/60 145/84 H Pulse Oximetry 93 L 94 L 94 L 05/15/18 10:00 05/15/18 10:24 05/15/18 11:00 Temperature Pulse Rate 79 80 78 Respiratory Rate 29 H 31 H 20 Blood Pressure 146/63 H Pulse Oximetry 93 L 92 L 93 L 05/15/18 11:05 05/15/18 11:08 05/15/18 11:11 Temperature Pulse Rate 79 81 80 Respiratory Rate 20 23 28 H Blood Pressure 146/64 H 147/67 H 162/69 H Pulse Oximetry 93 L 93 L 93 L 05/15/18 11:14 05/15/18 11:17 05/15/18 11:20 Temperature Pulse Rate 81 82 83 Respiratory Rate 28 H 29 H 29 H Blood Pressure 152/67 H 155/65 H 150/79 H Pulse Oximetry 92 L 92 L 92 L 05/15/18 11:23 05/15/18 11:26 05/15/18 11:29 Temperature Pulse Rate 83 84 84 Respiratory Rate 30 H 30 H 31 H Blood Pressure 158/67 H 159/69 H 159/72 H Pulse Oximetry 92 L 93 L 93 L 05/15/18 11:32 05/15/18 11:35 05/15/18 11:38 Temperature Pulse Rate 84 86 87 Respiratory Rate 31 H 29 H 32 H Blood Pressure 161/61 H 155/67 H 159/67 H Pulse Oximetry 93 L 93 L 94 L 05/15/18 11:41 05/15/18 11:44 05/15/18 11:47 Temperature Pulse Rate 88 85 80 Respiratory Rate 29 H 23 22 Blood Pressure 166/68 H 150/66 H 133/60 Pulse Oximetry 96 98 98 05/15/18 11:50 05/15/18 11:53 05/15/18 11:56 Temperature Pulse Rate 77 74 73 Respiratory Rate 14 19 15 Blood Pressure 123/60 129/58 L 118/59 L Pulse Oximetry 98 95 93 L 05/15/18 11:59 05/15/18 12:00 05/15/18 12:02 Temperature 100.3 F H Pulse Rate 74 75 77 Respiratory Rate 18 19 18 Blood Pressure 117/56 L 122/59 L Pulse Oximetry 90 L 90 L 90 L 05/15/18 12:05 05/15/18 12:08 05/15/18 12:11 Temperature Pulse Rate 79 79 81 Respiratory Rate 24 25 H 26 H Blood Pressure 123/57 L 116/60 149/67 H Pulse Oximetry 92 L 93 L 93 L 05/15/18 12:14 05/15/18 12:32 05/15/18 12:35 Temperature Pulse Rate 82 83 83 Respiratory Rate 26 H 24 27 H Blood Pressure 152/67 H 158/68 H Pulse Oximetry 94 L 93 L 93 L 05/15/18 12:38 05/15/18 12:41 05/15/18 12:44 Temperature Pulse Rate 84 84 84 Respiratory Rate 26 H 26 H 30 H Blood Pressure 159/67 H 155/72 H 151/67 H Pulse Oximetry 93 L 93 L 93 L 05/15/18 12:47 05/15/18 12:50 05/15/18 12:53 Temperature Pulse Rate 86 85 84 Respiratory Rate 27 H 25 H 22 Blood Pressure 151/65 H 157/68 H 143/65 H Pulse Oximetry 93 L 93 L 94 L 05/15/18 12:56 05/15/18 12:59 05/15/18 13:00 Temperature Pulse Rate 83 83 83 Respiratory Rate 25 H 22 23 Blood Pressure 150/65 H 150/68 H Pulse Oximetry 94 L 94 L 94 L 05/15/18 13:02 05/15/18 13:05 05/15/18 13:08 Temperature Pulse Rate 82 80 79 Respiratory Rate 20 19 18 Blood Pressure 141/64 H 153/65 H 144/65 H Pulse Oximetry 94 L 95 96 05/15/18 13:11 05/15/18 13:14 05/15/18 13:17 Temperature Pulse Rate 78 76 77 Respiratory Rate 19 17 14 Blood Pressure 148/66 H 142/67 H 140/63 Pulse Oximetry 96 96 97 05/15/18 13:20 05/15/18 13:23 05/15/18 13:26 Temperature Pulse Rate 80 81 82 Respiratory Rate 20 19 16 Blood Pressure 154/68 H 145/67 H 154/72 H Pulse Oximetry 97 97 97 05/15/18 13:29 05/15/18 13:32 05/15/18 13:33 Temperature Pulse Rate 85 87 87 Respiratory Rate 24 26 H 23 Blood Pressure 157/67 H 180/77 H 169/73 H Pulse Oximetry 97 97 97 05/15/18 13:35 05/15/18 13:38 05/15/18 13:47 Temperature Pulse Rate 87 87 88 Respiratory Rate 25 H 26 H 28 H Blood Pressure 170/70 H 178/74 H 174/57 H Pulse Oximetry 96 96 96 05/15/18 14:00 05/15/18 16:00 05/15/18 16:20 Temperature Pulse Rate 86 81 Respiratory Rate 24 20 Blood Pressure 170/74 H Pulse Oximetry 96 97 Intake & Output 05/14/18 05/15/18 05/15/18 18:59 06:59 18:59 Intake Total 2200 / 2200 2450 / 2450 2350 / 2350 Output Total 851 / 851 650 / 650 Balance 1349 / 1349 1800 / 1800 2350 / 2350 Weight 89.9 kg Intake: IV 2200 / 2200 2450 / 2450 1950 / 1950 Protonix Inj 80 MG In NS Inj 100 / 100 100 / 100 100 / 100 100 ML @ 10 mls/hr IV.CONT Q10H [facility] Rx#:[id number] Diprivan 1000 mg/100 ml Inj 1, 100 / 100 100 / 100 100 / 100 000 mg In 100 ml @ 5 MCG/KG/MIN 2.376 mls/hr IV.CONT TITRATE PRN Rx#:[id number] NS Inj 1,000 ML @ 150 mls/hr IV 1999 1750 / 1750 .SIG .Q6H40M [facility] Rx#:[id number] fentaNYL 10 mcg/mL Premix Drip 250 / 250 2,500 mcg In 250 ml @ 50 MCG/HR 5 mls/hr IV.SIG TITRATE PRN Rx #:[id number] Oral 0 / 0 Anesthesia Amount 400 / 400 Output: Stool 1 / 1 Urine Amount (Catheter) 800 / 800 550 / 550 Indwelling Urethral Catheter 800 / 800 550 / 550 Gastric Drainage 50 / 50 100 / 100 Orogastric Tube 50 / 50 100 / 100 Other: Date of Last Bowel Movement 05/14/18 05/14/18 05/14/18 # Bowel Movements 1 Narrative: GENERAL: Elderly appearing gentleman with an ET tube in place on the ventilator. SKIN: Warm and dry. HEAD: Normocephalic. EYES: No scleral icterus. No injection or drainage. NECK: Supple, trachea midline. No JVD. CARDIOVASCULAR: Regular rate and rhythm without murmurs, gallops, or rubs. RESPIRATORY: Breath sounds equal bilaterally. No accessory muscle use. GASTROINTESTINAL: Abdomen soft, non-tender, nondistended. MUSCULOSKELETAL: No cyanosis, 1+ pitting edema extremities. BACK: Nontender without obvious deformity. . - Urinary Catheter Management Indwelling Urethral Catheter Cath placed during this visit: yes Reason for continuing: Hourly intake/output Insertion date: 05/12/18 Insertion time: 00:42 Assessment and Plan - Assessment (1) Acute on chronic renal insufficiency Code(s): N28.9 - Disorder of kidney and ureter, unspecified; N18.9 - Chronic kidney disease, unspecified Status: Acute Plan: This patient is a 77-year-old male unable to provide me with any history at this time because of his clinical condition. On reviewing the records the patient has a history of diabetes mellitus, hypertension as well as a recent CVA. Also previous renal indices have been abnormal with a creatinine of 1.55 April 16, 2018 suggesting chronic kidney disease also. Patient was admitted to this institution on May 11, 2018 with a GI bleed manifested by hematemesis. Underwent endoscopy x3 and gastric lesion subsequently found. Acute renal insufficiency likely related to hemodynamic factors secondary to ongoing GI bleeding. Creatinine level appears to have returned to baseline level however he does have evidence of significant fluid retention at this time. We will reduce IV fluids, continue with half normal in view of hypernatremia and give 1 dose of IV Diuril today. Potassium supplementation also ordered. Medications should be adjusted for the patient's estimated GFR if clinically indicated. Avoid agents with significant potential for nephrotoxicity possible including NSAIDs for analgesia, iodine contrast agents. Gadolinium is contraindicated if the GFR is below 30. (2) CKD (chronic kidney disease) stage 3, GFR 30-59 ml/min Code(s): N18.3 - Chronic kidney disease, stage 3 (moderate) Status: Acute Plan: Most likely related to nephrosclerosis of hypertension and aging with possible superimposed diabetic nephropathy. In addition we will screen for myeloma given previous anemia with renal insufficiency. (3) Metabolic acidosis Code(s): E87.2 - Acidosis Status: Acute Plan: Mild, secondary to acute renal insufficiency. Continue to monitor. If worsens consider bicarbonate therapy.
--- NOTE | 2018-05-15 17:08 | P.PNCA ---
Subjective Interval history: Intubated, sedated Medications and Allergies Active Medications: Active Medications Amlodipine Besylate (Norvasc) 5 mg PO DAILY [facility] Last Admin: 05/15/18 08:08 Dose: 5 mg Atorvastatin Calcium (Lipitor) 40 mg PO HS [facility] Last Admin: 05/14/18 20:14 Dose: 40 mg Chlorhexidine Gluconate (Chlorhexidine 2% Cloth) 3 pack TOPICAL DAILY@0400 [facility] Stop: 05/18/18 03:59 Last Admin: 05/15/18 05:25 Dose: 3 pack Chlorhexidine Gluconate (Chlorhexidine 2% Cloth) 3 pack TOPICAL DAILY@0400 PRN PRN Reason: Extra cloth needed Stop: 05/18/18 03:59 Dextrose (D50w Vial) 50 ml IV.PUSH UNSCH PRN PRN Reason: PER HYPOGLYCEMIA PROTOCOL Glucagon (Glucagon Inj) 1 mg OTHER PRN PRN PRN Reason: for Hypoglycemia Protocol Glyburide (Diabeta) 5 mg PO BID [facility] Last Admin: 05/15/18 08:08 Dose: 5 mg Propofol (Diprivan 1000 Mg/100 Ml Inj) 1,000 mg in 100 mls @ 2.376 mls/hr IV.CONT TITRATE PRN; Protocol PRN Reason: Per Protocol Last Titration: 05/15/18 16:30 Dose: Infused Midazolam HCl (Versed Inj) 50 mg in 50 mls @ 2 mls/hr IV.CONT TITRATE PRN; Protocol PRN Reason: Per Protocol Last Titration: 05/11/18 20:47 Dose: 0 mg/hr, 0 mls/hr Phenylephrine HCl 40 mg/ (Dextrose) 500 mls @ 30 mls/hr IV.CONT TITRATE PRN; Protocol PRN Reason: Per Protocol Last Titration: 05/13/18 17:11 Dose: 0 mcg/min, 0 mls/hr Fentanyl (Fentanyl 10 Mcg/Ml Premix Drip) 2,500 mcg in 250 mls @ 5 mls/hr IV.SIG TITRATE PRN; Protocol PRN Reason: Per Protocol Last Titration: 05/15/18 13:17 Dose: 50 mcg/hr, 5 mls/hr Pantoprazole Sodium 80 mg/ (Sodium Chloride) 100 mls @ 10 mls/hr IV.CONT Q10H [facility] Last Admin: 05/15/18 12:19 Dose: 10 mls/hr Sodium Chloride (1/2 Normal Saline Inj) 1,000 mls @ 50 mls/hr IV.CONT .Q20H [facility] Last Admin: 05/15/18 13:21 Dose: 125 mls/hr Potassium Chloride (Kcl 20 Meq Premix Inj) 20 meq in 100 mls @ 50 mls/hr IV.SIG ONCE ONE Stop: 05/15/18 18:23 Last Admin: 05/15/18 16:45 Dose: 50 mls/hr Insulin Aspart (Novolog Insulin Correctional Sugar Inj) 0 unit SQ Q6HR [facility]; Protocol Last Admin: 05/15/18 13:08 Dose: 2 unit Terbutaline Sulfate (Brethine Inj) 1 mg SQ UNSCH PRN PRN Reason: For Extravasation Allergies Allergy/AdvReac Type Severity Reaction Status Date / Time No Known Allergies Allergy Verified 05/11/18 08:54 Home Medications Medication Instructions Recorded Confirmed Type glyburide 5 mg PO BID 04/13/18 05/11/18 History metformin 1,000 mg PO BID 04/13/18 05/11/18 History Physical Exam Vital signs: Vital Signs 05/14/18 17:24 05/14/18 17:54 05/14/18 18:00 Temperature Pulse Rate 70 68 66 Respiratory Rate 20 20 19 Blood Pressure 140/65 147/66 H Pulse Oximetry 97 98 97 05/14/18 18:24 05/14/18 18:54 05/14/18 19:00 Temperature Pulse Rate 65 72 71 Respiratory Rate 19 25 H 23 Blood Pressure 138/63 153/68 H Pulse Oximetry 97 98 98 05/14/18 19:24 05/14/18 19:54 05/14/18 20:00 Temperature 99 F Pulse Rate 68 84 82 Respiratory Rate 20 32 H 31 H Blood Pressure 144/65 H 176/74 H Pulse Oximetry 98 96 95 05/14/18 20:24 05/14/18 20:45 05/14/18 21:00 Temperature Pulse Rate 72 85 Respiratory Rate 21 17 43 H Blood Pressure 135/64 Pulse Oximetry 97 100 95 05/14/18 21:14 05/14/18 21:24 05/14/18 21:54 Temperature Pulse Rate 79 85 69 Respiratory Rate 27 H 35 H 21 Blood Pressure 163/71 H 155/67 H 143/63 H Pulse Oximetry 96 94 L 100 05/14/18 22:00 11/15/18 22:24 05/14/18 22:54 Temperature Pulse Rate 67 66 66 Respiratory Rate 19 19 16 Blood Pressure 134/61 133/61 Pulse Oximetry 99 99 99 05/14/18 23:00 05/14/18 23:24 05/14/18 23:29 Temperature Pulse Rate 64 63 Respiratory Rate 20 16 20 Blood Pressure 128/60 Pulse Oximetry 100 99 98 05/14/18 23:54 05/15/18 00:00 05/15/18 00:24 Temperature 98.4 F Pulse Rate 63 63 66 Respiratory Rate 17 17 18 Blood Pressure 132/61 144/65 H Pulse Oximetry 98 98 98 05/15/18 00:54 05/15/18 01:00 05/15/18 01:24 Temperature Pulse Rate 63 62 62 Respiratory Rate 17 15 17 Blood Pressure 127/58 L 125/59 L Pulse Oximetry 98 98 98 05/15/18 01:54 05/15/18 02:00 05/15/18 02:24 Temperature Pulse Rate 60 61 59 L Respiratory Rate 16 16 16 Blood Pressure 123/59 L 124/59 L Pulse Oximetry 98 98 99 05/15/18 02:54 05/15/18 03:00 05/15/18 03:24 Temperature Pulse Rate 59 L 59 L 58 L Respiratory Rate 16 18 16 Blood Pressure 119/58 L 117/56 L Pulse Oximetry 98 99 99 05/15/18 03:54 05/15/18 04:00 05/15/18 04:07 Temperature 98.7 F Pulse Rate 56 L 56 L Respiratory Rate 16 16 18 Blood Pressure 112/57 L Pulse Oximetry 99 99 99 05/15/18 04:24 05/15/18 04:54 05/15/18 05:00 Temperature Pulse Rate 56 L 56 L 55 L Respiratory Rate 17 16 16 Blood Pressure 116/55 L 117/55 L Pulse Oximetry 99 99 99 05/15/18 05:24 05/15/18 05:54 05/15/18 06:00 Temperature Pulse Rate 56 L 56 L 55 L Respiratory Rate 17 17 16 Blood Pressure 118/56 L 112/54 L Pulse Oximetry 99 99 99 05/15/18 07:00 05/15/18 07:24 05/15/18 07:54 Temperature Pulse Rate 59 L 63 74 Respiratory Rate 19 23 26 H Blood Pressure 125/61 141/65 H Pulse Oximetry 94 L 92 L 96 05/15/18 08:00 05/15/18 08:24 05/15/18 08:28 Temperature 97.6 F Pulse Rate 72 73 Respiratory Rate 27 H 26 H Blood Pressure 151/64 H Pulse Oximetry 96 92 L 92 L 05/15/18 08:54 05/15/18 09:00 05/15/18 09:24 Temperature Pulse Rate 69 68 67 Respiratory Rate 20 18 15 Blood Pressure 143/63 H 134/60 Pulse Oximetry 92 L 93 L 94 L 05/15/18 09:54 05/15/18 10:00 05/15/18 10:24 Temperature Pulse Rate 76 79 80 Respiratory Rate 29 H 29 H 31 H Blood Pressure 145/84 H 146/63 H Pulse Oximetry 94 L 93 L 92 L 05/15/18 11:00 05/15/18 11:05 05/15/18 11:08 Temperature Pulse Rate 78 79 81 Respiratory Rate 20 20 23 Blood Pressure 146/64 H 147/67 H Pulse Oximetry 93 L 93 L 93 L 05/15/18 11:11 05/15/18 11:14 05/15/18 11:17 Temperature Pulse Rate 80 81 82 Respiratory Rate 28 H 28 H 29 H Blood Pressure 162/69 H 152/67 H 155/65 H Pulse Oximetry 93 L 92 L 92 L 05/15/18 11:20 05/15/18 11:23 05/15/18 11:26 Temperature Pulse Rate 83 83 84 Respiratory Rate 29 H 30 H 30 H Blood Pressure 150/79 H 158/67 H 159/69 H Pulse Oximetry 92 L 92 L 93 L 05/15/18 11:29 05/15/18 11:32 05/15/18 11:35 Temperature Pulse Rate 84 84 86 Respiratory Rate 31 H 31 H 29 H Blood Pressure 159/72 H 161/61 H 155/67 H Pulse Oximetry 93 L 93 L 93 L 05/15/18 11:38 05/15/18 11:41 05/15/18 11:44 Temperature Pulse Rate 87 88 85 Respiratory Rate 32 H 29 H 23 Blood Pressure 159/67 H 166/68 H 150/66 H Pulse Oximetry 94 L 96 98 05/15/18 11:47 05/15/18 11:50 05/15/18 11:53 Temperature Pulse Rate 80 77 74 Respiratory Rate 22 14 19 Blood Pressure 133/60 123/60 129/58 L Pulse Oximetry 98 98 95 05/15/18 11:56 05/15/18 11:59 05/15/18 12:00 Temperature 100.3 F H Pulse Rate 73 74 75 Respiratory Rate 15 18 19 Blood Pressure 118/59 L 117/56 L Pulse Oximetry 93 L 90 L 90 L 05/15/18 12:02 05/15/18 12:05 05/15/18 12:08 Temperature Pulse Rate 77 79 79 Respiratory Rate 18 24 25 H Blood Pressure 122/59 L 123/57 L 116/60 Pulse Oximetry 90 L 92 L 93 L 05/15/18 12:11 05/15/18 12:14 05/15/18 12:32 Temperature Pulse Rate 81 82 83 Respiratory Rate 26 H 26 H 24 Blood Pressure 149/67 H 152/67 H Pulse Oximetry 93 L 94 L 93 L 05/15/18 12:35 05/15/18 12:38 05/15/18 12:41 Temperature Pulse Rate 83 84 84 Respiratory Rate 27 H 26 H 26 H Blood Pressure 158/68 H 159/67 H 155/72 H Pulse Oximetry 93 L 93 L 93 L 05/15/18 12:44 05/15/18 12:47 05/15/18 12:50 Temperature Pulse Rate 84 86 85 Respiratory Rate 30 H 27 H 25 H Blood Pressure 151/67 H 151/65 H 157/68 H Pulse Oximetry 93 L 93 L 93 L 05/15/18 12:53 05/15/18 12:56 05/15/18 12:59 Temperature Pulse Rate 84 83 83 Respiratory Rate 22 25 H 22 Blood Pressure 143/65 H 150/65 H 150/68 H Pulse Oximetry 94 L 94 L 94 L 05/15/18 13:00 05/15/18 13:02 05/15/18 13:05 Temperature Pulse Rate 83 82 80 Respiratory Rate 23 20 19 Blood Pressure 141/64 H 153/65 H Pulse Oximetry 94 L 94 L 95 05/15/18 13:08 05/15/18 13:11 05/15/18 13:14 Temperature Pulse Rate 79 78 76 Respiratory Rate 18 19 17 Blood Pressure 144/65 H 148/66 H 142/67 H Pulse Oximetry 96 96 96 05/15/18 13:17 05/15/18 13:20 11/16/18 13:23 Temperature Pulse Rate 77 80 81 Respiratory Rate 14 20 19 Blood Pressure 140/63 154/68 H 145/67 H Pulse Oximetry 97 97 97 05/15/18 13:26 05/15/18 13:29 05/15/18 13:32 Temperature Pulse Rate 82 85 87 Respiratory Rate 16 24 26 H Blood Pressure 154/72 H 157/67 H 180/77 H Pulse Oximetry 97 97 97 05/15/18 13:33 05/15/18 13:35 05/15/18 13:38 Temperature Pulse Rate 87 87 87 Respiratory Rate 23 25 H 26 H Blood Pressure 169/73 H 170/70 H 178/74 H Pulse Oximetry 97 96 96 05/15/18 13:47 05/15/18 14:00 05/15/18 14:21 Temperature Pulse Rate 88 86 79 Respiratory Rate 28 H 24 21 Blood Pressure 174/57 H 170/74 H 154/67 H Pulse Oximetry 96 96 96 05/15/18 15:00 05/15/18 15:21 05/15/18 16:00 Temperature 98.8 F Pulse Rate 81 78 80 Respiratory Rate 20 19 19 Blood Pressure 153/69 H Pulse Oximetry 98 98 97 05/15/18 16:20 05/15/18 16:21 Temperature Pulse Rate 83 Respiratory Rate 20 22 Blood Pressure 156/70 H Pulse Oximetry 97 97 Intake & Output 05/14/18 05/15/18 05/15/18 18:59 06:59 18:59 Intake Total 2200 / 2200 2450 / 2450 2425 / 2425 Output Total 851 / 851 650 / 650 Balance 1349 / 1349 1800 / 1800 2425 / 2425 Weight 198 lb 3.129 oz Intake: IV 2200 / 2200 2450 / 2450 2024 / 2025 Protonix Inj 80 MG In NS Inj 100 / 100 100 / 100 100 / 100 100 ML @ 10 mls/hr IV.CONT Q10H [facility] Rx#:[id number] Diprivan 1000 mg/100 ml Inj 1, 100 / 100 100 / 100 175 / 175 000 mg In 100 ml @ 5 MCG/KG/MIN 2.376 mls/hr IV.CONT TITRATE PRN Rx#:[id number] NS Inj 1,000 ML @ 150 mls/hr IV 1999 1999 1750 / 1750 .SIG .Q6H40M [facility] Rx#:[id number] fentaNYL 10 mcg/mL Premix Drip 250 / 250 2,500 mcg In 250 ml @ 50 MCG/HR 5 mls/hr IV.SIG TITRATE PRN Rx #:[id number] Oral 0 / 0 Anesthesia Amount 400 / 400 Output: Stool 1 / 1 Urine Amount (Catheter) 800 / 800 550 / 550 Indwelling Urethral Catheter 800 / 800 550 / 550 Gastric Drainage 50 / 50 100 / 100 Orogastric Tube 50 / 50 100 / 100 Other: Date of Last Bowel Movement 05/14/18 05/14/18 05/14/18 # Bowel Movements 1 Narrative: GENERAL: Intubated, sedated. SKIN: Warm and dry. CARDIOVASCULAR: Regular rate and rhythm without murmurs, gallops, or rubs. RESPIRATORY: Breath sounds equal bilaterally. GASTROINTESTINAL: Abdomen soft MUSCULOSKELETAL: No cyanosis, 1+ pitting edema extremities. - Urinary Catheter Management Indwelling Urethral Catheter Cath placed during this visit: yes Reason for continuing: Hourly intake/output Insertion date: 05/12/18 Insertion time: 00:42 Results 05/15/18 03:04 05/15/18 03:04 Cardiac Enzymes 05/15/18 Range/Units 03:04 AST 41 H (15-37) U/L CBC 05/14/18 05/14/18 05/15/18 Range/Units 05:07 12:45 03:04 WBC 9.5 9.8 (4.0-11.0) th/mm3 RBC 2.62 L 2.41 L (4.50-5.90) mil/mm3 Hgb 8.2 L 8.5 L 7.7 L (13.0-17.0) gm/dL Hct 24.0 L 21.7 L (39.0-51.0) % Plt Count 158 158 (150-450) th/mm3 Neut # (Auto) 8.5 H (1.8-7.7) th/mm3 Lymph # (Auto) 0.4 L (1.0-4.8) th/mm3 [place] # (Auto) 0.5 (0.0-0.9) th/mm3 Eos # (Auto) 0.0 (0.0-0.4) th/mm3 Baso # (Auto) 0.0 (0.0-0.2) th/mm3 Comprehensive Metabolic Panel 05/14/18 05/15/18 Range/Units 16:17 03:04 Sodium 148 H 149 H (136-145) meq/L Potassium 3.5 3.5 (3.5-5.1) meq/L Chloride 119 H 121 H (98-107) meq/L Carbon Dioxide 19.8 L 19.1 L (21.0-32.0) meq/L BUN 46 H 39 H (7-18) mg/dL Creatinine 1.51 H 1.37 H (0.60-1.30) mg/dL Calcium 7.2 L* 7.2 L* (8.5-10.1) mg/dL AST 41 H (15-37) U/L ALT 80 H (12-78) U/L Alkaline Phosphatase 77 (45-117) U/L Total Protein 4.8 L 4.8 L (6.4-8.2) g/dL Albumin 1.6 L (3.4-5.0) g/dL Intake and Output 05/15/18 05/15/18 05/15/18 06:59 14:59 22:59 Intake Total 1200 / 1200 2350 / 2350 75 / 75 Output Total 650 / 650 Balance 550 / 550 2350 / 2350 75 / 75 Intake: IV 1200 / 1200 1950 / 1950 75 / 75 Protonix Inj 80 MG In NS Inj 100 / 100 100 / 100 100 ML @ 10 mls/hr IV.CONT Q10H [facility] Rx#:[id number] Diprivan 1000 mg/100 ml Inj 1, 100 / 100 100 / 100 75 / 75 000 mg In 100 ml @ 5 MCG/KG/MIN 2.376 mls/hr IV.CONT TITRATE PRN Rx#:[id number] NS Inj 1,000 ML @ 150 mls/hr IV 1000 / 1000 1750 / 1750 .SIG .Q6H40M [facility] Rx#:[id number] Anesthesia Amount 400 / 400 Output: Urine Amount (Catheter) 550 / 550 Indwelling Urethral Catheter 550 / 550 Gastric Drainage 100 / 100 Orogastric Tube 100 / 100 Other: Date of Last Bowel Movement 05/14/18 05/14/18 05/14/18 Weight 198 lb 3.129 oz - Imaging and Cardiology Imaging: Impressions Chest X-Ray 05/14/18 00:00 CONCLUSION: 1. Scattered perihilar and bibasilar infiltrates are noted consistent with mild pulmonary vascular congestion versus pneumonia. Clinical correlation is recommended. 2. Degenerative changes and scoliosis of the thoracolumbar spine. Head CT 05/14/18 00:00 CONCLUSION: 1. Stable appearance with mild atrophy. There is no hemorrhage or mass effect. . Abdomen/Bladder Ultrasound 05/14/18 15:40 CONCLUSION: 1. Left renal mass measuring up to 4.9 cm. This is stable to minimally increased from previous CT measurement of 4.6 cm in 2016. No hydronephrosis. Kuhn catheter in decompressed bladder. Assessment and Plan - Assessment (1) GI (gastrointestinal hemorrhage) Code(s): K92.2 - Gastrointestinal hemorrhage, unspecified Status: Acute (2) Acute ischemic left MCA stroke Code(s): I63.512 - Cerebral infarction due to unspecified occlusion or stenosis of left middle cerebral artery Status: Acute (3) Hypertension Code(s): I10 - Essential (primary) hypertension Status: Chronic (4) Hyperlipidemia Code(s): E78.5 - Hyperlipidemia, unspecified Status: Chronic (5) Sick sinus syndrome Code(s): I49.5 - Sick sinus syndrome Status: Acute (6) Bradycardia Code(s): R00.1 - Bradycardia, unspecified Status: Acute (7) Acute kidney injury Code(s): N17.9 - Acute kidney failure, unspecified Status: Acute - Plan EGD showed bleeding gastric ulcer. We will continue to hold anticoagulation. Wean vent as tolerated. There are no new cardiac issues at this time, continue current cardiac treatment plan. (3) Hypertension Qualifiers: Hypertension type: essential hypertension Qualified Code(s): I10 - Essential (primary) hypertension
[2018-05-16] MEDS: Insulin NovoLOG Aspart Correctional Sugar Inj SQ SCH ×5 (00:15→23:44)
[2018-05-16] MEDS: fentaNYL 10 mcg/mL Premix Drip 2,500 MCG/250 ML BAG IV.SIG PRN (02:30)
[2018-05-16 04:50] LABS: Albumin 1.5 g/dL (3.4-5.0); Calcium 7.6 mg/dL (8.5-10.1); Carbon Dioxide 17.5 meq/L (21.0-32.0); Phosphorus 2.5 mg/dL (2.5-4.9); Potassium 3.8 meq/L (3.5-5.1)
[2018-05-16] MEDS: Chlorhexidine Gluconate 2% 1 Pack (2 Cloths) TOPICAL SCH (04:52)
[2018-05-16] MEDS: Sodium Chloride 0.45 % Inj 1,000 ML IV.CONT SCH (05:59)
[2018-05-16] MEDS: Pantoprazole Inj 80 MG in Sodium Chlor 0.9% Inj 100 ML IV.CONT SCH ×2 (06:08→17:23)
--- NOTE | 2018-05-16 07:26 | P.PNCC ---
Subjective Subjective Remarks/Hospital Course: 77-year-old male has been admitted for an evaluation of coffee-ground emesis at home. EMS reports patient had a large amount of coffee-ground emesis at home. Patient denied shortness of breath weakness, nausea, headache or dizziness. EGD due to anemia and GI bleeding was performed on 05/05/[address] Smith. Findings include submucosal lesion at the second port of the duodenum, gastritis in the antrum, esophagitis grade C and hiatal hernia. Patient has a medical history significant for CVA, hypertension, hyperlipidemia , sick sinus syndrome, diabetes, bradycardia and GI bleed on anticoagulation.. Patient currently on aspirin and Plavix 75 mg p.o. daily for past medical history of CVA. Patient is awake and alert, denies abdominal pain. Patient was initially admitted to medicine, however while on [facility] floor he has developed hematemesis with copious amounts of blood requiring emergent transfer to ICU and required intubation. 05/12: Remains critically ill in the ICU on the vent. H&H stable overnight. Hypotension resolved and improved with IV fluid boluses. GI planning for another endoscopy today. 05/13: Requiring increased FiO2. Mechanics acceptable. NG with continued blood. 05/14: Remains intubated sedated with propofol and fentanyl. CT of the head done yesterday night no acute findings. Patient had bloody output from the NG tube. [facility] planning for re-scope today. FiO2 down to 45% 05/15: Hemoglobin has declined modestly, less than 1 g, nasogastric output continues to be dark. The plan is for endoscopy today to reassess upper GI status. Following that we will aim to extubate him as quickly as possible. 05/16: We were unable to extubate yesterday due to residual sedation residual sedation and excessive somnolence. Today he is much more alert and we will start spontaneous breathing trials immediately. Hemoglobin is fine. Objective Vital Signs / I&O: Vital Signs 05/15/18 07:24 05/15/18 07:54 05/15/18 08:00 Temperature 97.6 F Pulse Rate 63 74 72 Respiratory Rate 23 26 H 27 H Blood Pressure 125/61 141/65 H Pulse Oximetry 92 L 96 96 05/15/18 08:24 05/15/18 08:28 05/15/18 08:54 Temperature Pulse Rate 73 69 Respiratory Rate 26 H 20 Blood Pressure 151/64 H 143/63 H Pulse Oximetry 92 L 92 L 92 L 05/15/18 09:00 05/15/18 09:24 05/15/18 09:54 Temperature Pulse Rate 68 67 76 Respiratory Rate 18 15 29 H Blood Pressure 134/60 145/84 H Pulse Oximetry 93 L 94 L 94 L 05/15/18 10:00 05/15/18 10:24 05/15/18 11:00 Temperature Pulse Rate 79 80 78 Respiratory Rate 29 H 31 H 20 Blood Pressure 146/63 H Pulse Oximetry 93 L 92 L 93 L 05/15/18 11:05 05/15/18 11:08 05/15/18 11:11 Temperature Pulse Rate 79 81 80 Respiratory Rate 20 23 28 H Blood Pressure 146/64 H 147/67 H 162/69 H Pulse Oximetry 93 L 93 L 93 L 05/15/18 11:14 05/15/18 11:17 05/15/18 11:20 Temperature Pulse Rate 81 82 83 Respiratory Rate 28 H 29 H 29 H Blood Pressure 152/67 H 155/65 H 150/79 H Pulse Oximetry 92 L 92 L 92 L 05/15/18 11:23 05/15/18 11:26 05/15/18 11:29 Temperature Pulse Rate 83 84 84 Respiratory Rate 30 H 30 H 31 H Blood Pressure 158/67 H 159/69 H 159/72 H Pulse Oximetry 92 L 93 L 93 L 05/15/18 11:32 05/15/18 11:35 05/15/18 11:38 Temperature Pulse Rate 84 86 87 Respiratory Rate 31 H 29 H 32 H Blood Pressure 161/61 H 155/67 H 159/67 H Pulse Oximetry 93 L 93 L 94 L 05/15/18 11:41 05/15/18 11:44 05/15/18 11:47 Temperature Pulse Rate 88 85 80 Respiratory Rate 29 H 23 22 Blood Pressure 166/68 H 150/66 H 133/60 Pulse Oximetry 96 98 98 05/15/18 11:50 05/15/18 11:53 05/15/18 11:56 Temperature Pulse Rate 77 74 73 Respiratory Rate 14 19 15 Blood Pressure 123/60 129/58 L 118/59 L Pulse Oximetry 98 95 93 L 05/15/18 11:59 05/15/18 12:00 05/15/18 12:02 Temperature 100.3 F H Pulse Rate 74 75 77 Respiratory Rate 18 19 18 Blood Pressure 117/56 L 122/59 L Pulse Oximetry 90 L 90 L 90 L 05/15/18 12:05 05/15/18 12:08 05/15/18 12:11 Temperature Pulse Rate 79 79 81 Respiratory Rate 24 25 H 26 H Blood Pressure 123/57 L 116/60 149/67 H Pulse Oximetry 92 L 93 L 93 L 05/15/18 12:14 05/15/18 12:32 05/15/18 12:35 Temperature Pulse Rate 82 83 83 Respiratory Rate 26 H 24 27 H Blood Pressure 152/67 H 158/68 H Pulse Oximetry 94 L 93 L 93 L 05/15/18 12:38 05/15/18 12:41 05/15/18 12:44 Temperature Pulse Rate 84 84 84 Respiratory Rate 26 H 26 H 30 H Blood Pressure 159/67 H 155/72 H 151/67 H Pulse Oximetry 93 L 93 L 93 L 05/15/18 12:47 05/15/18 12:50 05/15/18 12:53 Temperature Pulse Rate 86 85 84 Respiratory Rate 27 H 25 H 22 Blood Pressure 151/65 H 157/68 H 143/65 H Pulse Oximetry 93 L 93 L 94 L 05/15/18 12:56 05/15/18 12:59 05/15/18 13:00 Temperature Pulse Rate 83 83 83 Respiratory Rate 25 H 22 23 Blood Pressure 150/65 H 150/68 H Pulse Oximetry 94 L 94 L 94 L 05/15/18 13:02 05/15/18 13:05 05/15/18 13:08 Temperature Pulse Rate 82 80 79 Respiratory Rate 20 19 18 Blood Pressure 141/64 H 153/65 H 144/65 H Pulse Oximetry 94 L 95 96 05/15/18 13:11 05/15/18 13:14 05/15/18 13:17 Temperature Pulse Rate 78 76 77 Respiratory Rate 19 17 14 Blood Pressure 148/66 H 142/67 H 140/63 Pulse Oximetry 96 96 97 05/15/18 13:20 05/15/18 13:23 05/15/18 13:26 Temperature Pulse Rate 80 81 82 Respiratory Rate 20 19 16 Blood Pressure 154/68 H 145/67 H 154/72 H Pulse Oximetry 97 97 97 05/15/18 13:29 05/15/18 13:32 05/15/18 13:33 Temperature Pulse Rate 85 87 87 Respiratory Rate 24 26 H 23 Blood Pressure 157/67 H 180/77 H 169/73 H Pulse Oximetry 97 97 97 05/15/18 13:35 05/15/18 13:38 05/15/18 13:47 Temperature Pulse Rate 87 87 88 Respiratory Rate 25 H 26 H 28 H Blood Pressure 170/70 H 178/74 H 174/57 H Pulse Oximetry 96 96 96 05/15/18 14:00 05/15/18 14:21 05/15/18 15:00 Temperature Pulse Rate 86 79 81 Respiratory Rate 24 21 20 Blood Pressure 170/74 H 154/67 H Pulse Oximetry 96 96 98 05/15/18 15:21 05/15/18 16:00 05/15/18 16:20 Temperature 98.8 F Pulse Rate 78 80 Respiratory Rate 19 19 20 Blood Pressure 153/69 H Pulse Oximetry 98 97 97 05/15/18 16:21 05/15/18 17:00 05/15/18 17:21 Temperature Pulse Rate 83 81 83 Respiratory Rate 22 14 21 Blood Pressure 156/70 H 158/67 H Pulse Oximetry 97 97 96 05/15/18 18:00 05/15/18 18:21 05/15/18 19:00 Temperature Pulse Rate 87 83 83 Respiratory Rate 25 H 27 H 23 Blood Pressure 148/67 H Pulse Oximetry 96 97 97 05/15/18 19:10 05/15/18 19:21 05/15/18 20:00 Temperature 98.6 F Pulse Rate 83 88 Respiratory Rate 24 26 H 26 H Blood Pressure 147/67 H Pulse Oximetry 97 97 97 05/15/18 20:21 05/15/18 21:00 05/15/18 21:21 Temperature Pulse Rate 88 92 H 94 H Respiratory Rate 27 H 33 H 31 H Blood Pressure 151/68 H 152/67 H Pulse Oximetry 96 96 95 05/15/18 22:00 05/15/18 22:10 05/15/18 22:21 Temperature Pulse Rate 85 79 Respiratory Rate 24 23 23 Blood Pressure 117/55 L Pulse Oximetry 94 L 95 95 05/15/18 23:00 05/15/18 23:21 05/15/18 23:37 Temperature Pulse Rate 78 89 Respiratory Rate 21 30 H 25 H Blood Pressure 121/65 Pulse Oximetry 96 95 96 05/16/18 00:00 05/16/18 00:21 05/16/18 01:00 Temperature 98.1 F Pulse Rate 87 84 80 Respiratory Rate 25 H 24 21 Blood Pressure 127/62 Pulse Oximetry 96 96 95 05/16/18 01:21 05/16/18 02:00 05/16/18 02:21 Temperature Pulse Rate 80 75 86 Respiratory Rate 23 20 24 Blood Pressure 133/64 147/70 H Pulse Oximetry 95 96 95 05/16/18 03:00 05/16/18 03:21 05/16/18 04:00 Temperature 98.8 F Pulse Rate 77 81 95 H Respiratory Rate 21 21 25 H Blood Pressure 144/66 H Pulse Oximetry 95 96 93 L 05/16/18 04:21 05/16/18 04:55 05/16/18 05:00 Temperature Pulse Rate 97 H 93 H Respiratory Rate 29 H 27 H 27 H Blood Pressure 143/79 H Pulse Oximetry 94 L 94 L 94 L 05/16/18 05:21 05/16/18 06:00 05/16/18 06:21 Temperature Pulse Rate 88 84 90 Respiratory Rate 22 21 23 Blood Pressure 122/58 L 137/64 Pulse Oximetry 94 L 95 95 Intake & Output 05/15/18 05/16/18 05/16/18 18:59 06:59 18:59 Intake Total 2425 / 2425 532 / 532 Output Total 500 / 500 850 / 850 Balance 1925 / 1925 -318 / -318 Weight 92.6 kg Intake: IV 2024 / 2024 532 / 532 Protonix Inj 80 MG In NS Inj 100 / 100 200 / 200 100 ML @ 10 mls/hr IV.CONT Q10H [facility] Rx#:[id number] Diprivan 1000 mg/100 ml Inj 1, 175 / 175 000 mg In 100 ml @ 5 MCG/KG/MIN 2.376 mls/hr IV.CONT TITRATE PRN Rx#:[id number] KCl 20 mEq Premix Inj 20 meq In 100 / 100 100 ml @ 50 mls/hr IV.SIG ONCE ONE Rx#:[id number] NS Inj 1,000 ML @ 150 mls/hr IV 1750 / 1750 .SIG .Q6H40M [facility] Rx#:[id number] fentaNYL 10 mcg/mL Premix Drip 232 / 232 2,500 mcg In 250 ml @ 50 MCG/HR 5 mls/hr IV.SIG TITRATE PRN Rx #:[id number] Oral 0 / 0 Tube Feeding 0 / 0 Anesthesia Amount 400 / 400 Output: Urine Amount (Catheter) 500 / 500 850 / 850 Indwelling Urethral Catheter 500 / 500 850 / 850 Other: Date of Last Bowel Movement 05/14/18 05/14/18 Result Diagrams: 05/16/18 03:29 05/16/18 03:29 Objective Remarks: - Constitutional Intubated sedated - Routine HEENT Exam Head: Present: normocephalic, atraumatic Eye: Present: PERRL - Routine Neck Exam Present: supple. Absent: JVD, carotid bruit - Routine Respiratory Exam Present: patient mechanically ventilated, few rhonchi, no wheezes. - Routine Cardiovascular Exam Present: RRR, S1, S2, - Routine Abdominal Exam Present: soft, normoactive bowel sounds, no guarding. No tenderness, distended - Routine Extremities Exam Absent: cyanosis, clubbing, edema - Routine Skin Exam Present: intact. Absent: cyanosis, erythema - Routine Neurological Exam Present: Intubated but follows commands. Opens eyes tracks well. Assessment and Plan - Assessment and Plan Plan: Respiratory failure -Intubated for an airway protection -No weaning until hemodynamically stable -Gastroenterology planning for another endoscopy today 05/14/2018 -Consider SBT after repeat EGD -Vent bundle, DuoNeb's as needed -Start spontaneous breathing trials today. Acute GI bleed -Status post emergent EGD -No obvious source identified during procedure, -Monitor H&H, continues to have bloody NG tube output -Transfuse as needed to keep hemoglobin above 7 -Protonix drip -Repeat endoscopy by GI with small ulcer in cardia of stomach, clip applied in base. Diabetes -Insulin sliding scale -Improving control Hypertension -Hold antihypertensive meds due to acute GI bleeding and possible hypotension Anemia -Acute blood loss anemia -Frequent H&H -Transfuse to keep hemoglobin above 7 Acute kidney injury -Dehydration -Volume loss -Aggressive IV fluid hydration -Strict I's and -Monitor creatinine levels, currently stable DVT GI prophylaxis -Teds SCDs -Protonix drip -No pharmacological DVT prophylaxis due to acute GI bleed Overall impression: Stable hemodynamics. Residual sedation finally appears over. Extubated earlier today with acceptable oxygenation but requiring increased fractional concentration. Suddenly developed obtundation and desaturation with unacceptable clearing of the hypopharynx. Required reintubation approximately 2 hours after extubation. Critical Care 40 mins aside from procedures
[2018-05-16] MEDS ORDERED: Midazolam 100 MG/100 ML Inj 100 MG/100 ML BAG IV.CONT PRN (09:00)
[2018-05-16] MEDS: amLODIPine 5 MG Tablet PO SCH (09:01)
--- NOTE | 2018-05-16 10:38 | P.PNFP ---
Subjective Interval history: Remains intubated and sedated. To be weaned off vent today if possible. Results - Labs Result diagrams: 05/16/18 03:29 05/16/18 03:29 Abnormal lab results 05/15/18 05/16/18 05/16/18 Range/Units 12:16 00:07 03:29 Hgb 8.8 L (13.0-17.0) gm/dL Sodium (136-145) meq/L Chloride (98-107) meq/L Carbon Dioxide (21.0-32.0) meq/L BUN (7-18) mg/dL Creatinine (0.60-1.30) mg/dL Estimated GFR (>89) mL/min POC Glucose 153 H 129 H (68-110) mg/dl Random Glucose (74-106) mg/dL Calcium (8.5-10.1) mg/dL Albumin (3.4-5.0) g/dL 05/16/18 05/16/18 Range/Units 03:29 06:12 Hgb (13.0-17.0) gm/dL Sodium 148 H (136-145) meq/L Chloride 118 H (98-107) meq/L Carbon Dioxide 17.5 L (21.0-32.0) meq/L BUN 36 H (7-18) mg/dL Creatinine 1.43 H (0.60-1.30) mg/dL Estimated GFR 48 L (>89) mL/min POC Glucose 159 H (68-110) mg/dl Random Glucose 139 H (74-106) mg/dL Calcium 7.6 L (8.5-10.1) mg/dL Albumin 1.5 L (3.4-5.0) g/dL Short CBC 05/16/18 Range/Units 03:29 Hgb 8.8 L (13.0-17.0) gm/dL BMP 05/16/18 03:29 Sodium 148 H Potassium 3.8 Chloride 118 H Carbon Dioxide 17.5 L BUN 36 H Creatinine 1.43 H Calcium 7.6 L Liver Function 05/16/18 Range/Units 03:29 Albumin 1.5 L (3.4-5.0) g/dL Physical Exam Vital signs: Vital Signs 05/15/18 11:00 05/15/18 11:05 11/16/18 11:08 Temperature Pulse Rate 78 79 81 Respiratory Rate 20 20 23 Blood Pressure 146/64 H 147/67 H Pulse Oximetry 93 L 93 L 93 L 05/15/18 11:11 05/15/18 11:14 05/15/18 11:17 Temperature Pulse Rate 80 81 82 Respiratory Rate 28 H 28 H 29 H Blood Pressure 162/69 H 152/67 H 155/65 H Pulse Oximetry 93 L 92 L 92 L 05/15/18 11:20 05/15/18 11:23 05/15/18 11:26 Temperature Pulse Rate 83 83 84 Respiratory Rate 29 H 30 H 30 H Blood Pressure 150/79 H 158/67 H 159/69 H Pulse Oximetry 92 L 92 L 93 L 05/15/18 11:29 05/15/18 11:32 05/15/18 11:35 Temperature Pulse Rate 84 84 86 Respiratory Rate 31 H 31 H 29 H Blood Pressure 159/72 H 161/61 H 155/67 H Pulse Oximetry 93 L 93 L 93 L 05/15/18 11:38 05/15/18 11:41 05/15/18 11:44 Temperature Pulse Rate 87 88 85 Respiratory Rate 32 H 29 H 23 Blood Pressure 159/67 H 166/68 H 150/66 H Pulse Oximetry 94 L 96 98 05/15/18 11:47 05/15/18 11:50 05/15/18 11:53 Temperature Pulse Rate 80 77 74 Respiratory Rate 22 14 19 Blood Pressure 133/60 123/60 129/58 L Pulse Oximetry 98 98 95 05/15/18 11:56 05/15/18 11:59 05/15/18 12:00 Temperature 100.3 F H Pulse Rate 73 74 75 Respiratory Rate 15 18 19 Blood Pressure 118/59 L 117/56 L Pulse Oximetry 93 L 90 L 90 L 05/15/18 12:02 05/15/18 12:05 05/15/18 12:08 Temperature Pulse Rate 77 79 79 Respiratory Rate 18 24 25 H Blood Pressure 122/59 L 123/57 L 116/60 Pulse Oximetry 90 L 92 L 93 L 05/15/18 12:11 05/15/18 12:14 05/15/18 12:32 Temperature Pulse Rate 81 82 83 Respiratory Rate 26 H 26 H 24 Blood Pressure 149/67 H 152/67 H Pulse Oximetry 93 L 94 L 93 L 05/15/18 12:35 11/16/18 12:38 05/15/18 12:41 Temperature Pulse Rate 83 84 84 Respiratory Rate 27 H 26 H 26 H Blood Pressure 158/68 H 159/67 H 155/72 H Pulse Oximetry 93 L 93 L 93 L 05/15/18 12:44 05/15/18 12:47 05/15/18 12:50 Temperature Pulse Rate 84 86 85 Respiratory Rate 30 H 27 H 25 H Blood Pressure 151/67 H 151/65 H 157/68 H Pulse Oximetry 93 L 93 L 93 L 05/15/18 12:53 05/15/18 12:56 05/15/18 12:59 Temperature Pulse Rate 84 83 83 Respiratory Rate 22 25 H 22 Blood Pressure 143/65 H 150/65 H 150/68 H Pulse Oximetry 94 L 94 L 94 L 05/15/18 13:00 05/15/18 13:02 05/15/18 13:05 Temperature Pulse Rate 83 82 80 Respiratory Rate 23 20 19 Blood Pressure 141/64 H 153/65 H Pulse Oximetry 94 L 94 L 95 05/15/18 13:08 05/15/18 13:11 05/15/18 13:14 Temperature Pulse Rate 79 78 76 Respiratory Rate 18 19 17 Blood Pressure 144/65 H 148/66 H 142/67 H Pulse Oximetry 96 96 96 05/15/18 13:17 05/15/18 13:20 05/15/18 13:23 Temperature Pulse Rate 77 80 81 Respiratory Rate 14 20 19 Blood Pressure 140/63 154/68 H 145/67 H Pulse Oximetry 97 97 97 05/15/18 13:26 05/15/18 13:29 05/15/18 13:32 Temperature Pulse Rate 82 85 87 Respiratory Rate 16 24 26 H Blood Pressure 154/72 H 157/67 H 180/77 H Pulse Oximetry 97 97 97 05/15/18 13:33 05/15/18 13:35 05/15/18 13:38 Temperature Pulse Rate 87 87 87 Respiratory Rate 23 25 H 26 H Blood Pressure 169/73 H 170/70 H 178/74 H Pulse Oximetry 97 96 96 05/15/18 13:47 05/15/18 14:00 05/15/18 14:21 Temperature Pulse Rate 88 86 79 Respiratory Rate 28 H 24 21 Blood Pressure 174/57 H 170/74 H 154/67 H Pulse Oximetry 96 96 96 05/15/18 15:00 05/15/18 15:21 05/15/18 16:00 Temperature 98.8 F Pulse Rate 81 78 80 Respiratory Rate 20 19 19 Blood Pressure 153/69 H Pulse Oximetry 98 98 97 05/15/18 16:20 05/15/18 16:21 05/15/18 17:00 Temperature Pulse Rate 83 81 Respiratory Rate 20 22 14 Blood Pressure 156/70 H Pulse Oximetry 97 97 97 05/15/18 17:21 05/15/18 18:00 05/15/18 18:21 Temperature Pulse Rate 83 87 83 Respiratory Rate 21 25 H 27 H Blood Pressure 158/67 H 148/67 H Pulse Oximetry 96 96 97 05/15/18 19:00 05/15/18 19:10 05/15/18 19:21 Temperature Pulse Rate 83 83 Respiratory Rate 23 24 26 H Blood Pressure 147/67 H Pulse Oximetry 97 97 97 05/15/18 20:00 05/15/18 20:21 05/15/18 21:00 Temperature 98.6 F Pulse Rate 88 88 92 H Respiratory Rate 26 H 27 H 33 H Blood Pressure 151/68 H Pulse Oximetry 97 96 96 05/15/18 21:21 05/15/18 22:00 05/15/18 22:10 Temperature Pulse Rate 94 H 85 Respiratory Rate 31 H 24 23 Blood Pressure 152/67 H Pulse Oximetry 95 94 L 95 05/15/18 22:21 05/15/18 23:00 18 23:21 Temperature Pulse Rate 79 78 89 Respiratory Rate 23 21 30 H Blood Pressure 117/55 L 121/65 Pulse Oximetry 95 96 95 05/15/18 23:37 05/16/18 00:00 05/16/18 00:21 Temperature 98.1 F Pulse Rate 87 84 Respiratory Rate 25 H 25 H 24 Blood Pressure 127/62 Pulse Oximetry 96 96 96 05/16/18 01:00 05/16/18 01:21 05/16/18 02:00 Temperature Pulse Rate 80 80 75 Respiratory Rate 21 23 20 Blood Pressure 133/64 Pulse Oximetry 95 95 96 05/16/18 02:21 05/16/18 03:00 05/16/18 03:21 Temperature Pulse Rate 86 77 81 Respiratory Rate 24 21 21 Blood Pressure 147/70 H 144/66 H Pulse Oximetry 95 95 96 05/16/18 04:00 05/16/18 04:21 05/16/18 04:55 Temperature 98.8 F Pulse Rate 95 H 97 H Respiratory Rate 25 H 29 H 27 H Blood Pressure 143/79 H Pulse Oximetry 93 L 94 L 94 L 05/16/18 05:00 05/16/18 05:21 05/16/18 06:00 Temperature Pulse Rate 93 H 88 84 Respiratory Rate 27 H 22 21 Blood Pressure 122/58 L Pulse Oximetry 94 L 94 L 95 05/16/18 06:21 05/16/18 07:46 05/16/18 08:00 Temperature Pulse Rate 90 100 H Respiratory Rate 23 17 Blood Pressure 137/64 Pulse Oximetry 95 96 Intake & Output 05/15/18 05/16/18 05/16/18 18:59 06:59 18:59 Intake Total 2425 / 2425 532 / 532 Output Total 500 / 500 850 / 850 Balance 1925 / 1925 -318 / -318 Weight 92.6 kg Intake: IV 2024 / 2024 532 / 532 Protonix Inj 80 MG In NS Inj 100 / 100 200 / 200 100 ML @ 10 mls/hr IV.CONT Q10H [facility] Rx#:[id number] Diprivan 1000 mg/100 ml Inj 1, 175 / 175 000 mg In 100 ml @ 5 MCG/KG/MIN 2.376 mls/hr IV.CONT TITRATE PRN Rx#:[id number] KCl 20 mEq Premix Inj 20 meq In 100 / 100 100 ml @ 50 mls/hr IV.SIG ONCE ONE Rx#:[id number] NS Inj 1,000 ML @ 150 mls/hr IV 1750 / 1750 .SIG .Q6H40M [facility] Rx#:[id number] fentaNYL 10 mcg/mL Premix Drip 232 / 232 2,500 mcg In 250 ml @ 50 MCG/HR 5 mls/hr IV.SIG TITRATE PRN Rx #:[id number] Oral 0 / 0 Tube Feeding 0 / 0 Anesthesia Amount 400 / 400 Output: Urine Amount (Catheter) 500 / 500 850 / 850 Indwelling Urethral Catheter 500 / 500 850 / 850 Other: Date of Last Bowel Movement 05/14/18 05/14/18 05/14/18 - Constitutional Comments: intubated and sedated - Routine HEENT Exam Head: Present: normocephalic Eye: Present: PERRL ENT: Present: mucous membranes moist - Routine Neck Exam Present: supple - Routine Respiratory Exam Present: rhonchi. Absent: wheezes - Routine Cardiovascular Exam Present: RRR, S1, S2 - Routine Abdominal Exam Present: soft, normoactive bowel sounds - Routine Extremities Exam Absent: cyanosis - Routine Skin Exam Present: intact - Routine Neurological Exam intubated and sedated - Detailed Neurological Exam: Coma Scale Eye Opening: To sound - Urinary Catheter Management Indwelling Urethral Catheter Cath placed during this visit: yes Reason for continuing: Hourly intake/output Insertion date: 05/12/18 Insertion time: 00:42 Assessment and Plan - Assessment (1) GI (gastrointestinal hemorrhage) Code(s): K92.2 - Gastrointestinal hemorrhage, unspecified Status: Acute Plan: gi following, transfuse as needed follow hgb closely EGD pending today, [id number] 05/16/18 - Hgb stable post EGD yesterday. GI following. (2) Acute kidney injury Code(s): N17.9 - Acute kidney failure, unspecified Status: Acute Plan: Renal following and adjusting fluids and meds (3) CKD (chronic kidney disease) stage 3, GFR 30-59 ml/min Code(s): N18.3 - Chronic kidney disease, stage 3 (moderate) Status: Acute Plan: GFR returned to baseline. Renal following. (4) Acute ischemic left MCA stroke Code(s): I63.512 - Cerebral infarction due to unspecified occlusion or stenosis of left middle cerebral artery Status: Acute - Assessment and Plan 05/12/18- Transferred to ICU yesterday, intubated for airway protection. EGD attempted yesterday, scheduled for repeat today. Received 3 units of Blood, HGB stable currently. [employer] following. 05/13/18- Remains intubated with ventilator support. NG with dark blood, Hgb 8.7 this am received transfusion yesterday, EGD pending in am. [employer] following. 05/14 wean vent follow hgb closely will need snf at discharge 05/15/18- EGD today, plans to extubate after. HGB 7.7 this am, Dark blood, noted via OG. 05/16/18 - Vent wean in progress. Will F/U consultants recommendations.
--- NOTE | 2018-05-16 13:21 | P.PNNP ---
Subjective Interval history: This patient is a 77-year-old male unable to provide me with any history at this time because of his clinical condition. On reviewing the records the patient has a history of diabetes mellitus, hypertension as well as a recent CVA. Also previous renal indices have been abnormal with a creatinine of 1.55 April 16, 2018 suggesting chronic kidney disease also. Patient was admitted to this institution on May 11, 2018 with a GI bleed manifested by hematemesis. Underwent endoscopy but no specific bleeding lesion found although there was mention of gastritis and esophagitis. Scheduled for repeat endoscopy today. Presentation creatinine level 1.84 deteriorating to a level of 2.34 today. Mention of ongoing evidence of GI bleeding. Has been hydrated aggressively overnight with IV fluids and urine output appears to be moving. Metformin is on hold. May 15, 2018: Still intubated on CPAP. Off sedation for several hours but still lethargic. May 16, 2018: Extubated this AM. Lethargic. UOP good. Physical Exam Vital signs: Vital Signs 05/15/18 13:05 05/15/18 13:08 05/15/18 13:11 Temperature Pulse Rate 80 79 78 Respiratory Rate 19 18 19 Blood Pressure 153/65 H 144/65 H 148/66 H Pulse Oximetry 95 96 96 05/15/18 13:14 05/15/18 13:17 05/15/18 13:20 Temperature Pulse Rate 76 77 80 Respiratory Rate 17 14 20 Blood Pressure 142/67 H 140/63 154/68 H Pulse Oximetry 96 97 97 05/15/18 13:23 05/15/18 13:26 05/15/18 13:29 Temperature Pulse Rate 81 82 85 Respiratory Rate 19 16 24 Blood Pressure 145/67 H 154/72 H 157/67 H Pulse Oximetry 97 97 97 05/15/18 13:32 05/15/18 13:33 05/15/18 13:35 Temperature Pulse Rate 87 87 87 Respiratory Rate 26 H 23 25 H Blood Pressure 180/77 H 169/73 H 170/70 H Pulse Oximetry 97 97 96 05/15/18 13:38 05/15/18 13:47 05/15/18 14:00 Temperature Pulse Rate 87 88 86 Respiratory Rate 26 H 28 H 24 Blood Pressure 178/74 H 174/57 H 170/74 H Pulse Oximetry 96 96 96 05/15/18 14:21 05/15/18 15:00 05/15/18 15:21 Temperature Pulse Rate 79 81 78 Respiratory Rate 21 20 19 Blood Pressure 154/67 H 153/69 H Pulse Oximetry 96 98 98 05/15/18 16:00 05/15/18 16:20 18 16:21 Temperature 98.8 F Pulse Rate 80 83 Respiratory Rate 19 20 22 Blood Pressure 156/70 H Pulse Oximetry 97 97 97 05/15/18 17:00 05/15/18 17:21 05/15/18 18:00 Temperature Pulse Rate 81 83 87 Respiratory Rate 14 21 25 H Blood Pressure 158/67 H Pulse Oximetry 97 96 96 05/15/18 18:21 05/15/18 19:00 05/15/18 19:10 Temperature Pulse Rate 83 83 Respiratory Rate 27 H 23 24 Blood Pressure 148/67 H Pulse Oximetry 97 97 97 05/15/18 19:21 05/15/18 20:00 05/15/18 20:21 Temperature 98.6 F Pulse Rate 83 88 88 Respiratory Rate 26 H 26 H 27 H Blood Pressure 147/67 H 151/68 H Pulse Oximetry 97 97 96 05/15/18 21:00 05/15/18 21:21 05/15/18 22:00 Temperature Pulse Rate 92 H 94 H 85 Respiratory Rate 33 H 31 H 24 Blood Pressure 152/67 H Pulse Oximetry 96 95 94 L 05/15/18 22:10 18 22:21 05/15/18 23:00 Temperature Pulse Rate 79 78 Respiratory Rate 23 23 21 Blood Pressure 117/55 L Pulse Oximetry 95 95 96 05/15/18 23:21 05/15/18 23:37 05/16/18 00:00 Temperature 98.1 F Pulse Rate 89 87 Respiratory Rate 30 H 25 H 25 H Blood Pressure 121/65 Pulse Oximetry 95 96 96 05/16/18 00:21 05/16/18 01:00 05/16/18 01:21 Temperature Pulse Rate 84 80 80 Respiratory Rate 24 21 23 Blood Pressure 127/62 133/64 Pulse Oximetry 96 95 95 05/16/18 02:00 05/16/18 02:21 05/16/18 03:00 Temperature Pulse Rate 75 86 77 Respiratory Rate 20 24 21 Blood Pressure 147/70 H Pulse Oximetry 96 95 95 05/16/18 03:21 05/16/18 04:00 05/16/18 04:21 Temperature 98.8 F Pulse Rate 81 95 H 97 H Respiratory Rate 21 25 H 29 H Blood Pressure 144/66 H 143/79 H Pulse Oximetry 96 93 L 94 L 05/16/18 04:55 05/16/18 05:00 05/16/18 05:21 Temperature Pulse Rate 93 H 88 Respiratory Rate 27 H 27 H 22 Blood Pressure 122/58 L Pulse Oximetry 94 L 94 L 94 L 05/16/18 06:00 05/16/18 06:21 05/16/18 07:46 Temperature Pulse Rate 84 90 Respiratory Rate 21 23 17 Blood Pressure 137/64 Pulse Oximetry 95 95 96 05/16/18 08:00 05/16/18 12:00 05/16/18 12:33 Temperature Pulse Rate 100 H 96 H Respiratory Rate Blood Pressure Pulse Oximetry 92 L Intake & Output 05/15/18 05/16/18 05/16/18 18:59 06:59 18:59 Intake Total 2425 / 2425 532 / 532 Output Total 500 / 500 850 / 850 Balance 1925 / 1925 -318 / -318 Weight 92.6 kg Intake: IV 2024 / 2024 532 / 532 Protonix Inj 80 MG In NS Inj 100 / 100 200 / 200 100 ML @ 10 mls/hr IV.CONT Q10H [facility] Rx#:[id number] Diprivan 1000 mg/100 ml Inj 1, 175 / 175 000 mg In 100 ml @ 5 MCG/KG/MIN 2.376 mls/hr IV.CONT TITRATE PRN Rx#:[id number] KCl 20 mEq Premix Inj 20 meq In 100 / 100 100 ml @ 50 mls/hr IV.SIG ONCE ONE Rx#:[id number] NS Inj 1,000 ML @ 150 mls/hr IV 1750 / 1750 .SIG .Q6H40M [facility] Rx#:[id number] fentaNYL 10 mcg/mL Premix Drip 232 / 232 2,500 mcg In 250 ml @ 50 MCG/HR 5 mls/hr IV.SIG TITRATE PRN Rx #:[id number] Oral 0 / 0 Tube Feeding 0 / 0 Anesthesia Amount 400 / 400 Output: Urine Amount (Catheter) 500 / 500 850 / 850 Indwelling Urethral Catheter 500 / 500 850 / 850 Other: Date of Last Bowel Movement 05/14/18 05/14/18 05/14/18 - Constitutional no acute distress - Routine Respiratory Exam Present: diminished air movement - Routine Cardiovascular Exam Present: RRR, S1, S2 - Routine Abdominal Exam Present: soft - Routine Extremities Exam Present: edema (1-2+ pitting extremities) - Routine Neurological Exam Absent: alert - Urinary Catheter Management Indwelling Urethral Catheter Cath placed during this visit: yes Reason for continuing: Hourly intake/output Insertion date: 05/12/18 Insertion time: 00:42 Assessment and Plan - Assessment (1) Acute on chronic renal insufficiency Code(s): N28.9 - Disorder of kidney and ureter, unspecified; N18.9 - Chronic kidney disease, unspecified Status: Acute Plan: Acute on chronic renal insufficiency with baseline SCr around 1.55 as per records. Acute renal insufficiency likely related to hemodynamic factors secondary to ongoing GI bleeding. Renal functions relatively stable. Change IVF to D5 with 100meq bicarb given hypernatremia and continued acidosis. Supplement K+ Diuril 500mg IV X1 given edema. Renal panel in the AM. Medications should be adjusted for the patient's estimated GFR if clinically indicated. Avoid agents with significant potential for nephrotoxicity possible including NSAIDs for analgesia, iodine contrast agents. Gadolinium is contraindicated if the GFR is below 30. (2) CKD (chronic kidney disease) stage 3, GFR 30-59 ml/min Code(s): N18.3 - Chronic kidney disease, stage 3 (moderate) Status: Acute Plan: Most likely related to nephrosclerosis of hypertension and aging with possible superimposed diabetic nephropathy. Myeloma screening underway. (3) Metabolic acidosis Code(s): E87.2 - Acidosis Status: Acute Plan: Secondary to acute renal insufficiency. Bicarb added to IVF (4) Left kidney mass Code(s): N28.89 - Other specified disorders of kidney and ureter Status: Acute Plan: Detected on renal US: left renal mass measuring 4.9cm that is described minimally increased from previous CT in 2016. Will discuss with patient once more alert to see if he is following with urology outpatient. If not, recommend urology consultation as outpatient.
[2018-05-16] MEDS ORDERED: Potassium Chlor 20 mEq Premix 20 MEQ/100 ML PIGGYBACK IV.SIG ONE (13:23)
[2018-05-16] MEDS ORDERED: Chlorothiazide Inj 500 MG Vial IV.PUSH ONE (13:23)
[2018-05-16] MEDS ORDERED: Sodium Bicarbonate 8.4% Inj 100 MEQ in Dextrose 5% in Water Inj 900 ML IV.CONT SCH ×2 (13:30)
[2018-05-16] MEDS ORDERED: Midazolam Inj 5 MG/ML 1 ML Vial ONE (14:25)
--- NOTE | 2018-05-16 14:56 | P.PCN ---
Procedure: Diagnosis: Acute on chronic hypoxemic respiratory failure Procedure: Oral tracheal intubation using #8 tube Narrative: Timeout performed, patient properly identified. Gentle bag mask ventilation with intermittent suction and pharynx. Good air movement bilaterally able to produce oxygen saturation greater than 90%. Intubated orally with a #8 tube. Position confirmed with CO2 detection, bilateral breath sounds, improved oxygen saturation. Chest x-ray obtained following NG tube placement, will review.
--- NOTE | 2018-05-16 15:24 | XR ---
EXAM DATE: 05/16/2018 3:17 PM EST AGE/SEX: 77 years / Male INDICATIONS: Intubation. CLINICAL DATA: This is the patient's subsequent encounter. Patient reports that signs and symptoms h ave been present for 1 day and indicates a pain score of Nonresponsive. MEDICAL/SURGICAL HISTORY: . Hypertension. Diabetes None. [place] [facility] [place]. . FINDINGS: The endotracheal tube has its tip 4 cm above the katy. A nasogastric tube has its tip below the danisha phragm. Diffuse infiltrates are noted bilaterally consistent with worsening pulmonary edema or pneumo merry. Clinical correlation is recommended. The heart is stable. Degenerative changes are noted through out the thoracic spine. CONCLUSION: 1. Diffuse infiltrates are noted bilaterally consistent with worsening pulmonary edema or pneumonia. Clinical correlation is recommended. 2. Degenerative changes are noted throughout the thoracic spine. Electronically signed by: Arthur Abdi MD 05/16/2018 3:22 PM EST
[2018-05-16] MEDS: Propofol 1000 mg/100 ml Inj 1,000 MG/100 ML BOTTLE IV.CONT PRN (17:24)
[2018-05-16 17:53] LABS: ABG Base Excess -9.4 mmol/L (-2-2); ABG PCO2 48 mmHg (38-42); ABG PO2 75 mmHg (61-120)
[2018-05-16] MEDS ORDERED: Sod Chloride 0.9% Inj 1,000 ML IV.SIG ONE (18:05)
[2018-05-16] MEDS ORDERED: Sodium Bicarbonate 8.4% Inj 50 MEQ/50 ML Syringe IV.PUSH ONE (18:06)
[2018-05-16 18:33] LABS: Baso % (Auto) 0.2 % (0.0-2.0); Hematocrit 28.4 % (39.0-51.0); Hemoglobin 9.2 gm/dL (13.0-17.0); Lymph # (Auto) 0.3 th/mm3 (1.0-4.8); Lymph % (Auto) 1.5 % (9.0-44.0); Mean Corpuscular HGB Conc 32.3 % (32.0-36.0); Mean Corpuscular Hemoglobin 30.1 pg (27.0-34.0); Mean Corpuscular Volume 93.3 fL (80.0-100.0); Mean Platelet Volume 7.9 fL (7.0-11.0); Mono # (Auto) 0.8 th/mm3 (0.0-0.9); Mono % (Auto) 3.4 % (0.0-8.0); Neut # (Auto) 21.2 th/mm3 (1.8-7.7); Neut % (Auto) 94.9 % (16.0-70.0); Platelet Count 327 th/mm3 (150-450); Red Blood Count 3.05 mil/mm3 (4.50-5.90); Red Cell Distribution Width 21.5 % (11.6-17.2); White Blood Count 22.3 th/mm3 (4.0-11.0)
[2018-05-16 18:40] LABS: INR 1.2 Ratio; Prothrombin Time 12.3 sec (9.8-11.6)
[2018-05-16 19:09] LABS: Lymphocytes 1 % (9-44); Metamyelocytes 1 % (0-1); Monocytes 3 % (0-8); Tallied Nucleated RBC 1 (0-0)
[2018-05-16 19:10] LABS: Ovalocytes 1+; Platelet Estimate Normal (Normal); Platelet Morphology Normal (Normal)
[2018-05-16] MEDS ORDERED: Chlorhexidine 0.12% Oral Kit 15 ML UDC OROPHARYNG SCH ×2 (20:00)
[2018-05-16] MEDS ORDERED: Famotidine PF Inj 20 MG/2 ML Vial IV.PUSH SCH (21:00)
[2018-05-16] MEDS ORDERED: Famotidine 20 MG Tablet PO SCH (21:00)
[2018-05-16 21:53] VITALS: RESP 26
[2018-05-17] MEDS ORDERED: Oral Hygiene Kit OROPHARYNG SCH
[2018-05-17 00:31] VITALS: BP 122/67; PULSE 100; TEMP 98.7; O2SAT 94
[2018-05-17] MEDS ORDERED: DOPamine 400 MG/250 ML Premix 400 MG/250 ML BAG IV.CONT ONE (03:32)
[2018-05-17] MEDS ORDERED: Atropine Inj 1 MG/10 ML Syringe ONE (03:36)
[2018-05-17] MEDS ORDERED: DOPamine 800 MG/500 ML Premix 800 MG/500 ML PLAST..BAG IV.CONT PRN (03:38)
--- NOTE | 2018-05-17 04:31 | P.PCN ---
Date of procedure: 05/17/18 Pre-op diagnosis: cardiac arrest Post-op diagnosis: same Procedure: CPR: Responded to CODE BLUE cardiac arrest code activation. Patient became bradycardic with non-recordable blood pressure. CPR/ACLS protocol initiated. CPR/ACLS protocol continued however patient remained unresponsive without a pulse. ACLS protocol was stopped at 4:13 AM and patient was declared on 05/17/2018 at 4:13 AM. Please see ACLS code sheet for details. I spoke with patient's family member by phone and informed her regarding patient's expiration and she voiced understanding.
--- NOTE | 2018-05-17 04:33 | P.DN ---
Pronouncement Note - Date and Time of Date of : 05/17/18 Time of : 04:13 - PCOD Preliminary cause of : Cardiac arrest
--- NOTE | 2018-05-17 07:00 | P.DS ---
Date of admission: 05/11/18 10:35 Primary care physician: Travis Lancaster DO Attending physician on discharge: Hu Mixon Brief History from admission: 77-year-old male has been admitted for an evaluation of coffee-ground emesis at home. EMS reports patient had a large amount of coffee-ground emesis at home. Patient denied shortness of breath weakness, nausea, headache or dizziness. EGD due to anemia and GI bleeding was performed on 05/05/[address] Smith. Findings include submucosal lesion at the second port of the duodenum, gastritis in the antrum, esophagitis grade C and hiatal hernia. Patient has a medical history significant for CVA, hypertension, hyperlipidemia , sick sinus syndrome, diabetes, bradycardia and GI bleed on anticoagulation.. Patient currently on aspirin and Plavix 75 mg p.o. daily for past medical history of CVA. Patient is awake and alert, denies abdominal pain. Patient was initially admitted to medicine, however while on the [facility] floor he has developed hematemesis with copious amounts of blood requiring emergent transfer to ICU and required intubation. Patient update on day of discharge: On 05/16/18 the patient developed worsening respiratory distress and required conversion to airway pressure release mode ventilation. Hemoglobin level at that time was not reduced from earlier in the day. Coagulation profile was normal. There was no evidence of recurrent bleeding and the primary pathology appeared to be dense bilateral lung infiltrates. Although requiring markedly elevated fractional inspiratory oxygen concentration, it was not difficult maintaining oxygen saturation greater than 90%. Noteworthy was an accumulating metabolic acidosis for which the patient had been started on a sodium bicarb drip and received intravenous hydration with isotonic solutions earlier in the day. The next morning approximately 10-12 hours later the patient developed a sudden cardiopulmonary arrest from which she could not be resuscitated. The patient was pronounced at 041 3 hours. Family was notified. DS: Diagnosis - Discharge Diagnosis (1) Acute hypoxemic respiratory failure Status: Acute (2) Acute ischemic left MCA stroke Status: Acute (3) Sick sinus syndrome Status: Acute (4) GI (gastrointestinal hemorrhage) Status: Acute (5) Acute kidney injury Status: Acute (6) CKD (chronic kidney disease) stage 3, GFR 30-59 ml/min Status: Acute (7) Metabolic acidosis Status: Acute DS: Summary Hospital Course: 77-year-old male has been admitted for an evaluation of coffee-ground emesis at home. EMS reports patient had a large amount of coffee-ground emesis at home. Patient denied shortness of breath weakness, nausea, headache or dizziness. EGD due to anemia and GI bleeding was performed on 05/05/[address] Smith. Findings include submucosal lesion at the second port of the duodenum, gastritis in the antrum, esophagitis grade C and hiatal hernia. Patient has a medical history significant for CVA, hypertension, hyperlipidemia , sick sinus syndrome, diabetes, bradycardia and GI bleed on anticoagulation.. Patient currently on aspirin and Plavix 75 mg p.o. daily for past medical history of CVA. Patient is awake and alert, denies abdominal pain. Patient was initially admitted to medicine, however while on the [facility] floor he has developed hematemesis with copious amounts of blood requiring emergent transfer to ICU and required intubation. 05/12: Remains critically ill in the ICU on the vent. H&H stable overnight. Hypotension resolved and improved with IV fluid boluses. GI planning for another endoscopy today. 05/13: Requiring increased FiO2. Mechanics acceptable. NG with continued blood. 05/14: Remains intubated sedated with propofol and fentanyl. CT of the head done yesterday night no acute findings. Patient had bloody output from the NG tube. GE GI planning for re-scope today. FiO2 down to 45% 05/15: Hemoglobin has declined modestly, less than 1 g, nasogastric output continues to be dark. The plan is for endoscopy today to reassess upper GI status. Following that we will aim to extubate him as quickly as possible. 05/16: We were unable to extubate yesterday due to residual sedation residual sedation and excessive somnolence. Today he is much more alert and we will start spontaneous breathing trials immediately. Hemoglobin is fine. - Time Spent with Patient Total time spent providing and/or coordinating discharge services: Greater than 30 minutes - Quality: VTE Deep Vein Thrombosis/Pulmonary Embolism Present on Admission: No Exam Vital signs: Vital Signs 05/16/18 07:00 05/16/18 07:21 05/16/18 07:46 Temperature Pulse Rate 102 H 95 H Respiratory Rate 34 H 27 H 17 Blood Pressure 142/65 H Pulse Oximetry 91 L 93 L 96 05/16/18 08:00 05/16/18 08:21 05/16/18 09:00 Temperature 98 F Pulse Rate 90 84 85 Respiratory Rate 25 H 19 15 Blood Pressure 134/60 Pulse Oximetry 96 95 96 05/16/18 09:21 05/16/18 10:00 05/16/18 10:21 Temperature Pulse Rate 89 91 H 94 H Respiratory Rate 18 22 24 Blood Pressure 155/67 H 150/66 H Pulse Oximetry 97 95 94 L 05/16/18 11:00 05/16/18 11:21 05/16/18 12:00 Temperature Pulse Rate 98 H 94 H 100 H Respiratory Rate 26 H 19 26 H Blood Pressure 151/67 H Pulse Oximetry 95 95 94 L 05/16/18 12:21 05/16/18 12:33 05/16/18 13:00 Temperature Pulse Rate 103 H 95 H Respiratory Rate 30 H 28 H Blood Pressure 148/65 H Pulse Oximetry 92 L 92 L 93 L 05/16/18 13:21 05/16/18 14:00 05/16/18 14:21 Temperature Pulse Rate 97 H 141 H 141 H Respiratory Rate 31 H 41 H 37 H Blood Pressure 152/67 H 120/59 L Pulse Oximetry 93 L 91 L 75 L 05/16/18 14:31 05/16/18 14:40 05/16/18 15:00 Temperature Pulse Rate 106 H 108 H Respiratory Rate 12 16 24 Blood Pressure 114/53 L Pulse Oximetry 91 L 100 91 L 05/16/18 15:21 05/16/18 16:00 05/16/18 16:21 Temperature 98 F Pulse Rate 105 H 103 H 93 H Respiratory Rate 30 H 34 H 28 H Blood Pressure 160/67 H 89/49 L Pulse Oximetry 94 L 93 L 92 L 05/16/18 16:40 05/16/18 16:41 05/16/18 17:00 Temperature Pulse Rate 95 H 94 H Respiratory Rate 30 H 29 H Blood Pressure 120/56 L Pulse Oximetry 90 L 90 L 90 L 05/16/18 17:21 05/16/18 18:00 05/16/18 18:21 Temperature Pulse Rate 90 87 90 Respiratory Rate 26 H 25 H 26 H Blood Pressure 98/56 L 103/57 L Pulse Oximetry 91 L 92 L 92 L 05/16/18 19:00 05/16/18 19:21 05/16/18 20:00 Temperature 98.4 F Pulse Rate 105 H 109 H 91 H Respiratory Rate 23 Blood Pressure 166/84 H 100/53 L Pulse Oximetry 99 99 95 05/16/18 20:24 05/16/18 21:00 05/16/18 21:21 Temperature Pulse Rate 90 96 H 97 H Respiratory Rate 26 H 25 H Blood Pressure 100/53 L 134/62 Pulse Oximetry 94 L 98 98 05/16/18 21:25 05/16/18 22:00 05/16/18 22:21 Temperature Pulse Rate 98 H 98 H Respiratory Rate 26 H 26 H 23 Blood Pressure 130/67 Pulse Oximetry 99 95 95 05/16/18 23:00 05/16/18 23:21 05/17/18 00:00 Temperature 98.7 F Pulse Rate 99 H 99 H 99 H Respiratory Rate 26 H 26 H 23 Blood Pressure 119/68 122/67 Pulse Oximetry 96 96 95 05/17/18 00:21 05/17/18 01:09 Temperature Pulse Rate 100 H Respiratory Rate 26 H 26 H Blood Pressure 122/67 Pulse Oximetry 94 L 94 L Intake & Output 05/16/18 05/16/18 05/17/18 06:59 18:59 06:59 Intake Total 532 / 532 755 / 755 1000 / 1000 Output Total 850 / 850 700 / 700 Balance -318 / -318 55 / 55 1000 / 1000 Weight 92.6 kg Intake: IV 532 / 532 725 / 725 1000 / 1000 Protonix Inj 80 MG In NS Inj 200 / 200 100 / 100 100 ML @ 10 mls/hr IV.CONT Q10H [facility] Rx#:[id number] Diprivan 1000 mg/100 ml Inj 1, 100 / 100 000 mg In 100 ml @ 5 MCG/KG/MIN 2.376 mls/hr IV.CONT TITRATE PRN Rx#:[id number] 1/2 Normal Saline Inj 1,000 ML 525 / 525 @ 50 mls/hr IV.CONT .Q20H [facility] Rx#:[id number] KCl 20 mEq Premix Inj 20 meq In 100 / 100 100 ml @ 50 mls/hr IV.SIG ONCE ONE Rx#:[id number] NS Inj 1,000 ML @ Wide Open IV. 1000 / 1000 SIG [facility] Rx#:[id number] fentaNYL 10 mcg/mL Premix Drip 232 / 232 2,500 mcg In 250 ml @ 50 MCG/HR 5 mls/hr IV.SIG TITRATE PRN Rx #:[id number] Oral 30 / 30 Tube Feeding 0 / 0 Output: Urine Amount (Catheter) 850 / 850 600 / 600 Indwelling Urethral Catheter 850 / 850 600 / 600 Gastric Drainage 100 / 100 Orogastric Tube 100 / 100 Other: Date of Last Bowel Movement 05/14/18 05/14/18 Narrative: Results Procedures completed during hospitalization: EGD Intubation and mechanical ventilation Pending studies at discharge: Pending at discharge 05/15/18 14:35 Surgical [PTH] Routine Labs on day of discharge: Labs from last 24 hours 05/16/18 05/16/18 05/16/18 23:26 18:26 18:26 WBC 22.3 H RBC 3.05 L Hgb 9.2 L Hct 28.4 L MCV 93.3 MCH 30.1 MCHC 32.3 RDW 21.5 H Plt Count 327 D MPV 7.9 Prelim Diff (Auto) Slide review pending Neut % (Auto) 94.9 H Lymph % (Auto) 1.5 L Keith % (Auto) 3.4 Eos % (Auto) 0.0 Baso % (Auto) 0.2 Neut # (Auto) 21.2 H Lymph # (Auto) 0.3 L Keith # (Auto) 0.8 Eos # (Auto) 0.0 Baso # (Auto) 0.0 WBC Differential Manual diff final Seg Neuts % (Manual) 70 Band Neuts % (Manual) 25 H Lymphocytes % (Manual) 1 L Monocytes % (Manual) 3 Metamyelocytes % (Man) 1 Abs Neuts (Manual) 21.4 H Nucleated RBCs/100 WBC 1 H Differential Comment . Platelet Estimate Normal Platelet Morphology Normal Ovalocytes 1+ H PT 12.3 H INR 1.2 Puncture Site Patient Temperature O2 Saturation ABG pH ABG pCO2 ABG pO2 ABG HCO3 ABG O2 Content ABG Base Excess ABG Methemoglobin Tyler Test Hemoglobin Carboxyhemoglobin O2 Delivery Device Vent Setting Inspired O2 Critical Value POC Glucose 183 H 05/16/18 05/16/18 05/16/18 17:47 17:42 11:44 WBC RBC Hgb Hct MCV MCH MCHC RDW Plt Count MPV Prelim Diff (Auto) Neut % (Auto) Lymph % (Auto) Keith % (Auto) Eos % (Auto) Baso % (Auto) Neut # (Auto) Lymph # (Auto) Keith # (Auto) Eos # (Auto) Baso # (Auto) WBC Differential Seg Neuts % (Manual) Band Neuts % (Manual) Lymphocytes % (Manual) Monocytes % (Manual) Metamyelocytes % (Man) Abs Neuts (Manual) Nucleated RBCs/100 WBC Differential Comment Platelet Estimate Platelet Morphology Ovalocytes PT INR Puncture Site Right radial Patient Temperature 98.6 O2 Saturation 90 ABG pH 7.19 L* ABG pCO2 48 H ABG pO2 75 ABG HCO3 17 L ABG O2 Content 11.7 L ABG Base Excess -9.4 L ABG Methemoglobin 1.2 Tyler Test Present Hemoglobin 9.1 L Carboxyhemoglobin 1.0 O2 Delivery Device Ventilator Vent Setting Bi-level Inspired O2 80 Critical Value Yes POC Glucose 191 H 161 H - Impressions ITS Impressions Head CT 05/14/18 00:00 CONCLUSION: 1. Stable appearance with mild atrophy. There is no hemorrhage or mass effect. . Abdomen/Bladder Ultrasound 05/14/18 15:40 CONCLUSION: 1. Left renal mass measuring up to 4.9 cm. This is stable to minimally increased from previous CT measurement of 4.6 cm in 2016. No hydronephrosis. Kuhn catheter in decompressed bladder. Chest X-Ray 05/16/18 14:35 CONCLUSION: 1. Diffuse infiltrates are noted bilaterally consistent with worsening pulmonary edema or pneumonia. Clinical correlation is recommended. 2. Degenerative changes are noted throughout the thoracic spine. Discharge Plan - Discharge Disposition Patient Disposition: 20 - Discharge Details Date/Time: 05/17/18 06:45 - Physicians Team Primary Care Provider: Travis Lancaster Attending Provider: Travis Lancaster Other Providers: Elias Rick MD ; Gian Parra MD ; Jarod Amor MD ; [facility],[place] ; [facility],[place]
--- NOTE | 2018-05-17 16:09 | ECG ---
Date Performed: 05/17/2018 Time Performed: 03:48:48 PTAGE: 77 years EKG: Probable atrial tachycardia. IV conduction defect Extensive ST-T changes suggest myocardial injury/ischemia Abnormal ECG PREVIOUS TRACING :05/11/2018 Compared to previous tracing, heart rate is much faster and the ST depression, that was already fairly marked anteriorly and inferiorly is much more prominent anterior ly. Clinical correlation is recommended DOCTOR: Ronen Mcclain Interpretating Date/Time 05/17/2018 16:09:24
[2018-05-19 15:51] LABS: Free Kappa/Lambda Light Chain 0.78 (0.26-1.65); Kappa Light Chain, Free 38.8 mg/L (3.3-19.4); Lambda Light Chain, Free 49.6 mg/L (5.7-26.3)
== END 2018-05-17 06:45 | disposition expired ==
LOC: NEPE 08:46 → NEDA 10:35 → N04 12:52 → N03 17:27
PROVIDERS: ADMIT Family Medicine; ATTEND Family Medicine
PROC: PANENDO (2018-05-11 18:20)